=== PATIENT | male | born 1950 | race Caucasian/White ===

== ENCOUNTER 2018-12-17 23:32 | Inpatient (IN) | payer MEDICARE ==
[~2018-12-17 23:32] MED LIST: ISOVUE-370 76%-LOCM 1 ML ONE
[2018-12-17 23:48] LABS: #Basophils 0.1 thou/uL (0.0-0.2); #Eosinphils 0.3 thou/uL (0.0-0.7); #Lymphocytes 1.6 thou/uL (1.20-3.40); #Monocytes 0.5 thou/uL (0.11-0.59); #Neutrophils 3.1 thou/uL (1.40-6.50); %Basophils 1.3 % (0.0-1.0); %Eosinophils 5.9 % (0.0-10.0); %Lymphocytes 28.7 % (21.0-51.0); %Monocytes 9.4 % (0.0-10.0); %Neutrophils 54.8 % (42.0-75.0); Hemoglobin 15.1 g/dL (14.0-18.0); Mean Corpuscular HGB CONC 32.9 g/dL (32.0-36.0); Mean Corpuscular Volume 91.3 fL (78.0-98.0); Mean Platelet Volume 7.3 fL (7.4-10.4); Platelet Count 196 thou/uL (130-400); RBC Distribution Width 11.5 % (11.5-14.5); Red Blood Cell (RBC) Count 5.04 mill/uL (4.70-6.10); White Blood Cell (WBC) Count 5.6 thou/uL (4.8-10.8)
--- NOTE | 2018-12-17 23:51 | CT ---
CT BRAIN WITHOUT CONTRAST: HISTORY: Stroke alert. Slurred speech. Right arm weakness. COMPARISON: 07/06/2017 FINDINGS: Changes of chronic small vessel ischemic disease are again seen. The ventricular size is stable, and the basilar cisterns are patent. No evidence of acute infarct, hemorrhage, midline shift, or abnorm al extraaxial fluid collections is seen. The bony calvarium is intact. The visualized paranasal sin uses are well aerated. IMPRESSION: No CT evidence of acute intracranial process. Discussed over the telephone with Dr. Wiley at 11:45 p.m. HUMA SIERRA POS: [facility]
[2018-12-17 23:54] LABS: INR-International Normal Ratio 0.9; PTT 29.6 SEC (22.9-36.1); Prothrombin Time 12.4 SEC (12.0-14.7)
[2018-12-18 00:03] LABS: ALT (SGPT) 18 U/L (8-55); AST (SGOT) 19 U/L (5-34); Albumin 4.2 g/dL (3.4-4.8); Alkaline Phosphatase 94 U/L (40-150); Anion Gap 8 mmol/L (10-20); BUN (Urea Nitrogen) 12 mg/dL (8.4-25.7); Bilirubin, Total 0.7 mg/dL (0.2-1.2); CK (CPK) 120 U/L (30-200); Calc. Creatinine Clearance 0 mL/min (70-130); Calcium 9.7 mg/dL (7.8-10.44); Carbon Dioxide 29 mmol/L (23-31); Chloride 104 mmol/L (98-107); Estimated GFR-MDRD 80; Globulin 2.9 g/dL (2.4-3.5); Glucose 105 mg/dL (80-115); Potassium 4.2 mmol/L (3.5-5.1); Protein, Total 7.1 g/dL (5.8-8.1); Sodium 137 mmol/L (136-145)
[2018-12-18 00:23] LABS: Acetaminophen Less than 6.0 mcg/mL (10.0-30.0); Alcohol Less than 10 mg/dL (Less than 10); Salicylate Less than 8.0 mg/dL (15.0-30.0)
[2018-12-18] MEDS ORDERED: Aspirin 300 MG Suppository ONE (00:36)
[2018-12-18] MEDS ORDERED: Nitroglycerin 2% Ointment 1 INCH/1 GM Packet ONE (00:53)
[2018-12-18] MEDS ORDERED: hydrALAZINE 20 MG/ML VIAL SLOW IVP PRN (07:46)
--- NOTE | 2018-12-18 07:49 | CT ---
CTA HEAD WITH IV CONTRAST AND 3D POSTPROCESSING CTA NECK WITH IV CONTRAST AND 3D POSTPROCESSING. FINDINGS: Atherosclerotic vascular calcifications are seen most prominent in the carotid bulbs on either side. There is good flow in the vertebrobasilar and the carotid artery systems bilaterally. N significant stenosis, major branch occlusion, or aneurysmal formation is identified. The visualized paranasal sinuses are well aerated. The alae is patent. Parotid and submandibular gl ands are unremarkable. No cervical lymphadenopathy is seen. There are degenerative changes in the s pine. Discussed over the telephone with ER physician, Dr. Wiley at 12:00 a.m. CODE CR POS: [facility]
[2018-12-18] MEDS: Sodium Chloride 0.9% 1,000 ML IV SCH ×2 (08:30→20:46)
--- NOTE | 2018-12-18 09:35 | HP ---
CHIEF COMPLAINT: Right-sided weakness. HISTORY OF PRESENT ILLNESS: This patient has some encephalopathy, is unable to give a significant amount of history. The patient apparently presented to the emergency department per their records for stroke-like symptoms. Additional history that was obtained by EMS and eventually some family input that indicates the patient was experiencing right-sided weakness and slurred speech. His last known normal had been at 9 o'clock in the morning and he was outside the window for aggressive intervention. The patient was in fact noted to have right-sided weakness and slurred speech consistent with the CVA. Currently, the patient indicates by shaking his head that he does not need anything and that he does have some slight discomfort in his right upper extremity. Per the patient's records, he has a history of hypertension, hyperlipidemia, and a history of bradycardia requiring a pacemaker. PAST SURGICAL HISTORY: Only notable for the pacemaker in 2011. FAMILY HISTORY: His mother had coronary disease and as a result of that. SOCIAL HISTORY: The patient apparently drinks beer. Prior records in 2014 indicated that he drinks 4 to 6 on the weekends, but not during the week. His ER records indicate that he drinks daily. He has a history of smoking, but quit a number of years ago. REVIEW OF SYSTEMS: Not significantly obtainable. The patient only can answer some questions by nodding. Does indicate some discomfort on the right side. ALLERGIES: NONE. CURRENT MEDICATIONS: Not known. Again past records going back to 2014 indicate the patient was on a statin, aspirin, carvedilol, and hydrochlorothiazide, but again these are not known at this time. PHYSICAL EXAMINATION: VITAL SIGNS: Maximum blood pressure in the ER was 230/95. Most recent set of vitals 182/84, pulse 62, respirations 21, and O2 saturation 99% on room air. GENERAL APPEARANCE: The patient appears age appropriate. He is a bit encephalopathic. He does wake up and interact, but is groggy and tends to fall back asleep fairly quickly. HEENT: His pupils are reactive. He has no OP lesions. HEART: Regular without murmurs, gallops, or rubs. LUNGS: Clear to auscultation bilaterally with no wheezes or rales. ABDOMEN: Soft, nondistended. Positive bowel sounds. No evidence of tenderness. No organomegaly. EXTREMITIES: Have no cyanosis, clubbing, or edema. He has good peripheral pulses. SKIN: Slightly clammy on the right hand. Otherwise, warm and dry. NEUROLOGIC: Again, the patient appears to be somewhat encephalopathic. He does follow some commands appropriately others, he attempts, but does not get quite right. He has no movement in his right upper extremity. He does have some movements with what appears to be about a 3/5 strength in the right lower extremity. He appears to have some right facial droop. LABORATORY DATA: White count 5.6, hemoglobin 15.1, platelets 196. PT is 12.4, INR is 0.9. Sodium 137, potassium 4.2, chloride 104, CO2 is 29, BUN 12, creatinine 0.94, glucose 105. AST is 19, ALT 18. CK 120, troponin less than 0.01 with subsequent of less than 0.01 and third is 0.02, albumin 4.2, TSH 1.24. Tox screen negative for salicylates, acetaminophen, or alcohol. CT of the brain shows no evidence of acute intracranial process. CT angio shows atherosclerotic vascular calcifications seen most prominently in the carotid bulbs on either side. Good flow of the vertebrobasilar arteries and carotid systems bilaterally with no significant stenosis, major branch occlusion or aneurysmal formations identified. IMPRESSION AND PLAN: 1. Apparent acute cerebrovascular accident with right facial droop, right upper extremity paralysis, and right leg weakness as well as some metabolic encephalopathy and some expressive aphasia. The patient will be admitted to the stroke floor. We will consult the Stroke team and Neurology. The patient has received 300 mg of aspirin rectally. We will continue that daily. We will also order a statin; however, the patient is not cleared for p.o. at this point. I have discussed the situation with the patient's listed next of kin in the medical record system, which is Haseeb Hyatt at [phone]. He indicates that he is technically not a blood relative; however, the patient has been living with him and he has been caring for him for the last 13 years. The patient apparently does have a brother in [place] and Mr. Hyatt is going to reach out to him. They indicate the patient has not discussed any end of life issues with them, but the family will get back with us once they have had an opportunity to discuss the situation. 2. Hypertension. The patient appears to have some reactive hypertension secondary to the acute cerebrovascular accident. He did receive nitroglycerin paste in the emergency department. His blood pressure currently is high, but acceptable. I have given orders for permissive hypertension p.r.n. medications. 3. History of hyperlipidemia. The patient has history of being on a statin. It is unclear if he is still on that now. I will order some for him, but he is not cleared for p.o. as of yet. 4. History of bradycardia with pacemaker placement, currently appears to have stable heart rate. Job ID: [id number]
[2018-12-18 15:30] VITALS: BMI 26.2
[2018-12-18] MEDS: Aspirin 300 MG Suppository PR SCH (15:43)
[2018-12-18] MEDS: Atorvastatin Calcium 40 MG TAB PO SCH (21:00)
[2018-12-19 05:21] LABS: Cardiac Risk 4.5 (Less than 4.5)
[2018-12-19] MEDS ORDERED: Prevnar 13-Val Conj/PF 0.5 ML SYRINGE IM ONE (09:00)
[2018-12-19] MEDS ORDERED: Pantoprazole 40 MG VIAL IVP SCH (10:00)
[2018-12-19] MEDS: Aspirin 300 MG Suppository PR SCH (10:24)
--- NOTE | 2018-12-19 11:31 | RAD ---
CHEST 1 VIEW: HISTORY: Clots and emesis. COMPARISON: Radiograph of chest 2015. FINDINGS: Heart size is enlarged. Mild pulmonary venous congestion. Small effusions. Dual-lead pacer is gloria lar. No acute osseous abnormality. IMPRESSION: 1. Cardiomegaly and mild pulmonary venous congestion. 2. Left old acromioclavicular injury. POS: [facility]
[2018-12-19] MEDS: Sodium Chloride 0.9% 1,000 ML IV SCH (12:53)
--- NOTE | 2018-12-19 13:40 | CT ---
NONCONTRAST CT HEAD: Date: 12-19-18 History: Follow up stroke. Comparison: 12-17-18 FINDINGS: There is now a low density area seen in the medial aspect of the left temporal lobe compatible with a cute to subacute infarction. There has also been interval development of a low density area within th e left thalamus compatible with acute to subacute lacunar infarction. There is diminished attenuation again present in the periventricular white matter which is nonspecifi c but likely reflective of moderate chronic small vessel ischemic changes. There is mild cerebral volume loss. Ventricular system is normal in size, shape, and position for the degree of sulcal atrophy. There has been no other interval change from the prior exam. IMPRESSION: 1. Acute to subacute infarction in the medial aspect left temporal lobe. 2. Acute to subacute lacunar infarction left thalamus. 3. Chronic small vessel ischemic changes and cerebral volume loss. POS: [facility]
--- NOTE | 2018-12-19 16:59 | RAD ---
TWO VIEWS RIGHT KNEE: 12/19/18 HISTORY: Knee joint effusion. COMPARISON: 02/27/11. FINDINGS: There is tricompartment osteophytosis. There is narrowing of the medial joint compartment. This may b e slightly progressed from the prior exam. No fracture or dislocation is seen on the provided images. There is a small joint effusion of the suprapatellar location. Calcification also overlies the supra patellar joint which was not present on the prior exam. There is subcutaneous soft tissue swelling an terior to the knee. IMPRESSION: 1. Osteoarthritis mildly progressed from prior study in 2010. 2. Small joint effusion suprapatellar location with calcification seen overlying the superior as pect of the joint space of uncertain etiology. 3. Mild subcutaneous soft tissue swelling. 4. Osteopenia. POS: [facility]
--- NOTE | 2018-12-19 17:16 | PRG ---
DATE OF SERVICE: 12/19/2018 SUBJECTIVE The patient is still encephalopathic today, not able to converse much. He is not following commands consistently either. He does try to speak some. OBJECTIVE: VITAL SIGNS: T-max 101.2 this morning, latest 99.8, pulse 83, respirations 22, O2 saturation 97% on room air, and blood pressure 155/67. GENERAL APPEARANCE: Age-appropriate male. He is encephalopathic, tends to be asleep most of the time. Will awaken, mumbles a bit in response to questions, but unintelligible and not significantly following commands at this point. HEART: Regular rate and rhythm without murmurs, gallops, or rubs. LUNGS: Clear to auscultation bilaterally with no wheezes or rales. ABDOMEN: Soft, nontender, and nondistended. Positive bowel sounds. No masses. No organomegaly. EXTREMITIES: No edema. He has an effusion on the right knee, which does not appear to be substantially inflamed. NEUROLOGICAL: Again, the patient is encephalopathic. He is dysarthric, appears to have both some receptive and expressive aphasia. He has apparently pretty dense hemiplegia on the right today. He is not moving his left side much, but he is not understanding the need to do so when verbally asked to do so. LABORATORY DATA: Cholesterol 187, LDL 129, HDL 42. Chest x-ray was negative. There has been some cardiomegaly with mild pulmonary venous congestion. Repeat CT scan of the brain reveals acute to subacute infarction in the medial aspect of the left temporal lobe and acute to subacute lacunar infarct of the left thalamus, chronic small-vessel ischemic change and cerebral volume loss. IMPRESSION AND PLAN: 1. Acute cerebrovascular accident with resultant right hemiplegia, expressive and receptive aphasia, and encephalopathy. The patient is on rectal aspirin. He has statin ordered. It does not look like he is really capable of taking much in the way of p.o. at the moment. He remains n.p.o. and remains on a hydration as a result. Post stroke, the patient appears to be generally stable and his blood pressure is and starting to settle down. 2. Hypertension. The patient had some hypertension response to acute cerebrovascular accident, allowed some hypertension, he is improving. 3. History of hyperlipidemia. He is on statin. 4. History of bradycardia with pacemaker placement. 5. An additional assessment, which is fever. Etiology is unclear. The patient's chest x-ray did not demonstrate evidence of pneumonia or aspiration. He has blood cultures drawn. He also has a urinalysis ordered, but he has had some incontinence, so ultimately need to cath him for that. DISPOSITION: The patient is currently unable to adequately eat or hydrate himself. We will continue with IV fluids and monitoring to see if he will have some recovery in appreciate palliative care working toward establishing surrogate decision maker for the patient at this point. note indicates the patient has three living sisters, who are going to get together and discuss the surrogacy. He has a friend here locally, who has been helpful as well. Job ID: [id number] MTDD
[2018-12-19 18:22] LABS: Bilirubin Negative (Negative); Blood, Urine Moderate (Negative); Clarity CLEAR (Clear); Glucose, Urine (Dipstick) Negative (Negative); Leukocyte Negative (Negative); Nitrite Negative (Negative); Protein, Urine (Dipstick) Trace mg/dL (Neg-Trace); Specific Gravity, Urine 1.016 (1.002-1.036)
[2018-12-19 18:26] LABS: Bacteria/HPF None Seen HPF (None Seen); Hyaline Casts/LPF 0-3 HYALINE CAST LPF (0-3 Hyaline); Pathc Cast-AUWi Flag 0.14 (0-2.49); WBC/HPF 0-3 HPF (0-3)
[2018-12-19 18:30] LABS: Renal Epithelial None Seen HPF (0-3); Transitional Epithelial NONE SEEN HPF (0-3)
[2018-12-19] MEDS: Atorvastatin Calcium 40 MG TAB PO SCH (22:20)
--- NOTE | 2018-12-19 23:22 | CON ---
DATE OF CONSULTATION: 12/19/2018 CONSULTING PHYSICIAN: Hospitalist Service. IMPRESSION: 1. Left temporal and thalamic infarcts secondary to probably primary thrombotic event. 2. History of hypertension. 3. Pacemaker implantation. PLAN: 1. Review echocardiogram. 2. Aspirin 81 mg per day. 3. Statin therapy. HISTORY OF PRESENT ILLNESS: Mr. Munoz is a 68-year-old gentleman who developed left-sided weakness and slurred speech. He came into the emergency room for evaluation. His initial CT scan of the brain did not show any evidence of a bleed. Followup CT of the brain showed evidence of an acute left temporal and basal ganglia infarct. He had some old right subcortical ischemic changes as well. The CTA did not reveal any extracranial stenosis. His cholesterol ratio was 4.5. He does not smoke. He has not had any stroke symptoms recently. PAST MEDICAL HISTORY: Hypertension. ALLERGIES: NONE. SOCIAL HISTORY: Previous tobacco use. Daily alcohol use. FAMILY HISTORY: Noncontributory. MEDICATIONS: Medication list was reviewed. REVIEW OF SYSTEMS: 10-system review of systems is otherwise unremarkable. PHYSICAL EXAMINATION: VITAL SIGNS: Stable. He is afebrile. HEENT: Pupils are equal. Conjunctivae clear. Oropharynx clear. NECK: Supple. No lymphadenopathy. EXTREMITIES: No cyanosis or edema. NEUROLOGIC: He was awake and cooperative. He had a head deviation to the left. His speech was dysarthric. Cranial nerve exam showed flattening of the right nasolabial fold, could not elicit any spontaneous movement in the right arm or the legs. Sensation was subjectively decreased on the right side to light touch. Plantar response was upgoing on the right and downgoing on the left. Gait is not testable. No abnormal movements are seen. LABORATORY DATA: EKG shows a paced rhythm. SUMMARY: A 68-year-old gentleman with a moderate size stroke involving the left temporal and basal ganglia region resulting in some significant neurologic deficits. Start preventative treatment and plan on rehab transfer after his swallow function is determined. Job ID: [id number]
[2018-12-20] MEDS: Sodium Chloride 0.9% 1,000 ML IV SCH ×2 (02:29→17:37)
[2018-12-20] MEDS: Aspirin 300 MG Suppository PR SCH (09:25)
[2018-12-20] MEDS: Pantoprazole 40 MG VIAL IVP SCH (09:28)
[2018-12-20 11:00] LABS: #Eosinphils 0.2 thou/uL (0.0-0.7); #Lymphocytes 0.5 thou/uL (1.20-3.40); #Monocytes 0.6 thou/uL (0.11-0.59); %Basophils 0.3 % (0.0-1.0); %Eosinophils 3.1 % (0.0-10.0); %Lymphocytes 6.2 % (21.0-51.0); %Monocytes 7.6 % (0.0-10.0); %Neutrophils 82.7 % (42.0-75.0); Hemoglobin 14.4 g/dL (14.0-18.0); Mean Corpuscular HGB CONC 32.5 g/dL (32.0-36.0); Mean Corpuscular Hemoglobin 29.8 pg (27.0-31.0); Mean Corpuscular Volume 91.8 fL (78.0-98.0); Mean Platelet Volume 7.4 fL (7.4-10.4); Platelet Count 155 thou/uL (130-400); RBC Distribution Width 11.5 % (11.5-14.5); Red Blood Cell (RBC) Count 4.82 mill/uL (4.70-6.10); White Blood Cell (WBC) Count 7.2 thou/uL (4.8-10.8)
[2018-12-20 11:23] LABS: ALT (SGPT) 10 U/L (8-55); AST (SGOT) 16 U/L (5-34); Albumin 3.5 g/dL (3.4-4.8); Alkaline Phosphatase 86 U/L (40-150); Anion Gap 13 mmol/L (10-20); BUN (Urea Nitrogen) 11 mg/dL (8.4-25.7); Bilirubin, Total 1.1 mg/dL (0.2-1.2); Calc. Creatinine Clearance 87 mL/min (70-130); Carbon Dioxide 26 mmol/L (23-31); Chloride 100 mmol/L (98-107); Estimated GFR-MDRD 84; Globulin 2.8 g/dL (2.4-3.5); Glucose 86 mg/dL (80-115); Potassium 3.8 mmol/L (3.5-5.1); Protein, Total 6.3 g/dL (5.8-8.1); Sodium 135 mmol/L (136-145)
--- NOTE | 2018-12-20 13:24 | CT ---
HEAD CT WITHOUT CONTRAST: Date: 12/20/18 COMPARISON: 12/19/18. HISTORY: Neurostatus changes. TECHNIQUE: Axial CT imaging at 5 mm intervals from vertex through skull base without contrast. FINDINGS: The imaged paranasal sinuses/mastoid air cells are well aerated. There is no displaced calvarial frac ture. There is multifocal periventricular deep and subcortical white matter hypodensity, evidence of small vessel disease. There is loss of saxena-white differentiation with associated cytotoxic edema within the ENGINEERING GEOLOGIST territory on the left, including the left thalamus and left occipital lobe, consistent with an acute/subacute l eft-sided ENGINEERING GEOLOGIST infarction. There is no associated hemorrhage. No significant midline shift or mass eff ect. When compared to the prior head CT performed 12/19/18, the degree of cytotoxic edema within the occipital lobe on the left has significant worsened and the cytotoxic edema within the left thalamus has increased. IMPRESSION: Acute/subacute left ENGINEERING GEOLOGIST infarction with worsening cytotoxic edema. No associated hemorrhage. POS: [facility]
--- NOTE | 2018-12-20 16:31 | PDOC.PN ---
- Subjective Encounter Start Date: 12/20/18 Encounter Start Time: 10:20 More encephalopathic today. Not attempting to talk much. Was up in chair with PT, but still not responding well. - Objective Resuscitation Status - Order Detail: 12/18/18 07:50 Resuscitation Status Routine Resuscitation Status: FULL: Full Resuscitation Vital Signs & Weight: Vital Signs (12 hours) Temp Pulse Pulse Resp BP BP BP 12/20/18 15:54 101.9 F H 80 20 168/74 H 12/20/18 12:08 137/63 12/20/18 12:00 99.6 F 60 16 164/74 H 12/20/18 10:22 76 137/63 12/20/18 08:25 150/68 H 12/20/18 07:46 98.6 F 60 17 150/68 H Pulse Ox 12/20/18 15:54 97 12/20/18 12:08 12/20/18 12:00 96 12/20/18 10:22 12/20/18 08:25 96 12/20/18 07:46 96 Weight Weight 172 lb 11.2 oz I&O: 12/19/18 12/20/18 12/21/18 06:59 06:59 06:59 Intake Total 1320 Balance 1320 Result Diagrams: 12/20/18 10:40 12/20/18 10:40 Phys Exam - Physical Examination Constitutional: NAD Respiratory: no wheezing, no rales, no rhonchi, clear to auscultation bilateral Cardiovascular: RRR, no significant murmur, no rub Gastrointestinal: soft, non-tender, no distention, positive bowel sounds Musculoskeletal: no edema Right hemiplegia, right facial droop. Will squeeze with left hand upon command. Not responding otherwise. Dx/Plan (1) CVA (cerebral vascular accident) Code(s): I63.9 - CEREBRAL INFARCTION, UNSPECIFIED Status: Acute (2) Right hemiplegia Code(s): G81.91 - HEMIPLEGIA, UNSPECIFIED AFFECTING RIGHT DOMINANT SIDE Status : Acute (3) Metabolic encephalopathy Code(s): G93.41 - METABOLIC ENCEPHALOPATHY Status: Acute (4) Fever Code(s): R50.9 - FEVER, UNSPECIFIED Status: Acute (5) Dysphagia Code(s): R13.10 - DYSPHAGIA, UNSPECIFIED Status: Acute (6) Aphasia Code(s): R47.01 - APHASIA Status: Acute - Plan * Worsening neuro status. Increased encephalopathy. * CT shows progression of the infarct (as expected). * Does not look like he will be having significant improvement. * Will very like need PEG if he does not improve by tomorrow. Still NPO. * Will need to discuss with surrogates. * Fever may be central. No other evidence of infection. No leukocytosis. * CXR, UA and blood cultures all negative. Repeat BCx. Rectal tylenol. * Continue therapy.
[2018-12-20] MEDS: Acetaminophen 325 MG Suppository PR PRN (17:37)
[2018-12-20] MEDS: Atorvastatin Calcium 40 MG TAB PO SCH (22:24)
[2018-12-21] MEDS: Sodium Chloride 0.9% 1,000 ML IV SCH ×2 (04:30→16:56)
--- NOTE | 2018-12-21 08:41 | ULT ---
ULTRASOUND WITH DOPPLER DUPLEX VENOUS LOWER EXTREMITY BILATERAL: CPT: 42403 ICD-10-PCS: B54D INDICATION: Fever, pain. TECHNIQUE: Color flow Doppler, spectral waveform analysis of pulsed Doppler, and saxena-scale imaging with kenneth mike and augmentation, were used to evaluate the bilateral common femoral, femoral, popliteal, counselor marriage and family ior tibial, and superficial femoral, veins; and the proximal portions of the profunda femoral and gre ater saphenous, veins. FINDINGS: There is appropriate compressibility and flow within the imaged deep vein system of each visualized l ower extremity. IMPRESSION: No deep venous thrombosis of the visualized bilateral lower extremities. POS: [facility]
[2018-12-21 09:48] LABS: #Eosinphils 0.1 thou/uL (0.0-0.7); #Lymphocytes 0.4 thou/uL (1.20-3.40); #Monocytes 0.6 thou/uL (0.11-0.59); #Neutrophils 3.2 thou/uL (1.40-6.50); %Basophils 0.7 % (0.0-1.0); %Eosinophils 2.9 % (0.0-10.0); %Lymphocytes 9.3 % (21.0-51.0); %Monocytes 13.7 % (0.0-10.0); %Neutrophils 73.4 % (42.0-75.0); Hemoglobin 13.9 g/dL (14.0-18.0); Mean Corpuscular HGB CONC 33.6 g/dL (32.0-36.0); Mean Corpuscular Volume 89.2 fL (78.0-98.0); Mean Platelet Volume 6.9 fL (7.4-10.4); Platelet Count 152 thou/uL (130-400); RBC Distribution Width 11.2 % (11.5-14.5); Red Blood Cell (RBC) Count 4.64 mill/uL (4.70-6.10); White Blood Cell (WBC) Count 4.4 thou/uL (4.8-10.8)
[2018-12-21] MEDS: Pantoprazole 40 MG VIAL IVP SCH (10:52)
[2018-12-21] MEDS: Aspirin 300 MG Suppository PR SCH (10:52)
[2018-12-21] MEDS: Enoxaparin Sodium 40 MG/0.4 ML SYRINGE SC SCH (10:55)
[2018-12-21] MEDS ORDERED: hydrALAZINE 20 MG/ML VIAL SLOW IVP PRN (11:41)
--- NOTE | 2018-12-21 14:00 | CT ---
CT ARTERIOGRAM CHEST WITH IV CONTRAST AND 3D MIP IMAGING: HISTORY: Chest pain. Fever. FINDINGS: There is good contrast opacification of the pulmonary arteries. Bovine origin of the great vessels a t the aortic arch. Nonenlarged, nonspecific lymph nodes throughout the mediastinum. Small hiatal he rnia. Small amount of right pleural fluid. Minimal fluid on the left. Mild associated bibasilar at electasis. No lobar consolidation. A 0.5 cm subpleural nodule is present within the lateral segment right middle lobe. IMPRESSION: 1. No CT evidence of pulmonary embolus. 2. Very small bilateral pleural effusions. 3. Small right middle lobe nodule. Please consider followup CT chest with iv contrast in 6 to 12 mo nths to evaluate for stability. POS: [facility]
--- NOTE | 2018-12-21 14:27 | PDOC.PN ---
- Subjective Encounter Start Date: 12/21/18 Encounter Start Time: 10:05 More awake and alert. Speaking, but still garbled. - Objective Resuscitation Status - Order Detail: 12/18/18 07:50 Resuscitation Status Routine Resuscitation Status: FULL: Full Resuscitation Vital Signs & Weight: Vital Signs (12 hours) Temp Pulse Resp BP BP Pulse Ox 12/21/18 12:15 142/67 H 12/21/18 12:00 142/67 H 12/21/18 11:36 63 187/84 H 12/21/18 11:30 98.4 F 70 20 187/84 H 96 12/21/18 08:30 166/72 H 96 12/21/18 08:00 99.7 F H 61 20 166/72 H 94 L 12/21/18 04:06 165/78 H 12/21/18 04:00 99.7 F H 71 16 165/78 H 93 L Weight Weight 172 lb 11.2 oz I&O: 12/20/18 12/21/18 12/22/18 06:59 06:59 06:59 Intake Total 1320 2597 Balance 1320 2597 Result Diagrams: 12/21/18 09:43 12/20/18 10:40 Phys Exam - Physical Examination Constitutional: NAD Respiratory: no wheezing, no rales, no rhonchi, clear to auscultation bilateral Cardiovascular: RRR, no significant murmur Gastrointestinal: soft, non-tender, no distention, positive bowel sounds Musculoskeletal: no edema Some movement of RUE. RLE still paralyzed. Movement on left. More alert. Appears to comprehend fairly well and respond with nods. Dx/Plan (1) CVA (cerebral vascular accident) Code(s): I63.9 - CEREBRAL INFARCTION, UNSPECIFIED Status: Acute (2) Right hemiplegia Code(s): G81.91 - HEMIPLEGIA, UNSPECIFIED AFFECTING RIGHT DOMINANT SIDE Status : Acute (3) Metabolic encephalopathy Code(s): G93.41 - METABOLIC ENCEPHALOPATHY Status: Acute (4) Fever Code(s): R50.9 - FEVER, UNSPECIFIED Status: Acute (5) Dysphagia Code(s): R13.10 - DYSPHAGIA, UNSPECIFIED Status: Acute (6) Aphasia Code(s): R47.01 - APHASIA Status: Acute (7) Lung nodule seen on imaging study Code(s): R91.1 - SOLITARY PULMONARY NODULE Status: Acute - Plan * Patient appears to have expressive aphasia, but only modest receptive aphasia. He appears to comprehend speech fairly well. * He can answer questions by shaking or nodding his head. * He is ok with PEG. * He says is not close with his sisters and is OK with his local friends being surrogate decision makers for him. * I believe he is competent to make decisions regarding the PEG. I think he understands the situation adequately. * Needs PEG placed and then will need rehab or placement. * Suspect the fevers are central fevers. No evidence of infection or DVT/PE. * Very small lung nodule that will need follow scanning in the future.
[2018-12-21] MEDS ORDERED: Iopamidol 370 76% 100 ML VIAL ONE (16:23)
[2018-12-21] MEDS: Atorvastatin Calcium 40 MG TAB PO SCH (20:45)
[2018-12-21] MEDS: Acetaminophen 325 MG Suppository PR PRN (21:01)
[2018-12-22] MEDS: Sodium Chloride 0.9% 1,000 ML IV SCH ×2 (02:56→19:36)
--- NOTE | 2018-12-22 03:23 | CON ---
DATE OF CONSULTATION: 12/21/2018 REASON FOR CONSULTATION: Oropharyngeal dysphagia, status post CVA. CONSULTING PHYSICIAN: Dr. Sean Romero. HISTORY OF PRESENT ILLNESS: The patient is a 68-year-old male with past medical history of hypertension; hyperlipidemia; and bradycardia, status post pacemaker placement, initially presenting with increased slurred speech and right-sided weakness concerning for cerebrovascular accident. The patient's speech is fairly unintelligible at the current point in time with all information obtained via chart review. Per chart review, the patient was initially admitted to the hospital with complaints of right-sided weakness and slurred speech that was confirmed via family with collaboration. Imaging of head subsequently showed a stroke within the left temporal and basal ganglia region. This had now resulted in significant neurologic defects including an expressive aphasia as well as right-sided weakness. As part of the workup for his stroke, Speech Pathology Service was consulted with a bedside swallow study showing that the patient is unsafe for oral intake of either solid or liquid food and with recommendations to proceed with alternative forms of nutrition intake. At the time of this interview, the patient was able to understand very simple questions, but was unreliable in terms of his ability to understand yes or no and shaking his head to an affirmative or to the negative. Currently, he denies any nausea, vomiting, fevers, chills, or abdominal pain. REVIEW OF SYSTEMS: Reliable review of systems could not be obtained due to the patient's inability to answer questions effectively by nodding. PAST MEDICAL HISTORY: As per HPI. PAST SURGICAL HISTORY: Pacemaker placement in 2011. FAMILY HISTORY: There is no mention of GI malignancies per chart review. SOCIAL HISTORY: Per chart review, the patient was drinking approximately 4 to 6 beers on the weekend, but per more recent review, may have been drinking six pack per day. He does have history of smoking but quit a number of years ago. OUTPATIENT MEDICATIONS: Reviewed. ALLERGIES: NO KNOWN DRUG ALLERGIES. PHYSICAL EXAMINATION: VITAL SIGNS: Temperature 102.3, pulse 81, blood pressure 164/75, respiratory rate 16, saturating 94% on room air. GENERAL: The patient was lying in bed, in no acute distress. Alert and oriented x1, only being able to nod affirmatively to the patient's name. CARDIOVASCULAR: Regular rate and rhythm with no discernible murmurs, gallops, or rubs. RESPIRATORY: Mild end-expiratory wheezes were heard in the bilateral lower lung bases, but otherwise clear to auscultation bilaterally. ABDOMEN: Normoactive bowel sounds. Soft, nontender, and nondistended. EXTREMITIES: Mild contracture of the right upper extremity. No cyanosis, clubbing, or edema. LABORATORY DATA: CBC with a white blood cell count of 4.4, hemoglobin 13.9, hematocrit 41.4, platelets 152. INR 0.9. Chemistry with a sodium of 135, potassium 3.8, chloride 100, CO2 of 26, BUN 11, creatinine 0.9, glucose 86, AST 16, ALT 10, alkaline phosphatase 86, total bilirubin 1.1. IMAGING DATA: CT of the head obtained on 12/18/2018 showed an acute/subacute infarct of the left temporal lobe along with lacunar infarcts and small vessel changes in the cerebrovascular volume or cerebral volume loss. Speech pathology evaluation with bedside swallow study was performed on 12/21/2018 with increased choking and coughing with food intake and the determination that the patient is unsafe for oral intake of any food consistency. ASSESSMENT AND PLAN: The patient is a 68-year-old male with past medical history of hypertension; hyperlipidemia; and bradycardia, status post pacemaker, now presenting with right-sided neurological deficits consistent with left temporal lobe and basal ganglia cerebrovascular accident, also resulting in oropharyngeal dysphasia. Oropharyngeal dysphagia. The patient is presenting with increased right-sided weakness and slurring of speech with CT findings consistent with left temporal lobe and basal ganglia infarct. It has resulted in significant neurological deficits including oropharyngeal dysphagia as determined by the speech pathology service earlier today via bedside swallow study. At this time, the patient is not safe for oral intake of any food of any consistency per their review consistent with severe oropharyngeal dysphagia. At this time, the patient needs to seek alternative modalities and poor nutrition given the significant risk for aspiration. RECOMMENDATIONS: 1. Would continue the patient n.p.o. status given his severe oropharyngeal dysphagia. 2. Please hold any anticoagulation tonight in anticipation of an EGD with PEG tube placement tomorrow. 3. Further recommendations to follow endoscopic placement of gastrostomy tube tomorrow. We will continue to follow. Please call with any questions. Job ID: [id number]
[2018-12-22] MEDS: Acetaminophen 325 MG Suppository PR PRN ×2 (08:12→15:26)
[2018-12-22] MEDS ORDERED: Promethazine HCl 25 MG/ML VIAL IM PRN (09:58)
[2018-12-22] MEDS ORDERED: Ondansetron HCl/PF 4 MG/2 ML Vial IVP PRN (09:58)
[2018-12-22] MEDS ORDERED: Morphine Sulfate 2 MG/ML SYRINGE SLOW IVP PRN (09:58)
[2018-12-22] MEDS ORDERED: Promethazine HCl 25 MG/ML VIAL SLOW IVP PRN (09:58)
[2018-12-22] MEDS: Aspirin 300 MG Suppository PR SCH (10:30)
--- NOTE | 2018-12-22 10:37 | OP ---
DATE OF PROCEDURE: 12/22/2018 PROCEDURE PERFORMED: Esophagogastroduodenoscopy with percutaneous gastrostomy tube placement. INDICATION FOR PROCEDURE: Oropharyngeal dysphagia status post CVA. DESCRIPTION OF PROCEDURE: After the risks and benefits of the procedure were explained to the patient including risks of bleeding, infection, perforation, reactions to anesthesia, aspiration, and/or pain, informed consent was obtained. The patient was then taken to the endoscopy suite, where deep sedation was administered via propofol and anesthesia support. Once adequate sedation was achieved, the standard gastroscope was introduced into the mouth with intubation of the esophagus, stomach, and the proximal small intestine with the findings listed below. Upon completion of the visual examination using one-to-one compression and transillumination, a suitable site for percutaneous gastrostomy tube placement was found. The site was then marked and one pen approximately 5 mL of 1% Xylocaine was instilled in a wheal formation and then directed perpendicular to the skin and advanced into the stomach using back pressure. Upon the needle entering into the stomach, it was withdrawn with installation of the remaining Xylocaine to provide local anesthesia. Once the area was properly anesthetized, a small 1 cm vertical incision was made in the skin in preparation for the gastrostomy tube. Using an aspiration needle, the needle was then advanced into the stomach without difficulty, where a guidewire was fed through the catheter and retrieved with a snare via the endoscope. The snare was then withdrawn through the mouth and affixed to a [employer] 20-Mauritanian percutaneous gastrostomy tube. Using a push technique, the guidewire was then withdrawn through the anterior abdominal wall, pulling the gastrostomy tube in place. The gastrostomy tube was then cut to length and affixed with the adapter. Repeat upper endoscopy confirmed placement of the gastrostomy tube in the gastric body/antral junction with approximately 4 cm showing at the skin. Upon completion of this portion of the procedure, all equipment was removed from the patient, and he was transferred to PACU in satisfactory condition. FINDINGS: Esophagus: Normal-appearing mucosa was seen in the proximal esophagus; however, multiple linear ulcerations were seen extending up from the GE junction proximally from the GE junction around 10 cm consistent with severe reflux mediated erosive esophagitis (LA grade D erosive esophagitis). There was no associated mass or lesions, although some of the mucosa in the distal esophagus appeared to be sloughing off and did exhibit some mild friability and bleeding during the procedure. A small hiatal hernia was also seen in the distal esophagus measuring approximately 2 to 3 cm in size. Otherwise, there were no mass or lesions seen in the esophagus contributing to the above findings. Stomach: Normal-appearing mucosa was seen in the gastric cardia, fundus, body, antrum, greater curvature, and incisura. There was no evidence of erosions, ulcerations, mass, lesions, or active/recent bleeding. A small hiatal hernia was seen on gastric retroflexion. Duodenum: Normal-appearing mucosa was seen in both the duodenal bulb and second portion of the duodenum. There was no evidence of erosions, ulcerations, mass, lesions, or active/recent bleeding. IMPRESSION: 1. LA grade D erosive esophagitis, most likely reflux mediated. 2. Successful placement of a 20-Mauritanian [employer] percutaneous gastrostomy tube. RECOMMENDATIONS: 1. Would place the patient on PPI twice daily for the next 8 to 12 weeks for treatment of the severe reflux esophagitis. 2. Would consult dietitian/Nutrition Services for tube feed recommendations. 3. Standard protocol per PEG tube care. 4. The gastrostomy tube can be used within 6 hours after placement if no evidence of complication. We will continue to follow. Please call with any questions. Job ID: [id number]
[2018-12-22] MEDS: Pantoprazole 40 MG VIAL IVP SCH (11:17)
[2018-12-22] MEDS ORDERED: Lidocaine 1% PF 5 ML VIAL ONE (16:11)
[2018-12-22] MEDS ORDERED: PROPOFOL 200 MG/20 ML VIAL ONE (16:11)
[2018-12-22] MEDS ORDERED: Prevnar 13-Val Conj/PF 0.5 ML SYRINGE IM ONE (20:15)
[2018-12-22] MEDS: Atorvastatin Calcium 40 MG TAB PO SCH (20:51)
[2018-12-22] MEDS: Pantoprazole 40 MG GRANULES PACKET PER TUBE SCH (20:51)
--- NOTE | 2018-12-22 21:05 | PDOC.PN ---
- Subjective Encounter Start Date: 12/22/18 Encounter Start Time: 13:00 About the same. Still difficult to understand his speech. - Objective Resuscitation Status - Order Detail: 12/18/18 07:50 Resuscitation Status Routine Resuscitation Status: FULL: Full Resuscitation Vital Signs & Weight: Vital Signs (12 hours) Temp Pulse Pulse Pulse Resp BP BP 12/22/18 20:00 99.9 F H 74 19 12/22/18 16:00 168/80 H 12/22/18 15:37 100.7 F H 80 17 12/22/18 15:05 77 80 173/79 H 12/22/18 13:50 196/86 H 12/22/18 12:00 165/82 H 12/22/18 10:54 99 F 70 22 H BP BP Pulse Ox 12/22/18 20:00 156/70 H 92 L 12/22/18 16:00 12/22/18 15:37 168/80 H 93 L 12/22/18 15:05 178/77 H 12/22/18 13:50 12/22/18 12:00 12/22/18 10:54 165/82 H 95 Weight Weight 172 lb 11.2 oz I&O: 12/21/18 12/22/18 12/23/18 06:59 06:59 06:59 Intake Total 2597 Output Total 3 Balance 2597 -3 Result Diagrams: 12/21/18 09:43 12/20/18 10:40 Phys Exam - Physical Examination Constitutional: NAD Neck: no nodes Respiratory: no wheezing, no rales, no rhonchi Cardiovascular: RRR, no significant murmur Gastrointestinal: soft, non-tender, no distention, positive bowel sounds PEG in place. Musculoskeletal: no edema Alertness continues to improve. Follows commands. Some movement of RUE. No RLE movement. Expressive aphasia. Dx/Plan (1) CVA (cerebral vascular accident) Code(s): I63.9 - CEREBRAL INFARCTION, UNSPECIFIED Status: Acute (2) Right hemiplegia Code(s): G81.91 - HEMIPLEGIA, UNSPECIFIED AFFECTING RIGHT DOMINANT SIDE Status : Acute (3) Metabolic encephalopathy Code(s): G93.41 - METABOLIC ENCEPHALOPATHY Status: Acute (4) Fever Code(s): R50.9 - FEVER, UNSPECIFIED Status: Acute (5) Dysphagia Code(s): R13.10 - DYSPHAGIA, UNSPECIFIED Status: Acute (6) Aphasia Code(s): R47.01 - APHASIA Status: Acute (7) Lung nodule seen on imaging study Code(s): R91.1 - SOLITARY PULMONARY NODULE Status: Acute (8) Esophagitis Code(s): K20.9 - ESOPHAGITIS, UNSPECIFIED Status: Acute - Plan * CVA with right hemiplegia and expressive aphasia and dysphagia. * Had PEG placed today. Will start using it today. * Had severe esophagitis found on scope with PEG placement today. * PPI BID. * Could be contributing to the low grade fevers. * No evidence of infection. * Could be having some central fever. * Continue therapy. * Will need placement/rehab. * Local friend (Jeromy) established as surrogate decision maker. * Will need follow up imaging of the lung nodule in the future.
[2018-12-23] MEDS: Sodium Chloride 0.9% 1,000 ML IV SCH (09:26)
[2018-12-23] MEDS: Pantoprazole 40 MG GRANULES PACKET PER TUBE SCH ×2 (09:26→20:49)
[2018-12-23] MEDS: Enoxaparin Sodium 40 MG/0.4 ML SYRINGE SC SCH (09:26)
[2018-12-23] MEDS: Aspirin 300 MG Suppository PR SCH (09:26)
[2018-12-23] MEDS ORDERED: Pancrelipase DR 12000 1 CAP FS PRN (16:06)
[2018-12-23] MEDS ORDERED: Sodium Bicarbonate Tab 325 MG TAB PER TUBE PRN (16:06)
--- NOTE | 2018-12-23 17:16 | EKG ---
Test Reason : Blood Pressure : / mmHG Vent. Rate : 070 BPM Atrial Rate : 070 BPM P-R Int : 000 ms QRS Dur : 184 ms QT Int : 486 ms P-R-T Axes : 000 -61 105 degrees QTc Int : 524 ms AV sequential or dual chamber electronic pacemaker Confirmed by HERBERT MOODY MD ([id number]), newspaper photo editor WANG HOBSON ([id number]) on 12/23/2018 5:16:32 PM Referred By: Confirmed By:HERBERT MOODY MD
[2018-12-23] MEDS: Atorvastatin Calcium 40 MG TAB PO SCH (20:48)
--- NOTE | 2018-12-23 22:07 | PRG ---
DATE OF SERVICE: 12/23/2018 SUBJECTIVE: No overnight issues per RN. The patient is tolerating PEG tube feeding. Mentation remains the same. OBJECTIVE: VITAL SIGNS: Temperature 99.1, pulse 64, respirations 20, blood pressure 145/65, and O2 saturation 97% on room air. Telemetry monitoring by my review showed paced rhythm. GENERAL: A 68-year-old male, in no apparent distress. LUNGS: Showed diminished air entry at bases. HEART: S1 and S2 present. Regular. ABDOMEN: Soft. PEG tube present. EXTREMITIES: No calf tenderness. NEUROLOGICAL: No new focal findings. LAB FINDINGS: WBC 4.4 with hemoglobin 13.9 on the 21 of December. BUN was 11, creatinine 0.9. LDL was 129, cholesterol 187. Troponin was negative. IMPRESSION: 1. Encephalopathy due to acute left [employer] distribution cerebrovascular accident. 2. Hypertension. 3. Aphasia secondary to #1. 4. Hyperlipidemia. 5. History of bradycardia, status post pacemaker placement. 6. Chronic kidney disease, stage 2. 7. Swallow dysfunction, status post PEG tube placement. 8. Grade D erosive esophagitis, on Protonix b.i.d. PLAN: We will continue aspirin per Neurology recommendation. We will discontinue IV fluids since the patient is tolerating PEG tube feeding. Continue PPIs b.i.d. Continue therapy. Continue Lovenox for deep venous thrombosis prophylaxis. MRI of the brain could not be done due to pacemaker. Continue Stroke Team followup. The patient will need placement. Job ID: [id number]
--- NOTE | 2018-12-23 23:27 | PRG ---
DATE OF SERVICE: 12/23/2018 REASON FOR CONSULTATION: Oropharyngeal dysphagia, now status post PEG tube placement. SUBJECTIVE: No acute events or problems overnight. The patient was started on tube feeds and was at approximately 60 mL/h at the time of this evaluation. Currently, denies any nausea, vomiting, fevers, chills, or abdominal pain. OBJECTIVE: VITAL SIGNS: Temperature 99.9, pulse 67, blood pressure 118/56, respiratory rate 18, saturating 97% on room air. GENERAL: The patient is lying in bed, in no acute distress. Speech was difficult to understand. CARDIOVASCULAR: Regular rate and rhythm. RESPIRATORY: Clear to auscultation bilaterally. ABDOMEN: Normoactive bowel sounds. Soft, nontender, and nondistended. PEG tube was noted in the left upper quadrant with some dried blood around the stoma site, but no evidence of active bleeding. There was also no evidence of stomal breakdown or purulence. EXTREMITIES: Mild contracture of the right upper extremity. Otherwise, no cyanosis, clubbing, or edema. LABORATORY DATA: No current studies are available for review. IMAGING DATA: The patient underwent EGD with percutaneous gastrostomy tube placement on December 22, 2018, that was uncomplicated. ASSESSMENT AND PLAN: The patient is a 68-year-old male with past medical history of hypertension, hyperlipidemia, bradycardia, status post pacemaker, now presenting with right-sided neurological deficits secondary to a left temporal lobe and basal ganglia cerebrovascular accident resulting in oropharyngeal dysphagia. Oropharyngeal dysphagia. The patient initially presented with increased right-sided weakness and slurring of speech with CT findings consistent with a left temporal lobe and basal ganglia infarct. He was evaluated by Speech Pathology as part of stroke protocol and determined to have significant oropharyngeal dysphagia secondary to the stroke. He underwent EGD with percutaneous gastrostomy tube placement on December 22, 2018, with no perioperative complications and is now currently tolerating tube feeds at 60 mL/h without any adverse affects. RECOMMENDATIONS: 1. Would continue to feeds with goal per dietary recommendations. 2. Continue with standard PEG tube care precautions. We will sign off at this time. Please call with any questions. Job ID: [id number]
[2018-12-24 05:03] LABS: #Eosinphils 0.2 thou/uL (0.0-0.7); #Monocytes 0.5 thou/uL (0.11-0.59); #Neutrophils 2.6 thou/uL (1.40-6.50); %Basophils 0.7 % (0.0-1.0); %Eosinophils 3.9 % (0.0-10.0); %Neutrophils 61.5 % (42.0-75.0); Mean Corpuscular HGB CONC 33.9 g/dL (32.0-36.0); Mean Corpuscular Hemoglobin 30.5 pg (27.0-31.0); Mean Platelet Volume 6.8 fL (7.4-10.4); Platelet Count 169 thou/uL (130-400); RBC Distribution Width 11.2 % (11.5-14.5); Red Blood Cell (RBC) Count 4.58 mill/uL (4.70-6.10); White Blood Cell (WBC) Count 4.3 thou/uL (4.8-10.8)
[2018-12-24 05:24] LABS: Anion Gap 11 mmol/L (10-20); BUN (Urea Nitrogen) 12 mg/dL (8.4-25.7); Calc. Creatinine Clearance 109 mL/min (70-130); Calcium 9.2 mg/dL (7.8-10.44); Carbon Dioxide 28 mmol/L (23-31); Chloride 98 mmol/L (98-107); Estimated GFR-MDRD Greater than 90; Glucose 123 mg/dL (80-115); Magnesium 1.8 mg/dL (1.6-2.6); Phosphorus 2.8 mg/dL (2.3-4.7); Potassium 3.6 mmol/L (3.5-5.1); Sodium 133 mmol/L (136-145)
[2018-12-24] MEDS: Pantoprazole 40 MG GRANULES PACKET PER TUBE SCH (08:37)
[2018-12-24] MEDS: Enoxaparin Sodium 40 MG/0.4 ML SYRINGE SC SCH (08:37)
[2018-12-24] MEDS ORDERED: Aspirin Chewable 81 MG TAB PER TUBE SCH (09:00)
--- NOTE | 2018-12-24 09:43 | PDOC.PN ---
- Subjective Encounter Start Date: 12/24/18 Encounter Start Time: 09:31 -: non-verbal Patient seen and examined for Acute CVA. No acute issues. Tolerated PEG tube feeds. No overnight events - Objective Resuscitation Status - Order Detail: 12/18/18 07:50 Resuscitation Status Routine Resuscitation Status: FULL: Full Resuscitation MAR Reviewed: Yes Vital Signs & Weight: Vital Signs (12 hours) Temp Pulse Resp BP BP Pulse Ox 12/24/18 08:10 138/66 12/24/18 07:47 98.5 F 60 22 H 138/66 94 L 12/24/18 04:02 155/72 H 12/24/18 04:00 99.3 F 61 18 155/72 H 95 12/24/18 00:05 140/73 12/24/18 00:00 99.1 F 70 18 140/73 94 L Weight Weight 172 lb 11.2 oz I&O: 12/23/18 12/24/18 12/25/18 06:59 06:59 06:59 Intake Total 1135 3080 Balance 1135 3080 Result Diagrams: 12/24/18 04:45 12/24/18 04:45 EKG Reviewed by me: Yes (Tele paced) Phys Exam - Physical Examination Constitutional: NAD Respiratory: no wheezing, no rhonchi Cardiovascular: RRR, no rub Gastrointestinal: soft, non-tender, positive bowel sounds Musculoskeletal: no edema Neuro - no new focal findings Dx/Plan - Plan DVT proph w/lovenox, DVT proph w/SCDs IMPRESSION: 1. Encephalopathy due to acute left [employer] distribution cerebrovascular accident. 2. Hypertension. 3. Aphasia secondary to #1. 4. Hyperlipidemia. 5. History of bradycardia, status post pacemaker placement. 6. Chronic kidney disease, stage 2. 7. Swallow dysfunction, status post PEG tube placement. 8. Grade D erosive esophagitis - Protonix b.i.d. PLAN: Cont ASA/Statins Cont PEG tube feeding Cont PPI Await placement Cont other meds as below Review of Systems - Review of Systems Other: Cannot obtain due to current mentation - Medications/Allergies Allergies/Adverse Reactions: Allergies Allergy/AdvReac Type Severity Reaction Status Date / Time No Known Allergies Allergy Verified 01/27/15 01:40 Medications: Current Medications Acetaminophen (Tylenol) 325 mg AK Q4H PRN PRN Reason: Headache/Fever or Pain Last Admin: 12/22/18 15:26 Dose: 325 mg Lipase/Protease/Amylase ([place] [id number]) 1 cap FS .PER PROTOCOL PRN PRN Reason: TUBE OCCLUSION PROTOCOL Aspirin (Aspirin Chewable) 81 mg PER TUBE DAILY [facility] Last Admin: 12/24/18 08:37 Dose: 81 mg Atorvastatin Calcium (Lipitor) 40 mg PO HS [facility] Last Admin: 12/23/18 20:48 Dose: 40 mg Ciprofloxacin (Ciprofloxacin Hcl) 1 drop EA EYE Q4IV-GS [facility] Last Admin: 12/24/18 08:36 Dose: 1 drop Enoxaparin Sodium (Lovenox) 40 mg SC 0900 [facility] Last Admin: 12/24/18 08:37 Dose: 40 mg Hydralazine HCl (Apresoline) 10 mg SLOW IVP Q4H PRN PRN Reason: BP > 180/110 Last Admin: 12/22/18 13:50 Dose: 10 mg Pantoprazole Sodium (Protonix) 40 mg PER TUBE BID [facility] Last Admin: 12/24/18 08:37 Dose: 40 mg Sodium Bicarbonate (Bicarbonate, Sodium) 650 mg PER TUBE .PER PROTOCOL PRN PRN Reason: ENTERAL TUBE OCCLUSION Sodium Chloride (Flush - Normal Saline) 10 ml IVF PRN PRN PRN Reason: Saline Flush Last Admin: 12/19/18 10:28 Dose: 10 ml
[2018-12-24 11:50] VITALS: BP 127/60; TEMP 97.9
--- NOTE | 2018-12-24 16:08 | DIS ---
DATE OF ADMISSION: 12/18/2018 DATE OF DISCHARGE: 12/24/2018 DISCHARGE DISPOSITION: To [facility]. ALLERGIES: NO KNOWN DRUG ALLERGIES. DISCHARGE MEDICATIONS: 1. Tylenol as needed. 2. Aspirin 325 mg daily. 3. Lipitor 40 mg daily. 4. Protonix 40 mg b.i.d. Please note that home medications are still unclear. The patient was seen and examined on the day of discharge. Please refer to my progress notes for detail. BRIEF HOSPITAL COURSE: The patient is a 68-year-old male who presented to the hospital with altered mentation with stroke-like symptoms. His workup was consistent with acute left posterior cerebral artery distribution CVA. He has been started on aspirin per Neurology recommendation. Echocardiogram showed ejection fraction of 45% to 50% with moderately dilated left atrium and mild tricuspid regurgitation. Due to swallowing difficulty, he had a PEG tube placed on December by Dr. Avilez. His EGD also showed grade D erosive esophagitis. He will continue PPI twice daily for next 8 to 12 weeks for treatment of severe reflux esophagitis. He is tolerating PEG tube feeding. Again, his home medications are unclear. FINAL DIAGNOSES: 1. Encephalopathy due to left posterior cerebral artery distribution cerebrovascular accident. 2. Hypertension. 3. Aphasia secondary to encephalopathy. 4. Hyperlipidemia. 5. History of bradycardia, status post pacemaker placement. 6. Chronic kidney disease, stage 2. 7. Swallow dysfunction, status post PEG tube placement. 8. Grade D erosive esophagitis, on Protonix b.i.d. 9. Mild hyponatremia. 10. History of alcohol abuse. 11. Former smoker. Total time coordinating the discharge of this patient was 33 minutes. Job ID: [id number]
[2018-12-25] MEDS ORDERED: Aspirin 325 MG TAB PER TUBE SCH (09:00)
== END 2018-12-24 15:08 | DRG 65 ==
LOC: ERS 23:32 → ERHOLD 12-18 00:45 → 2SE 12-18 13:52
PROVIDERS: ADMIT Hospitalist; ATTEND Hospitalist
PROC: 0DH63UZ Insertion of Feeding Device into Stomach, Percutaneous Approach (ICD-10-PCS; principal; 2018-12-22)
DX: I63.9 Cerebral infarction, unspecified (principal); G93.49 Other encephalopathy; E87.1 Hypo-osmolality and hyponatremia; G81.91 Hemiplegia, unspecified affecting right dominant side; R47.01 Aphasia; R29.810 Facial weakness; E78.5 Hyperlipidemia, unspecified; R13.12 Dysphagia, oropharyngeal phase; K44.9 Diaphragmatic hernia without obstruction or gangrene; K21.0 Gastro-esophageal reflux disease with esophagitis; I12.9 Hypertensive chronic kidney disease with stage 1 through stage 4 chronic kidney disease, or unspecified chronic kidney disease; R40.2132 Coma scale, eyes open, to sound, at arrival to emergency department; R40.2242 Coma scale, best verbal response, confused conversation, at arrival to emergency department; R40.2362 Coma scale, best motor response, obeys commands, at arrival to emergency department; N18.2 Chronic kidney disease, stage 2 (mild); I07.1 Rheumatic tricuspid insufficiency; R50.9 Fever, unspecified; R32 Unspecified urinary incontinence; R91.1 Solitary pulmonary nodule; F10.10 Alcohol abuse, uncomplicated; Z95.0 Presence of cardiac pacemaker; Z87.891 Personal history of nicotine dependence
CPT/HCPCS: 36415; 36416; 70450; 70496; 70498; 71045; 71275; 80048; 80053; 80061; 80307; 81003; 81015; 82550; 83735; 84100; 84443; 84484; 85025; 85610; 85730; 87040; 90471; 90662; 90670; 93005; 93306; 93970; 94760; 96360; 96361; C9113; G0008; G0009; J0360; J1650; J2001; J2704; Q9966; Q9967

== ENCOUNTER 2019-03-16 04:59 | Emergency (ER) | payer MEDICARE ==
[2019-03-16] MEDS ORDERED: Ondansetron PF 4 MG/2 ML Vial ONE (05:36)
[2019-03-16] MEDS ORDERED: Morphine 4 MG/ML VIAL ONE (05:36)
[2019-03-16 05:37] LABS: #Basophils 0.1 thou/uL (0.0-0.2); #Eosinphils 0.3 thou/uL (0.0-0.7); #Lymphocytes 1.7 thou/uL (1.20-3.40); #Monocytes 0.6 thou/uL (0.11-0.59); #Neutrophils 4.2 thou/uL (1.40-6.50); %Basophils 1.1 % (0.0-1.0); %Lymphocytes 24.7 % (21.0-51.0); %Monocytes 8.2 % (0.0-10.0); %Neutrophils 61.1 % (42.0-75.0); Hemoglobin 13.6 g/dL (14.0-18.0); Mean Corpuscular HGB CONC 34.3 g/dL (32.0-36.0); Mean Corpuscular Hemoglobin 30.2 pg (27.0-31.0); Mean Corpuscular Volume 88.1 fL (78.0-98.0); Mean Platelet Volume 7.2 fL (7.4-10.4); Platelet Count 242 thou/uL (130-400); RBC Distribution Width 11.9 % (11.5-14.5); White Blood Cell (WBC) Count 6.8 thou/uL (4.8-10.8)
[2019-03-16 05:50] LABS: ALT (SGPT) 17 U/L (8-55); AST (SGOT) 13 U/L (5-34); Albumin 3.9 g/dL (3.4-4.8); Alkaline Phosphatase 107 U/L (40-150); Anion Gap 11 mmol/L (10-20); BUN (Urea Nitrogen) 15 mg/dL (8.4-25.7); Bilirubin, Total 0.8 mg/dL (0.2-1.2); CRP (Inflammatory) Less than 0.50 mg/dL (= or < 0.5); Calc. Creatinine Clearance 0 mL/min (70-130); Calcium 10.3 mg/dL (7.8-10.44); Carbon Dioxide 29 mmol/L (23-31); Chloride 102 mmol/L (98-107); Estimated GFR-MDRD Greater than 90; Globulin 2.3 g/dL (2.4-3.5); Glucose 90 mg/dL (80-115); Potassium 3.9 mmol/L (3.5-5.1); Protein, Total 6.2 g/dL (5.8-8.1); Sodium 138 mmol/L (136-145)
--- NOTE | 2019-03-16 07:32 | RAD ---
CHEST 1 VIEW: INDICATION: Epigastric abdominal pain. COMPARISON: Prior exam dated 12/19/2018. FINDINGS: There is cardiomegaly which is stable. Pulmonary vasculature is within normal limits. There is a st able dual-lead pacemaker. No pleural effusion or pneumothorax evident. No acute osseous abnormality is evident. IMPRESSION: No acute abnormality. Stable cardiomegaly. POS: BH
--- NOTE | 2019-03-16 08:33 | CT ---
CT ABDOMEN AND PELVIS WITH IV CONTRAST: Date: 03/16/19 INDICATION: Epigastric abdominal pain that began abruptly at 12:00 PM. Pain is localized to a PEG insertion in th e left upper quadrant of the abdomen. The PEG catheter was recently removed. FINDINGS: There is a 5 mm pulmonary nodule in the right middle lobe that is stable to comparison CT examination dated 12/21/18. There is stable calcified granuloma within the right lower lobe. There is bibasilar atelectasis. There is a PEG tube tract site extending from the anterior aspect of the gastric body. No focal fluid collection is seen along this region. Liver, spleen, pancreas, and adrenal glands are normal appearing. Kidneys are normal appearing. No fr ee fluid or enlarged lymph nodes are evident. There is a moderate amount of retained stool within the colon. There is bladder wall thickening with bladder diverticula suspicious for changes of chronic bladder o utlet obstruction. The prostate is enlarged, measuring approximately 3.0 cm. There is a 2.8 and a 2.6 mm stone within the posterior aspect of the bladder, which may reflect bladder calculi. No enlarged lymph nodes or free fluid evident. There is diffuse osteopenia. There is scattered degenerative and osteoarthritic change. IMPRESSION: 1. PEG tube tract within the left upper quadrant of the abdomen without gross evidence of a focal fl uid collection. There is no evidence of extravasation grossly from the PEG tract. 2. Moderate amount of retained stool within the colon. 3. Findings of chronic bladder outlet obstruction with wall thickening and numerous bladder divertic brandt. There are small suspected stones seen along the posterior aspect of the bladder. There is no keerthi dence of hydronephrosis to suggest a recently passed ureteral stone. 4. Prostate enlargement. 5. Right middle lobe pulmonary nodule. POS: BH
[2019-03-16 08:34] LABS: Bilirubin Negative (Negative); Blood, Urine Negative (Negative); Clarity CLEAR (Clear); Glucose, Urine (Dipstick) Negative (Negative); Leukocyte Negative (Negative); Nitrite Negative (Negative); Protein, Urine (Dipstick) Negative (Neg-Trace); Specific Gravity, Urine 1.022 (1.002-1.036)
[2019-03-16] MEDS ORDERED: ISOVUE-370 76%-LOCM 1 ML ONE (10:57)
== END 2019-03-16 10:01 ==
LOC: ERS 04:59
DX: R10.84 Generalized abdominal pain (principal); I10 Essential (primary) hypertension; Z86.73 Personal history of transient ischemic attack (TIA), and cerebral infarction without residual deficits; Z87.891 Personal history of nicotine dependence; Z79.899 Other long term (current) drug therapy; Z79.82 Long term (current) use of aspirin
CPT/HCPCS: 36415; 51701; 71045; 74177; 80053; 81003; 83605; 83690; 84484; 85025; 86140; 87086; 93005; 96361; 96374; 96375; J2270; J2405; Q9966

== ENCOUNTER 2019-08-10 19:37 | Inpatient (IN) | payer MEDICARE, MEDICAID ==
--- NOTE | 2019-08-10 20:52 | RAD ---
EXAM: Chest one view: HISTORY: Back pain COMPARISON: 03/16/2019 FINDINGS: Left ICD. Heart size: Borderline enlarged. Lungs: Increased markings bilaterally possibly mild vascular congestion with little change from prior study. No evidence for pneumonia, pleural effusion, acute edema, or pneumothorax, or other significant acute process. IMPRESSION: No significant acute intrathoracic disease.
[2019-08-10 20:56] LABS: #Basophils 0.1 thou/uL (0.0-0.2); #Eosinphils 0.5 thou/uL (0.0-0.7); #Lymphocytes 2.4 thou/uL (1.20-3.40); #Monocytes 0.8 thou/uL (0.11-0.59); #Neutrophils 4.9 thou/uL (1.40-6.50); %Basophils 0.8 % (0.0-1.0); %Eosinophils 5.3 % (0.0-10.0); %Lymphocytes 27.9 % (21.0-51.0); %Monocytes 8.8 % (0.0-10.0); %Neutrophils 57.2 % (42.0-75.0); Hemoglobin 13.6 g/dL (14.0-18.0); Mean Corpuscular HGB CONC 33.8 g/dL (32.0-36.0); Mean Corpuscular Hemoglobin 29.8 pg (27.0-31.0); Mean Corpuscular Volume 88.1 fL (78.0-98.0); Mean Platelet Volume 7.1 fL (7.4-10.4); Platelet Count 234 thou/uL (130-400); RBC Distribution Width 11.9 % (11.5-14.5); Red Blood Cell (RBC) Count 4.56 mill/uL (4.70-6.10); White Blood Cell (WBC) Count 8.6 thou/uL (4.8-10.8)
[2019-08-10] MEDS ORDERED: Morphine 4 MG/ML VIAL ONE (21:07)
[2019-08-10] MEDS ORDERED: Ondansetron PF 4 MG/2 ML Vial ONE (21:07)
[2019-08-10 21:17] LABS: ALT (SGPT) 19 U/L (8-55); AST (SGOT) 14 U/L (5-34); Albumin 3.9 g/dL (3.4-4.8); Alkaline Phosphatase 130 U/L (40-110); Anion Gap 10 mmol/L (10-20); BUN (Urea Nitrogen) 15 mg/dL (8.4-25.7); Bilirubin, Total 0.4 mg/dL (0.2-1.2); CK (CPK) 55 U/L (30-200); Calc. Creatinine Clearance 0 mL/min (70-130); Calcium 9.5 mg/dL (7.8-10.44); Carbon Dioxide 30 mmol/L (23-31); Chloride 100 mmol/L (98-107); Estimated GFR-MDRD Greater than 90; Globulin 2.6 g/dL (2.4-3.5); Glucose 123 mg/dL (80-115); Lipase 17 U/L (8-78); Potassium 3.9 mmol/L (3.5-5.1); Protein, Total 6.5 g/dL (5.8-8.1); Sodium 136 mmol/L (136-145)
[2019-08-10 21:38] LABS: CKMB 1.9 ng/mL (0-6.6)
--- NOTE | 2019-08-10 22:01 | CT ---
Exam: Chest CTA with 3-D rendering: HISTORY: Chest pain, concern for dissection No significant acute pulmonary parenchymal process. No evidence for aortic aneurysm or dissection. 3 vessel coronary artery calcific disease. No mediastinal mass or adenopathy. No pleural effusion or pericardial effusion. Abdomen CTA with 3-D rendering: No evidence for abdominal aortic aneurysm or dissection. Several small vascular calcified plaques. Vi sualized abdominal viscera is unremarkable. Small hiatal hernia. No renal calculus or acute obstruction. IMPRESSION: No evidence for aortic dissection are other acute process.
[2019-08-10 23:46] LABS: Troponin I Less than 0.010 ng/mL (< 0.028)
[2019-08-11] MEDS ORDERED: Aspirin Chewable 81 MG TAB ONE (00:24)
[2019-08-11 01:14] VITALS: BMI 20.4
--- NOTE | 2019-08-11 02:27 | PDOC.EVN ---
Event Note - Event Note Event Note: [id number] HP
[2019-08-11 03:27] LABS: Troponin I Less than 0.010 ng/mL (< 0.028)
[2019-08-11] MEDS ORDERED: Aspirin 325 MG TAB PO SCH (08:00)
[2019-08-11] MEDS ORDERED: FLU VACC TS2019-20(65YR UP)/PF 180 MCG/0.5 ML SYRINGE IM ONE (09:00)
[2019-08-11] MEDS ORDERED: Prevnar 13-Val Conj/PF 0.5 ML SYRINGE IM ONE (09:00)
[2019-08-11] MEDS ORDERED: Polyethylene Glycol 3350 17 GM Packet PO SCH (12:15)
[2019-08-11] MEDS ORDERED: Bisacodyl 5 MG TAB PO SCH (12:15)
[2019-08-11 13:19] LABS: Bacteria/HPF 4+ HPF (None Seen); Bilirubin Negative (Negative); Blood, Urine Negative (Negative); Clarity Turbid (Clear); Glucose, Urine (Dipstick) Normal (Negative); Leukocyte 500 Leu/uL (Negative); Nitrite Negative (Negative); Protein, Urine (Dipstick) Negative (Neg-Trace); RBC/HPF 0-3 HPF (0-3); Squamous Epithelial None Seen HPF (0-3); Urobilinogen Normal mg/dL (Less than 2); WBC/HPF Greater than 50 HPF (0-3)
[2019-08-11 13:21] LABS: Urine Culture Reflex Yes Yes
[2019-08-11] MEDS: cefTRIAXone\\ROCEPHIN 1 GM in Sodium Chloride 0.9% 100 ML IVPB SCH (18:18)
[2019-08-11] MEDS: Baclofen 10 MG TAB PO PRN (18:19)
--- NOTE | 2019-08-11 20:36 | PDOC.HOSPP ---
- Subjective Encounter Date: 08/11/19 Encounter Time: 10:30 Subjective: pt up in bed has dementia. - Objective Vital Signs & Weight: Vital Signs (12 hours) Temp Pulse Resp BP Pulse Ox 08/11/19 20:00 99.4 F 78 20 109/65 96 08/11/19 16:30 96 08/11/19 15:48 98.4 F 70 15 108/64 96 08/11/19 12:42 95 08/11/19 11:54 98.3 F 72 18 106/65 95 Weight Weight 150 lb 6.4 oz I&O: 08/10/19 08/11/19 08/12/19 06:59 06:59 06:59 Intake Total 100 500 Output Total 150 400 Balance -50 100 Result Diagrams: 08/10/19 20:46 08/10/19 20:46 Hospitalist ROS - Review of Systems Other: unable to obtain - Medication Medications: Active Medications Generic Name Dose Route Start Last Admin Trade Name Freq PRN Reason Stop Dose Admin Baclofen 10 mg 08/11/19 17:17 08/11/19 18:19 Lioresal PO 10 mg BIDPRN PRN Administration Pain Ceftriaxone Sodium 1 gm/ 100 mls @ 200 mls/hr 08/11/19 18:00 08/11/19 18:18 Sodium Chloride IVPB 100 mls Q24HR JAYRO Administration - Exam Neck: negative: supple, symmetric, no JVD, no thyromegaly, no lymphadenopathy, no carotid bruit, JVD Heart: negative: RRR, no murmur, no gallops, no rubs, normal peripheral pulses, irregular, diminshed peripheral pulses, murmur present, II/IV, III/IV Respiratory: negative: CTAB, no wheezes, no rales, no ronchi, normal chest expansion, no tachypnea, normal percussion, rales, rhonchi, tachypneic, wheezes Hosp A/P (1) Generalized pain Code(s): R52 - PAIN, UNSPECIFIED Status: Acute (2) Atrial flutter Code(s): I48.92 - UNSPECIFIED ATRIAL FLUTTER Status: Acute (3) HLD (hyperlipidemia) Code(s): E78.5 - HYPERLIPIDEMIA, UNSPECIFIED Status: Acute (4) HTN (hypertension) Code(s): I10 - ESSENTIAL (PRIMARY) HYPERTENSION Status: Acute (5) UTI (urinary tract infection) Status: Acute - Plan pacemaker indicated aflutter, will get echo to see if his ef has worsen. will give him one dose of AC. will start pt on ceftriaxone.
[2019-08-11] MEDS: Atorvastatin Calcium 40 MG TAB PO SCH (21:25)
[2019-08-11] MEDS: Enoxaparin Sodium 80 MG/0.8 ML SYRINGE SC SCH (21:25)
[2019-08-12] MEDS ORDERED: Aspirin 81 mg Enteric Coated Tablet PO SCH (09:00)
[2019-08-12] MEDS: Aspirin 81 mg Enteric Coated Tablet PO SCH (09:59)
[2019-08-12] MEDS: Enoxaparin Sodium 80 MG/0.8 ML SYRINGE SC SCH (10:03)
--- NOTE | 2019-08-12 14:47 | PDOC.HOSPP ---
- Subjective Encounter Date: 08/12/19 Encounter Time: 14:45 Subjective: f/u for A-flutter with V-pacing and UTI with Strep spp on Rocephin currently. - Objective Vital Signs & Weight: Vital Signs (12 hours) Temp Pulse Resp BP BP BP Pulse Ox 08/12/19 11:30 97.9 F 80 18 116/72 96 08/12/19 08:10 97.9 F 74 18 122/73 97 08/12/19 04:00 98.9 F 80 18 140/74 97 Weight Weight 150 lb 6.4 oz I&O: 08/11/19 08/12/19 08/13/19 06:59 06:59 06:59 Intake Total 100 650 Output Total 150 400 Balance -50 250 Result Diagrams: 08/10/19 20:46 08/10/19 20:46 Additional Labs: Microbiology 08/12/19 03:50 Stool C. difficile GDH Antigen & Toxins - Final 08/11/19 13:21 Urine Straight Catheter Urine Culture - Preliminary Streptococcus agalactiae Gp. B EKG Reviewed by me: Yes (Tele - V-pacing) Hospitalist ROS - Medication Medications: Active Medications Generic Name Dose Route Start Last Admin Trade Name Freq PRN Reason Stop Dose Admin Aspirin 81 mg 08/12/19 09:00 08/12/19 09:59 Ecotrin PO 81 mg DAILY JAYRO Administration Atorvastatin Calcium 40 mg 08/11/19 21:00 08/11/19 21:25 Lipitor PO 40 mg HS JAYRO Administration Baclofen 10 mg 08/11/19 17:17 08/11/19 18:19 Lioresal PO 10 mg BIDPRN PRN Administration Pain Enoxaparin Sodium 70 mg 08/11/19 21:00 08/12/19 10:03 Lovenox SC Not Given 0900,2100 JAYRO Ceftriaxone Sodium 1 gm/ 100 mls @ 200 mls/hr 08/11/19 18:00 08/11/19 18:18 Sodium Chloride IVPB 100 mls Q24HR JAYRO Administration Sertraline HCl 50 mg 08/12/19 09:00 08/12/19 10:03 Zoloft PO Not Given DAILY JAYRO - Exam General Appearance: NAD, awake alert Eye: PERRL, anicteric sclera ENT: normocephalic atraumatic, no oropharyngeal lesions Neck: supple, symmetric, no JVD, no thyromegaly, no lymphadenopathy Heart: RRR, no gallops, no rubs, normal peripheral pulses Respiratory: CTAB, no wheezes, no rales, no ronchi Gastrointestinal: soft, non-tender, non-distended, normal bowel sounds, no palpable masses Extremities: no cyanosis, no clubbing, no edema Skin: normal turgor, no lesions Neurological: cranial nerve grossly intact, no new deficit Musculoskeletal: normal tone, generalized weakness Psychiatric: oriented to person, flat affect Hosp A/P (1) UTI (urinary tract infection) Status: Acute Plan: Group B Strep spp, continue Rocephin another 24h then convert to po option (2) Generalized pain Code(s): R52 - PAIN, UNSPECIFIED Status: Acute Plan: Continue Sertraline, Toradol PRN (3) Atrial flutter Code(s): I48.92 - UNSPECIFIED ATRIAL FLUTTER Status: Acute Qualifiers: Atrial flutter type: atypical Qualified Code(s): I48.4 - Atypical atrial flutter Plan: Non-sustained with spontaneous return to SR, continue Amlodipine, 2D echo pending (4) HTN (hypertension) Code(s): I10 - ESSENTIAL (PRIMARY) HYPERTENSION Status: Chronic Qualifiers: Hypertension type: essential hypertension Qualified Code(s): I10 - Essential (primary) hypertension Plan: Stable currently, resume home BP regimen - Plan continue antibiotics, PT/OT, social media editor, out of bed/ambulate, DVT proph w/ SCDs Stable currently Continue Rocephin another 24h then convert to po option Continue ASA/Lipitor D/C Lovenox CM for coordination of return to [facility]
[2019-08-12] MEDS ORDERED: Simethicone Chewable 80 MG TAB PO PRN (14:57)
[2019-08-12] MEDS: Baclofen 10 MG TAB PO PRN (16:54)
[2019-08-12] MEDS: cefTRIAXone\\ROCEPHIN 1 GM in Sodium Chloride 0.9% 100 ML IVPB SCH (18:49)
[2019-08-12] MEDS: Atorvastatin Calcium 40 MG TAB PO SCH (22:29)
--- NOTE | 2019-08-13 07:55 | HP ---
CHIEF COMPLAINT: Chest pain. HISTORY OF PRESENT ILLNESS: Mr. Munoz is a 68-year-old male with past medical history of CVA, hypertension, pacemaker, among others, presents to the emergency room with chest pain. The patient also reported getting back pains often. Denies shortness of breath, nausea, or vomiting. Denies sweating. The patient has a pacemaker. Workup in the emergency room including troponin was borderline. The patient is being admitted to the hospital for further management. PAST MEDICAL HISTORY: 1. Hypertension. 2. CVA followed by aphasia. PAST SURGICAL HISTORY: 1. Pacemaker. 2. PEG tube, which was removed. SOCIAL HISTORY: The patient is a former smoker, 1.5 packs a day for 15 years. No drug use history. Also, it was reported the patient drinks alcohol daily. ALLERGIES: NO KNOWN ALLERGIES. FAMILY HISTORY: Reviewed and noncontributory. HOME MEDICATIONS: Please see home medication reconciliation form for updated medications. REVIEW OF SYSTEMS: Review of 14 systems negative except what is mentioned in the history of present illness. PHYSICAL EXAMINATION: GENERAL: The patient is awake, alert, does not appear to be in acute distress. VITAL SIGNS: Blood pressure is 122/70, pulse is 80, respiratory rate is 18, temperature is 97.8. HEAD AND NECK: Normocephalic, atraumatic. Neck is supple. No JVD. CHEST: Fair bilateral air entry. HEART: Distant heart sounds. ABDOMEN: Soft, nontender. Bowel sounds present. NEUROLOGIC: Awake and alert. PSYCHIATRIC: Unable to assess. EXTREMITIES: No clubbing, no cyanosis. LABORATORY DATA: WBC is 8.6, hemoglobin 13.6, platelets 234. Sodium 136, potassium 3.9, BUN 15, creatinine 0.8, glucose 123. Troponin 0.032. ASSESSMENT: 1. Acute chest pain. 2. Indeterminate troponin. 3. History of cerebrovascular accident. 4. Hypertension. PLAN: 1. Admit. 2. Telemetry monitoring. 3. Aspirin. 4. Serial cardiac enzymes. 5. Reconcile home medications. 6. DVT prophylaxis, SCDs. 7. Expected length of stay at least 1 midnight if the patient is stable and further workup negative. Job ID: [id number]
[2019-08-13] MEDS ORDERED: Amlodipine 5 MG TAB PO SCH (09:00)
[2019-08-13] MEDS ORDERED: Pantoprazole 40 MG GRANULES PACKET PO SCH (09:00)
[2019-08-13] MEDS ORDERED: Polyethylene Glycol 3350 17 GM Packet PO SCH (09:00)
[2019-08-13] MEDS: Aspirin 81 mg Enteric Coated Tablet PO SCH (09:35)
[2019-08-13] MEDS: Baclofen 10 MG TAB PO PRN (10:00)
[2019-08-13 16:09] VITALS: BP 111/57; TEMP 99.2
--- NOTE | 2019-08-14 08:00 | DIS ---
DATE OF ADMISSION: 08/12/2019 DATE OF DISCHARGE: 08/13/2019 DISCHARGE DIAGNOSES: 1. Urinary tract infection with group B Streptococcus species. 2. Generalized pain, multifactorial. 3. Atrial flutter, nonsustained with spontaneous return to sinus mechanism. 4. Hypertension, stable. 5. Status post cerebrovascular accident with residual aphasia. 6. Deconditioning. CONSULTATIONS: None. PERTINENT LABORATORY AND X-RAY FINDINGS: Basic metabolic profile within normal limits. AST 14, ALT 19, alkaline phosphatase 130. Troponin I ranged between 0.010 to 0.032. CBC showed a white blood cell count 8.6, hemoglobin 14, hematocrit 40, platelet count 234 with normal differential. Urine culture dated 08/11/2019, showed greater than 100,000 colonies of group B Streptococcus agalactiae . C difficile antigen and toxin dated 08/12/2019, negative. CT of the chest with dissection protocol showed no evidence of aortic dissection or acute process. Portable chest x-ray dated 08/10/2019, showed no acute cardiopulmonary process. 2D transthoracic echocardiogram dated 08/12/2019, showed ejection fraction of 40% to 45%. Moderate to severe left atrial enlargement. HOSPITAL COURSE: The patient was initially admitted after presenting with chest and generalized pain. The patient underwent extensive evaluation including metabolic screening and radiographic evaluation. Metabolic screening was essentially unremarkable and the patient received aspirin and resumption of his home medications. The patient's urinalysis was suspicious for infectious process with urine culture confirming greater than 100,000 colonies of Streptococcus species. The patient was treated with IV Rocephin, transitioning to Omnicef with recommendations to complete an outpatient antibiotic course. The patient also underwent interrogation of his pacemaker device showing evidence of intermittent atrial tachycardia, converting to sinus mechanism. No specific changes were performed on the device and overall, the device was deemed functioning appropriately. Overall, the patient did remain clinically stable during the hospital course, tolerating regular oral intake with stable vital signs. I have examined the patient at the time of discharge and discussed followup instructions. The patient clinically stable and ready for discharge on 08/13/2019. DISCHARGE MEDICATIONS: 1. Amlodipine 5 mg p.o. daily. 2. Enteric-coated aspirin 81 mg p.o. daily. 3. Clonidine 0.1 mg p.o. q.6 hours p.r.n. systolic blood pressure greater than or equal to 170. 4. Protonix 40 mg p.o. daily. 5. MiraLAX 17 g p.o. daily. 6. Zoloft 50 mg p.o. daily. 7. Simethicone 80 mg p.o. q.8 hours p.r.n. 8. Lipitor 40 mg p.o. at bedtime. 9. Omnicef 300 mg p.o. b.i.d. x5 days. FOLLOWUP: The patient may follow up with his primary care provider, Dr. Olsen after discharge. CONDITION ON DISCHARGE: Fair. ACTIVITY: Ad-fermin. DIET: Heart healthy. CODE STATUS: Full. DISPOSITION: Discharge to [facility], where the patient is a current resident on 08/13/2019. TIME SPENT: Total time preparing and coordinating discharge is 33 minutes. Job ID: [id number]
== END 2019-08-13 16:51 | DRG 690 ==
LOC: ERS 19:37 → 2SE 22:50 → OBSVTOIN 08-12 14:55
PROVIDERS: ADMIT Internal Medicine; ATTEND Internal Medicine
DX: N39.0 Urinary tract infection, site not specified (principal); I48.92 Unspecified atrial flutter; B95.1 Streptococcus, group B, as the cause of diseases classified elsewhere; I10 Essential (primary) hypertension; R53.81 Other malaise; I69.320 Aphasia following cerebral infarction; Z79.01 Long term (current) use of anticoagulants; Z95.0 Presence of cardiac pacemaker; Z87.891 Personal history of nicotine dependence
CPT/HCPCS: 36415; 71045; 71275; 72191; 74175; 80053; 81001; 82550; 82553; 83690; 84484; 85025; 87077; 87086; 87324; 87449; 90471; 90662; 90670; 93005; 93306; 96374; 96375; G0008; G0009; J0696; J1650; J2270; J2405; J3490

== ENCOUNTER 2019-09-30 16:15 | Inpatient (IN) | payer MEDICARE, MEDICAID ==
[~2019-09-30 16:15] MED LIST changes: +EPINEPHrine 1 MG/10 ML Abboject SYRINGE ONE; -ISOVUE-370 76%-LOCM 1 ML ONE; +Iopamidol-370 76% 500 ML 1 ML ONE; +Magnesium 5 GM/10 ML Abboject SYRINGE ONE; +Rocuronium Bromide 10 MG/ML (10ML VIAL) ONE
--- NOTE | 2019-09-30 16:40 | CT ---
CT BRAIN NONCONTRAST: DATE: 09/30/2019 HISTORY: 69-year-old male with "stroke": Aphasia and left eye deviation COMPARISON: 12/20/2018 FINDINGS: Previously acute or subacute moderately large left TAPER AND FLOATER territory infarction has evolved into encephal omalacia-gliosis from medial left temporal lobe through the left occipital pole. Likewise, patchy 2 cm acute or subacute left thalamic infarction has contracted into a small region o f encephalomalacia and gliosis. Again noted is the small old infarction involving right caudate nucleus and adjacent right bartholomew rad iata-periventricular white matter. At least moderate chronic ischemic white matter changes bilaterally in the cerebrum. No hydrocephalus, mass effect, midline shift, acute intracranial hemorrhage, extra-axial fluid collec tion, or acute calvarial fracture. IMPRESSION: 1) no acute intracranial findings. 2) evolution of the moderately large left posterior cerebral artery territory infarction, now old. 3) Evolution of the left thalamic infarction, now old. 4) small old infarction in right corpus striatum. 5) chronic ischemic white matter changes.
[2019-09-30 16:52] LABS: #Basophils 0.1 thou/uL (0.0-0.2); #Eosinphils 0.3 thou/uL (0.0-0.7); #Lymphocytes 1.4 thou/uL (1.20-3.40); #Monocytes 0.6 thou/uL (0.11-0.59); #Neutrophils 5.5 thou/uL (1.40-6.50); %Basophils 0.6 % (0.0-1.0); %Eosinophils 4.1 % (0.0-10.0); %Lymphocytes 18.1 % (21.0-51.0); %Monocytes 7.8 % (0.0-10.0); %Neutrophils 69.4 % (42.0-75.0); Hemoglobin 13.4 g/dL (14.0-18.0); Mean Corpuscular HGB CONC 33.5 g/dL (32.0-36.0); Mean Corpuscular Hemoglobin 29.6 pg (27.0-31.0); Mean Corpuscular Volume 88.3 fL (78.0-98.0); Mean Platelet Volume 6.8 fL (7.4-10.4); Platelet Count 223 thou/uL (130-400); RBC Distribution Width 11.7 % (11.5-14.5); Red Blood Cell (RBC) Count 4.53 mill/uL (4.70-6.10); White Blood Cell (WBC) Count 7.9 thou/uL (4.8-10.8)
--- NOTE | 2019-09-30 16:57 | CT ---
CT ANGIOGRAM NECK WITH CONTRAST CT ANGIOGRAM BRAIN WITH CONTRAST: DATE: 09/30/2019 HISTORY: 69-year-old male with acute stroke symptoms: Aphasia and left eye deviation TECHNIQUE: After IV contrast injection, arterial bolus chasing technique scan performed from subcarinal mediasti num to vertex of head. Coronal and sagittal 3-D MIP reconstructions. FINDINGS: Brachiocephalic: No high-grade stenosis. Right subclavian: No high-grade stenosis. Right common carotid:. No high-grade stenosis. Cervical right internal carotid: Scattered mild focal calcified plaque at origin. No high-grade steno sis. Right carotid siphon: No high-grade stenosis. Right cervical vertebral: No high-grade stenosis. Left common carotid: Bovine origin from brachiocephalic. No high-grade stenosis. Cervical left internal carotid: Mild to moderate calcified plaque proximally, especially at origin. N o high-grade stenosis. Left carotid siphon: No high-grade stenosis. Left cervical vertebral: No high-grade stenosis. Right intracranial vertebral: Focal moderate stenosis near junction with basilar. Left intracranial vertebral: Occluded beginning at C1 level. Basilar: No high-grade stenosis. Bilateral certified rehabilitation counselor: P1 and P2 segments patent. Bilateral superior cerebellar arteries: Proximal portions patent. Bilateral MCAs: No thrombosis or occlusion of M1 segments. Proximal portion of the left M1 segment is moderate to severely stenotic. IMPRESSION: 1) high-grade stenosis at origin of M1 segment of left middle cerebral artery. 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 Uncertain whether chronic or a cute, but chronic is favored. 3) no high-grade stenosis of carotid arteries. 4) no acute thrombosis or occlusion of M1 segments of middle cerebral arteries.
[2019-09-30 16:59] LABS: INR-International Normal Ratio 1.1; PTT 31.9 SEC (22.9-36.1); Prothrombin Time 14.1 SEC (12.0-14.7)
[2019-09-30 17:06] LABS: ALT (SGPT) 21 U/L (8-55); AST (SGOT) 15 U/L (5-34); Albumin 3.9 g/dL (3.4-4.8); Alkaline Phosphatase 135 U/L (40-110); Anion Gap 9 mmol/L (10-20); BUN (Urea Nitrogen) 18 mg/dL (8.4-25.7); Bilirubin, Total 0.3 mg/dL (0.2-1.2); Calc. Creatinine Clearance 0 mL/min (70-130); Calcium 9.8 mg/dL (7.8-10.44); Carbon Dioxide 33 mmol/L (23-31); Chloride 101 mmol/L (98-107); Estimated GFR-MDRD Greater than 90; Glucose 105 mg/dL (80-115); Potassium 4.1 mmol/L (3.5-5.1); Protein, Total 6.9 g/dL (5.8-8.1); Sodium 139 mmol/L (136-145)
--- NOTE | 2019-09-30 17:49 | RAD ---
PORTABLE CHEST: History: Stroke symptoms. Comparison: 08-10-19 FINDINGS/IMPRESSION: Cardiomegaly. Mild vascular congestion. Dual-lead pacemaker device. No focal infiltrate and no signif icant effusion. POS: AGW
[2019-09-30] MEDS ORDERED: Calcium Carbonate 500 MG ChewTAB PO PRN (19:37)
[2019-09-30] MEDS ORDERED: Bisacodyl 10 MG SUPP PR PRN (19:37)
[2019-09-30] MEDS ORDERED: Ondansetron PF 4 MG/2 ML Vial IVP PRN (19:37)
[2019-09-30] MEDS ORDERED: Ondansetron ODT 4 MG TAB PO PRN (19:37)
[2019-09-30] MEDS ORDERED: hydrALAZINE 20 MG/ML VIAL SLOW IVP PRN (19:40)
--- NOTE | 2019-09-30 20:10 | HP ---
PRIMARY DIGITAL MEDIA DESIGNER: Dr. Gonzalez at [facility]. CHIEF COMPLAINT: Stroke-like symptoms. HISTORY OF PRESENT ILLNESS: The patient is a 69-year-old male with CVA with residual aphasia, physical deconditioning, hypertension, and atrial flutter in the past, presented to the emergency room via EMS with above symptoms. His last hospitalization at this facility was approximately 2 months ago. His workup was consistent with UTI. He also developed atrial flutter, which is spontaneously converted to sinus rhythm. The patient was sent to the emergency room from [facility] with altered mentation along with fixed left-sided gaze per ER report. At this time, the patient is confused and not much information is available from the patient. He has chronic right-sided weakness. He was last seen, baseline around 3:45 pm. He normally is able to communicate; however, earlier today, he would not talk and his mentation was altered. In the emergency room, initial vital signs showed temperature 97.7, respirations of 16, pulse of 80, blood pressure of 149/72, with O2 saturation 97% on room air. His CT scan of the brain was negative for acute findings. CTA of the head and neck showed high-grade stenosis of the left MCA with occlusion of the intracranial portion of the left vertebral artery. He is on aspirin at [facility]. PAST MEDICAL HISTORY: 1. History of CVA with residual right-sided weakness. 2. Hypertension. 3. History of bradycardia, status post pacemaker placement. 4. Chronic kidney disease, stage 2. 5. Speech difficulty. 6. Swallow dysfunction, status post PEG tube in the past. He is currently on mechanical soft diet. 7. GERD. 8. Former smoker. 9. History of alcohol abuse. 10. Vascular dementia. PAST SURGICAL HISTORY: 1. PEG tube placement with subsequent removal. 2. Pacemaker placement. ALLERGIES: NO KNOWN DRUG ALLERGIES. CURRENT HOME MEDICATIONS: Per records from [facility]: 1. Zoloft 50 mg daily. 2. MiraLAX daily. 3. Tylenol as needed. 4. Clonidine as needed. 5. Protonix 40 mg daily. 6. Lipitor 40 mg daily. 7. Aspirin 81 mg daily. 8. Amlodipine 5 mg daily. 9. Simethicone as needed. 10. Milk of magnesia as needed. SOCIAL HISTORY: As discussed above. The patient is full code per review of nursing record. His primary contact is friend, Haseeb Pinzon, cell #[phone]. DPOA to be verified. The patient is usually alert, awake, oriented x2. He is able to recognize family or people. He also gets around with the help of a wheelchair. He sometimes able to feed himself. FAMILY HISTORY: Cannot be obtained from the patient due to current mentation. REVIEW OF SYSTEMS: Cannot be obtained from the patient due to current mentation. PHYSICAL EXAMINATION: VITAL SIGNS: In the emergency room showed temperature 97.7, respirations of 16, pulse of 80, blood pressure of 149/72, and O2 saturation 97% on room air. GENERAL: A 69-year-old male, in no apparent distress. Left-sided gaze preference. HEENT: Head, atraumatic and normocephalic. Sclerae anicteric. Pupils 5 mm bilaterally with sluggish response to light. NECK: Supple. No JVD. No carotid bruit. LUNGS: Showed diminished air entry at bilateral bases. Lungs were symmetrical. No wheezing or rales. HEART: S1 and S2 present. Regular rate and rhythm. No rubs or gallops. ABDOMEN: Soft. Bowel sounds present. No rebound or guarding. EXTREMITIES: No edema or calf tenderness. NEUROLOGICAL: Examination is limited due to current mentation. The patient follows commands to some extent. His NIH is 12. He was able to heel emery buffer with the left hand on verbal commands. His speech is garbled. PSYCHIATRY: As discussed above. LYMPH NODES: No palpable lymph nodes in the neck. PERIPHERAL VASCULAR: Radial pulses palpable bilaterally. MUSCULOSKELETAL: No joint swelling tenderness. SKIN: Warm and dry. LABORATORY FINDINGS: CBC showed WBC 7.9 with hemoglobin 13.4, hematocrit 40, platelet 223. PT, INR, PTT normal range. Chemistry showed sodium 139, potassium 4.1, chloride 101, bicarb 33, BUN 18, creatinine 0.8. LFTs in normal range except for alkaline phosphatase 135. Troponin was negative. CT scan of the brain by my review was negative for acute CVA. It showed moderate large left TECHNOLOGY SALES CONSULTANT territory infarction, which is old. Chest x-ray by my review was negative for infiltrate. CT angiogram of the head and neck as discussed above. EKG by my review showed paced rhythm. IMPRESSION: 1. Encephalopathy, suspected to be secondary to acute cerebrovascular accident. 2. History of cerebrovascular accident with residual left-sided weakness and speech difficulty. 3. Physical deconditioning. 4. Sick sinus syndrome, status post pacemaker. 5. Hypertension. 6. Gastroesophageal reflux disease with history of grade D erosive esophagitis. 7. Swallow dysfunction with PEG tube placement with subsequent removal. 8. Vascular dementia. 9. Former smoker. 10. History of alcohol abuse. 11. Hyperlipidemia. 12. Chronic anemia. 13. Dehydration. PLAN: The patient will be monitored in the stroke unit. Neurology will be consulted. We will continue aspirin. We will try to obtain MRI if the patient allows. We will get fasting lipid profile in a.m. Continue statins along with amlodipine and aspirin. Resume Zoloft. Add p.r.n. medications. Stroke team consultation. Gentle IV hydration. Plan of care was discussed with the patient in detail. We will discuss the plan with the family when they arrive. Job ID: [id number]
[2019-10-01] MEDS: Atorvastatin Calcium 40 MG TAB PO SCH ×2 (00:17→21:54)
[2019-10-01] MEDS: Dextrose 5 %-0.45 % NaCl 1,000 ML IV SCH ×3 (00:17→20:01)
[2019-10-01 04:49] LABS: #Eosinphils 0.1 thou/uL (0.0-0.7); #Lymphocytes 0.8 thou/uL (1.20-3.40); #Monocytes 0.6 thou/uL (0.11-0.59); #Neutrophils 8.4 thou/uL (1.40-6.50); %Basophils 0.1 % (0.0-1.0); %Eosinophils 0.8 % (0.0-10.0); %Monocytes 5.8 % (0.0-10.0); %Neutrophils 85.3 % (42.0-75.0); Hemoglobin 13.2 g/dL (14.0-18.0); Mean Corpuscular HGB CONC 33.4 g/dL (32.0-36.0); Mean Corpuscular Hemoglobin 29.3 pg (27.0-31.0); Mean Corpuscular Volume 87.7 fL (78.0-98.0); Mean Platelet Volume 6.8 fL (7.4-10.4); Platelet Count 209 thou/uL (130-400); RBC Distribution Width 11.7 % (11.5-14.5); White Blood Cell (WBC) Count 9.9 thou/uL (4.8-10.8)
[2019-10-01 05:17] LABS: ALT (SGPT) 19 U/L (8-55); AST (SGOT) 13 U/L (5-34); Albumin 3.8 g/dL (3.4-4.8); Alkaline Phosphatase 130 U/L (40-110); Anion Gap 8 mmol/L (10-20); BUN (Urea Nitrogen) 17 mg/dL (8.4-25.7); Bilirubin, Total 0.5 mg/dL (0.2-1.2); Calc. Creatinine Clearance 92 mL/min (70-130); Carbon Dioxide 32 mmol/L (23-31); Cardiac Risk 3.6 (Less than 4.5); Chloride 102 mmol/L (98-107); Cholesterol 127 mg/dl (< 200 Desired); Estimated GFR-MDRD Greater than 90; Globulin 2.8 g/dL (2.4-3.5); Glucose 186 mg/dL (80-115); HDL Cholesterol 35 mg/dL (>60 Neg Risk); LDL Cholesterol, Calculated 81 mg/dL; Magnesium 1.8 mg/dL (1.6-2.6); Potassium 3.8 mmol/L (3.5-5.1); Protein, Total 6.6 g/dL (5.8-8.1); Sodium 138 mmol/L (136-145); Triglycerides 55 mg/dL (Less than 150)
[2019-10-01 07:27] LABS: Actual Bicarbonate (HCO3a) 28.7 mEq/L (22-28); Base Excess (BEa) 2.7 mEq/L (-2.0 to +3.0); CO2 Tension 49.9 mmHg (35.0-45.0); Calcium, Ionized 1.27 mmol/L (1.12-1.30); Carboxyhemoglobin (COHb) 0.9 gm% (0.0-3.0); Potassium - ABG Lab 3.49 mmol/L (3.70-5.30); pH, Arterial 7.38 (7.35-7.45)
[2019-10-01 07:33] LABS: O2 Tension (PaO2) 52.6 mmHg (> 80.0)
[2019-10-01 07:34] LABS: Puncture Site RBRACH
--- NOTE | 2019-10-01 07:42 | RAD ---
Chest one view HISTORY: Pneumonia. Aspiration. COMPARISON: 09/30/2019. FINDINGS: Cardiac silhouette is magnified and slightly enlarged. Patient is slightly rotated leftward . Dual lead left subclavian cardiac electronic device remains in place. Lungs remain hyperinflated. Subtle increase in parenchymal opacity projecting over the right lower lo be without lobar consolidation. No evidence of pneumothorax. monitoring specialist leads overlie the chest. IMPRESSION: Developing infiltrate right lower lobe. Please consider continued radiographic follow-up. Cardiomegaly.
[2019-10-01] MEDS ORDERED: Enoxaparin Sodium 40 MG/0.4 ML SYRINGE SC SCH (09:00)
[2019-10-01] MEDS: methylPREDNISolone Sod Succ 40 MG VIAL IVP SCH ×2 (09:38→20:02)
[2019-10-01] MEDS: Piperacillin/Tazobactam 3.375 GM in Sodium Chloride 0.9% 100 ML IVPB SCH ×3 (09:39→21:55)
[2019-10-01] MEDS ORDERED: Pantoprazole 40 MG VIAL IVP SCH (10:00)
[2019-10-01] MEDS: Aspirin 81 mg Enteric Coated Tablet PO SCH (14:20)
[2019-10-01] MEDS ORDERED: Iopamidol-370 76% 500 ML 1 ML ONE (15:17)
--- NOTE | 2019-10-01 16:07 | CON ---
DATE OF CONSULTATION: 10/01/2019 SERVICE: Pulmonary Medicine. REASON FOR CONSULTATION: ICU patient. HISTORY OF PRESENT ILLNESS: The patient is a 69-year-old white male with past medical history significant for stroke. He is in a permanently debilitated state. At one point, he had a PEG tube, but it was subsequently removed. He is able to tolerate p.o. for a period of time. Ultimately, he was brought to the emergency department because of increasing mentation issues. Overnight, he had an aspiration related event. He was subsequently brought to the ICU because of increasing oxygen requirements. He was put on a Ventimask and subsequent nonrebreather. Ultimately, he required BiPAP. At this point, he is breathing nice and slow, his respirations appear to be unlabored. He is not able to provide any additional elements of the history presently. PAST MEDICAL HISTORY: 1. History of CVA with right-sided deficit. 2. Debility, severe. 3. Hypertension. 4. Dyslipidemia. 5. Bradycardia, status post pacemaker placement. 6. CKD, 2. 7. Oropharyngeal dysphagia with history of PEG tube, status post removal. 8. Gastroesophageal reflux disease. 9. History of alcohol abuse. 10. Dementia, vascular. 11. History of tobacco abuse. PAST SURGICAL HISTORY: 1. PEG tube placement with subsequent removal. 2. Pacemaker placement. ALLERGIES: NO KNOWN DRUG ALLERGIES. MEDICATIONS: List of his inpatient medications was reviewed. No specific updates were made at this time. SOCIAL HISTORY: Negative for alcohol, tobacco, or illicit drug use currently. He resides in a nursing facility and is essentially bedbound. At baseline, he is only oriented x2, but typically is awake. He occasionally can feed himself, but typically requires assistance with most activities. FAMILY HISTORY: Noncontributory. REVIEW OF SYSTEMS: This cannot be obtained as the patient is currently encephalopathic. PHYSICAL EXAMINATION: VITAL SIGNS: Afebrile, pulse 87, blood pressure 126/77, respirations 18, and saturation 96%, currently on a Ventimask with 35% FiO2. GENERAL: The patient is awake and comfortable appearing. There is a slightly prolonged expiratory phase. Minimal wheezing is present. Extensive rhonchi are noted. No dependent crackles are appreciated. HEART: Normal rate, regular. ABDOMEN: Soft. Tender to palpation throughout with decreased bowel sounds. MUSCULOSKELETAL: No cyanosis or clubbing. There is no pitting in the bilateral lower extremities. If anything, he has some skin tenting. NEUROLOGIC: He does not have any noxious stimuli in the right upper extremity. The right upper extremity is contracted and turned inward. He does withdraw from noxious stimuli in the bilateral lower extremities and right upper extremity with localization there. He is not following any commands. LABORATORY DATA: WBC 9.9, hemoglobin 13.2, and platelets 209,000. INR 1.1. A pH 7.38, pCO2 of 50, and pO2 of 52. Basic metabolic profile and liver function studies are all unremarkable. Troponin is negative. Folate and B12 fall within the normal limits. IMAGING STUDIES: 1. Chest x-ray demonstrates no obvious evidence of acute pulmonary disease. I do not see any pleural effusions or overt consolidating lesions. Interstitial fullness is prominent, particularly on the right compared to the left. No significant cephalization is noted. 2. CT of the [place] demonstrates no acute void abnormalities. 3. CT of the brain demonstrates no acute intracranial abnormalities. Encephalomalacia from prior stroke is evident. ASSESSMENT: 1. Acute hypoxic respiratory failure secondary to aspiration event. 2. Aspiration pneumonitis versus healthcare-associated pneumonia. 3. Metabolic encephalopathy. DISCUSSION AND PLAN: We will wean oxygen down as tolerated. Empiric antibiotics directed an aspiration-related organisms have been initiated. At this point, the patient has no requirements for advanced airway. We will give him BiPAP breaks 3 times daily and increase as tolerated. He appears to be slightly dehydrated. I agree with gentle hydration. The only thing I can seem to find on him is a very tender abdomen. Because of the aspiration event and abnormal physical exam findings, CT of the abdomen and pelvis will be pursued. Pulmonary/Critical Care will follow along. 70 minutes have been devoted to this patient in various activities. I personally reviewed all imaging studies and laboratory data noted within this document. For fifty percent of this time, I was interacting with the patient at the bedside or coordinating care with the care team. For the remainder of the time I was immediately available to the patient in the hospital unit. Job ID: [id number] MTDD
--- NOTE | 2019-10-01 19:51 | CT ---
EXAM: ABDOMEN AND PELVIC CT WITH CONTRAST: History: Abdominal pain, unresponsive patient. Evaluate for possible obstruction. Patient is aspirati ng fecal material. Comparison: 03-16-19 FINDINGS: ABDOMEN CT: There are interstitial and alveolar opacities involving the middle lobe as well as both lower lobes. There is a 5.4 mm solid nodule in the middle lobe. No significant pleural fluid. Heart is enlarged. No significant pericardial fluid. Note is made of a nasogastric tube, terminating in the stomach. Small hiatal hernia is identified. Portal veins are patent. Hyperdense material in the lumen of the gallbladder may represent vicarious excretion of contrast. No evidence of cholecystitis. Liver, spleen, pancreas, and adrenal glands have appropriate attenuation and enhancement. Symmetric enhancement of the kidneys. Bilaterally no obstructive uropathy. No gastrohepatic, retrocrural or periportal lymphadenopathy. No mesenteric mass, lymphadenopathy, free air or free fluid. Limited evaluation of the alimentary canal due to lack of oral contrast. Unremarkable small bowel. No evidence of a small bowel obstruction. Ileocecal junction is unremarkable. No significant fecalizati on of small bowel loops. Normal caliber appendix. There is fecal material in a nondistended, nondilat ed colon. There is a mild amount of fecal material in the sigmoid colon and rectum. There are nonspecific mildly enlarged left periaortic lymph nodes, unchanged from the earlier examina tion. CT PELVIS: Markedly distended urinary. Cadet catheterization is recommended. Mildly enlarged prostate gland. Adv ancement is recommended. Markedly distended urinary bladder is identified. No pelvic mass, lymphadenopathy, free air or free fluid. No lytic or blastic lesions in the osseous structures. IMPRESSION: 1. Opacities involving the lung bases suggesting aspiration or pneumonia. 2. Markedly distended urinary bladder. Cadet catheterization is recommended. 3. Results of study discussed with patient's nurse, Raul, 10-01-19 at 7:29 p.m. Code CR POS: IRENA
[2019-10-01] MEDS ORDERED: Dextrose 5% in Water 1,000 ML IV PRN (19:58)
[2019-10-01] MEDS ORDERED: Dextrose 50% Abboject 50 ML SYRINGE IVP PRN (19:58)
[2019-10-01 20:26] LABS: Bacteria/HPF None Seen HPF (None Seen); Bilirubin Negative (Negative); Blood, Urine 2+ (Negative); Clarity Clear (Clear); Glucose, Urine (Dipstick) Normal (Negative); Leukocyte 500 Leu/uL (Negative); Nitrite Negative (Negative); Protein, Urine (Dipstick) 30 mg/dL (Neg-Trace); RBC/HPF Greater than 50 HPF (0-3); Squamous Epithelial None Seen HPF (0-3); Urobilinogen Normal mg/dL (Less than 2); WBC/HPF Greater than 50 HPF (0-3)
[2019-10-01] MEDS: Pantoprazole 40 MG VIAL IVP SCH (21:55)
--- NOTE | 2019-10-01 22:36 | PDOC.HOSPP ---
- Subjective Encounter Date: 10/01/19 Encounter Time: 10:00 Subjective: Patient seen and examined for Acute CVA. Large bilious emesis this AM. Remains confused. - Objective Vital Signs & Weight: Vital Signs (12 hours) Temp Pulse Resp Pulse Ox 10/01/19 20:00 98.1 F 10/01/19 19:02 100 10/01/19 19:00 76 20 100 10/01/19 11:23 85 10/01/19 11:00 99.6 F 99 Weight Admit Weight 145 lb 12.8 oz Weight 145 lb 12.8 oz Most Recent Monitor Data Heart Rate from ECG 86 NIBP 125/69 NIBP BP-Mean 87 Respiration from ECG 16 SpO2 100 I&O: 09/30/19 10/01/19 10/02/19 06:59 06:59 06:59 Intake Total 950 304 Output Total 1360 Balance 950 -1056 Result Diagrams: 10/02/19 04:12 10/02/19 04:12 EKG Reviewed by me: Yes (Tele paced) Hospitalist ROS - Review of Systems ROS unobtainable: due to mental status - Medication Medications: Active Medications Generic Name Dose Route Start Last Admin Trade Name Freq PRN Reason Stop Dose Admin Albuterol/Ipratropium 3 ml 10/01/19 19:00 10/01/19 19:00 Duoneb NEB 3 ml [id number] JAYRO Administration Aspirin 81 mg 10/01/19 09:00 10/01/19 14:20 Ecotrin PO Not Given DAILY JAYRO Atorvastatin Calcium 40 mg 09/30/19 21:00 10/01/19 21:54 Lipitor PO Not Given HS JAYRO Dextrose/Sodium Chloride 1,000 mls @ 120 mls/hr 09/30/19 19:45 10/01/19 20:01 D5 1/2 Ns IV Not Given .[id number] JAYRO Piperacillin Sod/Tazobactam 100 mls @ 200 mls/hr 10/01/19 09:00 10/01/19 21: 55 Sod 3.375 gm/ Sodium Chloride IVPB 100 mls Q6H JAYRO Administration Methylprednisolone Sodium Succinate 20 mg 10/01/19 09:00 10/01/19 20:02 Solu-Medrol IVP Not Given Q8H JAYRO Ondansetron HCl 4 mg 09/30/19 19:37 10/01/19 06:50 Zofran IVP 4 mg Q6H PRN Administration Nausea/Vomiting Pantoprazole Sodium 40 mg 10/01/19 09:00 10/01/19 10:52 Protonix PO Not Given DAILY JAYRO Pantoprazole Sodium 40 mg 10/01/19 21:00 10/01/19 21:55 Protonix IVP 40 mg Q12HR JAYRO Administration Sertraline HCl 50 mg 10/01/19 09:00 10/01/19 14:21 Zoloft PO Not Given DAILY JAYRO - Exam General Appearance: NAD (confused) Neck: no JVD Heart: RRR, no gallops, no rubs, normal peripheral pulses Respiratory: normal chest expansion, rales, rhonchi, wheezes Extremities: no cyanosis, no clubbing Neurological - other findings: Neuro/Psych exam limited due to AMS Psychiatric: not oriented Hosp A/P - Plan Acute hypoxic resp failure due to Aspiration Pneumonia Encephalopathy, suspected to be secondary to acute cerebrovascular accident. History of cerebrovascular accident with residual left-sided weakness and speech difficulty. Physical deconditioning. Sick sinus syndrome, status post pacemaker. Hypertension. Gastroesophageal reflux disease with history of grade D erosive esophagitis. Swallow dysfunction with PEG tube placement with subsequent removal. Vascular dementia. Former smoker. History of alcohol abuse. Hyperlipidemia. Chronic anemia. Dehydration. PLAN: Transfer to IMCU for NIPPV Empiric Atbx for Aspiration Add low dose Steroids Cont ASA/Statins No MRI due to pacemaker Await Echo Await Neuro input Cont other meds Attempted to call family - left message for
[2019-10-02] MEDS: methylPREDNISolone Sod Succ 40 MG VIAL IVP SCH ×2 (01:45→08:46)
[2019-10-02] MEDS: Piperacillin/Tazobactam 3.375 GM in Sodium Chloride 0.9% 100 ML IVPB SCH ×4 (03:00→21:02)
[2019-10-02] MEDS: Dextrose 5 %-0.45 % NaCl 1,000 ML IV SCH ×3 (03:56→15:50)
[2019-10-02 05:03] LABS: #Lymphocytes 0.6 thou/uL (1.20-3.40); #Monocytes 0.4 thou/uL (0.11-0.59); #Neutrophils 11.8 thou/uL (1.40-6.50); %Basophils 0.1 % (0.0-1.0); %Eosinophils 0.1 % (0.0-10.0); %Monocytes 3.4 % (0.0-10.0); %Neutrophils 91.4 % (42.0-75.0); Hemoglobin 12.9 g/dL (14.0-18.0); Mean Corpuscular HGB CONC 34.1 g/dL (32.0-36.0); Mean Corpuscular Volume 88.2 fL (78.0-98.0); Mean Platelet Volume 7.6 fL (7.4-10.4); Platelet Count 194 thou/uL (130-400); RBC Distribution Width 11.7 % (11.5-14.5); Red Blood Cell (RBC) Count 4.31 mill/uL (4.70-6.10); White Blood Cell (WBC) Count 12.9 thou/uL (4.8-10.8)
[2019-10-02 05:22] LABS: ALT (SGPT) 16 U/L (8-55); AST (SGOT) 14 U/L (5-34); Albumin 3.5 g/dL (3.4-4.8); Alkaline Phosphatase 96 U/L (40-110); Anion Gap 10 mmol/L (10-20); BUN (Urea Nitrogen) 18 mg/dL (8.4-25.7); Bilirubin, Total 0.8 mg/dL (0.2-1.2); Calc. Creatinine Clearance 85 mL/min (70-130); Calcium 10.1 mg/dL (7.8-10.44); Carbon Dioxide 29 mmol/L (23-31); Chloride 102 mmol/L (98-107); Estimated GFR-MDRD Greater than 90; Globulin 2.9 g/dL (2.4-3.5); Glucose 169 mg/dL (80-115); Magnesium 1.6 mg/dL (1.6-2.6); Potassium 3.3 mmol/L (3.5-5.1); Protein, Total 6.4 g/dL (5.8-8.1); Sodium 138 mmol/L (136-145)
[2019-10-02 05:29] LABS: Phosphorus 1.9 mg/dL (2.3-4.7)
[2019-10-02] MEDS ORDERED: Potassium Phosphate 9 MMOL in Sodium Chloride 0.9% 100 ML IVPB PRN (05:40)
[2019-10-02] MEDS ORDERED: Potassium Chloride 40 MEQ in Premix Bag 1 BAG IVPB PRN (05:40)
[2019-10-02] MEDS ORDERED: CCU ELECTROLYTE REPLACEMENT PROTOCOL FS PRN (05:40)
[2019-10-02] MEDS ORDERED: Potassium Chloride 40 MEQ in Sodium Chloride 0.9% 250 ML 250 ML IVPB PRN (05:40)
[2019-10-02] MEDS ORDERED: Magnesium Oxide 400 MG TAB PO PRN ×2 (05:40)
[2019-10-02] MEDS ORDERED: PHOS-NAK 1 PKT PACK PO PRN ×2 (05:40)
[2019-10-02] MEDS ORDERED: Magnesium 2 GM/50 ML 2 GM in Premix Bag 1 BAG IVPB PRN (05:40)
[2019-10-02] MEDS ORDERED: Potassium Phosphate 12 MMOL in Sodium Chloride 0.9% 250 ML 250 ML IV PRN (05:40)
[2019-10-02] MEDS ORDERED: Potassium Chloride 20 MEQ TAB PO PRN (05:40)
[2019-10-02] MEDS ORDERED: Potassium Phosphate 15 MMOL in Sodium Chloride 0.9% 250 ML 250 ML IV PRN (05:40)
--- NOTE | 2019-10-02 07:52 | CON ---
DATE OF CONSULTATION: 10/01/2019 HISTORY OF PRESENT ILLNESS: Mr. Munoz was admitted due to concerns of a new stroke. He was unable to speak. Since admission he has been found to have evidence of pneumonia. His workup in the emergency room showed high-grade stenosis in the left M1 segment along with 100% stenosis of the left vertebral artery. He has an old stroke in the left [employer]LY[employer] distribution and a left thalamic stroke based on CT. His echocardiogram showed ejection fraction of 40% to 45%. EKG is a normal sinus rhythm. On exam at this time, I could get him to awaken with some stimulation. He attempted to speak, but his speech was quite garbled. His face is grossly symmetric. He had good resistance and triceps in the right arm, but did not have to use the right hand. He initially seemed to have a left gaze preference, but upon more stimulation his eyes became midline. No abnormal movements were seen. It is possible he has had a new ischemic event in the left MCA territory. I am awaiting a repeat CT scan of the brain. He is currently on aspirin and a statin. We would consider adding Plavix. Job ID: [id number]
--- NOTE | 2019-10-02 08:33 | CT ---
EXAM: CT brain without contrast HISTORY: CVA COMPARISON: 09/30/2019 TECHNIQUE: Multiple contiguous axial images were obtained and a CT of the brain without contrast. FINDINGS: There are scattered hypodensities in the subcortical and periventricular white matter consi stent with small vessel ischemic disease. Encephalomalacia seen in the left [employer] distribution. There is evolving loss of saxena-white matter differentiation in the right cerebellar hemisphere consistent w ith an evolving acute infarction. There is no evidence of hydrocephalus, intracranial hemorrhage, or extra-axial fluid collection. The calvarium and overlying soft tissues are unremarkable. The visualized paranasal sinuses and masto id air cells are well aerated. IMPRESSION: Evolving right cerebellar infarction.
[2019-10-02] MEDS: Pantoprazole 40 MG VIAL IVP SCH ×2 (08:48→21:02)
[2019-10-02] MEDS: Aspirin 81 mg Enteric Coated Tablet PO SCH (09:43)
[2019-10-02] MEDS ORDERED: Clopidogrel Bisulfate 75 MG TAB PER TUBE SCH (10:15)
[2019-10-02] MEDS: HumaLOG 300 UNITS/3 ML VIAL SC PRN (12:15)
--- NOTE | 2019-10-02 15:05 | PDOC.HOSPP ---
- Subjective Encounter Date: 10/02/19 Encounter Time: 13:30 non-verbal Subjective: Patient seen and examined for Acute CVA. Remains confused. No overnight events - Objective Vital Signs & Weight: Vital Signs (12 hours) Temp Pulse Resp Pulse Ox 10/02/19 13:01 68 14 100 10/02/19 08:00 98.5 F 100 10/02/19 07:15 83 15 100 Weight Admit Weight 145 lb 12.8 oz Weight 145 lb 12.8 oz Most Recent Monitor Data Heart Rate from ECG 74 NIBP 117/56 NIBP BP-Mean 76 Respiration from ECG 22 SpO2 99 I&O: 10/01/19 10/02/19 10/03/19 06:59 06:59 06:59 Intake Total 950 1341 Output Total 1620 270 Balance 950 -687 -270 Result Diagrams: 10/02/19 04:12 10/02/19 04:12 Additional Labs: Accuchecks 10/02/19 10/02/19 12:15 00:33 POC Glucose 171 H 147 H Radiology Reviewed by me: Yes (CT brain - Rt cerebellar CVA) EKG Reviewed by me: Yes (Tele paced) Hospitalist ROS - Review of Systems ROS unobtainable: due to mental status - Medication Medications: Active Medications Generic Name Dose Route Start Last Admin Trade Name Freq PRN Reason Stop Dose Admin Albuterol/Ipratropium 3 ml 10/01/19 19:00 10/02/19 13:01 Duoneb NEB 3 ml [id number] JAYRO Administration Aspirin 81 mg 10/01/19 09:00 10/02/19 09:43 Ecotrin PO 81 mg DAILY JAYRO Administration Atorvastatin Calcium 40 mg 09/30/19 21:00 10/01/19 21:54 Lipitor PO Not Given HS JAYRO Dextrose/Sodium Chloride 1,000 mls @ 120 mls/hr 09/30/19 19:45 10/02/19 08:58 D5 1/2 Ns IV Not Given .[id number] JAYRO Piperacillin Sod/Tazobactam 100 mls @ 200 mls/hr 10/01/19 09:00 10/02/19 08: 50 Sod 3.375 gm/ Sodium Chloride IVPB 100 mls Q6H JAYRO Administration Potassium Chloride 40 meq/ 270 mls @ 135 mls/hr 10/02/19 05:40 10/02/19 07:22 Sodium Chloride IVPB 270 mls ASDIR PRN Administration FOR SERUM K+ 2.5 - 3.5 Potassium Chloride 40 meq/ 100 mls @ 50 mls/hr 10/02/19 05:40 10/02/19 06:00 Device IVPB 100 mls ASDIR PRN Administration FOR SERUM K+ 2.5 - 3.5 Insulin Human Lispro 0 units 10/01/19 19:43 10/02/19 12:15 Humalog SC 2 unit .MILD SLIDING SCALE PRN Administration MILD SLIDING SCALE Protocol Ondansetron HCl 4 mg 09/30/19 19:37 10/01/19 06:50 Zofran IVP 4 mg Q6H PRN Administration Nausea/Vomiting Pantoprazole Sodium 40 mg 10/01/19 21:00 10/02/19 08:48 Protonix IVP 40 mg Q12HR JAYRO Administration Sertraline HCl 50 mg 10/01/19 09:00 10/02/19 09:43 Zoloft PO 50 mg DAILY JAYRO Administration - Exam General Appearance: NAD Heart: RRR, no gallops, no rubs, normal peripheral pulses Respiratory: no wheezes, normal chest expansion, rales, rhonchi Gastrointestinal: soft, normal bowel sounds, no guarding, no rigidity Extremities: no cyanosis, no clubbing Neurological - other findings: Neuro/Psych - cannot assess due to current mentation Hosp A/P - Plan Acute hypoxic resp failure due to Aspiration Pneumonia 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 History of cerebrovascular accident with residual left-sided weakness. Hypokalemia/Hypophosphatemia Physical deconditioning. Sick sinus syndrome, status post pacemaker. Hypertension. Gastroesophageal reflux disease with history of grade D erosive esophagitis. Swallow dysfunction with PEG tube placement with subsequent removal. Chronic systolic HF - EF 35-40% - not on ACEI/ARB/Aldactone or BB due to BP on lower side. Vascular dementia. Former smoker. History of alcohol abuse. Hyperlipidemia. Chronic anemia. Dehydration. Mod MR PLAN: NG tube feeding Replace electrolytes Cont Atbx Reduce Steroids dose Cont ASA/Statins - Plavix added by Neuro Cont PPI Echo reviewed Cont other meds
--- NOTE | 2019-10-02 15:26 | PRG ---
DATE OF SERVICE: 10/02/2019 SERVICE: Pulmonary Medicine. INTERVAL HISTORY: The patient had a CT of the belly yesterday. On this, there was a massively distended bladder. Cadet catheter was placed and over 1100 mL of urine was created. Almost immediately after decompression of the bladder, he had a massive bowel movement. Since then, he has not had any significant residual gastric contents. He cannot provide any additional elements of the history. PHYSICAL EXAMINATION: VITAL SIGNS: Afebrile, pulse 74, blood pressure 117/56, respirations 22, saturation 99% on 1 L nasal cannula currently. GENERAL: The patient is encephalopathic. HEENT: Normocephalic and atraumatic. Sclerae white. Conjunctivae pink. Oral mucosa is moist without lesions. LUNGS: Rhonchi are present, but there is no prolonged expiratory phase or wheezing appreciated. HEART: Normal rate, regular. ABDOMEN: Soft today. Bowel sounds are hypoactive. MUSCULOSKELETAL: No cyanosis or clubbing. There is no pitting throughout. NEUROLOGIC: Grossly nonfocal. LABORATORY DATA: WBC 12.9, hemoglobin 12.9, and platelets 194,000. INR 1.1. Basic metabolic profile is completely unremarkable. Phosphorus 1.9, magnesium 1.6. Liver function studies are unremarkable. Urinalysis is negative. E coli is growing in the urine. IMAGING STUDIES: Echocardiogram demonstrates 35% to 40% ejection fraction. Moderate mitral regurgitation is noted. CT of the brain demonstrates evolving right cerebellar infarction. CT of the abdomen and pelvis demonstrates significantly dilated bladder. Opacities in the bibasilar regions are present. ASSESSMENT: 1. Acute hypoxic respiratory failure secondary to aspiration. 2. Aspiration pneumonitis versus healthcare-associated pneumonia. 3. Cerebrovascular accident of the cerebellum on top of history of multiple cerebrovascular accidents. 4. Urinary tract infection secondary to Escherichia coli. 5. Metabolic encephalopathy. DISCUSSION AND PLAN: Magnesium, phosphorus, and potassium will all be replaced today. The patient is stable and can be transitioned out of the ICU to the Stroke Unit. We can initiate some tube feeds, but long-term feeding strategies are going to be challenging. It appears as though this patient is not going to be able to protect his airway or take p.o. nutrition without more advanced interventions. We will talk to the family about whether or not we need to pursuing these through time. Antibiotics can be interrupted after total duration of 5 days. Cadet catheter has been placed, which has helped with his GI motility. Job ID: [id number]
[2019-10-02] MEDS ORDERED: Magnesium 2 GM/50 ML 2 GM in Premix Bag 1 BAG IVPB SCH (15:30)
[2019-10-02] MEDS: K-Phos Neutral 250 MG TAB PER TUBE SCH (17:12)
[2019-10-02] MEDS ORDERED: methylPREDNISolone Sod Succ 40 MG VIAL IVP SCH (21:00)
[2019-10-02] MEDS: Atorvastatin Calcium 40 MG TAB PO SCH (21:02)
[2019-10-03] MEDS: K-Phos Neutral 250 MG TAB PER TUBE SCH ×2 (12:52→18:12)
[2019-10-03] MEDS: Clopidogrel Bisulfate 75 MG TAB PO SCH (12:52)
[2019-10-03] MEDS: Aspirin 81 mg Enteric Coated Tablet PO SCH (12:52)
[2019-10-03] MEDS: Piperacillin/Tazobactam 3.375 GM in Sodium Chloride 0.9% 100 ML IVPB SCH ×5 (12:56→22:38)
[2019-10-03] MEDS: Pantoprazole 40 MG VIAL IVP SCH ×2 (15:05→22:39)
[2019-10-03] MEDS: Acetaminophen 650 MG Suppository PR PRN (15:06)
[2019-10-03] MEDS: Dextrose 5 %-0.45 % NaCl 1,000 ML IV SCH ×2 (16:29→19:30)
[2019-10-03 17:24] LABS: Anion Gap 8 mmol/L (10-20); BUN (Urea Nitrogen) 13 mg/dL (8.4-25.7); Calc. Creatinine Clearance 89 mL/min (70-130); Carbon Dioxide 29 mmol/L (23-31); Chloride 104 mmol/L (98-107); Estimated GFR-MDRD Greater than 90; Potassium 3.8 mmol/L (3.5-5.1); Sodium 137 mmol/L (136-145)
[2019-10-03 17:25] LABS: ALT (SGPT) 15 U/L (8-55); AST (SGOT) 17 U/L (5-34); Albumin 3.3 g/dL (3.4-4.8); Alkaline Phosphatase 85 U/L (40-110); Bilirubin, Total 0.7 mg/dL (0.2-1.2); Calcium 9.3 mg/dL (7.8-10.44); Globulin 2.8 g/dL (2.4-3.5); Glucose 110 mg/dL (80-115); Protein, Total 6.1 g/dL (5.8-8.1)
[2019-10-03 17:57] LABS: Phosphorus 1.5 mg/dL (2.3-4.7)
[2019-10-03 19:25] LABS: %Eosinophils 0.1 % (0.0-10.0); %Lymphocytes 9.6 % (21.0-51.0); %Monocytes 6.5 % (0.0-10.0); %Neutrophils 83.6 % (42.0-75.0); Hemoglobin 11.9 g/dL (14.0-18.0); Mean Corpuscular HGB CONC 34.7 g/dL (32.0-36.0); Mean Corpuscular Hemoglobin 30.3 pg (27.0-31.0); Mean Corpuscular Volume 87.3 fL (78.0-98.0); Mean Platelet Volume 7.1 fL (7.4-10.4); Platelet Count 198 thou/uL (130-400); RBC Distribution Width 11.5 % (11.5-14.5); Red Blood Cell (RBC) Count 3.92 mill/uL (4.70-6.10); White Blood Cell (WBC) Count 11.3 thou/uL (4.8-10.8)
[2019-10-03 19:26] LABS: #Lymphocytes 1.1 thou/uL (1.20-3.40); #Monocytes 0.7 thou/uL (0.11-0.59); #Neutrophils 9.4 thou/uL (1.40-6.50); %Basophils 0.2 % (0.0-1.0)
[2019-10-03] MEDS: Atorvastatin Calcium 40 MG TAB PO SCH (22:26)
[2019-10-03] MEDS ORDERED: DC Electrolyte Protocol FS ONE (22:38)
--- NOTE | 2019-10-03 22:39 | PDOC.HOSPP ---
- Subjective Encounter Date: 10/03/19 Encounter Time: 09:30 Subjective: Patient seen and examined for Acute CVA. Remains confused. No new complaints. No overnight events - Objective Vital Signs & Weight: Vital Signs (12 hours) Temp Pulse Pulse Resp BP BP Pulse Ox 10/03/19 20:00 99.3 F 78 16 110/76 96 10/03/19 18:45 90 16 92 L 10/03/19 16:42 99.7 F H 81 16 107/63 90 L 10/03/19 14:31 86 112/61 10/03/19 14:02 86 20 92 L 10/03/19 11:33 101.1 F H 80 12 136/85 94 L Weight Admit Weight 145 lb 12.8 oz Weight 145 lb 12.8 oz Most Recent Monitor Data Heart Rate from ECG 95 NIBP 125/58 NIBP BP-Mean 80 Respiration from ECG 19 SpO2 97 I&O: 10/02/19 10/03/19 10/04/19 06:59 06:59 06:59 Intake Total 1341 1422 Output Total 1620 550 720 Balance -279 872 -720 Result Diagrams: 10/04/19 04:50 10/04/19 04:50 Additional Labs: Accuchecks 10/03/19 10/03/19 10/03/19 18:25 12:27 06:13 POC Glucose 114 H 110 105 10/03/19 00:53 POC Glucose 102 EKG Reviewed by me: Yes (Tele paced) Hospitalist ROS - Review of Systems Respiratory: denies: cough, dry, shortness of breath, hemoptysis, SOB with excertion, pleuritic pain, sputum, wheezing, other Cardiovascular: denies: chest pain, palpitations, orthopnea, paroxysmal noc. dyspnea, edema, light headedness, other - Medication Medications: Active Medications Generic Name Dose Route Start Last Admin Trade Name Freq PRN Reason Stop Dose Admin Acetaminophen 650 mg 09/30/19 19:37 10/03/19 15:06 Tylenol [place] 650 mg Q4H PRN Administration Headache/Fever/Mild Pain (1-3) Albuterol/Ipratropium 3 ml 10/01/19 19:00 10/03/19 18:45 Duoneb NEB 3 ml [id number] JAYRO Administration Aspirin 81 mg 10/01/19 09:00 10/03/19 12:52 Ecotrin PO Not Given DAILY JAYRO Atorvastatin Calcium 40 mg 09/30/19 21:00 10/02/19 21:02 Lipitor PO 40 mg HS JAYRO Administration Clopidogrel Bisulfate 75 mg 10/03/19 09:00 10/03/19 12:52 Plavix PO Not Given DAILY JAYRO Potassium Chloride 40 meq/ 270 mls @ 135 mls/hr 10/02/19 05:40 10/02/19 07:22 Sodium Chloride IVPB 270 mls ASDIR PRN Administration FOR SERUM K+ 2.5 - 3.5 Potassium Chloride 40 meq/ 100 mls @ 50 mls/hr 10/02/19 05:40 10/02/19 06:00 Device IVPB 100 mls ASDIR PRN Administration FOR SERUM K+ 2.5 - 3.5 Potassium Phosphate 9 mmol/ 103 mls @ 25.75 mls/hr 10/02/19 05:40 10/03/19 19 :09 Sodium Chloride IVPB 103 mls ASDIR PRN Administration Phosphate 1.0-1.8 Dextrose/Sodium Chloride 1,000 mls @ 75 mls/hr 10/02/19 15:14 10/03/19 16:29 D5 1/2 Ns IV 1,000 mls .[id number] JAYRO Administration Piperacillin Sod/Tazobactam 100 mls @ 200 mls/hr 10/03/19 15:00 10/03/19 15: 06 Sod 3.375 gm/ Sodium Chloride IVPB 100 mls 0300,0900,1500,2100 JAYRO Administration Insulin Human Lispro 0 units 10/01/19 19:43 10/02/19 12:15 Humalog SC 2 unit .MILD SLIDING SCALE PRN Administration MILD SLIDING SCALE Protocol Ondansetron HCl 4 mg 09/30/19 19:37 10/01/19 06:50 Zofran IVP 4 mg Q6H PRN Administration Nausea/Vomiting Pantoprazole Sodium 40 mg 10/01/19 21:00 10/03/19 15:05 Protonix IVP 40 mg Q12HR JAYRO Administration Phosphorus 250 mg 10/02/19 17:00 10/03/19 18:12 Kphos Neutral PER TUBE Not Given BID-WM JAYRO Sertraline HCl 50 mg 10/01/19 09:00 10/03/19 12:53 Zoloft PO Not Given DAILY JAYRO - Exam General Appearance: NAD Heart: RRR, no gallops Respiratory: rales, rhonchi Gastrointestinal: soft, normal bowel sounds Extremities: no edema Hosp A/P - Plan DVT proph w/SCDs Acute hypoxic resp failure due to Aspiration Pneumonia 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 History of cerebrovascular accident with residual left-sided weakness. Hypokalemia/Hypophosphatemia Physical deconditioning. Sick sinus syndrome, status post pacemaker. Hypertension. Gastroesophageal reflux disease with history of grade D erosive esophagitis. Swallow dysfunction with PEG tube placement with subsequent removal. Chronic systolic HF - EF 35-40% - not on ACEI/ARB/Aldactone or BB due to BP on lower side. Vascular dementia. Former smoker. History of alcohol abuse. Hyperlipidemia. Chronic anemia. Dehydration. Mod MR PLAN: Replace Phosphorus Consult GI for PEG placement Cont Zosyn/Steroids Cont ASA/Plavix Reduce Steroids dose Cont PPI Cont other meds
[2019-10-04] MEDS: Piperacillin/Tazobactam 3.375 GM in Sodium Chloride 0.9% 100 ML IVPB SCH ×4 (03:59→22:29)
[2019-10-04] MEDS: Acetaminophen 650 MG Suppository PR PRN (04:00)
[2019-10-04 05:18] LABS: Mean Corpuscular Hemoglobin 30.1 pg (27.0-31.0); Mean Corpuscular Volume 88.5 fL (78.0-98.0); Mean Platelet Volume 7.2 fL (7.4-10.4); Platelet Count 181 thou/uL (130-400); RBC Distribution Width 11.6 % (11.5-14.5); Red Blood Cell (RBC) Count 3.99 mill/uL (4.70-6.10); White Blood Cell (WBC) Count 11.8 thou/uL (4.8-10.8)
[2019-10-04 05:27] LABS: Albumin 3.2 g/dL (3.4-4.8); Anion Gap 11 mmol/L (10-20); BUN (Urea Nitrogen) 9 mg/dL (8.4-25.7); BUN/Creatinine Ratio 12.86; Calc. Creatinine Clearance 93 mL/min (70-130); Carbon Dioxide 26 mmol/L (23-31); Chloride 101 mmol/L (98-107); Estimated GFR-MDRD Greater than 90; Glucose 101 mg/dL (80-115); Phosphorus 2.2 mg/dL (2.3-4.7); Potassium 3.6 mmol/L (3.5-5.1); Sodium 134 mmol/L (136-145)
[2019-10-04 05:28] LABS: Phosphorus 2.4 mg/dL (2.3-4.7)
[2019-10-04 05:37] LABS: Band 10 % (5-11); Lymphocytes 8 % (21-51); MDiff Complete? YES; Monocytes 6 % (0-10); Neutrophil 76 % (42-75); RBC Morphology Normal
[2019-10-04] MEDS: K-Phos Neutral 250 MG TAB PER TUBE SCH ×2 (08:06→15:22)
[2019-10-04] MEDS: Aspirin 81 mg Enteric Coated Tablet PO SCH (08:06)
[2019-10-04] MEDS: Clopidogrel Bisulfate 75 MG TAB PO SCH (08:06)
[2019-10-04] MEDS: Atorvastatin Calcium 40 MG TAB PO SCH (08:07)
[2019-10-04] MEDS ORDERED: Potassium Phosphate 15 MMOL in Sodium Chloride 0.9% 250 ML 250 ML IVPB SCH (08:30)
[2019-10-04] MEDS: Pantoprazole 40 MG VIAL IVP SCH ×2 (09:52→22:24)
[2019-10-04] MEDS: Dextrose 5 %-0.45 % NaCl 1,000 ML IV SCH ×2 (10:00→20:01)
[2019-10-04] MEDS ORDERED: Ketamine 50 MG/ML (10ML VIAL) ONE (13:45)
[2019-10-04] MEDS ORDERED: Aspirin 300 MG Suppository PR SCH (14:45)
[2019-10-04] MEDS ORDERED: Furosemide 20 MG/2 ML VIAL SLOW IVP SCH (14:45)
--- NOTE | 2019-10-04 14:53 | RAD ---
PORTABLE CHEST ONE VIEW: 10/04/2019 2:11 p.m. HISTORY: Shortness of breath. COMPARISON: 10/01/2019 FINDINGS: There are patchy infiltrates in the right mid and lower lung zones. No pneumothoraces or large effusi ons are seen. Left sided pacing device remains in place. Heart size is normal. IMPRESSION: Findings suspicious for pneumonia. POS: IRENA
--- NOTE | 2019-10-04 17:52 | PRG ---
DATE OF SERVICE: 10/04/2019 SERVICE: Pulmonary Medicine. INTERVAL HISTORY: The patient is doing fine from respiratory standpoint. He has been weaned down to room air. It is very clear that he is not doing a good job protecting his airway. He has significant rhonchi. He has required NT suctioning on multiple occasions. He is in-line for PEG tube at some point in the next 24 to 48 hours. PHYSICAL EXAMINATION: VITAL SIGNS: Afebrile, pulse 71, blood pressure 129/68, respirations 20, saturation 96%, currently on 3 L nasal cannula. GENERAL: The patient is awake and alert, in no apparent distress. LUNGS: Decent air entry. Extensive rhonchi are present. No prolonged expiratory phase is noted. I do not appreciate any wheezing or crackles. HEART: Normal rate, regular. ABDOMEN: Soft, nontender, and nondistended. Bowel sounds are positive. MUSCULOSKELETAL: No cyanosis or clubbing. No pitting in the bilateral lower extremities. LABORATORY DATA: WBC 11.8, hemoglobin 12.0, platelets 181,000. Basic metabolic profile is unremarkable. Phosphorus 2.2, albumin 3.2. Potassium 3.6. Urinalysis is consistent with urinary tract infection. E. coli is growing, which is a pansensitive organism. IMAGING STUDIES: Chest x-ray demonstrates right upper lobe pneumonia. The patient is rotated right anterior oblique. No obvious effusion or massive consolidated lesions are present. There is no cephalization or pulmonary vascular congestion present. ASSESSMENT: 1. Acute hypoxic respiratory failure secondary to aspiration. 2. Aspiration pneumonitis versus healthcare-associated pneumonia. 3. Cerebrovascular accident in the cerebellum on top of the history of multiple cerebrovascular accidents. 4. Urinary tract infection secondary to Escherichia coli. 5. Metabolic encephalopathy, resolved. DISCUSSION AND PLAN: We will continue making efforts at replacing electrolytes. At this point, the patient has no further requirements for inpatient Pulmonary/Critical Care opinion. Antibiotics directed at lung pathology can be limited to a 5-day course. The likelihood of a meaningful neurological recovery is bleak. If this patient develops increasing respiratory failure and requires mechanical ventilation, if we do not pursue comfort measures only, a tracheostomy should be strongly considered. Please call with additional questions or concerns through time. Job ID: [id number]
[2019-10-04] MEDS ORDERED: Dextrose 50 % In Water 50 ML SYRINGE ONE (18:43)
--- NOTE | 2019-10-04 19:13 | CON ---
DATE OF CONSULTATION: 10/04/2019 CHIEF COMPLAINT: "Can't swallow." HISTORY OF PRESENT ILLNESS: Mr. Munoz is a 69-year-old man, who was admitted on 09/30/2019 with recurrent stroke. He had a prior stroke back in December and had a PEG tube placed then. He was noted to have severe grade D erosive esophagitis at that time. He was treated with proton pump inhibitors and ultimately, his PEG tube was removed as he did not need it any more after improved neurologically. Now, he is back in with recurrent stroke and has been unable to swallow and is requiring need for enteral nutrition. He did have an aspiration event early in the hospital stay and was transferred to the ICU. Since then, he has been out of the ICU and breathing okay and has been receiving antibiotics. He was evaluated by Neurology, is being treated with aspirin and clopidogrel. He will wake up and respond. He denies any abdominal pain or nausea at this time. He is not verbal. PAST MEDICAL HISTORY: Stroke, hypertension, chronic kidney disease, bradycardia status post pacemaker placement, prior dysphagia and erosive esophagitis requiring PEG tube placement and subsequent removal, history of alcohol abuse, and vascular dementia. PAST SURGICAL HISTORY: Pacemaker placement and PEG tube placement. FAMILY HISTORY: Negative for GI malignancies. SOCIAL HISTORY: No recent alcohol, tobacco, or drugs. ALLERGIES: NO KNOWN DRUG ALLERGIES. MEDICATIONS: Currently in the hospital include: 1. Aspirin 81 mg daily. 2. Clopidogrel 75 mg daily. 3. Zosyn. 4. Atorvastatin. 5. Pantoprazole. 6. Sertraline. REVIEW OF SYSTEMS: Unable to be obtained as he is not verbal. PHYSICAL EXAMINATION: VITAL SIGNS: Temperature is 97.9, pulse 68, blood pressure 132/65, and oxygen saturations 93% on 2 L nasal cannula. GENERAL: He is in no acute distress. He opens his eyes and tries to lift his head when I am talking to him. He is able to shake his head in response to questions. HEENT: His oropharynx is clear without lesions. He appears somewhat contracted with the right side of his body. LUNGS: Clear to auscultation bilaterally. HEART: Regular rate and rhythm without murmur. ABDOMEN: Soft, nontender, and nondistended. Bowel sounds are present. EXTREMITIES: No lower extremity edema. LABORATORY DATA: White blood cell count 11.8, hemoglobin 12.0, platelets 181. INR 1.1. Bilirubin 0.5, AST 13, ALT 19, alkaline phosphatase 130, and albumin 3.8. IMPRESSION: 1. Stroke with resulting dysphagia, weakness, and dysarthria. 2. History of hypertension, dementia, and alcohol abuse. 3. History of severe erosive esophagitis. RECOMMENDATIONS: 1. Proton pump inhibitor. 2. EGD with percutaneous endoscopic gastrostomy tube placement. Job ID: [id number]
[2019-10-04] MEDS ORDERED: methylPREDNISolone Sod Succ 40 MG VIAL IVP SCH (22:00)
--- NOTE | 2019-10-04 23:13 | PDOC.HOSPP ---
- Subjective Encounter Date: 10/04/19 Encounter Time: 10:30 non-verbal Subjective: Patient seen and examined for resp failure. Remains confused. Poor appetite. No new complaints. No overnight events - Objective Vital Signs & Weight: Vital Signs (12 hours) Temp Pulse Resp BP Pulse Ox 10/04/19 22:11 89 16 92 L 10/04/19 20:00 101.8 F H 88 20 103/72 93 L 10/04/19 18:32 91 12 93 L 10/04/19 15:30 99.1 F 71 20 129/68 96 10/04/19 12:00 97.9 F 68 20 132/65 93 L Weight Admit Weight 145 lb 12.8 oz Weight 145 lb 12.8 oz Most Recent Monitor Data Heart Rate from ECG 95 NIBP 125/58 NIBP BP-Mean 80 Respiration from ECG 19 SpO2 97 I&O: 10/03/19 10/04/19 10/05/19 06:59 06:59 06:59 Intake Total 1422 569 Output Total 630 744 7291 Balance 214 -989 -3979 Result Diagrams: 10/05/19 04:58 10/05/19 04:58 Additional Labs: Accuchecks 10/04/19 10/04/19 10/04/19 20:16 18:23 12:05 POC Glucose 145 H 60 L 88 10/04/19 10/04/19 05:53 01:47 POC Glucose 102 111 H Laboratory Tests 10/02/19 10/04/19 04:12 04:50 Sodium 134 L Phosphorus 1.9 L 2.2 L EKG Reviewed by me: Yes (Tele paced) Hospitalist ROS - Review of Systems ROS unobtainable: due to mental status - Medication Medications: Active Medications Generic Name Dose Route Start Last Admin Trade Name Freq PRN Reason Stop Dose Admin Acetaminophen 650 mg 09/30/19 19:37 10/04/19 04:00 Tylenol [place] 650 mg Q4H PRN Administration Headache/Fever/Mild Pain (1-3) Albuterol/Ipratropium 3 ml 10/04/19 18:30 10/04/19 22:11 Duoneb NEB 3 ml [id number] JAYRO Administration Atorvastatin Calcium 40 mg 09/30/19 21:00 10/04/19 08:07 Lipitor PO Not Given HS JAYRO Clopidogrel Bisulfate 75 mg 10/03/19 09:00 10/04/19 08:06 Plavix PO Not Given DAILY [facility] Piperacillin Sod/Tazobactam 100 mls @ 200 mls/hr 10/03/19 15:00 10/04/19 22: 29 Sod 3.375 gm/ Sodium Chloride IVPB 100 mls 0300,0900,1500,2100 JAYRO Administration Dextrose/Sodium Chloride 1,000 mls @ 40 mls/hr 10/04/19 19:00 10/04/19 20:01 D5 1/2 Ns IV 1,000 mls .Q24H JAYRO Administration Insulin Human Lispro 0 units 10/01/19 19:43 10/02/19 12:15 Humalog SC 2 unit .MILD SLIDING SCALE PRN Administration MILD SLIDING SCALE Protocol Ondansetron HCl 4 mg 09/30/19 19:37 10/01/19 06:50 Zofran IVP 4 mg Q6H PRN Administration Nausea/Vomiting Pantoprazole Sodium 40 mg 10/01/19 21:00 10/04/19 22:24 Protonix IVP 40 mg Q12HR JAYRO Administration Phosphorus 250 mg 10/02/19 17:00 10/04/19 15:22 Kphos Neutral PER TUBE Not Given BID-WM JAYRO Sertraline HCl 50 mg 10/01/19 09:00 10/04/19 08:07 Zoloft PO Not Given DAILY [facility] Sodium Chloride 10 ml 09/30/19 19:40 10/04/19 22:30 Flush - Normal Saline IVF 10 ml PRN PRN Administration Saline Flush - Exam General Appearance: ill appearing Heart: no gallops, no rubs Respiratory: rales, rhonchi Gastrointestinal: soft, normal bowel sounds Extremities: no edema Hosp A/P - Plan DVT proph w/SCDs Acute hypoxic resp failure due to Aspiration Pneumonia 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 Ecoli UTI (POA) History of cerebrovascular accident with residual left-sided weakness. Hypokalemia/Hypophosphatemia/Hyponatremia Physical deconditioning. Sick sinus syndrome, status post pacemaker. Hypertension. Gastroesophageal reflux disease with history of grade D erosive esophagitis. Swallow dysfunction with PEG tube placement with subsequent removal. Chronic systolic HF - EF 35-40% - not on ACEI/ARB/Aldactone or BB due to BP on lower side. Vascular dementia. Former smoker. History of alcohol abuse. Hyperlipidemia. Chronic anemia. Dehydration. Mod MR PLAN: Replace Phosphorus GI input appreciated PEG tube when stable Cont Atbx - Zosyn Cont Steroids Cont ASA/Plavix Cont other meds
[2019-10-05] MEDS: Acetaminophen 650 MG Suppository PR PRN ×2 (00:48→11:53)
[2019-10-05] MEDS: Piperacillin/Tazobactam 3.375 GM in Sodium Chloride 0.9% 100 ML IVPB SCH ×4 (04:25→22:56)
[2019-10-05 05:49] LABS: #Eosinphils 0.1 thou/uL (0.0-0.7); #Lymphocytes 1.3 thou/uL (1.20-3.40); #Monocytes 0.6 thou/uL (0.11-0.59); #Neutrophils 10.3 thou/uL (1.40-6.50); %Eosinophils 0.9 % (0.0-10.0); %Lymphocytes 10.2 % (21.0-51.0); %Monocytes 5.2 % (0.0-10.0); %Neutrophils 83.6 % (42.0-75.0); Hemoglobin 12.2 g/dL (14.0-18.0); Mean Corpuscular HGB CONC 33.3 g/dL (32.0-36.0); Mean Corpuscular Hemoglobin 29.2 pg (27.0-31.0); Mean Corpuscular Volume 87.9 fL (78.0-98.0); Platelet Count 200 thou/uL (130-400); RBC Distribution Width 11.6 % (11.5-14.5); Red Blood Cell (RBC) Count 4.18 mill/uL (4.70-6.10); White Blood Cell (WBC) Count 12.3 thou/uL (4.8-10.8)
[2019-10-05 06:14] LABS: Albumin 3.1 g/dL (3.4-4.8); Anion Gap 11 mmol/L (10-20); BUN (Urea Nitrogen) 11 mg/dL (8.4-25.7); BUN/Creatinine Ratio 14.47; Calc. Creatinine Clearance 86 mL/min (70-130); Calcium 9.2 mg/dL (7.8-10.44); Carbon Dioxide 27 mmol/L (23-31); Chloride 101 mmol/L (98-107); Estimated GFR-MDRD Greater than 90; Glucose 95 mg/dL (80-115); Magnesium 1.9 mg/dL (1.6-2.6); Phosphorus 3.5 mg/dL (2.3-4.7); Potassium 3.1 mmol/L (3.5-5.1); Sodium 136 mmol/L (136-145)
--- NOTE | 2019-10-05 07:52 | RAD ---
Chest AP view INDICATION: Shortness of breath COMPARISON: October 04, 2019 FINDINGS: Lungs:There is improvement in the right upper lobe airspace opacity. Patchy areas of peripheral opaci ty remain within the right upper lobe and infrahilar regions. Cardiac silhouette:Cardiomegaly is stable Pulmonary vasculature:Normal Pleural spaces:No pleural effusion or pneumothorax is demonstrated. Upper abdomen:No abnormality seen. Osseous structures: No acute osseous abnormality. Additional findings:Stable pacemaker IMPRESSION: Some improvement in the right upper lobe airspace opacity but persistent opacities remain within the right upper lobe and both infrahilar regions. Continued follow-up is recommended.
[2019-10-05] MEDS ORDERED: Ondansetron HCl/PF 4 MG/2 ML Vial IVP PRN (08:33)
[2019-10-05] MEDS ORDERED: Furosemide 20 MG/2 ML VIAL SLOW IVP SCH (09:00)
[2019-10-05] MEDS ORDERED: Aspirin 300 MG Suppository PR SCH (09:00)
[2019-10-05] MEDS ORDERED: Sodium Chloride 0.9% 100 ML ONE (09:37)
[2019-10-05] MEDS ORDERED: Piperacillin/Tazobactam 3.375 GM VIAL ONE (09:37)
[2019-10-05] MEDS ORDERED: Midazolam HCl 2 mg/2 ml Vial ONE (09:56)
[2019-10-05] MEDS ORDERED: Ketamine 50 MG/ML (10ML VIAL) ONE (09:56)
[2019-10-05] MEDS: K-Phos Neutral 250 MG TAB PER TUBE SCH ×2 (11:06→16:50)
[2019-10-05] MEDS: Clopidogrel Bisulfate 75 MG TAB PO SCH (11:06)
[2019-10-05] MEDS: Saccharomyces boulardii 250 MG CAP PO SCH (11:07)
--- NOTE | 2019-10-05 11:29 | CON ---
DATE OF CONSULTATION: HISTORY OF PRESENT ILLNESS: The patient is a 69-year-old male, who resides at a assisted facility. The patient was noted to have an increasing confusion, difficulty swallowing, and irregular heart rate. EMS was called and he was transported to [facility]. The patient was seen in the emergency room with increase in confusion and unable to give a review of systems at this time. The patient has no family and his medical power of hardening machine operator is a [place] by the name of Haseeb. It is reported the patient was at his primary baseline earlier in the day prior to presentation and he is normally able to communicate verbally, however, at this time as previously stated, he was aphasic and confused. The patient was admitted for medical management related to encephalopathy, history of CVA, continued physical deconditioning, potential PEG tube placement secondary to dysphagia. As previously stated, unable to perform review of systems. PAST MEDICAL HISTORY: Includes CVA, hypertension, bradycardia, post pacemaker placement, kidney disease, dysphagia, swallow dysfunction, and GERD. The patient has a known history of alcohol abuse. SOCIAL HISTORY: As previously stated, the patient has no family at this time other than long-term friend, Haseeb, who is medical power of hardening machine operator. It is known that the patient is a former smoker, but does not currently smoke. . Job ID: [id number] [facility]
--- NOTE | 2019-10-05 11:41 | OP ---
DATE OF PROCEDURE: 10/05/2019 PROCEDURE PERFORMED: Esophagogastroduodenoscopy with percutaneous endoscopic gastrostomy tube placement. PREOPERATIVE DIAGNOSIS: Oropharyngeal dysphagia secondary to stroke. DESCRIPTION OF PROCEDURE: Informed consent was obtained. The patient was sedated with total intravenous anesthesia. The bite block was placed and the endoscope was advanced easily to the second portion of the duodenum and retroflexion was performed in the stomach. The esophagus was normal. There was a small hiatal hernia present. The stomach was normal including retroflex views otherwise. The pylorus and first and second portions of the duodenum were normal. The stomach was fully insufflated, and the appropriate site was transilluminated and palpated in the left upper to mid upper abdomen. Skin was sterilized with chlorhexidine. The skin was anesthetized with 5 mL of 1% lidocaine. A small skin incision was performed with a scalpel. This was performed at the site of the previous PEG tube placement from 12/2018. The catheter was then placed through the abdominal wall into the stomach easily in one attempt. The wire was placed through the catheter and grasped with a snare and pulled out through the patient's mouth. The 20-Malian gastrostomy tube was then placed by the pull-through technique. There is a rubber internal bumper. The external bumper was placed at 2 cm. Triple antibiotic ointment was applied and dressings were applied. IMPRESSION: 1. Small hiatal hernia. 2. Otherwise normal esophagogastroduodenoscopy. 3. Successful placement of 20-Malian percutaneous endoscopic gastrostomy tube. RECOMMENDATIONS: Start feeds in 8 hours per dietitian recommendations. Job ID: [id number]
[2019-10-05] MEDS: Dextrose 5 %-0.45 % NaCl 1,000 ML IV SCH (11:52)
[2019-10-05] MEDS: Pantoprazole 40 MG VIAL IVP SCH (11:53)
--- NOTE | 2019-10-05 17:42 | PDOC.HOSPP ---
- Subjective Encounter Date: 10/05/19 Encounter Time: 11:00 non-verbal Subjective: Patient seen and examined for Acute CVA. s/p PEG tube placement. No overnight events - Objective Vital Signs & Weight: Vital Signs (12 hours) Temp Pulse Resp BP Pulse Ox 10/05/19 15:53 98.7 F 82 12 107/64 94 L 10/05/19 14:29 85 18 10/05/19 11:50 99.3 F 10/05/19 11:19 100.2 F H 74 16 108/61 96 10/05/19 07:45 98.7 F 85 20 140/68 94 L 10/05/19 06:13 94 L 10/05/19 06:12 84 20 Weight Admit Weight 145 lb 12.8 oz Weight 145 lb 12.8 oz Most Recent Monitor Data Heart Rate from ECG 95 NIBP 125/58 NIBP BP-Mean 80 Respiration from ECG 19 SpO2 97 I&O: 10/04/19 10/05/19 10/06/19 06:59 06:59 06:59 Intake Total 569 680 Output Total 072 3410 Balance -735 -1390 680 Result Diagrams: 10/05/19 04:58 10/05/19 04:58 Additional Labs: Accuchecks 10/05/19 10/05/19 10/04/19 12:40 06:12 20:16 POC Glucose 99 87 145 H 10/04/19 18:23 POC Glucose 60 L EKG Reviewed by me: Yes (Tele paced) Hospitalist ROS - Review of Systems ROS unobtainable: due to mental status - Medication Medications: Active Medications Generic Name Dose Route Start Last Admin Trade Name Freq PRN Reason Stop Dose Admin Acetaminophen 650 mg 09/30/19 19:37 10/05/19 11:53 Tylenol TN 650 mg Q4H PRN Administration Headache/Fever/Mild Pain (1-3) Albuterol/Ipratropium 3 ml 10/04/19 18:30 10/05/19 14:29 Duoneb NEB 3 ml [id number] JAYRO Administration Atorvastatin Calcium 40 mg 09/30/19 21:00 10/04/19 08:07 Lipitor PO Not Given HS JAYRO Clopidogrel Bisulfate 75 mg 10/03/19 09:00 10/05/19 11:06 Plavix PO Not Given DAILY JAYRO Furosemide 20 mg 10/05/19 09:00 10/05/19 11:53 Lasix SLOW IVP 20 mg DAILY JAYRO Administration Piperacillin Sod/Tazobactam 100 mls @ 200 mls/hr 10/03/19 15:00 10/05/19 16: 46 Sod 3.375 gm/ Sodium Chloride IVPB 100 mls 0300,0900,1500,2100 JAYRO Administration Dextrose/Sodium Chloride 1,000 mls @ 40 mls/hr 10/04/19 19:00 10/05/19 11:52 D5 1/2 Ns IV 1,000 mls .Q24H JAYRO Administration Insulin Human Lispro 0 units 10/01/19 19:43 10/02/19 12:15 Humalog SC 2 unit .MILD SLIDING SCALE PRN Administration MILD SLIDING SCALE Protocol Ondansetron HCl 4 mg 09/30/19 19:37 10/01/19 06:50 Zofran IVP 4 mg Q6H PRN Administration Nausea/Vomiting Pantoprazole Sodium 40 mg 10/01/19 21:00 10/05/19 11:53 Protonix IVP 40 mg Q12HR JAYRO Administration Phosphorus 250 mg 10/02/19 17:00 10/05/19 16:50 Kphos Neutral PER TUBE Not Given BID-WM JAYRO Saccharomyces Boulardii 250 mg 10/05/19 09:00 10/05/19 11:07 Florastor PO Not Given DAILY [facility] Sertraline HCl 50 mg 10/01/19 09:00 10/05/19 11:07 Zoloft PO Not Given DAILY [facility] Sodium Chloride 10 ml 09/30/19 19:40 10/04/19 22:30 Flush - Normal Saline IVF 10 ml PRN PRN Administration Saline Flush - Exam General Appearance: NAD Neck: supple, no JVD Heart: RRR, no gallops Respiratory: no wheezes, rales, rhonchi Gastrointestinal: soft, non-tender, normal bowel sounds Extremities: no edema Psychiatric: not oriented Hosp A/P - Plan DVT proph w/lovenox, DVT proph w/SCDs Acute hypoxic resp failure due to Aspiration Pneumonia 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 Ecoli UTI (POA) History of cerebrovascular accident with residual left-sided weakness. Hypokalemia/Hypophosphatemia/Hyponatremia Physical deconditioning. Sick sinus syndrome, status post pacemaker. Hypertension. Gastroesophageal reflux disease with history of grade D erosive esophagitis. Swallow dysfunction s/p PEG tube placement 10/05 Chronic systolic HF - EF 35-40% - not on ACEI/ARB/Aldactone or BB due to BP on lower side. Vascular dementia. Former smoker. History of alcohol abuse. Hyperlipidemia. Chronic anemia. Dehydration. Mod MR PLAN: Replace Potassium Start PEG tube feedings later today Cont Zosyn Cont ASA/Plavix Change PPI to PO DC IVF when tolerating PEG feed Cont other meds
[2019-10-05] MEDS: Heparin 5,000 UNITS/ML VIAL SC SCH (22:56)
[2019-10-05] MEDS: Acetaminophen 325 MG TAB PO PRN (22:56)
[2019-10-05] MEDS: Atorvastatin Calcium 40 MG TAB PO SCH (22:56)
[2019-10-06] MEDS: Piperacillin/Tazobactam 3.375 GM in Sodium Chloride 0.9% 100 ML IVPB SCH ×2 (04:09→09:08)
[2019-10-06 05:28] LABS: #Eosinphils 0.5 thou/uL (0.0-0.7); #Lymphocytes 1.3 thou/uL (1.20-3.40); #Monocytes 0.6 thou/uL (0.11-0.59); #Neutrophils 7.5 thou/uL (1.40-6.50); %Basophils 0.1 % (0.0-1.0); %Eosinophils 5.5 % (0.0-10.0); %Lymphocytes 13.5 % (21.0-51.0); %Monocytes 5.7 % (0.0-10.0); %Neutrophils 75.3 % (42.0-75.0); Hemoglobin 12.2 g/dL (14.0-18.0); Mean Corpuscular HGB CONC 33.7 g/dL (32.0-36.0); Mean Corpuscular Hemoglobin 29.7 pg (27.0-31.0); Mean Corpuscular Volume 88.2 fL (78.0-98.0); Platelet Count 197 thou/uL (130-400); RBC Distribution Width 11.6 % (11.5-14.5); Red Blood Cell (RBC) Count 4.09 mill/uL (4.70-6.10); White Blood Cell (WBC) Count 9.9 thou/uL (4.8-10.8)
[2019-10-06 05:49] LABS: Albumin 3.1 g/dL (3.4-4.8); Anion Gap 10 mmol/L (10-20); BUN (Urea Nitrogen) 17 mg/dL (8.4-25.7); BUN/Creatinine Ratio 22.67; Calc. Creatinine Clearance 87 mL/min (70-130); Calcium 9.3 mg/dL (7.8-10.44); Carbon Dioxide 30 mmol/L (23-31); Chloride 102 mmol/L (98-107); Estimated GFR-MDRD Greater than 90; Glucose 129 mg/dL (80-115); Magnesium 2.1 mg/dL (1.6-2.6); Phosphorus 2.6 mg/dL (2.3-4.7); Potassium 3.3 mmol/L (3.5-5.1); Sodium 139 mmol/L (136-145)
[2019-10-06] MEDS: K-Phos Neutral 250 MG TAB PER TUBE SCH ×2 (09:20→18:33)
[2019-10-06] MEDS: Aspirin 81 mg Enteric Coated Tablet PER TUBE SCH (09:20)
[2019-10-06] MEDS: Saccharomyces boulardii 250 MG CAP PO SCH (09:21)
[2019-10-06] MEDS: Clopidogrel Bisulfate 75 MG TAB PO SCH (09:21)
[2019-10-06] MEDS: Pantoprazole 40 MG GRANULES PACKET PO SCH (09:21)
[2019-10-06] MEDS: Heparin 5,000 UNITS/ML VIAL SC SCH ×2 (09:34→22:36)
[2019-10-06] MEDS: Acetaminophen 325 MG TAB PO PRN ×3 (10:00→22:37)
--- NOTE | 2019-10-06 11:38 | PDOC.HOSPP ---
- Subjective Encounter Date: 10/06/19 Encounter Time: 09:00 Subjective: Patient seen and examined for Acute CVA. Tolerating PEG tube feeds. Mentation improving. No new complaints. No overnight events - Objective Vital Signs & Weight: Vital Signs (12 hours) Temp Pulse Resp BP Pulse Ox 10/06/19 10:29 72 16 10/06/19 07:28 99.7 F H 72 20 130/62 97 10/06/19 06:17 92 L 10/06/19 06:16 80 16 10/06/19 04:16 99.8 F H 78 20 124/74 100 10/06/19 01:35 87 16 92 L 10/06/19 00:21 94 L 10/06/19 00:10 99.8 F H 94 20 121/67 94 L Weight Admit Weight 145 lb 12.8 oz Weight 145 lb 12.8 oz Most Recent Monitor Data Heart Rate from ECG 95 NIBP 125/58 NIBP BP-Mean 80 Respiration from ECG 19 SpO2 97 I&O: 10/05/19 10/06/19 10/07/19 06:59 06:59 06:59 Intake Total 569 1525 Output Total 3410 300 Balance -2841 1225 Result Diagrams: 10/06/19 05:12 10/06/19 05:12 Additional Labs: Accuchecks 10/06/19 10/06/19 10/05/19 06:14 00:13 16:48 POC Glucose 132 H 114 H 106 10/05/19 12:40 POC Glucose 99 EKG Reviewed by me: Yes (Tele Paced) Hospitalist ROS - Review of Systems ROS unobtainable: due to mental status - Medication Medications: Active Medications Generic Name Dose Route Start Last Admin Trade Name Freq PRN Reason Stop Dose Admin Acetaminophen 650 mg 09/30/19 19:37 10/06/19 10:00 Tylenol PO 650 mg Q4H PRN Administration Headache/Fever/Mild Pain (1-3) Acetaminophen 650 mg 09/30/19 19:37 10/05/19 11:53 Tylenol HI 650 mg Q4H PRN Administration Headache/Fever/Mild Pain (1-3) Albuterol/Ipratropium 3 ml 10/04/19 18:30 10/06/19 10:29 Duoneb NEB 3 ml [id number] JAYRO Administration Aspirin 81 mg 10/06/19 09:00 10/06/19 09:20 Ecotrin PER TUBE 81 mg DAILY JAYRO Administration Atorvastatin Calcium 40 mg 09/30/19 21:00 10/05/19 22:56 Lipitor PO 40 mg HS JAYRO Administration Clopidogrel Bisulfate 75 mg 10/03/19 09:00 10/06/19 09:21 Plavix PO 75 mg DAILY JAYRO Administration Heparin Sodium (Porcine) 5,000 units 10/05/19 21:00 10/06/19 09:34 Heparin SC 5,000 units BID JAYRO Administration Insulin Human Lispro 0 units 10/01/19 19:43 10/02/19 12:15 Humalog SC 2 unit .MILD SLIDING SCALE PRN Administration MILD SLIDING SCALE Protocol Ondansetron HCl 4 mg 09/30/19 19:37 10/01/19 06:50 Zofran IVP 4 mg Q6H PRN Administration Nausea/Vomiting Pantoprazole Sodium 40 mg 10/06/19 09:00 10/06/19 09:21 Protonix PO 40 mg DAILY JAYRO Administration Phosphorus 250 mg 10/02/19 17:00 10/06/19 09:20 Kphos Neutral PER TUBE 250 mg BID-WM JAYRO Administration Potassium Chloride 20 meq 10/06/19 08:00 10/06/19 09:20 Klor-Con PER TUBE 10/06/19 17:01 20 meq BID-WM JAYRO Administration Saccharomyces Boulardii 250 mg 10/05/19 09:00 10/06/19 09:21 Florastor PO 250 mg DAILY JAYRO Administration Sertraline HCl 50 mg 10/01/19 09:00 10/06/19 09:21 Zoloft PO 50 mg DAILY JAYRO Administration Sodium Chloride 10 ml 09/30/19 19:40 10/04/19 22:30 Flush - Normal Saline IVF 10 ml PRN PRN Administration Saline Flush - Exam General Appearance: NAD Heart: RRR, no gallops Respiratory: no wheezes, rhonchi Gastrointestinal: soft, non-tender, normal bowel sounds Extremities: no edema Hosp A/P - Plan DVT proph w/SCDs Acute hypoxic resp failure due to Aspiration Pneumonia 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 Ecoli UTI (POA) History of cerebrovascular accident with residual left-sided weakness. Hypokalemia/Hypophosphatemia/Hyponatremia Physical deconditioning. Sick sinus syndrome, status post pacemaker. Hypertension. Gastroesophageal reflux disease with history of grade D erosive esophagitis. Swallow dysfunction s/p PEG tube placement 10/05 Chronic systolic HF - EF 35-40% - not on ACEI/ARB/Aldactone or BB due to relative hypotension Vascular dementia. Former smoker. History of alcohol abuse. Hyperlipidemia. Chronic anemia. Dehydration. Mod MR PLAN: Cont PEG tube feeds Replace Potassium DC IV Zosyn Start Augmentin Cont ASA/Plavix Cont other meds Stroke team DC planning
--- NOTE | 2019-10-06 13:58 | PRG ---
DATE OF SERVICE: 10/06/2019 SUBJECTIVE: Mr. Munoz is tolerating his tube feeds well. No abdominal pain. OBJECTIVE: VITAL SIGNS: Temperature is 100.0, pulse 81, blood pressure 115/61. GENERAL: He is in no acute distress. He does wake up to stimulation. LUNGS: Clear to auscultation anteriorly. HEART: Regular rate and rhythm. ABDOMEN: Soft, nontender, nondistended. Gastrostomy site looks healthy. I loosened the external bumper to 3 cm. IMPRESSION: 1. Oropharyngeal dysphagia, status post percutaneous endoscopic gastrostomy tube placement. 2. Continue tube feeds as he is tolerating these well. These can be transitioned to bolus feeds as needed. 3. I will sign off. Please call if GI can be of assistance. Job ID: [id number]
[2019-10-06] MEDS: Acetaminophen 650 MG Suppository PR PRN (14:03)
[2019-10-06] MEDS: Amoxicillin/Potassium Clav 400 mg/5 ml Oral Suspension PER TUBE SCH ×2 (14:54→22:36)
[2019-10-06] MEDS: Atorvastatin Calcium 40 MG TAB PO SCH (22:36)
--- NOTE | 2019-10-06 23:40 | RAD ---
Chest one view HISTORY: Dyspnea. Aspiration. COMPARISON: 10/05/2019. FINDINGS: Cardiac silhouette is magnified by projection. Pulmonary vasculature are unremarkable. Medi astinum is midline with dual lead left subclavian cardiac electronic device. Patchy areas of ill-defined parenchymal opacity throughout each lung have improved significantly sinc e the prior study. No evidence of pneumothorax. IMPRESSION: Improved aeration of the lungs. Decrease in density of bilateral patchy infiltrates.
[2019-10-07 09:21] LABS: #Eosinphils 0.5 thou/uL (0.0-0.7); #Lymphocytes 1.1 thou/uL (1.20-3.40); #Monocytes 0.6 thou/uL (0.11-0.59); #Neutrophils 6.1 thou/uL (1.40-6.50); %Basophils 0.2 % (0.0-1.0); %Eosinophils 6.2 % (0.0-10.0); %Lymphocytes 13.5 % (21.0-51.0); %Monocytes 6.9 % (0.0-10.0); %Neutrophils 73.2 % (42.0-75.0); Hemoglobin 11.9 g/dL (14.0-18.0); Mean Corpuscular HGB CONC 33.5 g/dL (32.0-36.0); Mean Corpuscular Hemoglobin 29.8 pg (27.0-31.0); Mean Corpuscular Volume 88.9 fL (78.0-98.0); Mean Platelet Volume 6.7 fL (7.4-10.4); Platelet Count 240 thou/uL (130-400); RBC Distribution Width 11.8 % (11.5-14.5); Red Blood Cell (RBC) Count 3.99 mill/uL (4.70-6.10); White Blood Cell (WBC) Count 8.3 thou/uL (4.8-10.8)
[2019-10-07] MEDS: Dextrose 5 % And 0.9 % NaCl 1,000 ML IV SCH ×2 (09:28→23:36)
[2019-10-07 09:33] LABS: Anion Gap 11 mmol/L (10-20); BUN (Urea Nitrogen) 18 mg/dL (8.4-25.7); Calc. Creatinine Clearance 92 mL/min (70-130); Calcium 9.3 mg/dL (7.8-10.44); Carbon Dioxide 31 mmol/L (23-31); Chloride 103 mmol/L (98-107); Estimated GFR-MDRD Greater than 90; Glucose 142 mg/dL (80-115); Sodium 141 mmol/L (136-145)
[2019-10-07] MEDS: Scopolamine 1.5 mg/72 hour Patch TD SCH (09:34)
[2019-10-07] MEDS: Metoclopramide HCl 10 MG/2 ML VIAL IVP SCH ×3 (09:36→21:56)
[2019-10-07] MEDS: Amoxicillin/Potassium Clav 400 mg/5 ml Oral Suspension PER TUBE SCH ×3 (09:39→21:57)
[2019-10-07] MEDS: K-Phos Neutral 250 MG TAB PER TUBE SCH ×2 (09:39→17:05)
[2019-10-07] MEDS: Aspirin 81 mg Enteric Coated Tablet PER TUBE SCH (09:39)
[2019-10-07] MEDS: Pantoprazole 40 MG GRANULES PACKET PO SCH (09:40)
[2019-10-07] MEDS: Acetaminophen 325 MG TAB PO PRN (09:40)
[2019-10-07] MEDS: Clopidogrel Bisulfate 75 MG TAB PO SCH (09:40)
[2019-10-07] MEDS: Saccharomyces boulardii 250 MG CAP PO SCH (09:40)
[2019-10-07] MEDS: Heparin 5,000 UNITS/ML VIAL SC SCH ×2 (09:42→21:56)
--- NOTE | 2019-10-07 18:41 | PDOC.HOSPP ---
- Subjective Encounter Date: 10/07/19 Encounter Time: 09:20 Subjective: Patient seen and examined for CVA/Resp failure. Febrile last night. Had some issues with PEG feed last night. No other overnight events - Objective Vital Signs & Weight: Vital Signs (12 hours) Temp Pulse Pulse Resp BP BP Pulse Ox 10/07/19 16:07 69 20 99 10/07/19 15:48 98.3 F 69 16 136/77 96 10/07/19 12:00 98.1 F 73 16 118/69 95 10/07/19 11:44 73 18 99 10/07/19 10:51 74 123/69 10/07/19 07:43 101.4 F H 79 16 133/79 95 Weight Admit Weight 145 lb 12.8 oz Weight 145 lb 12.8 oz Most Recent Monitor Data Heart Rate from ECG 95 NIBP 125/58 NIBP BP-Mean 80 Respiration from ECG 19 SpO2 97 I&O: 10/06/19 10/07/19 10/08/19 06:59 06:59 06:59 Intake Total 2521 841 7957 Output Total 300 250 650 Balance 1225 -100 1022 Result Diagrams: 10/07/19 09:13 10/07/19 09:13 Additional Labs: Accuchecks 10/07/19 10/07/19 10/07/19 17:24 11:34 05:31 POC Glucose 129 H 143 H 128 H 10/07/19 03:28 POC Glucose 137 H Radiology Reviewed by me: Yes (CXR - improving) EKG Reviewed by me: Yes (Tele paced) Hospitalist ROS - Review of Systems ROS unobtainable: due to mental status - Medication Medications: Active Medications Generic Name Dose Route Start Last Admin Trade Name Freq PRN Reason Stop Dose Admin Acetaminophen 650 mg 09/30/19 19:37 10/07/19 09:40 Tylenol PO 650 mg Q4H PRN Administration Headache/Fever/Mild Pain (1-3) Acetaminophen 650 mg 09/30/19 19:37 10/06/19 14:03 Tylenol RI 650 mg Q4H PRN Administration Headache/Fever/Mild Pain (1-3) Albuterol/Ipratropium 3 ml 10/07/19 10:30 10/07/19 16:07 Duoneb NEB 3 ml [id number] JAYRO Administration Amoxicillin/Clavulanate Potassium 400 mg 10/06/19 15:00 10/07/19 17:05 Augmentin 400mg/5ml Oral Susp PER TUBE 400 mg TID JAYRO Administration Aspirin 81 mg 10/06/19 09:00 10/07/19 09:39 Ecotrin PER TUBE 81 mg DAILY JAYRO Administration Atorvastatin Calcium 40 mg 09/30/19 21:00 10/06/19 22:36 Lipitor PO 40 mg HS JAYRO Administration Clopidogrel Bisulfate 75 mg 10/03/19 09:00 10/07/19 09:40 Plavix PO 75 mg DAILY JAYRO Administration Heparin Sodium (Porcine) 5,000 units 10/05/19 21:00 10/07/19 09:42 Heparin SC 5,000 units BID JAYRO Administration Dextrose/Sodium Chloride 1,000 mls @ 75 mls/hr 10/07/19 09:15 10/07/19 09:28 D5 0.9% Ns IV 10/08/19 11:54 1,000 mls .[id number] JAYRO Administration Insulin Human Lispro 0 units 10/01/19 19:43 10/02/19 12:15 Humalog SC 2 unit .MILD SLIDING SCALE PRN Administration MILD SLIDING SCALE Protocol Metoclopramide HCl 5 mg 10/07/19 09:00 10/07/19 16:15 Reglan IVP 5 mg Q6H JAYRO Administration Ondansetron HCl 4 mg 09/30/19 19:37 10/01/19 06:50 Zofran IVP 4 mg Q6H PRN Administration Nausea/Vomiting Pantoprazole Sodium 40 mg 10/06/19 09:00 10/07/19 09:40 Protonix PO 40 mg DAILY JAYRO Administration Phosphorus 250 mg 10/02/19 17:00 10/07/19 17:05 Kphos Neutral PER TUBE 250 mg BID-WM JAYRO Administration Saccharomyces Boulardii 250 mg 10/05/19 09:00 10/07/19 09:40 Florastor PO 250 mg DAILY JAYRO Administration Scopolamine 1.5 mg 10/07/19 10:00 10/07/19 09:34 Transderm Scop TD 1.5 mg Q3D JAYRO Administration Sertraline HCl 50 mg 10/01/19 09:00 10/07/19 09:40 Zoloft PO 50 mg DAILY JAYRO Administration Sodium Chloride 10 ml 09/30/19 19:40 10/06/19 22:38 Flush - Normal Saline IVF 10 ml PRN PRN Administration Saline Flush - Exam General Appearance: NAD Heart: RRR, no gallops Respiratory: no wheezes, rales, rhonchi Gastrointestinal: soft, non-tender, non-distended, normal bowel sounds Extremities: no edema Neurological: no new deficit Hosp A/P - Plan PT/OT, DVT proph w/heparin Acute hypoxic resp failure due to Aspiration Pneumonia 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 Ecoli UTI (POA) History of cerebrovascular accident with residual left-sided weakness. Hypokalemia/Hypophosphatemia/Hyponatremia Physical deconditioning. Sick sinus syndrome, status post pacemaker. Hypertension. Gastroesophageal reflux disease with history of grade D erosive esophagitis. Swallow dysfunction s/p PEG tube placement 10/05 Chronic systolic HF - EF 35-40% - not on ACEI/ARB/Aldactone or BB due to relative hypotension Vascular dementia. Former smoker. History of alcohol abuse. Hyperlipidemia. Chronic anemia. Dehydration. Mod MR PLAN: Gentle IV hydration Cont Augmentin Consult ID due to persistent fever Cont PEG tube feeds Cont ASA/Plavix Cont other meds DC to SNF once cleared by Dr Reynolds Deep suctioning by RT Add schedule Nebs
[2019-10-07] MEDS: Atorvastatin Calcium 40 MG TAB PO SCH (21:57)
[2019-10-08] MEDS: Metoclopramide HCl 10 MG/2 ML VIAL IVP SCH ×4 (02:25→22:27)
[2019-10-08] MEDS: Pantoprazole 40 MG GRANULES PACKET PO SCH (09:28)
[2019-10-08] MEDS: K-Phos Neutral 250 MG TAB PER TUBE SCH ×2 (09:28→16:28)
[2019-10-08] MEDS: Saccharomyces boulardii 250 MG CAP PO SCH (09:28)
[2019-10-08] MEDS: Clopidogrel Bisulfate 75 MG TAB PO SCH (09:28)
[2019-10-08] MEDS: Amoxicillin/Potassium Clav 400 mg/5 ml Oral Suspension PER TUBE SCH ×3 (09:28→22:27)
[2019-10-08] MEDS: Aspirin 81 mg Enteric Coated Tablet PER TUBE SCH (09:28)
[2019-10-08] MEDS: Heparin 5,000 UNITS/ML VIAL SC SCH ×2 (09:29→22:27)
--- NOTE | 2019-10-08 11:18 | RAD ---
Chest AP view INDICATION: Shortness of breath COMPARISON: October 06, 2019 FINDINGS: Lungs:There are worsening perihilar airspace opacities, right greater than left Cardiac silhouette:There is persistent prominent cardiomegaly Pulmonary vasculature:There is worsening pulmonary vascular congestion Pleural spaces:No pleural effusion or pneumothorax is demonstrated. Upper abdomen:No abnormality seen. Osseous structures: No acute osseous abnormality. Additional findings:None. IMPRESSION: Worsening pulmonary vascular congestion and perihilar airspace opacities suspicious for w orsening volume overload or CHF. There is persistent cardiomegaly.
[2019-10-08] MEDS ORDERED: Furosemide 40 MG/4 ML VIAL SLOW IVP SCH (12:00)
--- NOTE | 2019-10-08 13:27 | ULT ---
US Venous Doppler Bilat History: Tachypnea and cough Comparison: None. Findings: Real-time grayscale, color, and spectral analysis of the bilateral lower extremity venous s ystem was performed. The left mid and distal femoral vein as well as the right common femoral, femoral, proximal portions greater saphenous and deep femoral veins as well as the popliteal and posterior tibial veins were patent with normal flow, augmentation, and compression. The left common femoral vein, deep femoral ve in, popliteal and posterior tibial veins were not able to be evaluated due to contraction. Impression: Limited left lower extremity venous system due to patient's contraction. Right lower extr emity and the proximal left lower extremity venous system is patent.
--- NOTE | 2019-10-08 13:57 | CON ---
DATE OF CONSULTATION: 10/08/2019 REASON FOR CONSULTATION: Possible pneumonia, recent CVA. HISTORY OF PRESENT ILLNESS: A 69-year-old gentleman who has a history of prior CVAs in the posterior cerebral artery distribution, one hemorrhagic, which has left him with significant functional impairment and for a moment he required gastrostomy tube feedings. His swallowing improved and then now has deteriorated again. He was admitted a few days ago to [facility], and initial BP 140/70, pulse 80, respirations 16, temperature 97.7, O2 saturation 99. On the initial exam with left gaze deviation or preference. The lungs and heart exam were described as normal. Abdomen was described as nontender as well. He did have some hypertonicity and hyperreflexia in lower extremities. The initial results also included a white cell count of 7.9, hemoglobin 13.4, platelets 223 with 69% neutrophils, 18% lymphocytes. Initial chemistry demonstrated sodium 139, creatinine 0.8, and alkaline phosphatase 135 with normal transaminases and albumin. Initial and only urinalysis with greater than 50 wbc's. The patient persisted with confusion with large emesis on the 1st day of admission. He was transferred to [facility] for noninvasive positive-pressure ventilation. He could not have an MRI because of pacemaker and he was given an empiric antimicrobial therapy with Zosyn for possible aspiration and low-dose corticosteroids. Decision was made to have a gastrostomy replaced, so a Gastroenterology was consulted and Dr. Sterling reinserted his previously inserted G-tube, which had been removed because of transient improvement of his swallowing function. Because of persistence of intermittent temperature elevation, we are asked to evaluate the patient. He had up to 101.4 yesterday. Today, the temperature curve has improved. The patient is not able to interact with examiner due to his cognitive impairment. He is lying on his right lateral decubitus. Has not had diarrhea. He had some little bit of bleeding around the exit site of the gastrostomy tube, still with a lot of abnormal lung sounds, and having difficulty in clearing his secretions. No seizure activity reported. PAST MEDICAL HISTORY: Includes; 1. GERD. 2. Erosive esophagitis. 3. Hypertension. 4. CVA x2, mostly in the posterior cerebral artery distribution. 5. Atrial fibrillation. 6. Dementia, probably vascular dementia. 7. Swallowing dysfunction. 8. G-tube placement, removal, and now replacement. SOCIAL HISTORY: History of alcohol abuse. Former smoker. Lives in a prison in the area. ALLERGY HISTORY: Negative. CURRENT MEDICATIONS: Include; 1. Tylenol. 2. DuoNeb. 3. Augmentin. 4. Ecotrin. 5. Lipitor. 6. Dulcolax. 7. Tums. 8. Plavix. 9. Lasix. 10. Glucagon. 11. Apresoline. 12. Reglan. 13. Zofran. 14. Protonix. 15. K-Phos. 16. Florastor. 17. Transderm scopolamine. 18. Zoloft. PHYSICAL EXAMINATION: VITAL SIGNS: Temperature currently 98.1, blood pressure 130/60, pulse 69, respirations 20, and O2 saturation 98. SKIN: With a little area of ulceration in the right 1st MTP skin site, measuring about 1 cm. No other significant findings in the skin exam except for a gastrostomy tube and he is voiding with an indwelling catheter as well. There is no lymphadenopathy. HEENT: Ocular movements have a right side gaze preference at this moment. No nystagmus. Pupils are equal and reactive. Nasal passages are patent. Oral cavity was difficult to examine because of inability to open his mouth. LUNGS: With coarse large airway sounds, indicative of secretions. No wheezing. HEART: S1 and S2. Irregular rate. No S3 or S4. ABDOMEN: Not distended. There is a little bit of blood at the exit site of the gastrostomy tube. No evidence of bladder distention. EXTREMITIES: The patient has weakness in all 4 extremities. He does have hyperreflexia in the lower extremities with upgoing toes on the left side. Pulses are 1+ in dorsalis pedis. NEUROLOGIC: Does not establish eye contact with the examiner. Does not answer questions or follow commands. LABORATORY DATA: Latest labs: White cell count is down to 8.3, hemoglobin 11, platelets 240, 73% neutrophils. Creatinine 0.71. Liver profile with alkaline phosphatase 130. Other elements are normal. Cultures, we have E coli from urine culture from 10/01, which had a very broad susceptibility profile. Two sets of blood culture, no growth. The patient had a chest x-ray done today, which showed worsening pulmonary vascular congestion, perihilar airspace opacities, some volume overload. ASSESSMENT: 1. Cerebrovascular accident x2 with severe functional impairment. 2. Swallowing dysfunction, requiring gastrostomy tube placement and replacement. 3. Evidence of aspiration. 4. Transient fever. 5. Recently completed course of Zosyn for a possible and likely aspiration pneumonia. 6. Abnormal urinalysis with Escherichia coli. DISCUSSION: Differential diagnosis includes invasive UTI versus aspiration pneumonia versus thromboembolism. The urinary bladder was markedly distended on admission, so he may have been transiently bacteremic from there, which may have contributed to his symptomatology. We can either switch him back to Zosyn at this point or just watch it and see if he improves in terms of his the temperature curve or continues to stabilize in the lower range. His white cell count is decreasing, which would auger a positive trend in the future temperature measurements. In the other hand, if he were to have recurrence of fever in the next 24 hours, then I would definitely restart Zosyn. We will go ahead and check his duplex ultrasound of the lower extremities to rule out deep vein thrombosis since thromboembolism is always a concern with this type of patient. His urinary function will have to be reassessed and see if the patient will pass a voiding trial down the road since there is a retention of an indwelling Cadet catheter, will represent another risk factor. Job ID: [id number]
[2019-10-08] MEDS: Atorvastatin Calcium 40 MG TAB PO SCH (22:27)
--- NOTE | 2019-10-08 22:37 | PDOC.HOSPP ---
- Subjective Encounter Date: 10/08/19 Encounter Time: 09:00 Subjective: Patient seen and examined for Resp failure. SOB. Mentation improving. Intermittent fever per RN. No new complaints. No overnight events - Objective Vital Signs & Weight: Vital Signs (12 hours) Temp Pulse Pulse Resp BP BP Pulse Ox 10/08/19 22:13 81 16 94 L 10/08/19 17:58 77 16 97 10/08/19 15:40 99.5 F 76 14 105/73 99 10/08/19 15:32 69 18 100 10/08/19 15:03 74 151/76 H 10/08/19 11:51 98.2 F 69 9 L 137/65 98 10/08/19 11:04 60 20 100 Weight Admit Weight 145 lb 12.8 oz Weight 145 lb 12.8 oz Most Recent Monitor Data Heart Rate from ECG 95 NIBP 125/58 NIBP BP-Mean 80 Respiration from ECG 19 SpO2 97 I&O: 10/07/19 10/08/19 10/09/19 06:59 06:59 06:59 Intake Total 150 3257 3598 Output Total 250 1850 2850 Balance -100 1407 748 Result Diagrams: 10/07/19 09:13 10/07/19 09:13 Additional Labs: Accuchecks 10/08/19 10/08/19 10/08/19 18:13 12:24 06:00 POC Glucose 114 H 137 H 143 H 10/07/19 23:32 POC Glucose 123 H Radiology Reviewed by me: Yes (CXR - Pulm vas congestion) EKG Reviewed by me: Yes (Tele paced) Hospitalist ROS - Review of Systems Respiratory: denies: cough, dry, shortness of breath, hemoptysis, SOB with excertion, pleuritic pain, sputum, wheezing, other Cardiovascular: denies: chest pain, palpitations, orthopnea, paroxysmal noc. dyspnea, edema, light headedness, other - Medication Medications: Active Medications Generic Name Dose Route Start Last Admin Trade Name Freq PRN Reason Stop Dose Admin Acetaminophen 650 mg 09/30/19 19:37 10/07/19 09:40 Tylenol PO 650 mg Q4H PRN Administration Headache/Fever/Mild Pain (1-3) Acetaminophen 650 mg 09/30/19 19:37 10/06/19 14:03 Tylenol MT 650 mg Q4H PRN Administration Headache/Fever/Mild Pain (1-3) Albuterol/Ipratropium 3 ml 10/07/19 10:30 10/08/19 22:13 Duoneb NEB 3 ml [id number] JAYRO Administration Amoxicillin/Clavulanate Potassium 400 mg 10/06/19 15:00 10/08/19 16:28 Augmentin 400mg/5ml Oral Susp PER TUBE 400 mg TID JAYRO Administration Aspirin 81 mg 10/06/19 09:00 10/08/19 09:28 Ecotrin PER TUBE 81 mg DAILY JAYRO Administration Atorvastatin Calcium 40 mg 09/30/19 21:00 10/07/19 21:57 Lipitor PO 40 mg HS JAYRO Administration Clopidogrel Bisulfate 75 mg 10/03/19 09:00 10/08/19 09:28 Plavix PO 75 mg DAILY JAYRO Administration Heparin Sodium (Porcine) 5,000 units 10/05/19 21:00 10/08/19 09:29 Heparin SC 5,000 units BID JAYRO Administration Insulin Human Lispro 0 units 10/01/19 19:43 10/02/19 12:15 Humalog SC 2 unit .MILD SLIDING SCALE PRN Administration MILD SLIDING SCALE Protocol Metoclopramide HCl 5 mg 10/07/19 09:00 10/08/19 16:40 Reglan IVP 5 mg Q6H JAYRO Administration Ondansetron HCl 4 mg 09/30/19 19:37 10/01/19 06:50 Zofran IVP 4 mg Q6H PRN Administration Nausea/Vomiting Pantoprazole Sodium 40 mg 10/06/19 09:00 10/08/19 09:28 Protonix PO 40 mg DAILY JAYRO Administration Phosphorus 250 mg 10/02/19 17:00 10/08/19 16:28 Kphos Neutral PER TUBE 250 mg BID-WM JAYRO Administration Potassium Chloride 20 meq 10/08/19 17:00 10/08/19 16:28 Klor-Con PO 10/09/19 08:01 20 meq BID-WM JAYRO Administration Saccharomyces Boulardii 250 mg 10/05/19 09:00 10/08/19 09:28 Florastor PO 250 mg DAILY JAYRO Administration Scopolamine 1.5 mg 10/07/19 10:00 10/07/19 09:34 Transderm Scop TD 1.5 mg Q3D JAYRO Administration Sertraline HCl 50 mg 10/01/19 09:00 10/08/19 09:28 Zoloft PO 50 mg DAILY JAYRO Administration Sodium Chloride 10 ml 09/30/19 19:40 10/06/19 22:38 Flush - Normal Saline IVF 10 ml PRN PRN Administration Saline Flush - Exam General Appearance: NAD Neck: supple, no JVD Heart: RRR, no gallops Respiratory: rales, rhonchi, wheezes Gastrointestinal: soft, normal bowel sounds Extremities: no edema Hosp A/P - Plan DVT proph w/lovenox, DVT proph w/SCDs Acute hypoxic resp failure due to Aspiration Pneumonia 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 Ecoli UTI (POA) History of cerebrovascular accident with residual left-sided weakness. Hypokalemia/Hypophosphatemia/Hyponatremia Physical deconditioning. Sick sinus syndrome, status post pacemaker. Hypertension. Gastroesophageal reflux disease with history of grade D erosive esophagitis. Swallow dysfunction s/p PEG tube placement 10/05 Chronic systolic HF - EF 35-40% - not on ACEI/ARB/Aldactone or BB due to relative hypotension Vascular dementia. Former smoker. History of alcohol abuse. Hyperlipidemia. Chronic anemia. Dehydration. Mod MR PLAN: DC IVF 1 dose of IV Lasix Await ID input Cont Augmentin Cont PEG tube feeds Cont ASA/Plavix Cont other meds DC to SNF in 24-48 hr if stable
[2019-10-09] MEDS: Metoclopramide HCl 10 MG/2 ML VIAL IVP SCH ×4 (04:20→21:11)
[2019-10-09 05:20] LABS: #Eosinphils 0.5 thou/uL (0.0-0.7); #Lymphocytes 1.5 thou/uL (1.20-3.40); #Monocytes 0.5 thou/uL (0.11-0.59); #Neutrophils 5.9 thou/uL (1.40-6.50); %Basophils 0.3 % (0.0-1.0); %Eosinophils 5.4 % (0.0-10.0); %Neutrophils 70.3 % (42.0-75.0); Hemoglobin 12.1 g/dL (14.0-18.0); Mean Corpuscular HGB CONC 32.1 g/dL (32.0-36.0); Mean Corpuscular Hemoglobin 28.7 pg (27.0-31.0); Mean Corpuscular Volume 89.3 fL (78.0-98.0); Mean Platelet Volume 6.9 fL (7.4-10.4); Platelet Count 327 thou/uL (130-400); RBC Distribution Width 11.7 % (11.5-14.5); Red Blood Cell (RBC) Count 4.23 mill/uL (4.70-6.10); White Blood Cell (WBC) Count 8.3 thou/uL (4.8-10.8)
[2019-10-09 06:02] LABS: ALT (SGPT) 46 U/L (8-55); AST (SGOT) 61 U/L (5-34); Albumin 3.1 g/dL (3.4-4.8); Alkaline Phosphatase 175 U/L (40-110); Anion Gap 8 mmol/L (10-20); BUN (Urea Nitrogen) 13 mg/dL (8.4-25.7); Bilirubin, Total 0.6 mg/dL (0.2-1.2); Calc. Creatinine Clearance 100 mL/min (70-130); Calcium 9.7 mg/dL (7.8-10.44); Carbon Dioxide 37 mmol/L (23-31); Chloride 93 mmol/L (98-107); Estimated GFR-MDRD Greater than 90; Globulin 3.5 g/dL (2.4-3.5); Glucose 104 mg/dL (80-115); Potassium 4.2 mmol/L (3.5-5.1); Protein, Total 6.6 g/dL (5.8-8.1); Sodium 134 mmol/L (136-145)
[2019-10-09] MEDS: Heparin 5,000 UNITS/ML VIAL SC SCH ×2 (10:31→21:13)
[2019-10-09] MEDS: Amoxicillin/Potassium Clav 400 mg/5 ml Oral Suspension PER TUBE SCH (10:34)
[2019-10-09] MEDS: Clopidogrel Bisulfate 75 MG TAB PO SCH (10:35)
[2019-10-09] MEDS: Saccharomyces boulardii 250 MG CAP PO SCH (10:35)
[2019-10-09] MEDS: K-Phos Neutral 250 MG TAB PER TUBE SCH ×2 (10:35→18:25)
[2019-10-09] MEDS: Pantoprazole 40 MG GRANULES PACKET PO SCH (10:35)
[2019-10-09] MEDS: Aspirin 81 mg Enteric Coated Tablet PER TUBE SCH (10:36)
[2019-10-09] MEDS: Piperacillin/Tazobactam 3.375 GM in Sodium Chloride 0.9% 100 ML IVPB SCH ×2 (12:39→18:51)
[2019-10-09] MEDS: Acetaminophen 325 MG TAB PO PRN (14:05)
--- NOTE | 2019-10-09 18:01 | PDOC.HOSPP ---
- Subjective Encounter Date: 10/09/19 Encounter Time: 13:00 non-verbal Subjective: Patient seen and examined for Encephalopathy/CVA. Tolerating PEG feeds. Intermittent fever per RN. No other complaints. No overnight events - Objective Vital Signs & Weight: Vital Signs (12 hours) Temp Pulse Pulse Pulse Resp BP BP 10/09/19 15:20 97.9 F 72 86 72 12 137/84 148/89 H 10/09/19 11:15 98.1 F 68 12 10/09/19 10:51 85 16 10/09/19 08:14 98.0 F 70 10 L 10/09/19 06:24 78 16 BP Pulse Ox 10/09/19 15:20 148/89 H 98 10/09/19 11:15 142/81 H 98 10/09/19 10:51 96 10/09/19 08:14 111/60 99 10/09/19 06:24 100 Weight Admit Weight 145 lb 12.8 oz Weight 145 lb 12.8 oz Most Recent Monitor Data Heart Rate from ECG 95 NIBP 125/58 NIBP BP-Mean 80 Respiration from ECG 19 SpO2 97 I&O: 10/08/19 10/09/19 10/10/19 06:59 06:59 06:59 Intake Total 3257 4388 75 Output Total 1850 3600 Balance 1407 788 75 Result Diagrams: 10/09/19 04:52 10/09/19 04:52 Additional Labs: Accuchecks 10/09/19 10/09/19 10/09/19 11:57 06:08 00:29 POC Glucose 132 H 117 H 131 H 10/08/19 18:13 POC Glucose 114 H EKG Reviewed by me: Yes (Tele paced) Hospitalist ROS - Review of Systems ROS unobtainable: due to mental status - Medication Medications: Active Medications Generic Name Dose Route Start Last Admin Trade Name Freq PRN Reason Stop Dose Admin Acetaminophen 650 mg 09/30/19 19:37 10/09/19 14:05 Tylenol PO 650 mg Q4H PRN Administration Headache/Fever/Mild Pain (1-3) Acetaminophen 650 mg 09/30/19 19:37 10/06/19 14:03 Tylenol [place] 650 mg Q4H PRN Administration Headache/Fever/Mild Pain (1-3) Albuterol/Ipratropium 3 ml 10/07/19 10:30 10/09/19 14:21 Duoneb NEB 3 ml [id number] JAYRO Administration Aspirin 81 mg 10/06/19 09:00 10/09/19 10:36 Ecotrin PER TUBE 81 mg DAILY JAYRO Administration Atorvastatin Calcium 40 mg 09/30/19 21:00 10/08/19 22:27 Lipitor PO 40 mg HS JAYRO Administration Clopidogrel Bisulfate 75 mg 10/03/19 09:00 10/09/19 10:35 Plavix PO 75 mg DAILY JAYRO Administration Heparin Sodium (Porcine) 5,000 units 10/05/19 21:00 10/09/19 10:31 Heparin SC 5,000 units BID JAYRO Administration Piperacillin Sod/Tazobactam 100 mls @ 200 mls/hr 10/09/19 11:30 10/09/19 12: 39 Sod 3.375 gm/ Sodium Chloride IVPB 100 mls Q6H JAYRO Administration Insulin Human Lispro 0 units 10/01/19 19:43 10/02/19 12:15 Humalog SC 2 unit .MILD SLIDING SCALE PRN Administration MILD SLIDING SCALE Protocol Metoclopramide HCl 5 mg 10/07/19 09:00 10/09/19 16:26 Reglan IVP 5 mg Q6H JAYRO Administration Ondansetron HCl 4 mg 09/30/19 19:37 10/01/19 06:50 Zofran IVP 4 mg Q6H PRN Administration Nausea/Vomiting Pantoprazole Sodium 40 mg 10/06/19 09:00 10/09/19 10:35 Protonix PO 40 mg DAILY JAYRO Administration Phosphorus 250 mg 10/02/19 17:00 10/09/19 10:35 Kphos Neutral PER TUBE 250 mg BID-WM JAYRO Administration Saccharomyces Boulardii 250 mg 10/05/19 09:00 10/09/19 10:35 Florastor PO 250 mg DAILY JAYRO Administration Scopolamine 1.5 mg 10/07/19 10:00 10/07/19 09:34 Transderm Scop TD 1.5 mg Q3D JAYRO Administration Sertraline HCl 50 mg 10/01/19 09:00 10/09/19 10:36 Zoloft PO 50 mg DAILY JAYRO Administration Sodium Chloride 10 ml 09/30/19 19:40 10/09/19 10:35 Flush - Normal Saline IVF 10 ml PRN PRN Administration Saline Flush - Exam General Appearance: NAD Neck: supple, no JVD Heart: RRR, no gallops Respiratory: rales, rhonchi, wheezes Gastrointestinal: soft, normal bowel sounds Extremities: no edema Hosp A/P - Plan DVT proph w/lovenox, DVT proph w/SCDs Acute hypoxic resp failure due to Aspiration Pneumonia 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 Ecoli UTI (POA) History of cerebrovascular accident with residual left-sided weakness. Hypokalemia/Hypophosphatemia/Hyponatremia Physical deconditioning. Sick sinus syndrome, status post pacemaker. Hypertension. Gastroesophageal reflux disease with history of grade D erosive esophagitis. Swallow dysfunction s/p PEG tube placement 10/05 Chronic systolic HF - EF 35-40% - not on ACEI/ARB/Aldactone or BB due to relative hypotension Vascular dementia. Former smoker. History of alcohol abuse. Hyperlipidemia. Chronic anemia. Dehydration. Mod MR PLAN: I d/w Dr Reynolds - Will restart IV Zosyn and monitor Cont Nebs Add Pulmicort Cont Scopolamine patch Cont PEG tube feeds Cont ASA/Plavix Cont other meds DC Cadet in AM DC to SNF in 24-48 hr if stable
[2019-10-09] MEDS: Budesonide 0.5 MG/2 ML NEB INH SCH (18:15)
[2019-10-09] MEDS: Atorvastatin Calcium 40 MG TAB PO SCH (21:25)
[2019-10-10] MEDS: Piperacillin/Tazobactam 3.375 GM in Sodium Chloride 0.9% 100 ML IVPB SCH ×4 (00:19→17:58)
[2019-10-10] MEDS: Metoclopramide HCl 10 MG/2 ML VIAL IVP SCH ×4 (05:02→22:53)
[2019-10-10] MEDS: Budesonide 0.5 MG/2 ML NEB INH SCH ×2 (06:26→19:10)
[2019-10-10] MEDS: Heparin 5,000 UNITS/ML VIAL SC SCH ×2 (10:30→22:53)
[2019-10-10] MEDS: Scopolamine 1.5 mg/72 hour Patch TD SCH (10:31)
[2019-10-10] MEDS: Clopidogrel Bisulfate 75 MG TAB PO SCH (10:35)
[2019-10-10] MEDS: Pantoprazole 40 MG GRANULES PACKET PO SCH (10:35)
[2019-10-10] MEDS: Saccharomyces boulardii 250 MG CAP PO SCH (10:35)
[2019-10-10] MEDS: Aspirin 81 mg Enteric Coated Tablet PER TUBE SCH (10:35)
--- NOTE | 2019-10-10 19:20 | PDOC.HOSPP ---
- Subjective Encounter Date: 10/10/19 Encounter Time: 11:00 Subjective: Patient seen and examined for acute CVA. Remains confused. Cadet dced. Tolerating PEG tube feeds. No new complaints. No overnight events - Objective Vital Signs & Weight: Vital Signs (12 hours) Temp Pulse Pulse Pulse Resp BP BP 10/10/19 19:08 77 16 10/10/19 15:50 85 69 156/74 H 142/92 H 10/10/19 15:24 98.7 F 66 12 10/10/19 11:31 98.6 F 76 12 10/10/19 10:29 75 18 10/10/19 07:32 99.4 F 66 12 BP Pulse Ox 10/10/19 19:08 95 10/10/19 15:50 10/10/19 15:24 152/88 H 98 10/10/19 11:31 141/83 H 97 10/10/19 10:29 93 L 10/10/19 07:32 141/70 H 95 Weight Admit Weight 145 lb 12.8 oz Weight 145 lb 12.8 oz Most Recent Monitor Data Heart Rate from ECG 95 NIBP 125/58 NIBP BP-Mean 80 Respiration from ECG 19 SpO2 97 I&O: 10/09/19 10/10/19 10/11/19 06:59 06:59 06:59 Intake Total 4388 1385 75 Output Total 3600 1240 Balance 788 145 75 Result Diagrams: 10/09/19 04:52 10/09/19 04:52 Additional Labs: Accuchecks 10/10/19 10/10/19 10/10/19 18:38 12:23 06:03 POC Glucose 122 H 133 H 128 H 10/10/19 01:20 POC Glucose 123 H EKG Reviewed by me: Yes (Tele paced) Hospitalist ROS - Review of Systems ROS unobtainable: due to mental status - Medication Medications: Active Medications Generic Name Dose Route Start Last Admin Trade Name Freq PRN Reason Stop Dose Admin Acetaminophen 650 mg 09/30/19 19:37 10/09/19 14:05 Tylenol PO 650 mg Q4H PRN Administration Headache/Fever/Mild Pain (1-3) Acetaminophen 650 mg 09/30/19 19:37 10/06/19 14:03 Tylenol SC 650 mg Q4H PRN Administration Headache/Fever/Mild Pain (1-3) Albuterol/Ipratropium 3 ml 10/07/19 10:30 10/10/19 19:08 Duoneb NEB 3 ml [id number] JAYRO Administration Aspirin 81 mg 10/06/19 09:00 10/10/19 10:35 Ecotrin PER TUBE 81 mg DAILY JAYRO Administration Atorvastatin Calcium 40 mg 09/30/19 21:00 10/09/19 21:25 Lipitor PO 40 mg HS JAYRO Administration Budesonide 0.5 mg 10/09/19 18:30 10/10/19 19:10 Pulmicort Neb Solution INH 0.5 mg BID-RT JAYRO Administration Clopidogrel Bisulfate 75 mg 10/03/19 09:00 10/10/19 10:35 Plavix PO 75 mg DAILY AJYRO Administration Heparin Sodium (Porcine) 5,000 units 10/05/19 21:00 10/10/19 10:30 Heparin SC 5,000 units BID JAYRO Administration Piperacillin Sod/Tazobactam 100 mls @ 200 mls/hr 10/09/19 11:30 10/10/19 17: 58 Sod 3.375 gm/ Sodium Chloride IVPB 100 mls Q6H JAYRO Administration Insulin Human Lispro 0 units 10/01/19 19:43 10/02/19 12:15 Humalog SC 2 unit .MILD SLIDING SCALE PRN Administration MILD SLIDING SCALE Protocol Metoclopramide HCl 5 mg 10/07/19 09:00 10/10/19 16:21 Reglan IVP 5 mg Q6H JAYRO Administration Ondansetron HCl 4 mg 09/30/19 19:37 10/01/19 06:50 Zofran IVP 4 mg Q6H PRN Administration Nausea/Vomiting Pantoprazole Sodium 40 mg 10/06/19 09:00 10/10/19 10:35 Protonix PO 40 mg DAILY JAYRO Administration Saccharomyces Boulardii 250 mg 10/05/19 09:00 10/10/19 10:35 Florastor PO 250 mg DAILY JAYRO Administration Scopolamine 1.5 mg 10/07/19 10:00 10/10/19 10:31 Transderm Scop TD 1.5 mg Q3D JAYRO Administration Sertraline HCl 50 mg 10/01/19 09:00 10/10/19 10:35 Zoloft PO 50 mg DAILY JAYRO Administration Sodium Chloride 10 ml 09/30/19 19:40 10/10/19 10:27 Flush - Normal Saline IVF 10 ml PRN PRN Administration Saline Flush - Exam General Appearance: NAD Neck: supple, no JVD Heart: RRR, no gallops Respiratory: CTAB, no rales Gastrointestinal: soft, non-tender, normal bowel sounds Extremities: no edema Hosp A/P - Plan Acute hypoxic resp failure due to Aspiration Pneumonia 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 Ecoli UTI (POA) History of cerebrovascular accident with residual left-sided weakness. Hypokalemia/Hypophosphatemia/Hyponatremia Physical deconditioning. Sick sinus syndrome, status post pacemaker. Hypertension. Gastroesophageal reflux disease with history of grade D erosive esophagitis. Swallow dysfunction s/p PEG tube placement 10/05 Chronic systolic HF - EF 35-40% - not on ACEI/ARB/Aldactone or BB due to relative hypotension Vascular dementia. Former smoker. History of alcohol abuse. Hyperlipidemia. Chronic anemia. Dehydration. Mod MR PLAN: 10/10 Cont IV Zosyn Monitor Post void DC to SNF if afebrile for 48hr Add Flomax Cont other meds AM labs 10/09 I d/w Dr Reynolds - Will restart IV Zosyn and monitor Cont Nebs Add Pulmicort Cont Scopolamine patch Cont PEG tube feeds Cont ASA/Plavix Cont other meds DC Cadet in AM DC to SNF in 24-48 hr if stable
[2019-10-10] MEDS: Tamsulosin HCl 0.4 MG CAP PO SCH (22:54)
[2019-10-10] MEDS: Atorvastatin Calcium 40 MG TAB PO SCH (22:54)
[2019-10-11] MEDS: Piperacillin/Tazobactam 3.375 GM in Sodium Chloride 0.9% 100 ML IVPB SCH ×5 (00:09→23:32)
[2019-10-11] MEDS: Metoclopramide HCl 10 MG/2 ML VIAL IVP SCH ×4 (02:58→21:47)
[2019-10-11] MEDS: Budesonide 0.5 MG/2 ML NEB INH SCH ×2 (08:04→19:26)
[2019-10-11] MEDS: Saccharomyces boulardii 250 MG CAP PO SCH (09:09)
[2019-10-11] MEDS: Aspirin 81 mg Enteric Coated Tablet PER TUBE SCH (09:09)
[2019-10-11] MEDS: Pantoprazole 40 MG GRANULES PACKET PO SCH (09:09)
[2019-10-11] MEDS: Clopidogrel Bisulfate 75 MG TAB PO SCH (09:09)
[2019-10-11] MEDS: Heparin 5,000 UNITS/ML VIAL SC SCH ×2 (09:10→21:48)
[2019-10-11 09:44] LABS: Anion Gap 8 mmol/L (10-20); BUN (Urea Nitrogen) 12 mg/dL (8.4-25.7); Calc. Creatinine Clearance 99 mL/min (70-130); Calcium 9.7 mg/dL (7.8-10.44); Carbon Dioxide 32 mmol/L (23-31); Chloride 93 mmol/L (98-107); Estimated GFR-MDRD Greater than 90; Glucose 114 mg/dL (80-115); Potassium 4.2 mmol/L (3.5-5.1); Sodium 129 mmol/L (136-145)
--- NOTE | 2019-10-11 16:51 | PDOC.HOSPP ---
- Subjective Encounter Date: 10/11/19 Encounter Time: 15:00 Subjective: Patient seen and examined for Encephalopathy/CVA. Had some issues with PEG feeds last night. Cadet inserted due to postvoid > 800 ml. - Objective Vital Signs & Weight: Vital Signs (12 hours) Temp Pulse Resp BP Pulse Ox 10/11/19 15:44 98.3 F 77 14 129/68 97 10/11/19 15:28 80 18 10/11/19 11:37 97.6 F 73 14 133/75 97 10/11/19 10:34 90 18 10/11/19 08:04 80 16 10/11/19 07:44 98.1 F 75 15 128/78 94 L Weight Admit Weight 145 lb 12.8 oz Weight 145 lb 12.8 oz Most Recent Monitor Data Heart Rate from ECG 95 NIBP 125/58 NIBP BP-Mean 80 Respiration from ECG 19 SpO2 97 I&O: 10/10/19 10/11/19 10/12/19 06:59 06:59 06:59 Intake Total 1385 1590 700 Output Total 3626 751 8784 Balance 145 690 -400 Result Diagrams: 10/09/19 04:52 10/11/19 08:38 Additional Labs: Accuchecks 10/11/19 10/10/19 10/10/19 05:59 23:18 18:38 POC Glucose 123 H 131 H 122 H EKG Reviewed by me: Yes (Tele SR) Hospitalist ROS - Review of Systems Respiratory: denies: cough, dry, shortness of breath, hemoptysis, SOB with excertion, pleuritic pain, sputum, wheezing, other Cardiovascular: denies: chest pain, palpitations, orthopnea, paroxysmal noc. dyspnea, edema, light headedness, other - Medication Medications: Active Medications Generic Name Dose Route Start Last Admin Trade Name Freq PRN Reason Stop Dose Admin Acetaminophen 650 mg 09/30/19 19:37 10/09/19 14:05 Tylenol PO 650 mg Q4H PRN Administration Headache/Fever/Mild Pain (1-3) Acetaminophen 650 mg 09/30/19 19:37 10/06/19 14:[address] 650 mg Q4H PRN Administration Headache/Fever/Mild Pain (1-3) Albuterol/Ipratropium 3 ml 10/07/19 10:30 10/11/19 15:28 Duoneb NEB 3 ml [id number] JAYRO Administration Aspirin 81 mg 10/06/19 09:00 10/11/19 09:09 Ecotrin PER TUBE 81 mg DAILY JAYRO Administration Atorvastatin Calcium 40 mg 09/30/19 21:00 10/10/19 22:54 Lipitor PO 40 mg HS JAYRO Administration Budesonide 0.5 mg 10/09/19 18:30 10/11/19 08:04 Pulmicort Neb Solution INH 0.5 mg BID-RT JAYRO Administration Clopidogrel Bisulfate 75 mg 10/03/19 09:00 10/11/19 09:09 Plavix PO 75 mg DAILY JAYRO Administration Heparin Sodium (Porcine) 5,000 units 10/05/19 21:00 10/11/19 09:10 Heparin SC 5,000 units BID JAYRO Administration Piperacillin Sod/Tazobactam 100 mls @ 200 mls/hr 10/09/19 11:30 10/11/19 11: 32 Sod 3.375 gm/ Sodium Chloride IVPB 100 mls Q6H JAYRO Administration Insulin Human Lispro 0 units 10/01/19 19:43 10/02/19 12:15 Humalog SC 2 unit .MILD SLIDING SCALE PRN Administration MILD SLIDING SCALE Protocol Metoclopramide HCl 5 mg 10/07/19 09:00 10/11/19 15:12 Reglan IVP 5 mg Q6H JAYRO Administration Ondansetron HCl 4 mg 09/30/19 19:37 10/01/19 06:50 Zofran IVP 4 mg Q6H PRN Administration Nausea/Vomiting Pantoprazole Sodium 40 mg 10/06/19 09:00 10/11/19 09:09 Protonix PO 40 mg DAILY JAYRO Administration Saccharomyces Boulardii 250 mg 10/05/19 09:00 10/11/19 09:09 Florastor PO 250 mg DAILY JAYRO Administration Scopolamine 1.5 mg 10/07/19 10:00 10/10/19 10:31 Transderm Scop TD 1.5 mg Q3D JAYRO Administration Sertraline HCl 50 mg 10/01/19 09:00 10/11/19 09:09 Zoloft PO 50 mg DAILY JAYRO Administration Sodium Chloride 10 ml 09/30/19 19:40 10/10/19 10:27 Flush - Normal Saline IVF 10 ml PRN PRN Administration Saline Flush Tamsulosin HCl 0.4 mg 10/10/19 21:00 10/10/19 22:54 Flomax PO 0.4 mg HS JAYRO Administration - Exam General Appearance: NAD Heart: RRR, no gallops Respiratory: CTAB, no rales Gastrointestinal: soft, non-tender, normal bowel sounds Extremities: no edema Hosp A/P - Plan DVT proph w/SCDs Acute hypoxic resp failure due to Aspiration Pneumonia 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 E coli UTI (POA) History of cerebrovascular accident with residual left-sided weakness. Hypokalemia/Hypophosphatemia/Hyponatremia Physical deconditioning. Sick sinus syndrome, status post pacemaker. Hypertension. Gastroesophageal reflux disease with history of grade D erosive esophagitis. Swallow dysfunction s/p PEG tube placement 10/05 Chronic systolic HF - EF 35-40% - not on ACEI/ARB/Aldactone or BB due to relative hypotension Vascular dementia. Former smoker. History of alcohol abuse. Hyperlipidemia. Chronic anemia. Dehydration. Mod MR Urinary retention PLAN: 10/11 Cont IV Zosyn Cont Cadet/Flomax Resume PEG tube feeds Water flushes adjusted due to hyponatremia BMP in AM 10/10 Cont IV Zosyn Monitor Post void DC to SNF if afebrile for 48hr Add Flomax Cont other meds AM labs 10/09 I d/w Dr Reynolds - Will restart IV Zosyn and monitor Cont Nebs Add Pulmicort Cont Scopolamine patch Cont PEG tube feeds Cont ASA/Plavix Cont other meds DC Cadet in AM DC to SNF in 24-48 hr if stable
[2019-10-11] MEDS: Famotidine 20 MG TAB PO SCH (21:46)
[2019-10-11] MEDS: Atorvastatin Calcium 40 MG TAB PO SCH (21:46)
[2019-10-11] MEDS: Tamsulosin HCl 0.4 MG CAP PO SCH (21:46)
[2019-10-11] MEDS: Acetaminophen 325 MG TAB PO PRN (21:58)
[2019-10-12] MEDS: Metoclopramide HCl 10 MG/2 ML VIAL IVP SCH ×4 (03:36→21:21)
[2019-10-12 05:21] LABS: Anion Gap 8 mmol/L (10-20); BUN (Urea Nitrogen) 11 mg/dL (8.4-25.7); Calc. Creatinine Clearance 96 mL/min (70-130); Calcium 9.5 mg/dL (7.8-10.44); Carbon Dioxide 33 mmol/L (23-31); Chloride 91 mmol/L (98-107); Estimated GFR-MDRD Greater than 90; Glucose 148 mg/dL (80-115); Potassium 3.9 mmol/L (3.5-5.1); Sodium 128 mmol/L (136-145)
[2019-10-12] MEDS: Piperacillin/Tazobactam 3.375 GM in Sodium Chloride 0.9% 100 ML IVPB SCH ×3 (05:59→17:15)
[2019-10-12] MEDS: HumaLOG 300 UNITS/3 ML VIAL SC PRN (06:12)
[2019-10-12] MEDS: Budesonide 0.5 MG/2 ML NEB INH SCH ×2 (07:15→18:51)
[2019-10-12] MEDS: Aspirin 81 mg Enteric Coated Tablet PER TUBE SCH (09:39)
[2019-10-12] MEDS: Saccharomyces boulardii 250 MG CAP PO SCH (09:39)
[2019-10-12] MEDS: Clopidogrel Bisulfate 75 MG TAB PO SCH (09:39)
[2019-10-12] MEDS: Famotidine 20 MG TAB PO SCH ×2 (09:40→21:22)
[2019-10-12] MEDS: Heparin 5,000 UNITS/ML VIAL SC SCH ×2 (09:40→21:22)
[2019-10-12] MEDS ORDERED: Tolvaptan 15 MG TAB PO SCH (16:00)
--- NOTE | 2019-10-12 17:50 | PDOC.HOSPP ---
- Subjective Encounter Date: 10/12/19 Encounter Time: 13:30 non-verbal Subjective: Patient seen and examined for CVA/Resp failure. Tolerating PEG feeds. No overnight events - Objective Vital Signs & Weight: Vital Signs (12 hours) Temp Pulse Pulse Pulse Resp BP BP 10/12/19 15:56 98.1 F 68 16 10/12/19 14:46 68 80 116/61 137/71 10/12/19 14:03 90 16 10/12/19 11:51 98.1 F 65 16 10/12/19 10:38 60 18 10/12/19 07:55 98.0 F 74 16 10/12/19 07:30 10/12/19 07:15 60 18 BP Pulse Ox 10/12/19 15:56 121/61 97 10/12/19 14:46 10/12/19 14:03 10/12/19 11:51 127/73 93 L 10/12/19 10:38 10/12/19 07:55 119/63 98 10/12/19 07:30 98 10/12/19 07:15 Weight Admit Weight 145 lb 12.8 oz Weight 145 lb 12.8 oz Most Recent Monitor Data Heart Rate from ECG 95 NIBP 125/58 NIBP BP-Mean 80 Respiration from ECG 19 SpO2 97 I&O: 10/11/19 10/12/19 10/13/19 06:59 06:59 06:59 Intake Total 1590 1980 75 Output Total 900 2500 Balance 690 -520 75 Result Diagrams: 10/09/19 04:52 10/12/19 04:31 Additional Labs: Accuchecks 10/12/19 10/12/19 10/11/19 12:50 06:09 18:16 POC Glucose 112 H 164 H 109 Laboratory Tests 10/12/19 10/12/19 10/12/19 10:48 10:48 12:20 Serum Osmolality 274 L Cortisol 10.30 Urine Osmolality 525 Urine Sodium 10/12/19 12:20 Serum Osmolality Cortisol Urine Osmolality Urine Sodium 118 EKG Reviewed by me: Yes (Tele Paced) Hospitalist ROS - Review of Systems ROS unobtainable: due to mental status - Medication Medications: Active Medications Generic Name Dose Route Start Last Admin Trade Name Freq PRN Reason Stop Dose Admin Acetaminophen 650 mg 09/30/19 19:37 10/11/19 21:58 Tylenol PO 650 mg Q4H PRN Administration Headache/Fever/Mild Pain (1-3) Acetaminophen 650 mg 09/30/19 19:37 10/06/19 14:03 Tylenol NC 650 mg Q4H PRN Administration Headache/Fever/Mild Pain (1-3) Albuterol/Ipratropium 3 ml 10/07/19 10:30 10/12/19 14:03 Duoneb NEB 3 ml [id number] JAYRO Administration Aspirin 81 mg 10/06/19 09:00 10/12/19 09:39 Ecotrin PER TUBE 81 mg DAILY JAYRO Administration Atorvastatin Calcium 40 mg 09/30/19 21:00 10/11/19 21:46 Lipitor PO 40 mg HS JAYRO Administration Budesonide 0.5 mg 10/09/19 18:30 10/12/19 07:15 Pulmicort Neb Solution INH 0.5 mg BID-RT JAYRO Administration Clopidogrel Bisulfate 75 mg 10/03/19 09:00 10/12/19 09:39 Plavix PO 75 mg DAILY JAYRO Administration Famotidine 20 mg 10/11/19 21:00 10/12/19 09:40 Pepcid PO 20 mg BID JAYRO Administration Heparin Sodium (Porcine) 5,000 units 10/05/19 21:00 10/12/19 09:40 Heparin SC 5,000 units BID JAYRO Administration Piperacillin Sod/Tazobactam 100 mls @ 200 mls/hr 10/09/19 11:30 10/12/19 17: 15 Sod 3.375 gm/ Sodium Chloride IVPB 100 mls Q6H JAYRO Administration Insulin Human Lispro 0 units 10/01/19 19:43 10/12/19 06:12 Humalog SC 2 unit .MILD SLIDING SCALE PRN Administration MILD SLIDING SCALE Protocol Metoclopramide HCl 5 mg 10/07/19 09:00 10/12/19 17:15 Reglan IVP 5 mg Q6H JAYRO Administration Ondansetron HCl 4 mg 09/30/19 19:37 10/01/19 06:50 Zofran IVP 4 mg Q6H PRN Administration Nausea/Vomiting Saccharomyces Boulardii 250 mg 10/05/19 09:00 10/12/19 09:39 Florastor PO 250 mg DAILY JAYRO Administration Scopolamine 1.5 mg 10/07/19 10:00 10/10/19 10:31 Transderm Scop TD 1.5 mg Q3D JAYRO Administration Sertraline HCl 50 mg 10/01/19 09:00 10/12/19 09:39 Zoloft PO 50 mg DAILY JAYRO Administration Sodium Chloride 10 ml 09/30/19 19:40 10/10/19 10:27 Flush - Normal Saline IVF 10 ml PRN PRN Administration Saline Flush Tamsulosin HCl 0.4 mg 10/10/19 21:00 10/11/19 21:46 Flomax PO 0.4 mg HS JAYRO Administration Tolvaptan 15 mg 10/12/19 16:00 10/12/19 17:15 Samsca PO 10/12/19 18:00 15 mg NOW JAYRO Administration - Exam General Appearance: NAD Respiratory: no wheezes, rales, rhonchi Gastrointestinal: soft, non-distended, no guarding, no rigidity Neurological: no new deficit Hosp A/P - Plan Acute hypoxic resp failure due to Aspiration Pneumonia 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 SIADH E coli UTI (POA) History of cerebrovascular accident with residual left-sided weakness. Hypokalemia/Hypophosphatemia/Hyponatremia Physical deconditioning. Sick sinus syndrome, status post pacemaker. Hypertension. Gastroesophageal reflux disease with history of grade D erosive esophagitis. Swallow dysfunction s/p PEG tube placement 10/05 Chronic systolic HF - EF 35-40% - not on ACEI/ARB/Aldactone or BB due to relative hypotension Vascular dementia. Former smoker. History of alcohol abuse. Hyperlipidemia. Chronic anemia. Dehydration. Mod MR Urinary retention PLAN: 10/12 Consult Nephrology due to worsening hyponatremia/SIADH Cont current PEG feed/water flushes BMP in AM Cont IV Zosyn Cont other meds 10/11 Cont IV Zosyn Cont Cadet/Flomax Resume PEG tube feeds Water flushes adjusted due to hyponatremia BMP in AM 10/10 Cont IV Zosyn Monitor Post void DC to SNF if afebrile for 48hr Add Flomax Cont other meds AM labs 10/09 I d/w Dr Reynolds - Will restart IV Zosyn and monitor Cont Nebs Add Pulmicort Cont Scopolamine patch Cont PEG tube feeds Cont ASA/Plavix Cont other meds DC Cadet in AM DC to SNF in 24-48 hr if stable
--- NOTE | 2019-10-12 19:01 | CON ---
DATE OF CONSULTATION: CONSULTING PHYSICIAN: Hal Briseno MD REQUESTING PHYSICIAN: Ryne Story MD. REASON FOR CONSULTATION: Worsening hyponatremia. IMPRESSION: 1. Worsening hyponatremia. Given the urinary chemistry, this is likely syndrome of inappropriate antidiuretic hormone secretion in the context of pulmonary pathology. 2. Pneumonitis, likely in the context of aspiration pneumonitis, status post PEG tube placement. PLAN: 1. Given the urinary chemistry that is very suggestive of SIADH, we will start this patient on anti-ADH medication tolvaptan and monitor the sodium level accordingly. 2. Excessive free water intake will not be of any benefit to this patient. 3. Further management to be dependent on the clinical course. HISTORY OF PRESENT ILLNESS: A 69-year-old gentleman who presented here with stroke-like symptoms noted with physical deconditioning, who has a history of hypertension, atrial flutter, presented here with a normal sodium of 141, however over the course of hospitalization, sodium has drifted down to about 127-128, felt the need for renal consultation. The patient also noted to have some features highly suggestive of aspiration pneumonitis. PAST MEDICAL HISTORY: Significant for CVA with residual right-sided hemiparesis, hypertension, history of bradycardia, chronic kidney disease stage 2, dysphagia status post PEG tube placement, reflux, remote tobacco use. FAMILY HISTORY: Not significantly related to present illness. ALLERGIES: NO KNOWN DRUG ALLERGIES. SOCIAL HISTORY: No alcohol. No tobacco. No illicit drug use. REVIEW OF SYSTEMS: As documented in the body of the history. All other systems were reviewed and found not to be significantly related to presenting illness. PHYSICAL EXAMINATION: GENERAL: The patient was noted with the following vital signs. Afebrile, temperature 98.1, pulse 68, respiratory rate of 16, O2 saturation 97%, blood pressure 116/61. HEENT: Unremarkable. CARDIOVASCULAR: First and second heart sounds were heard. RESPIRATORY: Clear to auscultation. DIGESTIVE SYSTEM: Revealed a benign abdomen with positive bowel sounds. EXTREMITIES: No peripheral edema. SKIN: No new gross rash. LYMPHATICS: No peripheral lymphadenopathy. SUMMARY: A 69-year-old gentleman who presented here with stroke-like symptoms, possibly having some aspiration pneumonitis, now experiencing worsening hyponatremia. Thank you for this consultation. We will follow with you. Job ID: [id number]
[2019-10-12] MEDS: Acetaminophen 325 MG TAB PO PRN (21:21)
[2019-10-12] MEDS: Tamsulosin HCl 0.4 MG CAP PO SCH (21:22)
[2019-10-12] MEDS: Atorvastatin Calcium 40 MG TAB PO SCH (21:22)
[2019-10-13] MEDS: Piperacillin/Tazobactam 3.375 GM in Sodium Chloride 0.9% 100 ML IVPB SCH ×5 (00:46→23:31)
[2019-10-13] MEDS: Metoclopramide HCl 10 MG/2 ML VIAL IVP SCH ×2 (04:59→10:37)
[2019-10-13 06:18] LABS: Anion Gap 15 mmol/L (10-20); BUN (Urea Nitrogen) 9 mg/dL (8.4-25.7); Calc. Creatinine Clearance 92 mL/min (70-130); Carbon Dioxide 27 mmol/L (23-31); Chloride 100 mmol/L (98-107); Estimated GFR-MDRD Greater than 90; Glucose 156 mg/dL (80-115); Potassium 4.1 mmol/L (3.5-5.1)
[2019-10-13 06:25] LABS: Sodium 138 mmol/L (136-145)
[2019-10-13] MEDS: Budesonide 0.5 MG/2 ML NEB INH SCH ×2 (07:52→18:57)
[2019-10-13] MEDS ORDERED: Tolvaptan 15 MG TAB PO SCH (09:00)
[2019-10-13] MEDS: Scopolamine 1.5 mg/72 hour Patch TD SCH (10:34)
[2019-10-13] MEDS: Nystatin 500,000 UNITS/5 ML UDCUP SSW SCH ×4 (10:35→20:31)
[2019-10-13] MEDS: Saccharomyces boulardii 250 MG CAP PO SCH (10:36)
[2019-10-13] MEDS: Aspirin 81 mg Enteric Coated Tablet PER TUBE SCH (10:37)
[2019-10-13] MEDS: Clopidogrel Bisulfate 75 MG TAB PO SCH (10:37)
[2019-10-13] MEDS: Heparin 5,000 UNITS/ML VIAL SC SCH ×2 (10:37→20:31)
[2019-10-13] MEDS: Famotidine 20 MG TAB PO SCH ×2 (10:38→20:31)
--- NOTE | 2019-10-13 11:44 | PRG ---
DATE OF SERVICE: 10/13/2019 SUBJECTIVE: The patient is seen and examined at the bedside. The current situation was discussed with the nurse, who is present in the room during my visit. Apparently, he has residuals on and off up to 100 mL on his tube feeding. His mental condition and ability to communicate fluctuate on daily basis. Today, his response is less than what he was yesterday. OBJECTIVE: VITAL SIGNS: Blood pressure is 104/64, pulse is 86, temperature is 98.7, respiratory rate is 18, and O2 saturation is 95% on 2 L by nasal cannula. HEENT: His pupils are responding to light properly. Sclerae are nonicteric. Oral mucosa is slightly dry with some whitish specks on his tongue suggestive of some fungal infection. LUNGS: Breath sounds diminished at both bases with few rales at the right bases. HEART: S1 and S2 normal. No S3. No S4. ABDOMEN: Soft. A nondistended PEG tube is in place. EXTREMITIES: Slightly contracted lower extremities. NEUROLOGICAL: There is no any good communication with this patient. He is not verbal today. He does not follow my commands. He is able to move his four extremities, but with some limitation of the lower extremities and mild weakness in the right upper extremity. LABORATORY DATA: Showed normal electrolytes, normal kidney function. Glycemia is ranging from 104 to 144. Microbiology, no new findings. IMPRESSION: 1. Acute hypoxic respiratory failure due to aspiration pneumonia. 2. Encephalopathy due to right cerebrovascular accident. 3. Syndrome of inappropriate antidiuretic hormone secretion. 4. Escherichia coli urinary tract infection. 5. Dyselectrolytemia. 6. Sick sinus syndrome, status post pacemaker. 7. Hypertension. 8. Swallow dysfunction, status post PEG tube placement on October 05, tolerating feeding quite well with some residuals up to 100 mL. 9. Chronic systolic heart failure with LVEF estimated at 35% to 40%, not on MARYJANE or ARB/Aldactone or beta niyah secondary to relative hypotension. 10. Vascular dementia. PLAN: Continue his current rate on his tube feeding. We will change his Reglan through the tube 10 mg every 6 hours. Also, we will start him on Mycostatin to swish around his oral mucosa. Continue his Zosyn for now and continue probiotics. [facility] soon as he is approved. Job ID: [id number]
[2019-10-13] MEDS ORDERED: Metoclopramide 10 MG/10 ML UDCUP PER TUBE SCH (13:30)
[2019-10-13] MEDS: HumaLOG 300 UNITS/3 ML VIAL SC PRN (14:15)
[2019-10-13] MEDS: Metoclopramide 10 MG/10 ML UDCUP PO SCH ×3 (14:16→23:31)
--- NOTE | 2019-10-13 18:39 | PRG ---
DATE OF SERVICE: 10/13/2019 OBJECTIVE: VITAL SIGNS: The patient noted with the following vital signs. Afebrile, temperature 97.6, pulse 79, respiratory rate of 16, O2 saturation of 100%, blood pressure of 141/83. HEENT: Unremarkable. CARDIOVASCULAR SYSTEM: First and second heart sounds were heard. RESPIRATORY SYSTEM: Clear to auscultation. DIGESTIVE SYSTEM: Revealed a benign abdomen. EXTREMITIES: No peripheral edema. SKIN: No new gross rash. LYMPHATICS: No peripheral lymphadenopathy. LABORATORY INVESTIGATIONS: Significant for sodium of 138. IMPRESSION: Hyponatremia in the context of syndrome of inappropriate antidiuretic hormone secretion, seems to have responded well to anti-ADH medication. PLAN: 1. Discontinue tolvaptan. 2. Continue to pay close attention to this patient's sodium level. 3. Further management to be dependent on the clinical course. Job ID: [id number]
[2019-10-13] MEDS: Atorvastatin Calcium 40 MG TAB PO SCH (20:31)
[2019-10-13] MEDS: Senokot S 8.6-50 MG TAB PO PRN (20:31)
[2019-10-13] MEDS: Acetaminophen 325 MG TAB PO PRN (20:31)
[2019-10-13] MEDS: Tamsulosin HCl 0.4 MG CAP PO SCH (20:31)
[2019-10-14] MEDS: Piperacillin/Tazobactam 3.375 GM in Sodium Chloride 0.9% 100 ML IVPB SCH ×4 (05:02→23:31)
[2019-10-14] MEDS: Metoclopramide 10 MG/10 ML UDCUP PO SCH ×4 (05:02→23:31)
[2019-10-14 05:33] LABS: Anion Gap 10 mmol/L (10-20); BUN (Urea Nitrogen) 13 mg/dL (8.4-25.7); Calc. Creatinine Clearance 95 mL/min (70-130); Calcium 9.6 mg/dL (7.8-10.44); Carbon Dioxide 32 mmol/L (23-31); Chloride 98 mmol/L (98-107); Estimated GFR-MDRD Greater than 90; Glucose 126 mg/dL (80-115); Sodium 136 mmol/L (136-145)
[2019-10-14] MEDS: HumaLOG 300 UNITS/3 ML VIAL SC PRN ×2 (06:20→12:26)
[2019-10-14] MEDS: Budesonide 0.5 MG/2 ML NEB INH SCH ×2 (07:56→19:12)
[2019-10-14 08:36] LABS: #Basophils 0.1 thou/uL (0.0-0.2); #Eosinphils 0.4 thou/uL (0.0-0.7); #Lymphocytes 1.8 thou/uL (1.20-3.40); #Monocytes 0.8 thou/uL (0.11-0.59); #Neutrophils 4.5 thou/uL (1.40-6.50); %Basophils 0.7 % (0.0-1.0); %Eosinophils 5.5 % (0.0-10.0); %Lymphocytes 24.3 % (21.0-51.0); %Monocytes 10.5 % (0.0-10.0); Hemoglobin 12.2 g/dL (14.0-18.0); Mean Corpuscular HGB CONC 33.4 g/dL (32.0-36.0); Mean Corpuscular Hemoglobin 29.9 pg (27.0-31.0); Mean Corpuscular Volume 89.5 fL (78.0-98.0); Mean Platelet Volume 6.3 fL (7.4-10.4); Platelet Count 542 thou/uL (130-400); RBC Distribution Width 11.9 % (11.5-14.5); Red Blood Cell (RBC) Count 4.08 mill/uL (4.70-6.10); White Blood Cell (WBC) Count 7.6 thou/uL (4.8-10.8)
[2019-10-14] MEDS: Saccharomyces boulardii 250 MG CAP PO SCH (09:03)
[2019-10-14] MEDS: Aspirin 81 mg Enteric Coated Tablet PER TUBE SCH (09:03)
[2019-10-14] MEDS: Nystatin 500,000 UNITS/5 ML UDCUP SSW SCH ×4 (09:04→21:45)
[2019-10-14] MEDS: Famotidine 20 MG TAB PO SCH ×2 (09:04→21:45)
[2019-10-14] MEDS: Heparin 5,000 UNITS/ML VIAL SC SCH ×2 (09:04→21:45)
[2019-10-14] MEDS: Clopidogrel Bisulfate 75 MG TAB PO SCH (09:04)
--- NOTE | 2019-10-14 14:00 | PRG ---
DATE OF SERVICE: 10/14/2019 SUBJECTIVE: The patient is seen and examined at the bedside. There is not any communication with this patient. He keeps his eyes open and looks at me, but he does not respond. He does not follow my commands. There were no any unexpected events overnight. OBJECTIVE: VITAL SIGNS: Blood pressure is 144/60, pulse is 68, temperature is 98.6, respiratory rate is 17, O2 saturation is 94% on 3 L by nasal cannula. HEENT: His pupils are responding to light slowly. Conjunctivae are pinkish. Sclerae are nonicteric. LUNGS: Diminished at both bases. HEART: S1 and S2 normal. No S3. No S4. ABDOMEN: Soft. PEG tube is in place. EXTREMITIES: There is mild weakness of the right upper extremity. He is able to move his all 4 extremities, but he does not follow my commands. LABORATORY DATA: Labs showed white count of 7.6, hemoglobin of 12.2, hematocrit 36.5, platelet count is 542,000. Sodium of 136, potassium 4.0, chloride 98, CO2 of 32, BUN 13, creatinine 0.69. Glycemia is ranging from 151 to 181. IMPRESSION: 1. Acute hypoxic respiratory failure due to aspiration pneumonia. 2. Encephalopathy due to right cerebrovascular accident. 3. Syndrome of inappropriate antidiuretic hormone secretion. 4. Escherichia coli urinary tract infection. 5. Dyselectrolytemia. 6. Sick sinus syndrome, status post pacemaker. 7. Hypertension. 8. Swallow dysfunction, status post PEG tube placement, tolerating feeding at 60 mL/hour and switched to Reglan through the tube every 6. 9. Chronic systolic heart failure with LVEF estimated at 35% to 40%, not on MARYJANE or ARB/Aldactone or beta niyah secondary to relative hypotension. 10. Vascular dementia. PLAN: Plan is to obtain chest x-ray since he has quite a bit of secretions. He will continue on his antibiotic, which is Zosyn. We will continue PT, and he will be transferred to [facility] for PT as soon as this is arranged. Job ID: [id number]
--- NOTE | 2019-10-14 16:05 | RAD ---
Exam: Chest one view: HISTORY: Chest congestion COMPARISON: 10/08/2019 FINDINGS: There is some persistent but overall improving patchy alveolar parenchymal changes in the right midlu ng zone from prior study. Severe rotation to the right. The left chest appears clear. Heart size is within normal limits. IMPRESSION: Persistent alveolar parenchymal changes right midlung zone showing improvement from prior study. Impr ovement in appearance of the left base. Continued short-term follow-up for clearing.
--- NOTE | 2019-10-14 18:43 | PRG ---
DATE OF SERVICE: 10/14/2019 SUBJECTIVE: Mr. Maximo Munoz noted with the following vital signs. OBJECTIVE: VITAL SIGNS: Afebrile. Temperature 97.9, pulse 76, respiratory rate of 15, O2 saturations of 98%, blood pressure of 122/66. HEENT: Unremarkable. CARDIOVASCULAR: First and second heart sounds were heard. RESPIRATORY SYSTEM: Clear to auscultation. DIGESTIVE SYSTEM: Revealed a benign abdomen. EXTREMITIES: No peripheral edema. SKIN: No new gross rash. LYMPHATICS: No peripheral lymphadenopathy. IMPRESSION: Hyponatremia in the context of SIADH, responded very well to anti-ADH medication. PLAN: Continue current supportive measures. We will increase protein intake. Job ID: [id number]
[2019-10-14] MEDS: Atorvastatin Calcium 40 MG TAB PO SCH (21:45)
[2019-10-14] MEDS: Tamsulosin HCl 0.4 MG CAP PO SCH (21:45)
[2019-10-14] MEDS: Acetaminophen 325 MG TAB PO PRN (21:45)
[2019-10-15 05:04] LABS: Hemoglobin 12.3 g/dL (14.0-18.0); Platelet Count 600 thou/uL (130-400)
[2019-10-15 05:26] LABS: Anion Gap 10 mmol/L (10-20); BUN (Urea Nitrogen) 14 mg/dL (8.4-25.7); Calc. Creatinine Clearance 91 mL/min (70-130); Calcium 9.7 mg/dL (7.8-10.44); Carbon Dioxide 32 mmol/L (23-31); Chloride 97 mmol/L (98-107); Estimated GFR-MDRD Greater than 90; Glucose 106 mg/dL (80-115); Potassium 3.9 mmol/L (3.5-5.1); Sodium 135 mmol/L (136-145)
[2019-10-15] MEDS: Metoclopramide 10 MG/10 ML UDCUP PO SCH ×3 (05:35→17:38)
[2019-10-15] MEDS: Piperacillin/Tazobactam 3.375 GM in Sodium Chloride 0.9% 100 ML IVPB SCH ×3 (05:35→17:37)
[2019-10-15] MEDS: Budesonide 0.5 MG/2 ML NEB INH SCH ×2 (06:48→18:35)
--- NOTE | 2019-10-15 07:56 | RAD ---
ABDOMEN 1 VIEW: Date: 10/15/19 HISTORY: Chest congestion. Tachypnea. Cough. Shortness of breath. Coffee-black residual. FINDINGS: There is scattered solid fecal material throughout the colon. Gastrostomy tube in place. There appear to be some parenchymal changes in the right lower lobe. No overt high grade obstruction. There is so me scattered gas in nondilated small bowel loops. IMPRESSION: Nonspecific abdomen. No overt high grade obstruction. Parenchymal changes in the right lower lobe of the lung. Continue short-term follow-up to include flat and upright exam might be of benefit. POS: [facility]
--- NOTE | 2019-10-15 08:34 | PDOC.HOSPP ---
- Subjective Encounter Date: 10/15/19 Encounter Time: 11:50 Subjective: Patient unchanged overnight. Still with slurred speech unable to understand much , does complain of generalized pain. Had a 200mL black residual from PEG last night. No residual this AM. Heparin being held. - Objective Vital Signs & Weight: Vital Signs (12 hours) Temp Pulse Resp BP Pulse Ox 10/15/19 07:34 97.5 F L 84 16 144/75 H 97 10/15/19 06:50 71 16 100 10/15/19 06:48 71 16 100 10/15/19 04:00 99.5 F 74 16 151/81 H 94 L 10/15/19 02:38 70 16 92 L 10/15/19 00:00 98.0 F 68 16 148/70 H 96 10/14/19 22:30 79 18 92 L Weight Admit Weight 145 lb 12.8 oz Weight 145 lb 12.8 oz Most Recent Monitor Data Heart Rate from ECG 95 NIBP 125/58 NIBP BP-Mean 80 Respiration from ECG 19 SpO2 97 I&O: 10/14/19 10/15/19 10/16/19 06:59 06:59 06:59 Intake Total 2289 90 Output Total 925 1400 Balance 1364 -1310 Result Diagrams: 10/15/19 04:45 10/15/19 04:45 Additional Labs: Accuchecks 10/14/19 10/14/19 18:25 12:15 POC Glucose 140 H 151 H Hospitalist ROS - Review of Systems ROS unobtainable: due to mental status - Medication Medications: Active Medications Generic Name Dose Route Start Last Admin Trade Name Homerq PRN Reason Stop Dose Admin Acetaminophen 650 mg 09/30/19 19:37 10/14/19 21:45 Tylenol PO 650 mg Q4H PRN Administration Headache/Fever/Mild Pain (1-3) Acetaminophen 650 mg 09/30/19 19:37 10/06/19 14:03 Tylenol [place] 650 mg Q4H PRN Administration Headache/Fever/Mild Pain (1-3) Albuterol/Ipratropium 3 ml 10/07/19 10:30 10/15/19 06:50 Duoneb NEB 3 ml [id number] JAYRO Administration Aspirin 81 mg 10/06/19 09:00 10/14/19 09:03 Ecotrin PER TUBE 81 mg DAILY JAYRO Administration Atorvastatin Calcium 40 mg 09/30/19 21:00 10/14/19 21:45 Lipitor PO 40 mg HS JAYRO Administration Budesonide 0.5 mg 10/09/19 18:30 10/15/19 06:48 Pulmicort Neb Solution INH 0.5 mg BID-RT JAYRO Administration Clopidogrel Bisulfate 75 mg 10/03/19 09:00 10/14/19 09:04 Plavix PO 75 mg DAILY JAYRO Administration Famotidine 20 mg 10/11/19 21:00 10/14/19 21:45 Pepcid PO 20 mg BID JAYRO Administration Heparin Sodium (Porcine) 5,000 units 10/05/19 21:00 10/14/19 21:45 Heparin SC 5,000 units BID JAYRO Administration Piperacillin Sod/Tazobactam 100 mls @ 200 mls/hr 10/09/19 11:30 10/15/19 05: 35 Sod 3.375 gm/ Sodium Chloride IVPB 100 mls Q6H JAYRO Administration Insulin Human Lispro 0 units 10/01/19 19:43 10/14/19 12:26 Humalog SC 2 unit .MILD SLIDING SCALE PRN Administration MILD SLIDING SCALE Protocol Metoclopramide HCl 10 mg 10/13/19 12:00 10/15/19 05:35 Reglan PO 10 mg Q6HR JAYRO Administration Nystatin 500,000 units 10/13/19 09:00 10/14/19 21:45 Mycostatin SSW 500,000 units QID JAYRO Administration Ondansetron HCl 4 mg 09/30/19 19:37 10/01/19 06:50 Zofran IVP 4 mg Q6H PRN Administration Nausea/Vomiting Saccharomyces Boulardii 250 mg 10/05/19 09:00 10/14/19 09:03 Florastor PO 250 mg DAILY JAYRO Administration Scopolamine 1.5 mg 10/07/19 10:00 10/13/19 10:34 Transderm Scop TD 1.5 mg Q3D JAYRO Administration Senna/Docusate Sodium 2 tab 09/30/19 19:37 10/13/19 20:31 Senokot S PO 2 tab BIDPRN PRN Administration Constipation Sertraline HCl 50 mg 10/01/19 09:00 10/14/19 09:03 Zoloft PO 50 mg DAILY JAYRO Administration Sodium Chloride 10 ml 09/30/19 19:40 10/14/19 21:45 Flush - Normal Saline IVF 10 ml PRN PRN Administration Saline Flush Tamsulosin HCl 0.4 mg 10/10/19 21:00 10/14/19 21:45 Flomax PO 0.4 mg HS JAYRO Administration - Exam General Appearance: NAD, awake alert ENT: moist mucosa Neck: no JVD Heart: RRR Respiratory: CTAB, no wheezes Gastrointestinal: soft, non-tender Gastrointestinal - other findings: PEG in place Extremities - other findings: retractions Skin: no rashes Neurological: speech deficit Neurological - other findings: poor movement/control of upper extremities, contractures to lower extremiti Psychiatric - other findings: unable to assess orientation due to slurred speech Hosp A/P (1) Aspiration pneumonia Code(s): J69.0 - PNEUMONITIS DUE TO INHALATION OF FOOD AND VOMIT Status: Acute Plan: PEG replaced, on Zosyn, Dr. Reynolds following, CXR shows some improvement, still with low grade fever spike to 100.8 yesterday (2) Acute respiratory failure with hypoxia Code(s): J96.01 - ACUTE RESPIRATORY FAILURE WITH HYPOXIA Status: Acute Plan: due to #1, improved (3) SIADH (syndrome of inappropriate ADH production) Status: Acute Plan: sodium normalized, Tolvaptan d/c'd, on free water restriction (4) UTI (urinary tract infection) Status: Resolved Qualifiers: Urinary tract infection type: acute cystitis Plan: E.coli, completed course of treatment (5) Urinary retention Code(s): R33.9 - RETENTION OF URINE, UNSPECIFIED Status: Acute Plan: Likely due to encephalopathy, stroke, infection. Cadet catheter in place. Can assess for removal as outpatient. - Plan continue antibiotics can go back to SNF when stable and off IV abx
[2019-10-15] MEDS: Clopidogrel Bisulfate 75 MG TAB PO SCH (11:14)
[2019-10-15] MEDS: Famotidine 20 MG TAB PO SCH ×2 (11:14→20:40)
[2019-10-15] MEDS: Aspirin 81 mg Enteric Coated Tablet PER TUBE SCH (11:14)
[2019-10-15] MEDS: Saccharomyces boulardii 250 MG CAP PO SCH (11:14)
[2019-10-15] MEDS: Nystatin 500,000 UNITS/5 ML UDCUP SSW SCH ×4 (11:15→20:40)
[2019-10-15] MEDS: Heparin 5,000 UNITS/ML VIAL SC SCH (12:36)
[2019-10-15] MEDS: Senokot S 8.6-50 MG TAB PO PRN (17:37)
[2019-10-15] MEDS: Atorvastatin Calcium 40 MG TAB PO SCH (20:40)
[2019-10-15] MEDS: Tamsulosin HCl 0.4 MG CAP PO SCH (20:40)
[2019-10-15] MEDS: Acetaminophen 325 MG TAB PO PRN (20:41)
--- NOTE | 2019-10-16 00:08 | PRG ---
DATE OF SERVICE: 10/15/2019 SUBJECTIVE: The patient is seen and examined, no new complaint, noted with the following vital signs. OBJECTIVE: VITAL SIGNS: Febrile, temperature maximum of 102.6, pulse 93, respiratory rate of 18, O2 saturations of 95%, and blood pressure 135/78. HEENT: Unremarkable. CARDIOVASCULAR: First and second heart sounds were heard. EXTREMITIES: There is no peripheral edema. SKIN: No new gross rash. LYMPHATICS: No peripheral lymphadenopathy. IMPRESSION: Hyponatremia in the context of syndrome of inappropriate antidiuretic hormone, much improved status post . PLAN: We will continue with current supportive measures. Job ID: [id number]
[2019-10-16] MEDS: Metoclopramide 10 MG/10 ML UDCUP PO SCH ×4 (00:17→18:12)
[2019-10-16] MEDS: Piperacillin/Tazobactam 3.375 GM in Sodium Chloride 0.9% 100 ML IVPB SCH ×4 (00:17→19:43)
[2019-10-16 04:46] LABS: #Basophils 0.1 thou/uL (0.0-0.2); #Eosinphils 0.1 thou/uL (0.0-0.7); #Lymphocytes 1.4 thou/uL (1.20-3.40); #Monocytes 0.9 thou/uL (0.11-0.59); #Neutrophils 13.5 thou/uL (1.40-6.50); %Basophils 0.4 % (0.0-1.0); %Eosinophils 0.8 % (0.0-10.0); %Lymphocytes 8.7 % (21.0-51.0); %Monocytes 5.9 % (0.0-10.0); %Neutrophils 84.2 % (42.0-75.0); Hemoglobin 13.2 g/dL (14.0-18.0); Mean Corpuscular Hemoglobin 29.4 pg (27.0-31.0); Mean Corpuscular Volume 92.2 fL (78.0-98.0); Mean Platelet Volume 6.6 fL (7.4-10.4); Platelet Count 560 thou/uL (130-400); RBC Distribution Width 12.3 % (11.5-14.5); Red Blood Cell (RBC) Count 4.47 mill/uL (4.70-6.10)
[2019-10-16 05:07] LABS: Anion Gap 16 mmol/L (10-20); BUN (Urea Nitrogen) 19 mg/dL (8.4-25.7); Calc. Creatinine Clearance 87 mL/min (70-130); Calcium 9.8 mg/dL (7.8-10.44); Carbon Dioxide 21 mmol/L (23-31); Chloride 99 mmol/L (98-107); Estimated GFR-MDRD Greater than 90; Glucose 95 mg/dL (80-115); Potassium 4.3 mmol/L (3.5-5.1); Sodium 132 mmol/L (136-145)
[2019-10-16] MEDS: Budesonide 0.5 MG/2 ML NEB INH SCH ×2 (06:54→18:51)
--- NOTE | 2019-10-16 08:05 | PDOC.HOSPP ---
- Subjective Encounter Date: 10/16/19 Encounter Time: 08:50 Subjective: Patient with high fever last night. Some cough. No SOB. No new complaints. - Objective Vital Signs & Weight: Vital Signs (12 hours) Temp Pulse Resp BP Pulse Ox 10/16/19 07:21 99.7 F H 79 17 122/46 L 92 L 10/16/19 06:54 80 22 H 96 10/16/19 06:52 80 22 H 96 10/16/19 04:00 97.6 F 80 18 120/63 93 L 10/16/19 02:05 84 18 94 L 10/15/19 22:58 99.2 F 71 18 114/64 92 L 10/15/19 22:13 80 18 94 L Weight Admit Weight 145 lb 12.8 oz Weight 145 lb 12.8 oz Most Recent Monitor Data Heart Rate from ECG 95 NIBP 125/58 NIBP BP-Mean 80 Respiration from ECG 19 SpO2 97 I&O: 10/15/19 10/16/19 10/17/19 06:59 06:59 06:59 Intake Total 90 529 Output Total 1400 1195 Balance -4440 -036 Result Diagrams: 10/16/19 04:33 10/16/19 04:33 Additional Labs: Accuchecks 10/15/19 10/15/19 10/15/19 23:04 18:17 11:23 POC Glucose 104 127 H 118 H 10/15/19 10/15/19 05:43 00:58 POC Glucose 108 132 H Hospitalist ROS - Review of Systems Respiratory: reports: cough. denies: shortness of breath Cardiovascular: denies: chest pain, palpitations, orthopnea Gastrointestinal: denies: nausea, vomiting, abdominal pain, diarrhea Genitourinary: denies: dysuria, hematuria - Medication Medications: Active Medications Generic Name Dose Route Start Last Admin Trade Name Freq PRN Reason Stop Dose Admin Acetaminophen 650 mg 09/30/19 19:37 10/15/19 20:41 Tylenol PO 650 mg Q4H PRN Administration Headache/Fever/Mild Pain (1-3) Acetaminophen 650 mg 09/30/19 19:37 10/06/19 14:03 Tylenol [place] 650 mg Q4H PRN Administration Headache/Fever/Mild Pain (1-3) Albuterol/Ipratropium 3 ml 10/07/19 10:30 12/17/19 06:52 Duoneb NEB 3 ml [id number] JAYRO Administration Aspirin 81 mg 10/06/19 09:00 10/15/19 11:14 Ecotrin PER TUBE 81 mg DAILY JAYRO Administration Atorvastatin Calcium 40 mg 09/30/19 21:00 10/15/19 20:40 Lipitor PO 40 mg HS JAYRO Administration Budesonide 0.5 mg 10/09/19 18:30 10/16/19 06:54 Pulmicort Neb Solution INH 0.5 mg BID-RT JAYRO Administration Clopidogrel Bisulfate 75 mg 10/03/19 09:00 10/15/19 11:14 Plavix PO 75 mg DAILY JAYRO Administration Famotidine 20 mg 10/11/19 21:00 10/15/19 20:40 Pepcid PO 20 mg BID JAYRO Administration Piperacillin Sod/Tazobactam 100 mls @ 200 mls/hr 10/09/19 11:30 10/16/19 06: 37 Sod 3.375 gm/ Sodium Chloride IVPB 100 mls Q6H JAYRO Administration Insulin Human Lispro 0 units 10/01/19 19:43 10/14/19 12:26 Humalog SC 2 unit .MILD SLIDING SCALE PRN Administration MILD SLIDING SCALE Protocol Metoclopramide HCl 10 mg 10/13/19 12:00 10/16/19 06:37 Reglan PO 10 mg Q6HR JAYRO Administration Nystatin 500,000 units 10/13/19 09:00 10/15/19 20:40 Mycostatin SSW 500,000 units QID JAYRO Administration Ondansetron HCl 4 mg 09/30/19 19:37 10/01/19 06:50 Zofran IVP 4 mg Q6H PRN Administration Nausea/Vomiting Saccharomyces Boulardii 250 mg 10/05/19 09:00 10/15/19 11:14 Florastor PO 250 mg DAILY JAYRO Administration Scopolamine 1.5 mg 10/07/19 10:00 10/13/19 10:34 Transderm Scop TD 1.5 mg Q3D JAYRO Administration Senna/Docusate Sodium 2 tab 09/30/19 19:37 10/15/19 17:37 Senokot S PO 2 tab BIDPRN PRN Administration Constipation Sertraline HCl 50 mg 10/01/19 09:00 10/15/19 11:15 Zoloft PO 50 mg DAILY JAYRO Administration Sodium Chloride 10 ml 09/30/19 19:40 10/14/19 21:45 Flush - Normal Saline IVF 10 ml PRN PRN Administration Saline Flush Tamsulosin HCl 0.4 mg 10/10/19 21:00 10/15/19 20:40 Flomax PO 0.4 mg HS JAYRO Administration - Exam General Appearance: NAD Eye: anicteric sclera Heart: RRR, no murmur, no gallops Respiratory: CTAB, no wheezes, no rales, no ronchi Gastrointestinal: soft, non-tender, non-distended, normal bowel sounds Extremities: no cyanosis, no clubbing, no edema Neurological: speech deficit Hosp A/P (1) Sepsis Code(s): A41.9 - SEPSIS, UNSPECIFIED ORGANISM Status: Acute Plan: Spiked fever to 102 last night, WBC increasing to 16, will recheck blood cultures, Dr. Reynolds notified (2) Aspiration pneumonia Code(s): J69.0 - PNEUMONITIS DUE TO INHALATION OF FOOD AND VOMIT Status: Acute (3) Acute respiratory failure with hypoxia Code(s): J96.01 - ACUTE RESPIRATORY FAILURE WITH HYPOXIA Status: Acute Plan: doing well on 2L NC O2 (4) SIADH (syndrome of inappropriate ADH production) Status: Acute (5) UTI (urinary tract infection) Status: Resolved Qualifiers: Urinary tract infection type: acute cystitis (6) Urinary retention Code(s): R33.9 - RETENTION OF URINE, UNSPECIFIED Status: Acute - Plan continue antibiotics, PT/OT can go back to SNF when stable and off IV abx
[2019-10-16] MEDS: Nystatin 500,000 UNITS/5 ML UDCUP SSW SCH ×5 (09:00→20:08)
[2019-10-16] MEDS: Famotidine 20 MG TAB PO SCH ×2 (10:23→20:08)
[2019-10-16] MEDS: Clopidogrel Bisulfate 75 MG TAB PO SCH (10:23)
[2019-10-16] MEDS: Saccharomyces boulardii 250 MG CAP PO SCH (10:23)
[2019-10-16] MEDS: Scopolamine 1.5 mg/72 hour Patch TD SCH (10:24)
[2019-10-16] MEDS: Aspirin 81 mg Enteric Coated Tablet PER TUBE SCH (10:26)
[2019-10-16] MEDS ORDERED: Aspirin Chewable 81 MG TAB ONE (10:29)
[2019-10-16] MEDS ORDERED: Iopamidol 370 76% 100 ML VIAL ONE (13:51)
[2019-10-16] MEDS: Senokot S 8.6-50 MG TAB PO PRN (15:05)
--- NOTE | 2019-10-16 17:51 | PRG ---
DATE OF SERVICE: 10/16/2019 SUBJECTIVE: The patient is awake, establishes eye contact, but is hard to communicate. He has obvious secretions in his large airways and inability to cough them up, although he does not appear in distress. He had some residual in the gastrostomy tube overnight about 200 mL. OBJECTIVE: VITAL SIGNS: T-max 102.6 yesterday at 7 p.m., BP 97/57, pulse 83, and O2 saturation 96%. GENERAL: He is awake, establishes eye contact, but communication is very difficult because of dysarthria. SKIN: No areas of skin breakdown. Gastrostomy tube exit site appears normal. HEENT: Ocular movements conjugate. NEUROLOGIC: Weakness in all 4 extremities with hyperreflexia in the left side. LUNGS: Coarse rhonchi and crackles, which appeared to be localized in the large airways and is obviously unable to have a very strong cough reflex. HEART: S1 and S2 with regular rate. ABDOMEN: Flat, soft, not distended. He has a Cadet catheter in place. LABORATORY DATA: White cell count is 16,000, hemoglobin 13, platelets 560, and 84% neutrophils. Creatinine 0.575. Last imaging study was an abdomen x-ray with nonspecific findings. There is a chest film with persistent and parenchymal changes, right mid lung. MEDICATIONS: He is currently on: 1. Lipitor. 2. Dulcolax. 3. Pulmicort. 4. Zofran. 5. Mycostatin. 6. Zosyn. 7. Transderm scopolamine. 8. Tamsulosin. ASSESSMENT AND DISCUSSION: 1. CVA x2. 2. Severe functional impairment. 3. Swallowing dysfunction, requiring gastrostomy. 4. Weak cough reflex. 5. Evidence of aspiration, which is continuing, associated with large gastric residuals. 6. Recurrence of fever. 7. Retention on Cadet catheter. 8. Immobility. 9. High risk for thromboembolism. We will check CT angio and urine and blood cultures. The differential diagnosis includes thromboembolism versus persistence of aspiration, worsening pneumonia, mucus plugging versus an invasive urinary tract infection, associated with retention of Cadet catheter. Job ID: [id number]
--- NOTE | 2019-10-16 17:55 | PRG ---
DATE OF SERVICE: 10/16/2019 SUBJECTIVE: The patient noted with the following vital signs. OBJECTIVE: VITAL SIGNS: Temperature 98.5, pulse 83, respiratory rate of 13, O2 saturation of 96%, and blood pressure 97/57. HEENT: Unremarkable. CARDIOVASCULAR: First and second heart sounds were heard. RESPIRATORY: Clear to auscultation. DIGESTIVE SYSTEM: Revealed a benign abdomen. EXTREMITIES: No peripheral edema. SKIN: No new gross rash. IMPRESSION: Hyponatremia in the context of syndrome of inappropriate antidiuretic hormone secretion, resolved. PLAN: Continue current management. Job ID: [id number]
[2019-10-16 18:13] LABS: Bilirubin Small (Negative); Blood, Urine Negative (Negative); Glucose, Urine (Dipstick) Negative (Negative); Leukocyte Negative (Negative); Nitrite Negative (Negative); Protein, Urine (Dipstick) 100 mg/dL (Neg-Trace)
[2019-10-16 18:16] LABS: Clarity Clear (Clear)
[2019-10-16 18:20] LABS: Other Microscopic Description Less than 2 mL rec'd
[2019-10-16 18:21] LABS: Calcium Oxalate Crystals 1+ HPF (None Seen); RBC/HPF None Seen HPF (0-3); Squamous Epithelial None Seen HPF (0-3); WBC/HPF None Seen HPF (0-3)
[2019-10-16 18:22] LABS: Bacteria/HPF None Seen HPF (None Seen); Urine Culture Reflex No No
--- NOTE | 2019-10-16 20:00 | CT ---
CTA CHEST WITH CONTRAST: 10/16/19 Axial tomograms obtained with multiplanar reconstruction and 3D postprocessing following pulmonary an maxwell protocol. INDICATIONS: Pneumonia. Fever. Low oxygen. FINDINGS: Pulmonary arteries are well opacified. No evidence of pulmonary embolus identified. There is patchy infiltrate in the peripheral right upper lobe, right middle lobe, and right lower lob e. Patchy infiltrate is also seen in the left lower lobe and in the lingula. Thoracic aorta is unremarkable. There is no evidence of dissection. There is a sliding diaphragmatic hernia. The lower esophagus shows mural thickening and dilatation an d should be evaluated with endoscopy. Mediastinum shows nonspecific mediastinal and hilar adenopathy. IMPRESSION: 1. No evidence of pulmonary embolus. 2. There is bilateral patchy infiltrate seen throughout all lobes of the lungs. There is vascula r congestion and possible superimposed interstitial edema. The areas of patchy infiltrate is suspicio us for infectious process superimposed on mild congestion. 3. Sliding diaphragmatic hernia. The thoracic esophagus is abnormal with dilatation and mural th ickening. Recommend GI consultation. POS: OFF
[2019-10-16] MEDS: Tamsulosin HCl 0.4 MG CAP PO SCH (20:08)
[2019-10-16] MEDS: Atorvastatin Calcium 40 MG TAB PO SCH (20:08)
[2019-10-17] MEDS: Metoclopramide 10 MG/10 ML UDCUP PO SCH ×5 (00:23→23:00)
[2019-10-17] MEDS: Piperacillin/Tazobactam 3.375 GM in Sodium Chloride 0.9% 100 ML IVPB SCH ×3 (00:23→11:22)
[2019-10-17] MEDS: Acetaminophen 325 MG TAB PO PRN ×3 (03:02→20:31)
[2019-10-17 05:25] LABS: #Eosinphils 0.1 thou/uL (0.0-0.7); #Lymphocytes 1.1 thou/uL (1.20-3.40); #Monocytes 0.6 thou/uL (0.11-0.59); #Neutrophils 8.9 thou/uL (1.40-6.50); %Basophils 0.2 % (0.0-1.0); %Eosinophils 1.4 % (0.0-10.0); %Monocytes 5.4 % (0.0-10.0); Hemoglobin 10.6 g/dL (14.0-18.0); Mean Corpuscular HGB CONC 33.3 g/dL (32.0-36.0); Mean Corpuscular Hemoglobin 29.4 pg (27.0-31.0); Mean Corpuscular Volume 88.3 fL (78.0-98.0); Mean Platelet Volume 6.6 fL (7.4-10.4); Platelet Count 478 thou/uL (130-400); RBC Distribution Width 12.1 % (11.5-14.5); Red Blood Cell (RBC) Count 3.62 mill/uL (4.70-6.10); White Blood Cell (WBC) Count 10.7 thou/uL (4.8-10.8)
[2019-10-17 05:31] LABS: Anion Gap 10 mmol/L (10-20); BUN (Urea Nitrogen) 16 mg/dL (8.4-25.7); Calc. Creatinine Clearance 88 mL/min (70-130); Carbon Dioxide 27 mmol/L (23-31); Chloride 101 mmol/L (98-107); Estimated GFR-MDRD Greater than 90; Glucose 143 mg/dL (80-115); Potassium 3.4 mmol/L (3.5-5.1); Sodium 135 mmol/L (136-145)
[2019-10-17] MEDS: Budesonide 0.5 MG/2 ML NEB INH SCH ×2 (07:17→19:06)
[2019-10-17] MEDS: Aspirin Chewable 81 MG TAB PER TUBE SCH (09:15)
[2019-10-17] MEDS: Famotidine 20 MG TAB PO SCH ×2 (09:15→20:32)
[2019-10-17] MEDS: Nystatin 500,000 UNITS/5 ML UDCUP SSW SCH ×4 (09:15→20:32)
[2019-10-17] MEDS: Saccharomyces boulardii 250 MG CAP PO SCH (09:15)
[2019-10-17] MEDS: Clopidogrel Bisulfate 75 MG TAB PO SCH (09:15)
--- NOTE | 2019-10-17 09:35 | PDOC.HOSPP ---
- Subjective Encounter Date: 10/17/19 Encounter Time: 10:40 Subjective: Patient with persistent fever yesterday. Lots of congestion and coughing this AM. Not talking much this AM and hard to understand. - Objective Vital Signs & Weight: Vital Signs (12 hours) Temp Pulse Resp BP Pulse Ox 10/17/19 07:30 98 10/17/19 07:28 99.5 F 67 16 121/54 L 98 10/17/19 07:17 92 L 10/17/19 07:14 69 20 92 L 10/17/19 04:00 100.9 F H 76 16 128/65 95 10/17/19 02:20 77 20 95 10/17/19 00:00 101.6 F H 95 16 108/57 L 93 L 10/16/19 22:21 78 20 94 L Weight Admit Weight 145 lb 12.8 oz Weight 145 lb 12.8 oz Most Recent Monitor Data Heart Rate from ECG 95 NIBP 125/58 NIBP BP-Mean 80 Respiration from ECG 19 SpO2 97 I&O: 10/16/19 10/17/19 10/18/19 06:59 06:59 06:59 Intake Total 529 1100 Output Total 1195 900 Balance -666 200 Result Diagrams: 10/17/19 04:16 10/17/19 04:16 Additional Labs: Accuchecks 10/17/19 10/17/19 10/16/19 06:18 00:30 18:17 POC Glucose 168 H 141 H 98 10/16/19 10/16/19 12:04 06:00 POC Glucose 137 H 103 Hospitalist ROS - Review of Systems ROS unobtainable: due to mental status - Medication Medications: Active Medications Generic Name Dose Route Start Last Admin Trade Name Freq PRN Reason Stop Dose Admin Acetaminophen 650 mg 09/30/19 19:37 10/17/19 09:15 Tylenol PO 650 mg Q4H PRN Administration Headache/Fever/Mild Pain (1-3) Acetaminophen 650 mg 09/30/19 19:37 10/06/19 14:03 Tylenol [place] 650 mg Q4H PRN Administration Headache/Fever/Mild Pain (1-3) Albuterol/Ipratropium 3 ml 10/07/19 10:30 10/17/19 07:14 Duoneb NEB 3 ml [id number] JAYRO Administration Aspirin 81 mg 10/17/19 09:00 10/17/19 09:15 Aspirin Chewable PER TUBE 81 mg DAILY JAYRO Administration Atorvastatin Calcium 40 mg 09/30/19 21:00 10/16/19 20:08 Lipitor PO 40 mg HS JAYRO Administration Budesonide 0.5 mg 10/09/19 18:30 10/17/19 07:17 Pulmicort Neb Solution INH 0.5 mg BID-RT JAYRO Administration Clopidogrel Bisulfate 75 mg 10/03/19 09:00 10/17/19 09:15 Plavix PO 75 mg DAILY JAYRO Administration Famotidine 20 mg 10/11/19 21:00 10/17/19 09:15 Pepcid PO 20 mg BID JAYRO Administration Piperacillin Sod/Tazobactam 100 mls @ 200 mls/hr 10/09/19 11:30 10/17/19 05: 49 Sod 3.375 gm/ Sodium Chloride IVPB 100 mls Q6H JAYRO Administration Insulin Human Lispro 0 units 10/01/19 19:43 10/14/19 12:26 Humalog SC 2 unit .MILD SLIDING SCALE PRN Administration MILD SLIDING SCALE Protocol Metoclopramide HCl 10 mg 10/13/19 12:00 10/17/19 05:49 Reglan PO 10 mg Q6HR JAYRO Administration Nystatin 500,000 units 10/13/19 09:00 10/17/19 09:15 Mycostatin SSW 500,000 units QID JAYRO Administration Ondansetron HCl 4 mg 09/30/19 19:37 10/01/19 06:50 Zofran IVP 4 mg Q6H PRN Administration Nausea/Vomiting Saccharomyces Boulardii 250 mg 10/05/19 09:00 10/17/19 09:15 Florastor PO 250 mg DAILY JAYRO Administration Scopolamine 1.5 mg 10/07/19 10:00 10/16/19 10:24 Transderm Scop TD 1.5 mg Q3D JAYRO Administration Senna/Docusate Sodium 2 tab 09/30/19 19:37 10/16/19 15:05 Senokot S PO 2 tab BIDPRN PRN Administration Constipation Sertraline HCl 50 mg 10/01/19 09:00 10/17/19 09:15 Zoloft PO 50 mg DAILY JAYRO Administration Sodium Chloride 10 ml 09/30/19 19:40 10/16/19 19:16 Flush - Normal Saline IVF 10 ml PRN PRN Administration Saline Flush Tamsulosin HCl 0.4 mg 10/10/19 21:00 10/16/19 20:08 Flomax PO 0.4 mg HS JAYRO Administration - Exam General Appearance: ill appearing Heart: RRR, no murmur, no gallops, no rubs Respiratory: no wheezes, no rales Respiratory - other findings: junky breath sounds bilaterally Gastrointestinal: soft, non-tender, non-distended Psychiatric: somnolent Hosp A/P (1) Sepsis Code(s): A41.9 - SEPSIS, UNSPECIFIED ORGANISM Status: Acute Plan: On Zosyn day #10 (2) Aspiration pneumonia Code(s): J69.0 - PNEUMONITIS DUE TO INHALATION OF FOOD AND VOMIT Status: Acute Plan: CT chest 10/16 without acute changes, just persistent infectious changes, no PE (3) Acute respiratory failure with hypoxia Code(s): J96.01 - ACUTE RESPIRATORY FAILURE WITH HYPOXIA Status: Acute Plan: improving (4) SIADH (syndrome of inappropriate ADH production) Status: Acute (5) UTI (urinary tract infection) Status: Resolved Qualifiers: Urinary tract infection type: acute cystitis (6) Urinary retention Code(s): R33.9 - RETENTION OF URINE, UNSPECIFIED Status: Acute Plan: haro in place - Plan Dr. Reynolds evaluating for source of persistent fever and leukocytosis
[2019-10-17] MEDS ORDERED: Vancomycin 1.5 GRAM/300 ML BAG 1.5 GM in Premix Bag 1 BAG IVPB SCH (12:15)
[2019-10-17] MEDS: MEROPENEM 1 GM/50 ML 1 GM in Premix Bag 1 BAG IVPB SCH ×2 (15:57→21:30)
--- NOTE | 2019-10-17 16:48 | PRG ---
DATE OF SERVICE: 10/17/2019 SUBJECTIVE: Mr. Munoz is still in same neurological status, unable to interact with the examiner. OBJECTIVE: VITAL SIGNS: He still had a temperature elevation up to 101.6 at midnight and a temperature now is 98.6, BP 137/69, pulse 80, and respirations 18. LUNGS: Still with coarse breath sounds bilaterally with rhonchi. Weak cough reflex. ABDOMEN: Soft. G-tube in place and indwelling Cadet catheter. NEUROLOGIC: Unchanged with hyperreflexia. LABORATORY DATA: White cell count 10.7, hemoglobin 10.6, and platelets 478. Creatinine 0.74. Repeat blood cultures thus far no growth. Chest CT angio with bilateral patchy infiltrates throughout all the lobes of the lungs, possible superimposed interstitial edema. ASSESSMENT AND DISCUSSION: Cerebrovascular accident x2, severe functional impairment, swallowing dysfunction with gastrostomy feedings, weak cough reflex with evidence of aspiration which is ongoing, associated with large gastric residuals with appearance of fever, probably due to the above with aspiration pneumonia, possible resistant pathogen. We will switch him to meropenem and vancomycin and monitor response. Job ID: [id number]
[2019-10-17] MEDS: Tamsulosin HCl 0.4 MG CAP PO SCH (20:32)
[2019-10-17] MEDS: Atorvastatin Calcium 40 MG TAB PO SCH (20:32)
--- NOTE | 2019-10-17 20:52 | PRG ---
DATE OF SERVICE: 10/17/2019 SUBJECTIVE: The patient noted with the following vital signs. OBJECTIVE: VITAL SIGNS: Afebrile, temperature 99.2, pulse 71, respiratory rate of 18, O2 saturations are 94%, and blood pressure 128/64. HEENT: Unremarkable. CARDIOVASCULAR SYSTEM: First and second heart sounds were heard. RESPIRATORY SYSTEM: Clear to auscultation. DIGESTIVE SYSTEM: Revealed a benign abdomen. Positive bowel sounds. EXTREMITIES: No peripheral edema. SKIN: No new gross rash. LYMPHATICS: No peripheral lymphadenopathy. IMPRESSION: Hyponatremia in the context of syndrome of inappropriate antidiuretic hormone secretion, resolved, status post tolvaptan. PLAN: Continue current management. Job ID: [id number]
[2019-10-18] MEDS: Vancomycin HCl 1 GM in Premix Bag 1 BAG IVPB SCH ×2 (00:19→12:31)
[2019-10-18] MEDS: MEROPENEM 1 GM/50 ML 1 GM in Premix Bag 1 BAG IVPB SCH ×3 (05:41→23:06)
[2019-10-18] MEDS: Metoclopramide 10 MG/10 ML UDCUP PO SCH ×3 (05:47→17:25)
[2019-10-18] MEDS: Budesonide 0.5 MG/2 ML NEB INH SCH ×2 (06:51→19:08)
--- NOTE | 2019-10-18 08:03 | PDOC.HOSPP ---
- Subjective Encounter Date: 10/18/19 Encounter Time: 11:10 non-verbal Subjective: No BM noted for 1 week, will need to add miralax, patient somnolent and not talking today - Objective Vital Signs & Weight: Vital Signs (12 hours) Temp Pulse Resp BP Pulse Ox 10/18/19 08:00 99.7 F H 73 16 124/60 96 10/18/19 06:51 80 16 10/18/19 04:00 98.6 F 80 16 121/64 97 10/17/19 23:57 98.9 F 74 16 148/72 H 95 10/17/19 21:42 72 18 97 Weight Admit Weight 145 lb 12.8 oz Weight 145 lb 12.8 oz Most Recent Monitor Data Heart Rate from ECG 95 NIBP 125/58 NIBP BP-Mean 80 Respiration from ECG 19 SpO2 97 I&O: 10/17/19 10/18/19 10/19/19 06:59 06:59 06:59 Intake Total 1100 1390 Output Total 900 1300 Balance 200 90 Result Diagrams: 10/17/19 04:16 10/17/19 04:16 Additional Labs: Accuchecks 10/18/19 10/18/19 10/17/19 05:57 00:04 18:04 POC Glucose 119 H 112 H 135 H 10/17/19 10/17/19 11:10 06:18 POC Glucose 152 H 168 H Hospitalist ROS - Review of Systems ROS unobtainable: due to mental status - Medication Medications: Active Medications Generic Name Dose Route Start Last Admin Trade Name Freq PRN Reason Stop Dose Admin Acetaminophen 650 mg 09/30/19 19:37 10/17/19 20:31 Tylenol PO 650 mg Q4H PRN Administration Headache/Fever/Mild Pain (1-3) Acetaminophen 650 mg 09/30/19 19:37 10/06/19 14:03 Tylenol [place] 650 mg Q4H PRN Administration Headache/Fever/Mild Pain (1-3) Albuterol/Ipratropium 3 ml 10/07/19 10:30 10/18/19 06:51 Duoneb NEB 3 ml [id number] JAYRO Administration Aspirin 81 mg 10/17/19 09:00 10/17/19 09:15 Aspirin Chewable PER TUBE 81 mg DAILY JAYRO Administration Atorvastatin Calcium 40 mg 09/30/19 21:00 10/17/19 20:32 Lipitor PO 40 mg HS JAYRO Administration Budesonide 0.5 mg 10/09/19 18:30 10/18/19 06:51 Pulmicort Neb Solution INH 0.5 mg BID-RT JAYRO Administration Clopidogrel Bisulfate 75 mg 10/03/19 09:00 10/17/19 09:15 Plavix PO 75 mg DAILY JAYRO Administration Famotidine 20 mg 10/11/19 21:00 10/17/19 20:32 Pepcid PO 20 mg BID JAYRO Administration Meropenem 1 gm/ Device 50 mls @ 100 mls/hr 10/17/19 14:00 10/18/19 05:41 IVPB 50 mls Q8HR JAYRO Administration Vancomycin HCl 1 gm/ Device 200 mls @ 200 mls/hr 10/18/19 01:00 10/18/19 00: 19 IVPB 200 mls 0100,1300 JAYRO Administration Insulin Human Lispro 0 units 10/01/19 19:43 10/14/19 12:26 Humalog SC 2 unit .MILD SLIDING SCALE PRN Administration MILD SLIDING SCALE Protocol Metoclopramide HCl 10 mg 10/13/19 12:00 10/18/19 05:47 Reglan PO 10 mg Q6HR JAYRO Administration Nystatin 500,000 units 10/13/19 09:00 10/17/19 20:32 Mycostatin SSW 500,000 units QID JAYRO Administration Ondansetron HCl 4 mg 09/30/19 19:37 10/01/19 06:50 Zofran IVP 4 mg Q6H PRN Administration Nausea/Vomiting Saccharomyces Boulardii 250 mg 10/05/19 09:00 10/17/19 09:15 Florastor PO 250 mg DAILY JAYRO Administration Scopolamine 1.5 mg 10/07/19 10:00 10/16/19 10:24 Transderm Scop TD 1.5 mg Q3D JAYRO Administration Senna/Docusate Sodium 2 tab 09/30/19 19:37 10/16/19 15:05 Senokot S PO 2 tab BIDPRN PRN Administration Constipation Sertraline HCl 50 mg 10/01/19 09:00 10/17/19 09:15 Zoloft PO 50 mg DAILY JAYRO Administration Sodium Chloride 10 ml 09/30/19 19:40 10/16/19 19:16 Flush - Normal Saline IVF 10 ml PRN PRN Administration Saline Flush Tamsulosin HCl 0.4 mg 10/10/19 21:00 10/17/19 20:32 Flomax PO 0.4 mg HS JAYRO Administration - Exam General Appearance: ill appearing Heart: RRR, no murmur, no gallops Respiratory: no tachypnea Respiratory - other findings: coarse breath sounds bilaterally, lots of upper airway secretion sounds Gastrointestinal: soft, non-tender, non-distended, normal bowel sounds Gastrointestinal - other findings: PEG tube in place with feeds going Psychiatric: somnolent Hosp A/P (1) Sepsis Code(s): A41.9 - SEPSIS, UNSPECIFIED ORGANISM Status: Acute Plan: No fever for 24 hours, WBC improved, Meropenem and Vanc started 10/17/2019 (2) Aspiration pneumonia Code(s): J69.0 - PNEUMONITIS DUE TO INHALATION OF FOOD AND VOMIT Status: Acute (3) Acute respiratory failure with hypoxia Code(s): J96.01 - ACUTE RESPIRATORY FAILURE WITH HYPOXIA Status: Acute (4) SIADH (syndrome of inappropriate ADH production) Status: Acute (5) UTI (urinary tract infection) Status: Resolved Qualifiers: Urinary tract infection type: acute cystitis (6) Urinary retention Code(s): R33.9 - RETENTION OF URINE, UNSPECIFIED Status: Acute - Plan continue antibiotics, PT/OT Dr. Reynolds evaluating for source of persistent fever and leukocytosis, no BM noted in nursing notes for 1 week, add miralax, Palliative care discussing lack of response with family and readdressing code status
[2019-10-18] MEDS: Nystatin 500,000 UNITS/5 ML UDCUP SSW SCH ×4 (10:06→22:44)
[2019-10-18] MEDS: Famotidine 20 MG TAB PO SCH ×2 (10:06→22:44)
[2019-10-18] MEDS: Aspirin Chewable 81 MG TAB PER TUBE SCH (10:06)
[2019-10-18] MEDS: Clopidogrel Bisulfate 75 MG TAB PO SCH (10:06)
[2019-10-18] MEDS: Saccharomyces boulardii 250 MG CAP PO SCH (10:06)
[2019-10-18] MEDS: Acetaminophen 325 MG TAB PO PRN (10:07)
--- NOTE | 2019-10-18 10:49 | PDOC.PALCO ---
Palliative Care Consult - Consult Details Requesting Physician: Dr Espinosa Reason for Consult: assistance with communication prognosis/disease Family Members Present: None, Called "Haseeb" via phone - Pertinent HPI Patient is a 69 year old male who is a resident at the [facility]. Patient experienced altered mental status and fixed gaze which onset just prior to transport to emergency room. Known right sided weakness from previous CVA, aphasic but prior to admission was verbal. Evaluation in the emergency room admitted patient secondary to encephalopathy due to CVA for evaluation. Patient has no family active in his care and decisions, a friend Haseeb Salinas is his MPOA. Patient has had continued complications during the course of his stay including respiratory infections and continued decline/physical deconditioning. Receives nutritional support via PEG. - Pertinent PMH CVA, HTN, Bradycardia/pacemaker, CKD, Dysphagia with PEG in the past, Vascular Dementia - Social History Smoking Status: Former smoker Smoking: quit greater than 1 year Alcohol Use: other (History of alcohol abuse) Drug Use History: none Living Situation: [facility] resident - Medications MAR Reviewed: Yes - Allergies Allergies/Adverse Reactions: Allergies Allergy/AdvReac Type Severity Reaction Status Date / Time No Known Allergies Allergy Verified 09/30/19 23:36 - Subjective Unintelligible speech, muscle wasting and inability to maintain erect body position without support, confused - ROS Non Response: due to mental status - Objective Vital Signs: Vital Signs - Most Recent Temp Pulse Resp BP Pulse Ox 99.7 F H 70 16 124/60 96 10/18/19 08:00 10/18/19 10:29 10/18/19 10:29 10/18/19 08:00 10/18/19 08:00 - Physical Exam Constitutional: encephalitic, ill appearing HEENT: moist MMs Deviation from normal: Adventicious bilaterally Cardiovascular: no significant murmur, diminished peripheral pulses Gastrointestinal: soft, positive bowel sounds, incontinent Deviation from normal: PEG Genitourinary: haro catheter Musculoskeletal: no edema, diffuse muscle atrophy Lymphatic: no nodes Skin: cap refill <2 seconds, fragile Deviation from normal: Encephalopathic - Problem List (1) Palliative care encounter Code(s): Z51.5 - ENCOUNTER FOR PALLIATIVE CARE Current Visit: Yes Status: Acute (2) Physical deconditioning Code(s): R53.81 - OTHER MALAISE Current Visit: Yes Status: Acute (3) Dysphagia Code(s): R13.10 - DYSPHAGIA, UNSPECIFIED Current Visit: No Status: Acute (4) Metabolic encephalopathy Code(s): G93.41 - METABOLIC ENCEPHALOPATHY Current Visit: No Status: Acute - Plan/Recommendations Plan: Patient has no family active in his care, estranged. Called and visited with TEJINDER Pinzon. He works two jobs and is unable to come for meeting at hospital until Monday 10/22. Discussed need to revisit resuscitation status, disease processes and trajectory, and goals of care. Discussed treatment verses symptom management. He is going to call back to identify a time to discuss further. *Attempt to set up meeting with JULIOA, will narrow time for 10/22 if patient is still at the hospital *Increase Scopolamine Patch to mitigate oral secretions *Added Biotene spray to improve integrity of oral mucous membranes [60] minutes spent on this encounter with >50% of the time in counseling and coordination of care. Thank you for this very appropriate consult.
[2019-10-18] MEDS: Scopolamine 1.5 mg/72 hour Patch TD SCH (11:49)
[2019-10-18] MEDS: Tamsulosin HCl 0.4 MG CAP PO SCH (22:44)
[2019-10-18] MEDS: Atorvastatin Calcium 40 MG TAB PO SCH (22:44)
[2019-10-18 23:51] LABS: Vancomycin, Trough 12.7 ug/mL
[2019-10-19] MEDS: Vancomycin HCl 1 GM in Premix Bag 1 BAG IVPB SCH (00:14)
[2019-10-19] MEDS: Metoclopramide 10 MG/10 ML UDCUP PO SCH ×4 (00:31→18:08)
[2019-10-19] MEDS: BIOTENE MOUTH SPRAY 44.3 ML MM SCH ×3 (00:31→22:10)
[2019-10-19] MEDS: Acetaminophen 650 MG Suppository PR PRN (00:47)
[2019-10-19 05:18] LABS: Anion Gap 10 mmol/L (10-20); BUN (Urea Nitrogen) 13 mg/dL (8.4-25.7); Calc. Creatinine Clearance 99 mL/min (70-130); Calcium 9.4 mg/dL (7.8-10.44); Carbon Dioxide 27 mmol/L (23-31); Chloride 99 mmol/L (98-107); Estimated GFR-MDRD Greater than 90; Glucose 107 mg/dL (80-115); Potassium 4.3 mmol/L (3.5-5.1); Sodium 132 mmol/L (136-145)
[2019-10-19 05:31] LABS: #Basophils 0.1 thou/uL (0.0-0.2); #Eosinphils 0.7 thou/uL (0.0-0.7); #Lymphocytes 1.8 thou/uL (1.20-3.40); #Monocytes 0.9 thou/uL (0.11-0.59); #Neutrophils 10.7 thou/uL (1.40-6.50); %Basophils 0.4 % (0.0-1.0); %Lymphocytes 12.5 % (21.0-51.0); %Monocytes 6.2 % (0.0-10.0); %Neutrophils 75.9 % (42.0-75.0); Hemoglobin 11.5 g/dL (14.0-18.0); Mean Corpuscular HGB CONC 32.7 g/dL (32.0-36.0); Mean Corpuscular Hemoglobin 28.9 pg (27.0-31.0); Mean Corpuscular Volume 88.3 fL (78.0-98.0); Mean Platelet Volume 6.7 fL (7.4-10.4); Platelet Count 581 thou/uL (130-400); Red Blood Cell (RBC) Count 3.99 mill/uL (4.70-6.10); White Blood Cell (WBC) Count 14.1 thou/uL (4.8-10.8)
[2019-10-19] MEDS ORDERED: Acetaminophen 1,000 MG in Premix Bag 1 BAG IVPB SCH (05:45)
[2019-10-19] MEDS: Budesonide 0.5 MG/2 ML NEB INH SCH ×2 (06:40→18:30)
[2019-10-19] MEDS: MEROPENEM 1 GM/50 ML 1 GM in Premix Bag 1 BAG IVPB SCH ×3 (06:46→22:09)
[2019-10-19] MEDS: Vancomycin HCl 1.25 GM in Sodium Chloride 0.9% 250 ML 250 ML IVPB SCH ×2 (10:16→23:10)
[2019-10-19] MEDS: Saccharomyces boulardii 250 MG CAP PO SCH (10:17)
[2019-10-19] MEDS: Clopidogrel Bisulfate 75 MG TAB PO SCH (10:17)
[2019-10-19] MEDS: Polyethylene Glycol 3350 17 GM Packet PER TUBE SCH (10:17)
[2019-10-19] MEDS: Nystatin 500,000 UNITS/5 ML UDCUP SSW SCH ×4 (10:17→22:10)
[2019-10-19] MEDS: Famotidine 20 MG TAB PO SCH ×2 (10:17→22:10)
[2019-10-19] MEDS: Aspirin Chewable 81 MG TAB PER TUBE SCH (10:17)
--- NOTE | 2019-10-19 11:10 | PDOC.HOSPP ---
- Subjective Encounter Date: 10/19/19 Encounter Time: 10:48 Subjective: 69 y/o male with CVA associated with residual R hemiparesis, aphasia and dysphagia s/p prior PEG which was later removed due to improvement of dysphagia , SSS/a flutter s/p pacemaker, Dementia amonsgst others admitted from [facility] due to AMS and left gaze concerning for acute CVA. Patient post admission developed respiratory distress due to aspiration requiring ICU admission and treatment with BIPAP with improvement. later had CT which showed evolving acute right cerebellar infaarction. S/p PEG tube placement and on tube feeding. Reportedly having large residuals hence tube feeding held since last night. Also noted to have coffee ground in the gastric content. - Objective Vital Signs & Weight: Vital Signs (12 hours) Temp Pulse Resp BP Pulse Ox 10/19/19 10:13 90 16 10/19/19 07:40 99.1 F 80 20 127/60 91 L 10/19/19 06:40 70 16 10/19/19 03:45 100.9 F H 76 14 142/70 H 95 10/18/19 23:40 101.1 F H 80 16 139/68 95 Weight Admit Weight 145 lb 12.8 oz Weight 145 lb 12.8 oz Most Recent Monitor Data Heart Rate from ECG 95 NIBP 125/58 NIBP BP-Mean 80 Respiration from ECG 19 SpO2 97 I&O: 10/18/19 10/19/19 10/20/19 06:59 06:59 06:59 Intake Total 1390 540 Output Total 1300 1100 Balance 90 -560 Result Diagrams: 10/19/19 04:46 10/19/19 04:46 Additional Labs: Accuchecks 10/19/19 10/18/19 10/18/19 06:10 23:54 18:23 POC Glucose 113 H 93 126 H 10/18/19 12:30 POC Glucose 128 H Hospitalist ROS - Medication Medications: Active Medications Generic Name Dose Route Start Last Admin Trade Name Freq PRN Reason Stop Dose Admin Acetaminophen 650 mg 09/30/19 19:37 10/18/19 10:07 Tylenol PO 650 mg Q4H PRN Administration Headache/Fever/Mild Pain (1-3) Acetaminophen 650 mg 09/30/19 19:37 10/19/19 00:47 Tylenol MD 650 mg Q4H PRN Administration Headache/Fever/Mild Pain (1-3) Albuterol/Ipratropium 3 ml 10/07/19 10:30 10/19/19 10:13 Duoneb NEB 3 ml [id number] JAYRO Administration Aspirin 81 mg 10/17/19 09:00 10/19/19 10:17 Aspirin Chewable PER TUBE 81 mg DAILY JAYRO Administration Atorvastatin Calcium 40 mg 09/30/19 21:00 10/18/19 22:44 Lipitor PO 40 mg HS JAYRO Administration Budesonide 0.5 mg 10/09/19 18:30 10/19/19 06:40 Pulmicort Neb Solution INH 0.5 mg BID-RT JAYRO Administration Clopidogrel Bisulfate 75 mg 10/03/19 09:00 10/19/19 10:17 Plavix PO 75 mg DAILY JAYRO Administration Famotidine 20 mg 10/11/19 21:00 10/19/19 10:17 Pepcid PO 20 mg BID JAYRO Administration Meropenem 1 gm/ Device 50 mls @ 100 mls/hr 10/17/19 14:00 10/19/19 06:46 IVPB 50 mls Q8HR JAYRO Administration Vancomycin HCl 1.25 gm/ Sodium 250 mls @ 166.667 mls/hr 10/19/19 10:00 10:16 Chloride IVPB 250 mls 1000,2200 JAYRO Administration Insulin Human Lispro 0 units 10/01/19 19:43 10/14/19 12:26 Humalog SC 2 unit .MILD SLIDING SCALE PRN Administration MILD SLIDING SCALE Protocol Metoclopramide HCl 10 mg 10/13/19 12:00 10/19/19 06:46 Reglan PO 10 mg Q6HR JAYRO Administration Miscellaneous Medication 0 ml 10/18/19 21:00 10/19/19 10:17 Biotene Moisturizing Mouth MM 1 spr BID JARYO Administration Nystatin 500,000 units 10/13/19 09:00 10/19/19 10:17 Mycostatin SSW 500,000 units QID JAYRO Administration Ondansetron HCl 4 mg 09/30/19 19:37 10/01/19 06:50 Zofran IVP 4 mg Q6H PRN Administration Nausea/Vomiting Polyethylene Glycol 17 gm 10/19/19 09:00 10/19/19 10:17 Miralax PER TUBE 17 gm DAILY JAYRO Administration Saccharomyces Boulardii 250 mg 10/05/19 09:00 10/19/19 10:17 Florastor PO 250 mg DAILY JAYRO Administration Scopolamine 3 mg 10/18/19 10:39 10/18/19 11:49 Transderm Scop TD 3 mg Q3D JAYRO Administration Senna/Docusate Sodium 2 tab 09/30/19 19:37 10/16/19 15:05 Senokot S PO 2 tab BIDPRN PRN Administration Constipation Sertraline HCl 50 mg 10/01/19 09:00 10/19/19 10:18 Zoloft PO 50 mg DAILY JAYRO Administration Sodium Chloride 10 ml 09/30/19 19:40 10/16/19 19:16 Flush - Normal Saline IVF 10 ml PRN PRN Administration Saline Flush Tamsulosin HCl 0.4 mg 10/10/19 21:00 10/18/19 22:44 Flomax PO 0.4 mg HS JAYRO Administration - Exam General Appearance: awake alert ENT: normocephalic atraumatic ENT - other findings: left lateral gaze preferance noted. Heart: no murmur Respiratory - other findings: fair air entry with transmitted sound. No rhonchi Gastrointestinal - other findings: PEG tube noted Extremities - other findings: mild left foot edema noted Neurological - other findings: Awake but non conversational. right hemiparesis noted Hosp A/P (1) Acute cerebrovascular accident (CVA) of cerebellum Code(s): I63.9 - CEREBRAL INFARCTION, UNSPECIFIED Status: Acute (2) Chronic systolic heart failure Code(s): I50.22 - CHRONIC SYSTOLIC (CONGESTIVE) HEART FAILURE Status: Acute (3) Cardiomyopathy Code(s): I42.9 - CARDIOMYOPATHY, UNSPECIFIED Status: Acute (4) Cerebral arteriosclerosis Code(s): I67.2 - CEREBRAL ATHEROSCLEROSIS Status: Acute (5) SSS (sick sinus syndrome) Code(s): I49.5 - SICK SINUS SYNDROME Status: Acute (6) Acute respiratory failure with hypoxia Code(s): J96.01 - ACUTE RESPIRATORY FAILURE WITH HYPOXIA Status: Acute (7) Aspiration pneumonia Code(s): J69.0 - PNEUMONITIS DUE TO INHALATION OF FOOD AND VOMIT Status: Acute (8) SIADH (syndrome of inappropriate ADH production) Status: Acute (9) Sepsis Code(s): A41.9 - SEPSIS, UNSPECIFIED ORGANISM Status: Acute (10) Urinary retention Code(s): R33.9 - RETENTION OF URINE, UNSPECIFIED Status: Acute (11) Aphasia Code(s): R47.01 - APHASIA Status: Acute (12) Atrial flutter Code(s): I48.92 - UNSPECIFIED ATRIAL FLUTTER Status: Acute Qualifiers: Atrial flutter type: atypical Qualified Code(s): I48.4 - Atypical atrial flutter (13) Dysphagia Code(s): R13.10 - DYSPHAGIA, UNSPECIFIED Status: Acute (14) Fever Code(s): R50.9 - FEVER, UNSPECIFIED Status: Acute (15) Metabolic encephalopathy Code(s): G93.41 - METABOLIC ENCEPHALOPATHY Status: Acute (16) Right hemiplegia Code(s): G81.91 - HEMIPLEGIA, UNSPECIFIED AFFECTING RIGHT DOMINANT SIDE Status : Acute (17) UTI (urinary tract infection) Status: Resolved Qualifiers: Urinary tract infection type: acute cystitis - Plan Restart tube feeding Start reglan to help with GI motility Start protonix. Monitor H/H. supportive care to continue. Continue antibiotics. ID following.
[2019-10-19] MEDS ORDERED: Pantoprazole 40 MG VIAL IVP SCH (12:15)
[2019-10-19] MEDS: Metoclopramide HCl 10 MG/2 ML VIAL IVP SCH ×2 (14:10→22:01)
[2019-10-19] MEDS: Tamsulosin HCl 0.4 MG CAP PO SCH (22:10)
[2019-10-19] MEDS: Atorvastatin Calcium 40 MG TAB PO SCH (22:10)
[2019-10-20] MEDS: MEROPENEM 1 GM/50 ML 1 GM in Premix Bag 1 BAG IVPB SCH ×3 (05:26→22:03)
[2019-10-20] MEDS: Metoclopramide HCl 10 MG/2 ML VIAL IVP SCH ×2 (05:32→14:34)
[2019-10-20] MEDS: Budesonide 0.5 MG/2 ML NEB INH SCH ×2 (06:46→19:28)
[2019-10-20] MEDS: Acetaminophen 325 MG TAB PO PRN (09:58)
[2019-10-20] MEDS: Famotidine 20 MG TAB PO SCH (09:58)
[2019-10-20] MEDS: Polyethylene Glycol 3350 17 GM Packet PER TUBE SCH (09:58)
[2019-10-20] MEDS: Aspirin Chewable 81 MG TAB PER TUBE SCH (09:58)
[2019-10-20] MEDS: Clopidogrel Bisulfate 75 MG TAB PO SCH (09:58)
[2019-10-20] MEDS: Nystatin 500,000 UNITS/5 ML UDCUP SSW SCH ×4 (09:58→21:54)
[2019-10-20] MEDS: Saccharomyces boulardii 250 MG CAP PO SCH (09:58)
[2019-10-20] MEDS: BIOTENE MOUTH SPRAY 44.3 ML MM SCH ×2 (09:59→21:55)
[2019-10-20] MEDS: Vancomycin HCl 1.25 GM in Sodium Chloride 0.9% 250 ML 250 ML IVPB SCH (10:00)
--- NOTE | 2019-10-20 15:28 | PDOC.HOSPP ---
- Subjective Encounter Date: 10/20/19 Encounter Time: 09:27 Subjective: 69 y/o male with CVA associated with residual R hemiparesis, aphasia and dysphagia s/p prior PEG which was later removed due to improvement of dysphagia , SSS/a flutter s/p pacemaker, Dementia amonsgst others admitted from [facility] due to AMS and left gaze concerning for acute CVA. Patient post admission developed respiratory distress due to aspiration requiring ICU admission and treatment with BIPAP with improvement. Later had CT which showed evolving acute right cerebellar infaarction. S/p PEG tube placement and on tube feeding. Tube feed residual are markedly improved with commencement of reglan. No new problem. - Objective Vital Signs & Weight: Vital Signs (12 hours) Temp Pulse Resp BP Pulse Ox 10/20/19 14:05 79 22 H 92 L 10/20/19 11:41 99.1 F 81 16 123/69 96 10/20/19 10:46 78 20 93 L 10/20/19 10:20 95 10/20/19 07:50 100.3 F H 80 16 145/70 H 95 10/20/19 06:46 77 24 H 94 L 10/20/19 06:43 77 24 H 94 L 10/20/19 04:00 99.9 F H 79 16 151/75 H 98 Weight Admit Weight 145 lb 12.8 oz Weight 145 lb 12.8 oz Most Recent Monitor Data Heart Rate from ECG 95 NIBP 125/58 NIBP BP-Mean 80 Respiration from ECG 19 SpO2 97 I&O: 10/19/19 10/20/19 10/21/19 06:59 06:59 06:59 Intake Total 540 120 Output Total 1100 625 Balance -560 -505 Result Diagrams: 10/21/19 04:56 10/21/19 04:56 Additional Labs: Accuchecks 10/20/19 10/20/19 10/20/19 12:14 06:03 01:08 POC Glucose 122 H 101 84 10/19/19 18:16 POC Glucose 97 Hospitalist ROS - Medication Medications: Active Medications Generic Name Dose Route Start Last Admin Trade Name Freq PRN Reason Stop Dose Admin Acetaminophen 650 mg 09/30/19 19:37 10/20/19 09:58 Tylenol PO 650 mg Q4H PRN Administration Headache/Fever/Mild Pain (1-3) Acetaminophen 650 mg 09/30/19 19:37 10/19/19 00:47 Tylenol IN 650 mg Q4H PRN Administration Headache/Fever/Mild Pain (1-3) Albuterol/Ipratropium 3 ml 10/07/19 10:30 10/20/19 14:05 Duoneb NEB 3 ml [id number] JAYRO Administration Aspirin 81 mg 10/17/19 09:00 10/20/19 09:58 Aspirin Chewable PER TUBE 81 mg DAILY JAYRO Administration Atorvastatin Calcium 40 mg 09/30/19 21:00 10/19/19 22:10 Lipitor PO 40 mg HS JAYRO Administration Budesonide 0.5 mg 10/09/19 18:30 10/20/19 06:46 Pulmicort Neb Solution INH 0.5 mg BID-RT JAYRO Administration Clopidogrel Bisulfate 75 mg 10/03/19 09:00 10/20/19 09:58 Plavix PO 75 mg DAILY JAYRO Administration Famotidine 20 mg 10/11/19 21:00 10/20/19 09:58 Pepcid PO 20 mg BID JAYRO Administration Meropenem 1 gm/ Device 50 mls @ 100 mls/hr 10/17/19 14:00 10/20/19 14:35 IVPB 50 mls Q8HR JAYRO Administration Vancomycin HCl 1.25 gm/ Sodium 250 mls @ 166.667 mls/hr 10/19/19 10:00 10:00 Chloride IVPB 250 mls 1000,2200 JAYRO Administration Insulin Human Lispro 0 units 10/01/19 19:43 10/14/19 12:26 Humalog SC 2 unit .MILD SLIDING SCALE PRN Administration MILD SLIDING SCALE Protocol Metoclopramide HCl 5 mg 10/19/19 14:00 10/20/19 14:34 Reglan IVP 5 mg Q8HR JAYRO Administration Miscellaneous Medication 0 ml 10/18/19 21:00 10/20/19 09:59 Biotene Moisturizing Mouth MM 1 spr BID JAYRO Administration Nystatin 500,000 units 10/13/19 09:00 10/20/19 14:34 Mycostatin SSW 500,000 units QID JAYRO Administration Ondansetron HCl 4 mg 09/30/19 19:37 10/01/19 06:50 Zofran IVP 4 mg Q6H PRN Administration Nausea/Vomiting Polyethylene Glycol 17 gm 10/19/19 09:00 10/20/19 09:58 Miralax PER TUBE 17 gm DAILY JAYRO Administration Saccharomyces Boulardii 250 mg 10/05/19 09:00 10/20/19 09:58 Florastor PO 250 mg DAILY JAYRO Administration Scopolamine 3 mg 10/18/19 10:39 10/18/19 11:49 Transderm Scop TD 3 mg Q3D JAYRO Administration Senna/Docusate Sodium 2 tab 09/30/19 19:37 10/16/19 15:05 Senokot S PO 2 tab BIDPRN PRN Administration Constipation Sertraline HCl 50 mg 10/01/19 09:00 10/20/19 09:58 Zoloft PO 50 mg DAILY JAYRO Administration Sodium Chloride 10 ml 09/30/19 19:40 10/16/19 19:16 Flush - Normal Saline IVF 10 ml PRN PRN Administration Saline Flush Tamsulosin HCl 0.4 mg 10/10/19 21:00 10/19/19 22:10 Flomax PO 0.4 mg HS JAYRO Administration - Exam General Appearance: awake alert ENT: normocephalic atraumatic Neck: no JVD Heart: RRR Respiratory - other findings: fair air entry with coarse transmitted sound. No distress Gastrointestinal: soft, non-distended, normal bowel sounds Gastrointestinal - other findings: PEG in situ Extremities - other findings: trace left foot edema Neurological: no new deficit Neurological - other findings: awake but non conversational. Attempting tyo verbalized. Hosp A/P (1) Acute cerebrovascular accident (CVA) of cerebellum Code(s): I63.9 - CEREBRAL INFARCTION, UNSPECIFIED Status: Acute (2) Chronic systolic heart failure Code(s): I50.22 - CHRONIC SYSTOLIC (CONGESTIVE) HEART FAILURE Status: Acute (3) Cardiomyopathy Code(s): I42.9 - CARDIOMYOPATHY, UNSPECIFIED Status: Acute (4) Cerebral arteriosclerosis Code(s): I67.2 - CEREBRAL ATHEROSCLEROSIS Status: Acute (5) SSS (sick sinus syndrome) Code(s): I49.5 - SICK SINUS SYNDROME Status: Acute (6) Acute respiratory failure with hypoxia Code(s): J96.01 - ACUTE RESPIRATORY FAILURE WITH HYPOXIA Status: Acute (7) Aspiration pneumonia Code(s): J69.0 - PNEUMONITIS DUE TO INHALATION OF FOOD AND VOMIT Status: Acute (8) SIADH (syndrome of inappropriate ADH production) Status: Acute (9) Sepsis Code(s): A41.9 - SEPSIS, UNSPECIFIED ORGANISM Status: Acute (10) Urinary retention Code(s): R33.9 - RETENTION OF URINE, UNSPECIFIED Status: Acute (11) Aphasia Code(s): R47.01 - APHASIA Status: Acute (12) Atrial flutter Code(s): I48.92 - UNSPECIFIED ATRIAL FLUTTER Status: Acute Qualifiers: Atrial flutter type: atypical Qualified Code(s): I48.4 - Atypical atrial flutter (13) Dysphagia Code(s): R13.10 - DYSPHAGIA, UNSPECIFIED Status: Acute (14) Fever Code(s): R50.9 - FEVER, UNSPECIFIED Status: Acute (15) Metabolic encephalopathy Code(s): G93.41 - METABOLIC ENCEPHALOPATHY Status: Acute (16) Right hemiplegia Code(s): G81.91 - HEMIPLEGIA, UNSPECIFIED AFFECTING RIGHT DOMINANT SIDE Status : Acute (17) UTI (urinary tract infection) Status: Resolved Qualifiers: Urinary tract infection type: acute cystitis - Plan Continue tube feeding, protonix and reglan. Monitor H/H. supportive care to continue. Continue antibiotics. ID following. Placement arrangement in progress. palliative care team consulted
[2019-10-20] MEDS ORDERED: Pantoprazole 40 MG GRANULES PACKET PER TUBE SCH (15:45)
[2019-10-20 21:16] LABS: Vancomycin, Trough 17.3 ug/mL
[2019-10-20] MEDS: Atorvastatin Calcium 40 MG TAB PO SCH (21:54)
[2019-10-20] MEDS: Tamsulosin HCl 0.4 MG CAP PO SCH (21:54)
[2019-10-21] MEDS: Metoclopramide HCl 10 MG/2 ML VIAL IVP SCH ×4 (00:16→21:20)
[2019-10-21] MEDS: Vancomycin HCl 1.25 GM in Sodium Chloride 0.9% 250 ML 250 ML IVPB SCH ×3 (00:25→22:13)
[2019-10-21] MEDS: Acetaminophen 325 MG TAB PO PRN ×2 (00:30→10:16)
[2019-10-21 05:13] LABS: Hemoglobin 11.4 g/dL (14.0-18.0); Mean Corpuscular HGB CONC 33.1 g/dL (32.0-36.0); Mean Corpuscular Hemoglobin 29.8 pg (27.0-31.0); Mean Corpuscular Volume 90.1 fL (78.0-98.0); Mean Platelet Volume 6.7 fL (7.4-10.4); Platelet Count 440 thou/uL (130-400); Red Blood Cell (RBC) Count 3.82 mill/uL (4.70-6.10); White Blood Cell (WBC) Count 7.9 thou/uL (4.8-10.8)
[2019-10-21 05:30] LABS: Albumin 2.9 g/dL (3.4-4.8); Anion Gap 11 mmol/L (10-20); BUN (Urea Nitrogen) 10 mg/dL (8.4-25.7); BUN/Creatinine Ratio 15.38; Calc. Creatinine Clearance 100 mL/min (70-130); Calcium 9.2 mg/dL (7.8-10.44); Carbon Dioxide 27 mmol/L (23-31); Chloride 100 mmol/L (98-107); Estimated GFR-MDRD Greater than 90; Glucose 133 mg/dL (80-115); Phosphorus 2.4 mg/dL (2.3-4.7); Sodium 134 mmol/L (136-145)
[2019-10-21] MEDS: MEROPENEM 1 GM/50 ML 1 GM in Premix Bag 1 BAG IVPB SCH ×3 (05:49→22:13)
[2019-10-21] MEDS: Budesonide 0.5 MG/2 ML NEB INH SCH ×2 (06:35→18:37)
[2019-10-21] MEDS: Nystatin 500,000 UNITS/5 ML UDCUP SSW SCH ×4 (10:14→21:19)
[2019-10-21] MEDS: Aspirin Chewable 81 MG TAB PER TUBE SCH (10:14)
[2019-10-21] MEDS: Clopidogrel Bisulfate 75 MG TAB PO SCH (10:14)
[2019-10-21] MEDS: BIOTENE MOUTH SPRAY 44.3 ML MM SCH ×2 (10:15→21:19)
[2019-10-21] MEDS: Pantoprazole 40 MG GRANULES PACKET PER TUBE SCH (10:15)
[2019-10-21] MEDS: Saccharomyces boulardii 250 MG CAP PO SCH (10:15)
[2019-10-21] MEDS: Polyethylene Glycol 3350 17 GM Packet PER TUBE SCH (10:15)
[2019-10-21] MEDS: Scopolamine 1.5 mg/72 hour Patch TD SCH (11:30)
--- NOTE | 2019-10-21 13:22 | PDOC.HOSPP ---
- Subjective Encounter Date: 10/21/19 Encounter Time: 10:21 Subjective: 69 y/o male with CVA associated with residual R hemiparesis, aphasia and dysphagia s/p prior PEG which was later removed due to improvement of dysphagia , SSS/a flutter s/p pacemaker, Dementia amonsgst others admitted from residential due to AMS and left gaze concerning for acute CVA. Patient post admission developed respiratory distress due to aspiration requiring ICU admission and treatment with BIPAP with improvement. Later had CT which showed evolving acute right cerebellar infaarction. S/p PEG tube placement and on tube feeding. Tolerating tube feed better now with reglan. No new problem. - Objective Vital Signs & Weight: Vital Signs (12 hours) Temp Pulse Resp BP Pulse Ox 10/21/19 11:57 98.2 F 74 12 125/71 96 10/21/19 10:29 90 18 10/21/19 07:42 98.9 F 73 12 127/64 94 L 10/21/19 07:40 94 L 10/21/19 06:35 70 18 10/21/19 04:00 99.7 F H 77 18 121/54 L 93 L 10/21/19 03:27 94 L Weight Admit Weight 145 lb 12.8 oz Weight 145 lb 12.8 oz Most Recent Monitor Data Heart Rate from ECG 95 NIBP 125/58 NIBP BP-Mean 80 Respiration from ECG 19 SpO2 97 I&O: 10/20/19 10/21/19 10/22/19 06:59 06:59 06:59 Intake Total 120 1070 60 Output Total 625 2360 Balance -505 -1290 60 Result Diagrams: 10/21/19 04:56 10/21/19 04:56 Additional Labs: Accuchecks 10/21/19 10/21/19 10/21/19 10:51 06:07 04:11 POC Glucose 111 H 125 H 131 H 10/20/19 18:09 POC Glucose 121 H Hospitalist ROS - Medication Medications: Active Medications Generic Name Dose Route Start Last Admin Trade Name Freq PRN Reason Stop Dose Admin Acetaminophen 650 mg 09/30/19 19:37 10/21/19 10:16 Tylenol PO 650 mg Q4H PRN Administration Headache/Fever/Mild Pain (1-3) Acetaminophen 650 mg 09/30/19 19:37 10/19/19 00:47 Tylenol MA 650 mg Q4H PRN Administration Headache/Fever/Mild Pain (1-3) Albuterol/Ipratropium 3 ml 10/07/19 10:30 10/21/19 10:29 Duoneb NEB 3 ml [id number] JAYRO Administration Aspirin 81 mg 10/17/19 09:00 10/21/19 10:14 Aspirin Chewable PER TUBE 81 mg DAILY JAYRO Administration Atorvastatin Calcium 40 mg 09/30/19 21:00 10/20/19 21:54 Lipitor PO 40 mg HS JAYRO Administration Budesonide 0.5 mg 10/09/19 18:30 10/21/19 06:35 Pulmicort Neb Solution INH 0.5 mg BID-RT JAYRO Administration Clopidogrel Bisulfate 75 mg 10/03/19 09:00 10/21/19 10:14 Plavix PO 75 mg DAILY JAYRO Administration Meropenem 1 gm/ Device 50 mls @ 100 mls/hr 10/17/19 14:00 10/21/19 13:03 IVPB 50 mls Q8HR JAYRO Administration Vancomycin HCl 1.25 gm/ Sodium 250 mls @ 166.667 mls/hr 10/19/19 10:00 10:27 Chloride IVPB 250 mls 1000,2200 JAYRO Administration Insulin Human Lispro 0 units 10/01/19 19:43 10/14/19 12:26 Humalog SC 2 unit .MILD SLIDING SCALE PRN Administration MILD SLIDING SCALE Protocol Metoclopramide HCl 5 mg 10/19/19 14:00 10/21/19 13:04 Reglan IVP 5 mg Q8HR JAYRO Administration Miscellaneous Medication 0 ml 10/18/19 21:00 10/21/19 10:15 Biotene Moisturizing Mouth MM 1 spr BID JAYRO Administration Nystatin 500,000 units 10/13/19 09:00 10/21/19 13:04 Mycostatin SSW 500,000 units QID JAYRO Administration Ondansetron HCl 4 mg 09/30/19 19:37 10/01/19 06:50 Zofran IVP 4 mg Q6H PRN Administration Nausea/Vomiting Pantoprazole Sodium 40 mg 10/21/19 09:00 10/21/19 10:15 Protonix PER TUBE 40 mg DAILY JAYRO Administration Polyethylene Glycol 17 gm 10/19/19 09:00 10/21/19 10:15 Miralax PER TUBE 17 gm DAILY JAYRO Administration Saccharomyces Boulardii 250 mg 10/05/19 09:00 10/21/19 10:15 Florastor PO 250 mg DAILY JAYRO Administration Scopolamine 3 mg 10/18/19 10:39 10/21/19 11:30 Transderm Scop TD 3 mg Q3D JAYRO Administration Senna/Docusate Sodium 2 tab 09/30/19 19:37 10/16/19 15:05 Senokot S PO 2 tab BIDPRN PRN Administration Constipation Sertraline HCl 50 mg 10/01/19 09:00 10/21/19 10:16 Zoloft PO 50 mg DAILY JAYRO Administration Sodium Chloride 10 ml 09/30/19 19:40 10/16/19 19:16 Flush - Normal Saline IVF 10 ml PRN PRN Administration Saline Flush Tamsulosin HCl 0.4 mg 10/10/19 21:00 10/20/19 21:54 Flomax PO 0.4 mg HS JAYRO Administration - Exam General Appearance: awake alert ENT: normocephalic atraumatic Respiratory - other findings: fair air entry with transmitted sounds Gastrointestinal: soft, non-distended, normal bowel sounds Gastrointestinal - other findings: PEG in place Extremities: no cyanosis Neurological: cranial nerve grossly intact, no new deficit Neurological - other findings: dysphasic. Hosp A/P (1) Acute cerebrovascular accident (CVA) of cerebellum Code(s): I63.9 - CEREBRAL INFARCTION, UNSPECIFIED Status: Acute (2) Chronic systolic heart failure Code(s): I50.22 - CHRONIC SYSTOLIC (CONGESTIVE) HEART FAILURE Status: Acute (3) Cardiomyopathy Code(s): I42.9 - CARDIOMYOPATHY, UNSPECIFIED Status: Acute (4) Cerebral arteriosclerosis Code(s): I67.2 - CEREBRAL ATHEROSCLEROSIS Status: Acute (5) SSS (sick sinus syndrome) Code(s): I49.5 - SICK SINUS SYNDROME Status: Acute (6) Acute respiratory failure with hypoxia Code(s): J96.01 - ACUTE RESPIRATORY FAILURE WITH HYPOXIA Status: Acute (7) Aspiration pneumonia Code(s): J69.0 - PNEUMONITIS DUE TO INHALATION OF FOOD AND VOMIT Status: Acute (8) SIADH (syndrome of inappropriate ADH production) Status: Acute (9) Sepsis Code(s): A41.9 - SEPSIS, UNSPECIFIED ORGANISM Status: Acute (10) Urinary retention Code(s): R33.9 - RETENTION OF URINE, UNSPECIFIED Status: Acute (11) Aphasia Code(s): R47.01 - APHASIA Status: Acute (12) Atrial flutter Code(s): I48.92 - UNSPECIFIED ATRIAL FLUTTER Status: Acute Qualifiers: Atrial flutter type: atypical Qualified Code(s): I48.4 - Atypical atrial flutter (13) Dysphagia Code(s): R13.10 - DYSPHAGIA, UNSPECIFIED Status: Acute (14) Fever Code(s): R50.9 - FEVER, UNSPECIFIED Status: Acute (15) Metabolic encephalopathy Code(s): G93.41 - METABOLIC ENCEPHALOPATHY Status: Acute (16) Right hemiplegia Code(s): G81.91 - HEMIPLEGIA, UNSPECIFIED AFFECTING RIGHT DOMINANT SIDE Status : Acute (17) UTI (urinary tract infection) Status: Resolved Qualifiers: Urinary tract infection type: acute cystitis - Plan Continue tube feeding, protonix and reglan. supportive care to continue. Continue antibiotics. ID following. For discharge once placement is concluded. palliative care helping. Hospice care contemplated
[2019-10-21] MEDS: Tamsulosin HCl 0.4 MG CAP PO SCH (21:19)
[2019-10-21] MEDS: Atorvastatin Calcium 40 MG TAB PO SCH (21:19)
[2019-10-22] MEDS: Acetaminophen 325 MG TAB PO PRN ×2 (00:31→09:19)
[2019-10-22] MEDS: Metoclopramide HCl 10 MG/2 ML VIAL IVP SCH ×3 (06:25→22:18)
[2019-10-22] MEDS: MEROPENEM 1 GM/50 ML 1 GM in Premix Bag 1 BAG IVPB SCH ×3 (06:26→22:19)
[2019-10-22] MEDS: Budesonide 0.5 MG/2 ML NEB INH SCH ×2 (08:14→19:29)
[2019-10-22 09:14] LABS: Vancomycin, Trough 16.5 ug/mL
[2019-10-22] MEDS: Polyethylene Glycol 3350 17 GM Packet PER TUBE SCH (09:14)
[2019-10-22] MEDS: BIOTENE MOUTH SPRAY 44.3 ML MM SCH ×2 (09:18→21:04)
[2019-10-22] MEDS: Pantoprazole 40 MG GRANULES PACKET PER TUBE SCH (09:19)
[2019-10-22] MEDS: Clopidogrel Bisulfate 75 MG TAB PO SCH (09:19)
[2019-10-22] MEDS: Nystatin 500,000 UNITS/5 ML UDCUP SSW SCH ×4 (09:19→21:04)
[2019-10-22] MEDS: Saccharomyces boulardii 250 MG CAP PO SCH (09:19)
[2019-10-22] MEDS: Aspirin Chewable 81 MG TAB PER TUBE SCH (09:19)
[2019-10-22] MEDS: Vancomycin HCl 1.25 GM in Sodium Chloride 0.9% 250 ML 250 ML IVPB SCH ×2 (09:36→22:19)
--- NOTE | 2019-10-22 09:56 | PDOC.HOSPP ---
- Subjective Encounter Date: 10/22/19 Encounter Time: 12:40 non-verbal Subjective: Patient without event overnight. Sleeping this AM and not verbal. - Objective Vital Signs & Weight: Vital Signs (12 hours) Temp Pulse Resp BP Pulse Ox 10/22/19 08:14 60 18 99 10/22/19 07:40 96 10/22/19 07:34 98.9 F 73 16 137/69 96 10/22/19 03:17 99.8 F H 80 20 120/57 L 95 10/22/19 02:38 75 16 95 10/22/19 00:37 100.5 F H 10/21/19 23:34 100.1 F H 80 20 141/61 H 94 L 10/21/19 22:23 70 14 98 Weight Admit Weight 145 lb 12.8 oz Weight 145 lb 12.8 oz Most Recent Monitor Data Heart Rate from ECG 95 NIBP 125/58 NIBP BP-Mean 80 Respiration from ECG 19 SpO2 97 I&O: 10/21/19 10/22/19 10/23/19 06:59 06:59 06:59 Intake Total 1070 240 Output Total 2360 1400 Balance -1290 -1160 Result Diagrams: 10/21/19 04:56 10/21/19 04:56 Additional Labs: Accuchecks 10/22/19 10/22/19 10/21/19 05:33 00:01 17:00 POC Glucose 117 H 109 128 H 10/21/19 10:51 POC Glucose 111 H Hospitalist ROS - Review of Systems ROS unobtainable: due to mental status - Medication Medications: Active Medications Generic Name Dose Route Start Last Admin Trade Name Freq PRN Reason Stop Dose Admin Acetaminophen 650 mg 09/30/19 19:37 10/22/19 09:19 Tylenol PO 650 mg Q4H PRN Administration Headache/Fever/Mild Pain (1-3) Acetaminophen 650 mg 09/30/19 19:37 10/19/19 00:47 Tylenol AR 650 mg Q4H PRN Administration Headache/Fever/Mild Pain (1-3) Albuterol/Ipratropium 3 ml 10/07/19 10:30 10/22/19 08:15 Duoneb NEB 3 ml [id number] JAYRO Administration Aspirin 81 mg 10/17/19 09:00 10/22/19 09:19 Aspirin Chewable PER TUBE 81 mg DAILY JAYRO Administration Atorvastatin Calcium 40 mg 09/30/19 21:00 10/21/19 21:19 Lipitor PO 40 mg HS JAYRO Administration Budesonide 0.5 mg 10/09/19 18:30 10/22/19 08:14 Pulmicort Neb Solution INH 0.5 mg BID-RT JAYRO Administration Clopidogrel Bisulfate 75 mg 10/03/19 09:00 10/22/19 09:19 Plavix PO 75 mg DAILY JAYRO Administration Meropenem 1 gm/ Device 50 mls @ 100 mls/hr 10/17/19 14:00 10/22/19 06:26 IVPB 50 mls Q8HR JAYRO Administration Vancomycin HCl 1.25 gm/ Sodium 250 mls @ 166.667 mls/hr 10/19/19 10:00 09:36 Chloride IVPB 250 mls 1000,2200 JAYRO Administration Insulin Human Lispro 0 units 10/01/19 19:43 10/14/19 12:26 Humalog SC 2 unit .MILD SLIDING SCALE PRN Administration MILD SLIDING SCALE Protocol Metoclopramide HCl 5 mg 10/19/19 14:00 10/22/19 06:25 Reglan IVP 5 mg Q8HR JAYRO Administration Miscellaneous Medication 0 ml 10/18/19 21:00 10/22/19 09:18 Biotene Moisturizing Mouth MM 1 spr BID JAYRO Administration Nystatin 500,000 units 10/13/19 09:00 10/22/19 09:19 Mycostatin SSW 500,000 units QID JAYRO Administration Ondansetron HCl 4 mg 09/30/19 19:37 10/01/19 06:50 Zofran IVP 4 mg Q6H PRN Administration Nausea/Vomiting Pantoprazole Sodium 40 mg 10/21/19 09:00 10/22/19 09:19 Protonix PER TUBE 40 mg DAILY [facility] Administration Polyethylene Glycol 17 gm 10/19/19 09:00 10/22/19 09:14 Miralax PER TUBE Not Given DAILY [facility] Saccharomyces Boulardii 250 mg 10/05/19 09:00 10/22/19 09:19 Florastor PO 250 mg DAILY JAYRO Administration Scopolamine 3 mg 10/18/19 10:39 10/21/19 11:30 Transderm Scop TD 3 mg Q3D JAYRO Administration Senna/Docusate Sodium 2 tab 09/30/19 19:37 10/16/19 15:05 Senokot S PO 2 tab BIDPRN PRN Administration Constipation Sertraline HCl 50 mg 10/01/19 09:00 10/22/19 09:19 Zoloft PO 50 mg DAILY JAYRO Administration Sodium Chloride 10 ml 09/30/19 19:40 10/16/19 19:16 Flush - Normal Saline IVF 10 ml PRN PRN Administration Saline Flush Tamsulosin HCl 0.4 mg 10/10/19 21:00 10/21/19 21:19 Flomax PO 0.4 mg HS JAYRO Administration - Exam General Appearance: NAD Heart: RRR, no murmur, no gallops, no rubs Respiratory: CTAB, no wheezes, no rales, no ronchi Gastrointestinal: soft, non-tender, non-distended, normal bowel sounds Gastrointestinal - other findings: PEG in place Psychiatric: somnolent Hosp A/P (1) Sepsis Code(s): A41.9 - SEPSIS, UNSPECIFIED ORGANISM Status: Acute (2) Aspiration pneumonia Code(s): J69.0 - PNEUMONITIS DUE TO INHALATION OF FOOD AND VOMIT Status: Acute (3) Acute respiratory failure with hypoxia Code(s): J96.01 - ACUTE RESPIRATORY FAILURE WITH HYPOXIA Status: Resolved (4) SIADH (syndrome of inappropriate ADH production) Status: Acute (5) UTI (urinary tract infection) Status: Resolved Qualifiers: Urinary tract infection type: acute cystitis (6) Urinary retention Code(s): R33.9 - RETENTION OF URINE, UNSPECIFIED Status: Resolved - Plan continue antibiotics, PT/OT, speech therapy Patient with persistent low grade fevers, leukocytosis resolved, off oxygen. Continue antibiotics. If continues to improve can likely go to SNF. If MPOA decides on comfort care can go back to the [facility].
[2019-10-22] MEDS: Atorvastatin Calcium 40 MG TAB PO SCH (21:04)
[2019-10-22] MEDS: Tamsulosin HCl 0.4 MG CAP PO SCH (21:04)
[2019-10-23] MEDS: Metoclopramide HCl 10 MG/2 ML VIAL IVP SCH ×3 (06:00→21:13)
[2019-10-23] MEDS: MEROPENEM 1 GM/50 ML 1 GM in Premix Bag 1 BAG IVPB SCH ×3 (06:00→22:08)
[2019-10-23] MEDS: Budesonide 0.5 MG/2 ML NEB INH SCH ×2 (07:55→18:41)
--- NOTE | 2019-10-23 09:24 | PDOC.HOSPP ---
- Subjective Encounter Date: 10/23/19 Encounter Time: 11:10 non-verbal Subjective: Patient lethargic, following some commands but not talking, much less secretions and breathing easier - Objective Vital Signs & Weight: Vital Signs (12 hours) Temp Pulse Resp BP Pulse Ox 10/23/19 07:55 69 18 95 10/23/19 07:45 98.9 F 78 20 109/66 93 L 10/23/19 04:08 98.3 F 74 13 104/60 94 L 10/23/19 02:31 81 16 95 10/23/19 00:07 98.3 F 83 16 113/60 95 10/22/19 22:48 83 12 93 L Weight Admit Weight 145 lb 12.8 oz Weight 145 lb 12.8 oz Most Recent Monitor Data Heart Rate from ECG 95 NIBP 125/58 NIBP BP-Mean 80 Respiration from ECG 19 SpO2 97 I&O: 10/22/19 10/23/19 10/24/19 06:59 06:59 06:59 Intake Total 240 1339 Output Total 1400 975 Balance -1160 364 Result Diagrams: 10/21/19 04:56 10/21/19 04:56 Additional Labs: Accuchecks 10/23/19 10/23/19 10/22/19 06:02 00:14 18:16 POC Glucose 107 152 H 155 H 10/22/19 12:41 POC Glucose 145 H Hospitalist ROS - Review of Systems ROS unobtainable: due to mental status - Medication Medications: Active Medications Generic Name Dose Route Start Last Admin Trade Name Freq PRN Reason Stop Dose Admin Acetaminophen 650 mg 09/30/19 19:37 10/22/19 09:19 Tylenol PO 650 mg Q4H PRN Administration Headache/Fever/Mild Pain (1-3) Acetaminophen 650 mg 09/30/19 19:37 10/19/19 00:47 Tylenol [place] 650 mg Q4H PRN Administration Headache/Fever/Mild Pain (1-3) Albuterol/Ipratropium 3 ml 10/07/19 10:30 10/23/19 08:13 Duoneb NEB 3 ml [id number] JAYRO Administration Aspirin 81 mg 10/17/19 09:00 10/22/19 09:19 Aspirin Chewable PER TUBE 81 mg DAILY JAYRO Administration Atorvastatin Calcium 40 mg 09/30/19 21:00 10/22/19 21:04 Lipitor PO 40 mg HS JAYRO Administration Budesonide 0.5 mg 10/09/19 18:30 10/23/19 07:55 Pulmicort Neb Solution INH 0.5 mg BID-RT JAYRO Administration Clopidogrel Bisulfate 75 mg 10/03/19 09:00 10/22/19 09:19 Plavix PO 75 mg DAILY JAYRO Administration Meropenem 1 gm/ Device 50 mls @ 100 mls/hr 10/17/19 14:00 10/23/19 06:00 IVPB 50 mls Q8HR JAYRO Administration Vancomycin HCl 1.25 gm/ Sodium 250 mls @ 166.667 mls/hr 10/19/19 10:00 22:19 Chloride IVPB 250 mls 1000,2200 JAYRO Administration Insulin Human Lispro 0 units 10/01/19 19:43 10/14/19 12:26 Humalog SC 2 unit .MILD SLIDING SCALE PRN Administration MILD SLIDING SCALE Protocol Metoclopramide HCl 5 mg 10/19/19 14:00 10/23/19 06:00 Reglan IVP 5 mg Q8HR JAYRO Administration Miscellaneous Medication 0 ml 10/18/19 21:00 10/22/19 21:04 Biotene Moisturizing Mouth MM 1 spr BID JAYRO Administration Nystatin 500,000 units 10/13/19 09:00 10/22/19 21:04 Mycostatin SSW 500,000 units QID JAYRO Administration Ondansetron HCl 4 mg 09/30/19 19:37 10/01/19 06:50 Zofran IVP 4 mg Q6H PRN Administration Nausea/Vomiting Pantoprazole Sodium 40 mg 10/21/19 09:00 10/22/19 09:19 Protonix PER TUBE 40 mg DAILY JAYRO Administration Polyethylene Glycol 17 gm 10/19/19 09:00 10/22/19 09:14 Miralax PER TUBE Not Given DAILY [facility] Saccharomyces Boulardii 250 mg 10/05/19 09:00 10/22/19 09:19 Florastor PO 250 mg DAILY JAYRO Administration Scopolamine 3 mg 10/18/19 10:39 10/21/19 11:30 Transderm Scop TD 3 mg Q3D JAYRO Administration Senna/Docusate Sodium 2 tab 09/30/19 19:37 10/16/19 15:05 Senokot S PO 2 tab BIDPRN PRN Administration Constipation Sertraline HCl 50 mg 10/01/19 09:00 10/22/19 09:19 Zoloft PO 50 mg DAILY JAYRO Administration Sodium Chloride 10 ml 09/30/19 19:40 10/16/19 19:16 Flush - Normal Saline IVF 10 ml PRN PRN Administration Saline Flush Tamsulosin HCl 0.4 mg 10/10/19 21:00 10/22/19 21:04 Flomax PO 0.4 mg HS JAYRO Administration - Exam General Appearance: NAD ENT: moist mucosa Heart: RRR, no murmur Respiratory: CTAB, no wheezes, no rales, no ronchi Respiratory - other findings: markedly decreased secretions and upper resp sounds Gastrointestinal: soft, non-tender, non-distended, normal bowel sounds Extremities: no cyanosis Skin: normal turgor Psychiatric: somnolent Hosp A/P (1) Sepsis Code(s): A41.9 - SEPSIS, UNSPECIFIED ORGANISM Status: Acute (2) Aspiration pneumonia Code(s): J69.0 - PNEUMONITIS DUE TO INHALATION OF FOOD AND VOMIT Status: Acute (3) Acute respiratory failure with hypoxia Code(s): J96.01 - ACUTE RESPIRATORY FAILURE WITH HYPOXIA Status: Resolved (4) SIADH (syndrome of inappropriate ADH production) Status: Acute (5) UTI (urinary tract infection) Status: Resolved Qualifiers: Urinary tract infection type: acute cystitis (6) Urinary retention Code(s): R33.9 - RETENTION OF URINE, UNSPECIFIED Status: Resolved - Plan continue antibiotics, PT/OT, speech therapy No fever since yesterday morning, leukocytosis resolved, off oxygen. Continue antibiotics. If continues to improve can likely go to SNF. If MPOA decides on comfort care can go back to the [place].
[2019-10-23] MEDS: BIOTENE MOUTH SPRAY 44.3 ML MM SCH ×2 (10:36→21:11)
[2019-10-23] MEDS: Saccharomyces boulardii 250 MG CAP PO SCH (10:38)
[2019-10-23] MEDS: Pantoprazole 40 MG GRANULES PACKET PER TUBE SCH (10:38)
[2019-10-23] MEDS: Clopidogrel Bisulfate 75 MG TAB PO SCH (10:38)
[2019-10-23] MEDS: Nystatin 500,000 UNITS/5 ML UDCUP SSW SCH ×4 (10:38→21:11)
[2019-10-23] MEDS: Aspirin Chewable 81 MG TAB PER TUBE SCH (10:39)
[2019-10-23] MEDS: Polyethylene Glycol 3350 17 GM Packet PER TUBE SCH (10:39)
[2019-10-23] MEDS: Vancomycin HCl 1.25 GM in Sodium Chloride 0.9% 250 ML 250 ML IVPB SCH ×2 (10:42→22:38)
[2019-10-23] MEDS: Atorvastatin Calcium 40 MG TAB PO SCH (21:11)
[2019-10-23] MEDS: Tamsulosin HCl 0.4 MG CAP PO SCH (21:11)
[2019-10-24] MEDS ORDERED: Propofol 1,000 MG/100 ML VIAL IV ONE ×2 (01:33→01:34)
[2019-10-24] MEDS: Propofol 1,000 MG/100 ML VIAL IV PRN ×2 (01:35→11:31)
--- NOTE | 2019-10-24 01:41 | PDOC.EVN ---
Event Note - Event Note Event Note: Enedelia Virk called on patient. I was first doctor in the room, followed closely by Dr. Romero, Dr. Robles, and Dr. Lyons. At the time of my arrival pt was noted to be in torsades. No meds had been given and chest compressions had been started. Continued chest compressions, called for magnesium. Shocked patient Continued to be in torsades Gave 1 of epi, Appeared in v-fib Shocked patient a second time Magnesium 5g given 1 of epi given, remained in v-fib Shocked patient for the third time 1 of epi given Intubation completed successfully by Dr. Lyons and Dr. Robles, see procedure note regarding this Pt had weak carotid pulse and organized rhythm Throughout the entire code compressions were continued, except while being shocked and for rhythm checks -Transfer to ICU -Full rainbow panel labs -CXR to confirm ET tube placement -Sedation protocol Addendum - Attending - Attending Attestation Date/Time: 10/24/19 0324 Attended to enedelia virk and CCU care with ET placement and Central Line placement. Critical Care time 1:15am to 3am.
--- NOTE | 2019-10-24 01:52 | PDOC.EVN ---
Event Note - Event Note Event Note: Notified by nursing that the patient had a very brief run of Torsades. He was asymptomatic, awake and a little agitated. Mag level was ordered, but patient subsequently had sustained Torsades. He lost pulse and code Blue was called. Please see the Code Blue notes. He ultimately did recover a pulse after being intubated. He is currently transferred to the ICU and has BP. I did call the patient's nephew, Mr. Pinzon. He would to keep the patient full-code. He will come to the hospital tomorrow after his family Marek and discuss further course of action. CMP, Mg, CBC, Trop ordered.
[2019-10-24 01:55] LABS: Hemoglobin 12.1 g/dL (14.0-18.0); Mean Corpuscular HGB CONC 33.2 g/dL (32.0-36.0); Mean Corpuscular Hemoglobin 29.8 pg (27.0-31.0); Mean Corpuscular Volume 89.7 fL (78.0-98.0); Mean Platelet Volume 6.8 fL (7.4-10.4); Platelet Count 548 thou/uL (130-400); RBC Distribution Width 12.2 % (11.5-14.5); Red Blood Cell (RBC) Count 4.06 mill/uL (4.70-6.10); White Blood Cell (WBC) Count 17.6 thou/uL (4.8-10.8)
[2019-10-24] MEDS: Sodium Chloride 0.9% 1,000 ML IV SCH ×2 (02:00→11:33)
[2019-10-24] MEDS ORDERED: Norepinephrine 8 MG/0.9% NS 250 ML ONE (02:03)
[2019-10-24] MEDS: Norepinephrine 8 MG/0.9% NS 250 ML IVPB SCH ×2 (02:05→23:19)
[2019-10-24 02:17] LABS: ALT (SGPT) 66 U/L (8-55); AST (SGOT) 70 U/L (5-34); Albumin 3.2 g/dL (3.4-4.8); Alkaline Phosphatase 111 U/L (40-110); Anion Gap 22 mmol/L (10-20); BUN (Urea Nitrogen) 15 mg/dL (8.4-25.7); Bilirubin, Total 0.7 mg/dL (0.2-1.2); Calc. Creatinine Clearance 84 mL/min (70-130); Carbon Dioxide 17 mmol/L (23-31); Chloride 102 mmol/L (98-107); Estimated GFR-MDRD Greater than 90; Glucose 121 mg/dL (80-115); Potassium 5.1 mmol/L (3.5-5.1); Protein, Total 6.2 g/dL (5.8-8.1); Sodium 136 mmol/L (136-145)
[2019-10-24 02:21] LABS: Band 13 % (5-11); Eosinophils 1 % (0-10); Lymphocytes 19 % (21-51); MDiff Complete? YES; Monocytes 3 % (0-10); Neutrophil 64 % (42-75); Platelet Morphology Comment Appears Increased
[2019-10-24 02:22] LABS: Troponin I Less than 0.010 ng/mL (< 0.028)
[2019-10-24 02:54] LABS: Actual Bicarbonate (HCO3a) 24.9 mEq/L (22-28); Base Excess (BEa) -1.7 mEq/L (-2.0 to +3.0); CO2 Tension 49.8 mmHg (35.0-45.0); Calcium, Ionized 1.31 mmol/L (1.12-1.30); Carboxyhemoglobin (COHb) 0.4 gm% (0.0-3.0); O2 Tension (PaO2) 141.9 mmHg (> 80.0); Potassium - ABG Lab 3.83 mmol/L (3.70-5.30); pH, Arterial 7.32 (7.35-7.45)
[2019-10-24 02:58] LABS: Puncture Site LRA
--- NOTE | 2019-10-24 03:11 | PDOC.EVN ---
Event Note - Event Note Event Note: INDICATION: Vascular Access PROCEDURE FIELD SERVICE CONSULTANT: Dr. Eloy Donaldson_ ATTENDING PHYSICIAN: Dr. Lyons (In Attendance) Ultrasound Used: Y CONSENT: Dr Romero spoke to nephew during code blue, who indicated that all was to be done to save his life. Patient was unable to give direct consent. PROCEDURE SUMMARY: A time out was performed. My hands were washed immediately prior to the procedure. I wore a surgical cap, mask with protective eyewear, sterile gown and sterile gloves throughout the procedure. The RIGHT inguinal region was prepped using chlorhexidine scrub and draped in sterile fashion using a full drape and sterile probe cover employed. The femoral pulse was identified via US. Anesthesia was achieved using propofol. Visualizing the femoral artery and vein, the introducer needle was inserted medial to the femoral artery, inferior to the inguinal crease and into the femoral vein. Venous blood was withdrawn. The syringe was removed and a guidewire was advanced into the introducer needle. A small incision was made at the skin surface with a scalpel and the introducer needle was exchanged for a dilator over the guidewire. After appropriate dilation was obtained, the dilator was exchanged over the wire for the central venous catheter. The wire was removed. All three ports were checked for venous return and flushed. The catheter was sutured in place. The patient tolerated the procedure without any hemodynamic compromise. At time of procedure completion, all ports aspirated and flushed properly. Estimated blood loss is < 10 ml.
--- NOTE | 2019-10-24 03:12 | PDOC.OP ---
Operative Note - Operative Note Operative Note: Central line placed - see Event Note for details.
--- NOTE | 2019-10-24 03:19 | PDOC.OP ---
Operative Note - Operative Note Operative Note: ET Tube Placement Called to patient's room for Code Blue with Dr. Romero and Dr. Ramirez present. CPR was being administered at the time of arrival with a need for a secure airway. RT was present and assisting. 3 attempts at intubation were made with a [place] Scope but vocal cords were unable to be visualized due to copious secretions. I attempted to visualize the vocal cords with a Mac Blade x1. An ET tube was place, however placement could not be confirmed with bilateral breath sounds, and as such the ET tube was removed. Dr. Lyons attempted to visualize the vocal cords with a Mac Blade x1. An ET tube was placed, and immediately confirmed via auscultation of bilateral breath sounds and visualization of color change on the CO2 detector. After, transport to the ICU, CXR was obtained, confirming proper placement of the ET tube.
[2019-10-24] MEDS ORDERED: Lorazepam 2 MG/ML VIAL SLOW IVP PRN (03:33)
[2019-10-24] MEDS ORDERED: fentaNYL Citrate/PF 2,000 MCG in Sodium Chloride 0.9% 60 ML IV SCH (03:33)
[2019-10-24] MEDS ORDERED: Propofol BOLUS 1,000 MG/100 ML VIAL IV PRN (03:33)
[2019-10-24] MEDS ORDERED: Fentanyl BOLUS 250 ML IVPB PRN (03:33)
[2019-10-24] MEDS ORDERED: Morphine 2 MG/ML SYRINGE SLOW IVP PRN (03:33)
[2019-10-24] MEDS ORDERED: DISCONTINUE PREVIOUS NARCOTIC PAIN MEDICATIONS AND BENZODIAZEPINES FS SCH (03:33)
[2019-10-24] MEDS ORDERED: Vecuronium 10 MG VIAL IVP SCH (05:30)
[2019-10-24] MEDS: MEROPENEM 1 GM/50 ML 1 GM in Premix Bag 1 BAG IVPB SCH (05:53)
[2019-10-24] MEDS: Metoclopramide HCl 10 MG/2 ML VIAL IVP SCH ×3 (05:53→20:59)
[2019-10-24] MEDS ORDERED: Rocuronium Bromide 50 MG/5 ML VIAL IVP SCH (06:00)
[2019-10-24] MEDS: Budesonide 0.5 MG/2 ML NEB INH SCH ×2 (07:51→18:55)
[2019-10-24] MEDS: Saccharomyces boulardii 250 MG CAP PO SCH (09:14)
[2019-10-24] MEDS: Clopidogrel Bisulfate 75 MG TAB PO SCH (09:14)
[2019-10-24] MEDS: BIOTENE MOUTH SPRAY 44.3 ML MM SCH ×2 (09:14→20:59)
[2019-10-24] MEDS: Aspirin Chewable 81 MG TAB PER TUBE SCH (09:15)
[2019-10-24] MEDS: Polyethylene Glycol 3350 17 GM Packet PER TUBE SCH (09:16)
[2019-10-24] MEDS: Pantoprazole 40 MG GRANULES PACKET PER TUBE SCH (09:16)
--- NOTE | 2019-10-24 10:08 | RAD ---
PORTABLE CHEST: Date: 10/24/19 HISTORY: Intubation. COMPARISON: 10/14/19 study. FINDINGS: Endotracheal tube has been placed, which is in satisfactory position. The tip of the NG tube is diffi cult to visualize, but appears to be within the distal esophagus. It would need to be advanced. Paren chymal lung changes show some infiltrative type lung changes with patchy bilateral upper and lower lo be infiltrates. IMPRESSION: 1. Patchy infiltrative lung changes. 2. Cardiomegaly with transvenous pacemaker. 3. Endotracheal tube in satisfactory position. The tip of the NG tube is difficult to visualized, bu t I believe is in the distal esophagus and should be advanced several inches. POS: OFF
[2019-10-24] MEDS: Scopolamine 1.5 mg/72 hour Patch TD SCH (10:12)
--- NOTE | 2019-10-24 11:18 | PRG ---
DATE OF SERVICE: 10/24/2019 SUBJECTIVE: This patient had been followed by Dr. Vela early in this hospitalization. It looks like he has been in the hospital since September 30 and never went home. Last night, he had a cardiac arrest from torsade. He was intubated and brought to the CCU, and placed on mechanical ventilation. He is 100% paced at this time. He is currently sedated and on mechanical ventilation. PHYSICAL EXAMINATION: VITAL SIGNS: Temperature 98.8, pulse 80, blood pressure 105/56. It is noted that he had a temperature as high as 104 earlier today. His intake since ICU admission has been 1809, output 645. GENERAL: He is lethargic. HEENT: Shows severe bitemporal wasting and dry oral mucous membranes. NECK: No adenopathy or JVD. LUNGS: Coarse breath sounds anteriorly bilaterally. CARDIAC: S1 and S2 paced. ABDOMEN: Soft, nontender, and nondistended. EXTREMITIES: No edema. LABORATORY DATA: White blood cell count 17.6, hematocrit 36.4, and platelet count 548. A pH 7.32, pCO2 of 49, PO2 of 141, SIMV rate 10, tidal volume 500, PEEP 5, pressure support 10, FiO2 100%. Sodium 136, potassium 5.1, chloride 102, CO2 of 17, BUN 15, creatinine 0.7, glucose 121. He has a left femoral central line that was placed last night by [facility]. So far, cultures show no growth to date. ASSESSMENT: 1. Acute respiratory failure, requiring mechanical ventilation. 2. Status post torsade with arrest. 3. Profound fever last night. Dr. Reynolds had been treating the patient with meropenem and vancomycin. The only thing that I have seen on cultures in the past is Escherichia coli from his urine at the time of his admission. PLAN: 1. He is not weanable at this time. His overall prognosis looks terrible because of severe disability at baseline. 2. Re-culture the patient. 3. I would probably switch his antibiotics and consider adding an antifungal given the duration he has been on antibiotic therapy. Job ID: [id number]
[2019-10-24] MEDS: Nystatin 500,000 UNITS/5 ML UDCUP SSW SCH ×4 (11:30→21:12)
[2019-10-24] MEDS: Micafungin 100 MG in Sodium Chloride 0.9% 100 ML IVPB SCH (11:31)
--- NOTE | 2019-10-24 13:10 | PDOC.HOSPP ---
- Subjective Encounter Date: 10/24/19 Encounter Time: 13:09 Subjective: cc: f/u for cardiac arrest in-hospital, septic shock, aspiration pneumonia, acute stroke subjective: patient is new to me. seen and personally examined at bedside. chart , labs, imaging results reviewed. intubated, sedated, on vasoactive agents. noted overnight patient went into cardiac arrest (torsades) and code blue called with CPR, defibrillation, epinephrine and ROSC. intubated, sedated, right groin TLC placed, and started on levophed drip currently 7mcg/min nurse notes no acute events and reports patient has been paced rhythm since that time - Objective Vital Signs & Weight: Vital Signs (12 hours) Temp Pulse Resp BP Pulse Ox 10/24/19 11:00 98.8 F 10/24/19 10:47 80 98/57 L 10/24/19 10:46 80 17 99 10/24/19 10:00 16 10/24/19 09:00 98.8 F 10/24/19 08:00 19 100 10/24/19 07:24 80 97/46 L 10/24/19 07:21 80 15 99 10/24/19 06:00 14 10/24/19 04:00 16 10/24/19 02:03 80 10/24/19 02:00 21 H 10/24/19 01:40 100 10/24/19 01:30 104.7 F H Weight Admit Weight 145 lb 12.8 oz Weight 151 lb 9.6 oz Most Recent Monitor Data Heart Rate from ECG 80 NIBP 110/62 NIBP BP-Mean 78 Respiration from ECG 15 SpO2 100 I&O: 10/23/19 10/24/19 10/25/19 06:59 06:59 06:59 Intake Total 1339 1809.1 90 Output Total 975 645 190 Balance 364 1164.1 -100 Result Diagrams: 10/24/19 01:37 10/24/19 01:37 Additional Labs: Accuchecks 10/24/19 10/24/19 10/23/19 12:53 00:35 18:24 POC Glucose 116 H 85 117 H Hospitalist ROS - Review of Systems Other: uanble to obtain as patient is intubated and sedated - Medication Medications: Active Medications Generic Name Dose Route Start Last Admin Trade Name Freq PRN Reason Stop Dose Admin Acetaminophen 650 mg 09/30/19 19:37 10/19/19 00:47 Tylenol [place] 650 mg Q4H PRN Administration Headache/Fever/Mild Pain (1-3) Albuterol/Ipratropium 3 ml 10/07/19 10:30 10/24/19 10:46 Duoneb NEB 3 ml [id number] JAYRO Administration Aspirin 81 mg 10/17/19 09:00 10/24/19 09:15 Aspirin Chewable PER TUBE 81 mg DAILY JAYRO Administration Atorvastatin Calcium 40 mg 09/30/19 21:00 10/23/19 21:11 Lipitor PO 40 mg HS JAYRO Administration Budesonide 0.5 mg 10/09/19 18:30 10/24/19 07:51 Pulmicort Neb Solution INH 0.5 mg BID-RT JAYRO Administration Clopidogrel Bisulfate 75 mg 10/03/19 09:00 10/24/19 09:14 Plavix PO 75 mg DAILY JAYRO Administration Sodium Chloride 1,000 mls @ 75 mls/hr 10/24/19 02:00 10/24/19 11:33 Normal Saline 0.9% IV 1,000 mls .[id number] JAYRO Administration Fentanyl Citrate 2,000 mcg/ 100 mls @ 0 mls/hr 10/24/19 03:33 10/24/19 04:46 Sodium Chloride IV 11/23/19 03:33 100 mls INF JAYRO Administration Protocol Per Protocol Norepinephrine Bitartrate 250 mls @ 0 mls/hr 10/24/19 03:34 10/24/19 02:05 Levophed IVPB 250 mls INF JAYRO Administration Protocol Titrate Micafungin Sodium 100 mg/ 100 mls @ 100 mls/hr 10/24/19 11:00 10/24/19 11:31 Sodium Chloride IVPB 100 mls 1100 JAYRO Administration Insulin Human Lispro 0 units 10/01/19 19:43 10/14/19 12:26 Humalog SC 2 unit .MILD SLIDING SCALE PRN Administration MILD SLIDING SCALE Protocol Metoclopramide HCl 5 mg 10/19/19 14:00 10/24/19 05:53 Reglan IVP Not Given Q8HR JAYRO Miscellaneous Medication 0 ml 10/18/19 21:00 10/24/19 09:14 Biotene Moisturizing Mouth MM 1 spr BID JAYRO Administration Nystatin 500,000 units 10/13/19 09:00 10/24/19 11:30 Mycostatin SSW 500,000 units QID JAYRO Administration Ondansetron HCl 4 mg 09/30/19 19:37 10/01/19 06:50 Zofran IVP 4 mg Q6H PRN Administration Nausea/Vomiting Pantoprazole Sodium 40 mg 10/21/19 09:00 10/24/19 09:16 Protonix PER TUBE 40 mg DAILY JAYRO Administration Polyethylene Glycol 17 gm 10/19/19 09:00 10/24/19 09:16 Miralax PER TUBE 17 gm DAILY JAYRO Administration Propofol 1,000 mg 10/24/19 03:33 10/24/19 11:31 Diprivan IV 11/23/19 03:33 1,000 mg INF PRN Administration TO ACHIEVE GOAL RASS Protocol Saccharomyces Boulardii 250 mg 10/05/19 09:00 10/24/19 09:14 Florastor PO 250 mg DAILY JAYRO Administration Scopolamine 3 mg 10/18/19 10:39 10/24/19 10:12 Transderm Scop TD 3 mg Q3D JAYRO Administration Senna/Docusate Sodium 2 tab 09/30/19 19:37 10/16/19 15:05 Senokot S PO 2 tab BIDPRN PRN Administration Constipation Sertraline HCl 50 mg 10/01/19 09:00 10/24/19 09:14 Zoloft PO 50 mg DAILY JAYRO Administration Sodium Chloride 10 ml 09/30/19 19:40 10/23/19 10:37 Flush - Normal Saline IVF 10 ml PRN PRN Administration Saline Flush Tamsulosin HCl 0.4 mg 10/10/19 21:00 10/23/19 21:11 Flomax PO 0.4 mg HS JAYRO Administration - Exam General Appearance: ill appearing General - other findings: elderly male intubated, sedated, on vasopressors Eye - other findings: NCAT, PERR, +ETT ENT - other findings: frontotemporal wasting Heart: RRR, no murmur Heart - other findings: left chest wall pacemaker pocket Respiratory: no wheezes, normal chest expansion, no tachypnea, rhonchi Gastrointestinal: soft, non-tender, non-distended, normal bowel sounds Extremities: no cyanosis, no edema Skin: no lesions Hosp A/P - Plan In-hospital cardiac arrest 10/24/19 with Torsades s/p ROSC. s/p IV magnesium administration. Unclear etiology. consult cardiology. interrogate PPM. 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 Septic shock likely due to recurrent aspiration pneumonia. currently on Levophed via right femoral TLC. ID following and managing antibiotics with cefepime, Zyvox, Merrem, Micafungin. noted concerns for recurrent aspiration and esophageal dilatation. Acute right cerebellar stroke. neuro following. continue secondary stroke prevention. UTI, treated History stroke History PPM DVT px check AM labs code status: full code. code status discussion noted earlier today Dispo: continue ICU monitoring poor prognosis
[2019-10-24] MEDS: Linezolid 600 MG in Premix Bag 1 BAG IVPB SCH (14:28)
--- NOTE | 2019-10-24 16:32 | PRG ---
DATE OF SERVICE: 10/24/2019 SUBJECTIVE: Mr. Munoz is transferred to the ICU. He had a cardiac arrest with torsade de pointes and he was intubated. He had a central line placed in the right groin region. OBJECTIVE: VITAL SIGNS: Now with T max 104.7 on the at 1:30 a.m., pulse 80, respirations 13, O2 sats 100 with FiO2 28, PEEP of 5. HEENT: Constrictive pupils. Orotracheal intubation, central line in right groin. LUNGS: Symmetric air entry. Lungs sounds are fairly clear. CARDIOVASCULAR: S1, S2 regular rate. ABDOMEN: Soft, not distended, tender. EXTREMITIES: Contracted extremities. LABORATORY DATA: White cell count is up to 17.6, hemoglobin 12, platelets 548, 30% bands. Sodium 136, creatinine 0.78, AST 70, ALT 66, alkaline phosphatase 111, albumin 3.2. Previous cultures we have negative blood cultures from the and the , one positive urine culture for an Escherichia coli. Last imaging includes a chest x-ray from the with patchy infiltrative lung changes, cardiomegaly, transvenous pacemaker, ET tube in satisfactory position. ASSESSMENT AND DISCUSSION: Cerebrovascular accident x2, severe functional impairment, swallowing dysfunction with gastrostomy feedings, weak cough reflex with evidence of recurrent aspiration associated with large gastric residuals and fever, possible resistant pathogen. MEDICATIONS: Had been on meropenem and vancomycin. Now has had torsade de Pointes cardiac arrest, has been intubated. It looks like the family still whoever is close to or has a power of slot service specialist still wants active interventions and is not amenable to palliative care. He is currently on cefepime and linezolid, micafungin. Again, the underlying problem here is the recurring aspirations. The last CT of chest was done on the and demonstrated bilateral patchy infiltrates throughout both all lobes of the lungs with vascular congestion and abnormal thoracic esophagus with dilatation and mural thickening. Job ID: [id number]
[2019-10-24] MEDS: Acetaminophen 650 MG/20.3 ML UDCUP PO PRN (19:29)
[2019-10-24] MEDS: Cefepime 1 GM in Sodium Chloride 0.9% 100 ML IVPB SCH (20:54)
[2019-10-24] MEDS: Tamsulosin HCl 0.4 MG CAP PO SCH (20:59)
[2019-10-24] MEDS: Atorvastatin Calcium 40 MG TAB PO SCH (20:59)
[2019-10-24] MEDS: Vancomycin HCl 1.25 GM in Sodium Chloride 0.9% 250 ML 250 ML IVPB SCH (21:41)
[2019-10-25] MEDS: Linezolid 600 MG in Premix Bag 1 BAG IVPB SCH ×3 (00:54→23:51)
[2019-10-25 03:52] LABS: #Eosinphils 0.4 thou/uL (0.0-0.7); #Lymphocytes 1.5 thou/uL (1.20-3.40); #Monocytes 0.6 thou/uL (0.11-0.59); %Basophils 0.4 % (0.0-1.0); %Eosinophils 4.2 % (0.0-10.0); %Lymphocytes 15.5 % (21.0-51.0); %Monocytes 6.1 % (0.0-10.0); %Neutrophils 73.9 % (42.0-75.0); Hemoglobin 10.2 g/dL (14.0-18.0); Mean Corpuscular HGB CONC 33.7 g/dL (32.0-36.0); Mean Corpuscular Hemoglobin 29.4 pg (27.0-31.0); Mean Corpuscular Volume 87.4 fL (78.0-98.0); Mean Platelet Volume 6.2 fL (7.4-10.4); Platelet Count 343 thou/uL (130-400); RBC Distribution Width 11.9 % (11.5-14.5); Red Blood Cell (RBC) Count 3.47 mill/uL (4.70-6.10); White Blood Cell (WBC) Count 9.4 thou/uL (4.8-10.8)
[2019-10-25 04:11] LABS: Anion Gap 10 mmol/L (10-20); BUN (Urea Nitrogen) 16 mg/dL (8.4-25.7); Calc. Creatinine Clearance 104 mL/min (70-130); Calcium 8.8 mg/dL (7.8-10.44); Carbon Dioxide 28 mmol/L (23-31); Chloride 101 mmol/L (98-107); Estimated GFR-MDRD Greater than 90; Glucose 129 mg/dL (80-115); Potassium 3.6 mmol/L (3.5-5.1); Sodium 135 mmol/L (136-145)
[2019-10-25] MEDS: Propofol 1,000 MG/100 ML VIAL IV PRN ×2 (06:07→23:51)
[2019-10-25] MEDS: Metoclopramide HCl 10 MG/2 ML VIAL IVP SCH ×3 (06:07→21:02)
[2019-10-25 07:19] LABS: Base Excess (BEa) 3.6 mEq/L (-2.0 to +3.0); CO2 Tension 36.1 mmHg (35.0-45.0); Calcium, Ionized 1.22 mmol/L (1.12-1.30); Carboxyhemoglobin (COHb) 1.5 gm% (0.0-3.0); Hemoglobin (Hb) 9.5 g/dL (14.0-18.0); O2 Tension (PaO2) 65.9 mmHg (> 80.0); Potassium - ABG Lab 3.57 mmol/L (3.70-5.30); pH, Arterial 7.49 (7.35-7.45)
[2019-10-25 07:26] LABS: ALV-art Gradient 159.915 (0-20); Puncture Site LRA
[2019-10-25] MEDS: Budesonide 0.5 MG/2 ML NEB INH SCH ×2 (07:41→18:50)
[2019-10-25] MEDS: Sodium Chloride 0.9% 1,000 ML IV SCH ×2 (07:43→21:07)
[2019-10-25] MEDS: Cefepime 1 GM in Sodium Chloride 0.9% 100 ML IVPB SCH ×2 (07:45→21:01)
[2019-10-25] MEDS: Nystatin 500,000 UNITS/5 ML UDCUP SSW SCH ×4 (07:48→21:01)
[2019-10-25] MEDS: Clopidogrel Bisulfate 75 MG TAB PO SCH (07:48)
[2019-10-25] MEDS: Aspirin Chewable 81 MG TAB PER TUBE SCH (07:48)
[2019-10-25] MEDS: Saccharomyces boulardii 250 MG CAP PO SCH (07:48)
[2019-10-25] MEDS: Pantoprazole 40 MG GRANULES PACKET PER TUBE SCH (07:49)
[2019-10-25] MEDS: BIOTENE MOUTH SPRAY 44.3 ML MM SCH ×2 (07:49→21:03)
--- NOTE | 2019-10-25 07:54 | CON ---
DATE OF CONSULTATION: TIME SPENT: Critical care time spent 30 minutes. HISTORY OF PRESENT ILLNESS: The patient is an unfortunate 69-year-old gentleman ,who has suffered a cardiac arrest. The patient has been debilitated. The patient has a history of a cerebrovascular accident. He has previously had a PEG tube placed. He was admitted to the hospital several weeks ago with another cerebrovascular accident. The patient yesterday was on the floor when he suddenly arrested. He was brought to the ICU. The patient is unable to give any type of coherent history. PAST MEDICAL HISTORY: CVA, dementia, hypertension, and dyslipidemia. PAST SURGICAL HISTORY: PEG placement and history of pacemaker placement. PHYSICAL EXAMINATION: GENERAL: This is an unresponsive gentleman, who is sedated with a blood pressure of 102/60 on Levophed. NECK: Full. LUNGS: Coarse breath sounds bilaterally. HEART: Regular rate and rhythm. Normal S1 and S2. ABDOMEN: PEG tube. EXTREMITIES: Contracted. LABORATORY RESULTS: Sodium 136, potassium 5.1, chloride 102, bicarbonate 17, BUN 15, creatinine 0.78, glucose 121. White blood cell count 17.6, hemoglobin 12.1, hematocrit 36.4, platelets 548. Telemetry monitoring revealed torsades de pointes. IMPRESSION: 1. Torsades de pointes. 2. Respiratory failure. 3. Cerebrovascular accident. 4. History of dementia. 5. Cardiomyopathy. 6. History of pacemaker placement. 7. Dementia. This unfortunate gentleman developed torsades. He was subsequently resuscitated. I expect this is most likely ischemia related. He is on appropriate medications with aspirin, Plavix, and Lipitor. If he develops recurrent torsades, we will continue to treat the patient with magnesium sulfate. I will follow this patient with you through his hospitalization. Job ID: [id number] [facility]
--- NOTE | 2019-10-25 08:53 | RAD ---
PORTABLE CHEST: INDICATION: Mechanical ventilation and CCU followup. COMPARISON: 10/24/2019. FINDINGS: ET tube and NG Tube remain in place. Pacemaker leads unchanged. The patient is rotated mildly distorting the chest. There is cardiomegaly with vascular congestion. Interstitial and hazy alveolar infiltrates in both mid and lower lungs again noted. Findings may re present edema or inflammatory process. No significant change from yesterday. POS: [facility]
[2019-10-25] MEDS: Polyethylene Glycol 3350 17 GM Packet PER TUBE SCH (09:40)
--- NOTE | 2019-10-25 12:10 | PDOC.HOSPP ---
- Subjective Encounter Date: 10/25/19 Encounter Time: 11:55 Subjective: cc: f/u for in-hospital cardiac arrest, VDRF, septic shock, acute stroke, recurrent aspiration subjective: patient seen this afternoon. intubated, minimally on sedation, weaned to 3mcg/min Levophed drip. no acute overnight events reported per RN and notes patient does not appear uncomfortable and intermittently moves. notes palliative care team is supposed to get in contact with medical decision maker today per [employer]. - Objective Vital Signs & Weight: Vital Signs (12 hours) Pulse Resp BP Pulse Ox 10/25/19 10:25 80 131/64 10/25/19 10:24 80 13 99 10/25/19 10:00 15 10/25/19 08:00 15 100 10/25/19 07:01 80 105/56 L 10/25/19 06:58 80 15 99 10/25/19 06:00 13 10/25/19 04:00 15 10/25/19 02:32 80 102/56 L 10/25/19 02:00 13 10/25/19 00:53 80 97/59 L Weight Admit Weight 145 lb 12.8 oz Weight 147 lb 14.883 oz Most Recent Monitor Data Heart Rate from ECG 80 NIBP 121/56 NIBP BP-Mean 77 Respiration from ECG 8 SpO2 100 I&O: 10/24/19 10/25/19 10/26/19 06:59 06:59 06:59 Intake Total 1809.1 3073.1 Output Total 645 1074 105 Balance 1164.1 1999.1 -105 Result Diagrams: 10/25/19 03:44 10/25/19 03:44 Additional Labs: Accuchecks 10/25/19 10/24/19 10/24/19 10:59 22:27 19:34 POC Glucose 93 101 101 10/24/19 12:53 POC Glucose 116 H Hospitalist ROS - Review of Systems Other: UNABLE TO OBTAIN as patient intubated, sedated and on ventilator - Medication Medications: Active Medications Generic Name Dose Route Start Last Admin Trade Name Freq PRN Reason Stop Dose Admin Acetaminophen 650 mg 09/30/19 19:37 10/19/19 00:47 Tylenol [place] 650 mg Q4H PRN Administration Headache/Fever/Mild Pain (1-3) Acetaminophen 650 mg 10/24/19 03:32 10/24/19 19:29 Tylenol Elixir PO 650 mg Q4H PRN Administration Headache/Fever/Mild Pain (1-3) Albuterol/Ipratropium 3 ml 10/07/19 10:30 10/25/19 10:24 Duoneb NEB 3 ml [id number] JAYRO Administration Aspirin 81 mg 10/17/19 09:00 10/25/19 07:48 Aspirin Chewable PER TUBE 81 mg DAILY JAYRO Administration Atorvastatin Calcium 40 mg 09/30/19 21:00 10/24/19 20:59 Lipitor PO 40 mg HS JAYRO Administration Budesonide 0.5 mg 10/09/19 18:30 10/25/19 07:41 Pulmicort Neb Solution INH 0.5 mg BID-RT JAYRO Administration Clopidogrel Bisulfate 75 mg 10/03/19 09:00 10/25/19 07:48 Plavix PO 75 mg DAILY JAYRO Administration Sodium Chloride 1,000 mls @ 75 mls/hr 10/24/19 02:00 10/25/19 07:43 Normal Saline 0.9% IV 1,000 mls .[id number] JAYRO Administration Fentanyl Citrate 2,000 mcg/ 100 mls @ 0 mls/hr 10/24/19 03:33 10/24/19 04:46 Sodium Chloride IV 11/23/19 03:33 100 mls INF JAYRO Administration Protocol Per Protocol Norepinephrine Bitartrate 250 mls @ 0 mls/hr 10/24/19 03:34 10/24/19 23:19 Levophed IVPB 250 mls INF JAYRO Administration Protocol Titrate Cefepime HCl 1 gm/ Sodium 100 mls @ 200 mls/hr 10/24/19 21:00 10/25/19 07:45 Chloride IVPB 100 mls Q12HR JAYRO Administration Linezolid 600 mg/ Device 300 mls @ 150 mls/hr 10/24/19 12:00 10/25/19 00:54 IVPB 300 mls 1200,2359 JAYRO Administration Micafungin Sodium 100 mg/ 100 mls @ 100 mls/hr 10/24/19 11:00 10/24/19 11:31 Sodium Chloride IVPB 100 mls 1100 JAYRO Administration Insulin Human Lispro 0 units 10/01/19 19:43 10/14/19 12:26 Humalog SC 2 unit .MILD SLIDING SCALE PRN Administration MILD SLIDING SCALE Protocol Metoclopramide HCl 5 mg 10/19/19 14:00 10/25/19 06:07 Reglan IVP 5 mg Q8HR JAYRO Administration Miscellaneous Medication 0 ml 10/18/19 21:00 10/25/19 07:49 Biotene Moisturizing Mouth MM 1 spr BID JAYRO Administration Nystatin 500,000 units 10/13/19 09:00 10/25/19 07:48 Mycostatin SSW 500,000 units QID JAYRO Administration Ondansetron HCl 4 mg 09/30/19 19:37 10/01/19 06:50 Zofran IVP 4 mg Q6H PRN Administration Nausea/Vomiting Pantoprazole Sodium 40 mg 10/21/19 09:00 10/25/19 07:49 Protonix PER TUBE 40 mg DAILY JAYRO Administration Polyethylene Glycol 17 gm 10/19/19 09:00 10/25/19 09:40 Miralax PER TUBE Not Given DAILY JAYRO Propofol 1,000 mg 10/24/19 03:33 10/25/19 06:07 Diprivan IV 11/23/19 03:33 1,000 mg INF PRN Administration TO ACHIEVE GOAL RASS Protocol Saccharomyces Boulardii 250 mg 10/05/19 09:00 10/25/19 07:48 Florastor PO 250 mg DAILY JAYRO Administration Scopolamine 3 mg 10/18/19 10:39 10/24/19 10:12 Transderm Scop TD 3 mg Q3D JAYRO Administration Senna/Docusate Sodium 2 tab 09/30/19 19:37 10/16/19 15:05 Senokot S PO 2 tab BIDPRN PRN Administration Constipation Sertraline HCl 50 mg 10/01/19 09:00 10/25/19 07:48 Zoloft PO 50 mg DAILY JAYRO Administration Sodium Chloride 10 ml 09/30/19 19:40 10/23/19 10:37 Flush - Normal Saline IVF 10 ml PRN PRN Administration Saline Flush Tamsulosin HCl 0.4 mg 10/10/19 21:00 10/24/19 20:59 Flomax PO 0.4 mg HS JAYRO Administration Hosp A/P - Plan - Exam General Appearance: ill appearing General - other findings: elderly male intubated, sedated, on vasopressors Eye - other findings: NCAT, PERR, +ETT ENT - other findings: frontotemporal wasting Heart: RRR, no murmur Heart - other findings: left chest wall pacemaker pocket Respiratory: no wheezes, normal chest expansion, no tachypnea, rhonchi Gastrointestinal: soft, non-tender, non-distended, normal bowel sounds Extremities: no cyanosis, no edema, right femoral TLC Skin: no lesions MICROBIOLOGY: Blood cultures 10/04, 10/16, 10/22, 10/24 NGTD urine cultures 10/01 E. Coli urine cultures 10/24 NGTD Hosp A/P - Plan In-hospital cardiac arrest 10/24/19 with Torsades s/p ROSC. s/p IV magnesium administration. Unclear etiology. cardiology following. currently paced rhythm. interrogate PPM if possible. Ventilator dependent respiratory failure following cardiac arrest. cytology technologist following to guide ventilator management. start nutrition if not weanable. Septic shock likely due to recurrent aspiration pneumonia. currently on Levophed via right femoral TLC. ID following and managing antibiotics with cefepime, Zyvox, Merrem, Micafungin. noted concerns for recurrent aspiration and esophageal dilatation. Acute right cerebellar stroke. neuro following. continue secondary stroke prevention. UTI, treated History stroke History PPM DVT px check AM labs code status: full code. code status discussion noted earlier today Dispo: continue ICU monitoring poor prognosis In-hospital cardiac arrest 10/24/19 with Torsades s/p ROSC. s/p IV magnesium administration. Unclear etiology. consult cardiology. interrogate PPM. 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 Septic shock likely due to recurrent aspiration pneumonia. currently on Levophed via right femoral TLC. ID following and managing antibiotics with cefepime, Zyvox, Micafungin. Merrem discontinued. Recent blood cultures and urine cultures NGTD. noted concerns for recurrent aspiration and esophageal dilatation. Acute right cerebellar stroke. neuro following. continue secondary stroke prevention. UTI, treated History stroke History PPM DVT px check AM labs code status: full code. palliative care to discuss goals of care and poor prognosis with surrogate decision maker per rn long term care. Dispo: continue ICU monitoring poor prognosis
[2019-10-25] MEDS: Micafungin 100 MG in Sodium Chloride 0.9% 100 ML IVPB SCH (12:18)
--- NOTE | 2019-10-25 18:27 | PRG ---
DATE OF SERVICE: 10/25/2019 SUBJECTIVE: Mr. Munoz's hemodynamics have been stable. OBJECTIVE: VITAL SIGNS: Blood pressure 132/70, heart rate is 80, respiratory rate is 10, and he is afebrile. LUNGS: Clear. HEART: Regular rhythm. S1 and S2 are normal. ABDOMEN: Soft and nonrigid without masses. EXTREMITIES: Without edema. NEUROLOGIC: Not assessable. IMAGING DATA: Chest radiograph suggestive of pulmonary edema. LABORATORY DATA: White count 9.4, hemoglobin 10.2, platelets 343. Sodium 135, potassium 3.6, chloride 101, bicarb 28, BUN 16, creatinine 0.65. The pH is 7.49, pCO2 is 36, and pO2 is 65. IMPRESSION AND PLAN: 1. Status post ventricular tachycardia arrest (torsades). 2. Respiratory failure. 3. Fever, being followed by Infectious Disease. 4. History of cerebrovascular accident. 5. Pulmonary edema on radiograph that I suppose could also be infectious secondary to swallowing dysfunction and aspiration. We will continue to follow. His prognosis is very poor. Job ID: [id number]
[2019-10-25] MEDS: Tamsulosin HCl 0.4 MG CAP PO SCH (21:02)
[2019-10-25] MEDS: Atorvastatin Calcium 40 MG TAB PO SCH (21:02)
[2019-10-26 04:12] LABS: #Eosinphils 0.4 thou/uL (0.0-0.7); #Lymphocytes 1.2 thou/uL (1.20-3.40); #Monocytes 0.4 thou/uL (0.11-0.59); #Neutrophils 8.1 thou/uL (1.40-6.50); %Basophils 0.1 % (0.0-1.0); %Eosinophils 3.6 % (0.0-10.0); %Lymphocytes 11.9 % (21.0-51.0); %Monocytes 4.4 % (0.0-10.0); Hemoglobin 9.4 g/dL (14.0-18.0); Mean Corpuscular HGB CONC 34.2 g/dL (32.0-36.0); Mean Corpuscular Hemoglobin 29.6 pg (27.0-31.0); Mean Corpuscular Volume 86.7 fL (78.0-98.0); Mean Platelet Volume 6.7 fL (7.4-10.4); Platelet Count 307 thou/uL (130-400); RBC Distribution Width 11.8 % (11.5-14.5); Red Blood Cell (RBC) Count 3.18 mill/uL (4.70-6.10); White Blood Cell (WBC) Count 10.1 thou/uL (4.8-10.8)
[2019-10-26 04:31] LABS: Anion Gap 11 mmol/L (10-20); BUN (Urea Nitrogen) 10 mg/dL (8.4-25.7); Calc. Creatinine Clearance 112 mL/min (70-130); Calcium 8.6 mg/dL (7.8-10.44); Carbon Dioxide 25 mmol/L (23-31); Chloride 101 mmol/L (98-107); Estimated GFR-MDRD Greater than 90; Glucose 108 mg/dL (80-115); Potassium 3.5 mmol/L (3.5-5.1); Sodium 133 mmol/L (136-145)
[2019-10-26] MEDS: Metoclopramide HCl 10 MG/2 ML VIAL IVP SCH ×3 (05:12→21:28)
[2019-10-26] MEDS: Budesonide 0.5 MG/2 ML NEB INH SCH ×2 (06:48→18:36)
[2019-10-26 07:05] LABS: Actual Bicarbonate (HCO3a) 26.6 mEq/L (22-28); Base Excess (BEa) 3.7 mEq/L (-2.0 to +3.0); CO2 Tension 33.6 mmHg (35.0-45.0); Calcium, Ionized 1.22 mmol/L (1.12-1.30); Carboxyhemoglobin (COHb) 0.9 gm% (0.0-3.0); Hemoglobin (Hb) 9.8 g/dL (14.0-18.0); O2 Tension (PaO2) 70.4 mmHg (> 80.0); Potassium - ABG Lab 3.38 mmol/L (3.70-5.30); pH, Arterial 7.52 (7.35-7.45)
[2019-10-26 07:06] LABS: Puncture Site LRA
[2019-10-26] MEDS: Cefepime 1 GM in Sodium Chloride 0.9% 100 ML IVPB SCH ×2 (07:47→20:27)
[2019-10-26] MEDS: Clopidogrel Bisulfate 75 MG TAB PO SCH (07:48)
[2019-10-26] MEDS: Aspirin Chewable 81 MG TAB PER TUBE SCH (07:48)
[2019-10-26] MEDS: Saccharomyces boulardii 250 MG CAP PO SCH (07:48)
[2019-10-26] MEDS: Pantoprazole 40 MG GRANULES PACKET PER TUBE SCH (07:48)
[2019-10-26] MEDS: Nystatin 500,000 UNITS/5 ML UDCUP SSW SCH ×4 (07:49→20:27)
[2019-10-26] MEDS: BIOTENE MOUTH SPRAY 44.3 ML MM SCH ×2 (07:49→20:30)
--- NOTE | 2019-10-26 09:14 | RAD ---
CHEST ONE VIEW: INDICATIONS: History of pneumonia. COMPARISON: Prior exam dated 10/25/2019. FINDINGS: There has been improvement in the bilateral perihilar air space opacities, which may reflect improvin g pneumonia or edema. Cardiomegaly is slightly less prominent. There is improvement in the pulmonary vascular congestion. No pleural effusion or pneumothorax is evident. The patient remains intubated wi th gastric catheter placement. Dual-lead pacemaker is unchanged. IMPRESSION: Improving pneumonia or edema. POS: [facility]
--- NOTE | 2019-10-26 09:50 | PRG ---
DATE OF SERVICE: 35 minutes of critical care time. SUBJECTIVE: The patient remains intubated on mechanical ventilation. Right now, he is on minimal ventilator settings, on CPAP 5, pressure support 5, FiO2 of 21%. Neurologically, he will open his eyes deep painful stimulation, he will withdraw to pain. He will not follow commands. I looked back to his chart and I cannot see that he has ever done much neurologically during the hospitalization. OBJECTIVE: VITAL SIGNS: Temperature is 100.0, pulse 80, blood pressure 110/60, O2 saturation 97%. HEENT: Gaze preference to the left. NECK: No adenopathy or JVD. LUNGS: Clear anteriorly. CARDIOVASCULAR: S1 and S2, regular. ABDOMEN: Soft. EXTREMITIES: Contracted. IMAGING STUDIES: His chest x-ray is clear. LABORATORY DATA: White blood cell count 10, hematocrit 27.6, and platelet count 307. PH of 7.52, pCO2 of 34, pO2 of 70 on SIMV rate 4, tidal volume 500, PEEP 5, pressure support 5, FiO2 of 21%. Sodium 133, potassium 3.5, chloride 101, CO2 of 25, BUN 10, creatinine 0.6, and glucose 108. ASSESSMENT: 1. Status post torsades with arrest. 2. Respiratory failure, requiring mechanical ventilation. 3. History of stroke with profound deficit. PLAN: The patient will be extubated and observed. I have reviewed the orders. For the time being, he will continue on antibiotics. His cultures have not grown anything new in the last 2 days. If things look clear today, we will begin scaling back the antibiotics tomorrow. This patient's prognosis is very poor and I would pursue a do not resuscitate status if at all possible. Job ID: [id number]
[2019-10-26] MEDS: Polyethylene Glycol 3350 17 GM Packet PER TUBE SCH (09:56)
[2019-10-26] MEDS: Sodium Chloride 0.9% 1,000 ML IV SCH ×2 (09:56→20:20)
[2019-10-26] MEDS: Micafungin 100 MG in Sodium Chloride 0.9% 100 ML IVPB SCH (11:28)
[2019-10-26] MEDS: Linezolid 600 MG in Premix Bag 1 BAG IVPB SCH ×2 (14:31→23:35)
--- NOTE | 2019-10-26 18:07 | PDOC.HOSPP ---
- Subjective Encounter Date: 10/26/19 Encounter Time: 18:06 Subjective: cc: f/u for in-hospital cardiac arrest, VDRF, septic shock, acute stroke, recurrent aspiration subjective: patient seen this afternoon. just extubated. nonverbal. nurse notes no acute overnight events and notes patient was weaned off Levophed drip yesterday. notes surrogate decision maker scheduled to meet with ICU doctor to dicuss goals of care. - Objective Vital Signs & Weight: Vital Signs (12 hours) Pulse Resp BP Pulse Ox 10/26/19 14:56 82 14 99 10/26/19 10:18 76 14 98 10/26/19 09:22 97 10/26/19 09:20 99 10/26/19 08:00 12 10/26/19 06:48 80 107/56 L 10/26/19 06:45 80 10 L 97 Weight Admit Weight 145 lb 12.8 oz Weight 151 lb 10.848 oz Most Recent Monitor Data Heart Rate from ECG 80 NIBP 123/57 NIBP BP-Mean 79 Respiration from ECG 12 SpO2 100 I&O: 10/25/19 10/26/19 10/27/19 06:59 06:59 06:59 Intake Total 3073.1 2567.9 1803.3 Output Total 1074 1117 840 Balance 1999.1 1450.9 963.3 Result Diagrams: 10/27/19 03:50 10/27/19 03:50 Additional Labs: Accuchecks 10/26/19 10/26/19 10/25/19 17:40 11:25 22:21 POC Glucose 146 H 124 H 94 10/25/19 18:16 POC Glucose 106 Hospitalist ROS - Review of Systems Other: UNABLE TO OBTAIN due to patient not interactive - Medication Medications: Active Medications Generic Name Dose Route Start Last Admin Trade Name Freq PRN Reason Stop Dose Admin Acetaminophen 650 mg 09/30/19 19:37 10/19/19 00:47 Tylenol [place] 650 mg Q4H PRN Administration Headache/Fever/Mild Pain (1-3) Acetaminophen 650 mg 10/24/19 03:32 10/24/19 19:29 Tylenol Elixir PO 650 mg Q4H PRN Administration Headache/Fever/Mild Pain (1-3) Albuterol/Ipratropium 3 ml 10/07/19 10:30 10/26/19 14:56 Duoneb NEB 3 ml [id number] JAYRO Administration Aspirin 81 mg 10/17/19 09:00 10/26/19 07:48 Aspirin Chewable PER TUBE 81 mg DAILY JAYRO Administration Atorvastatin Calcium 40 mg 09/30/19 21:00 10/25/19 21:02 Lipitor PO 40 mg HS JAYRO Administration Budesonide 0.5 mg 10/09/19 18:30 10/26/19 06:48 Pulmicort Neb Solution INH 0.5 mg BID-RT JAYRO Administration Clopidogrel Bisulfate 75 mg 10/03/19 09:00 10/26/19 07:48 Plavix PO 75 mg DAILY JAYRO Administration Sodium Chloride 1,000 mls @ 75 mls/hr 10/24/19 02:00 10/26/19 09:56 Normal Saline 0.9% IV Not Given .[id number] JAYRO Fentanyl Citrate 2,000 mcg/ 100 mls @ 0 mls/hr 10/24/19 03:33 10/24/19 04:46 Sodium Chloride IV 11/23/19 03:33 100 mls INF JAYRO Administration Protocol Per Protocol Norepinephrine Bitartrate 250 mls @ 0 mls/hr 10/24/19 03:34 10/24/19 23:19 Levophed IVPB 250 mls INF JAYRO Administration Protocol Titrate Cefepime HCl 1 gm/ Sodium 100 mls @ 200 mls/hr 10/24/19 21:00 10/26/19 07:47 Chloride IVPB 100 mls Q12HR JAYRO Administration Linezolid 600 mg/ Device 300 mls @ 150 mls/hr 10/24/19 12:00 10/26/19 14:31 IVPB 300 mls 1200,2359 JAYRO Administration Micafungin Sodium 100 mg/ 100 mls @ 100 mls/hr 10/24/19 11:00 10/26/19 11:28 Sodium Chloride IVPB 100 mls 1100 JAYRO Administration Insulin Human Lispro 0 units 10/01/19 19:43 10/14/19 12:26 Humalog SC 2 unit .MILD SLIDING SCALE PRN Administration MILD SLIDING SCALE Protocol Metoclopramide HCl 5 mg 10/19/19 14:00 10/26/19 14:05 Reglan IVP 5 mg Q8HR JAYRO Administration Miscellaneous Medication 0 ml 10/18/19 21:00 10/26/19 07:49 Biotene Moisturizing Mouth MM 1 spr BID JAYRO Administration Nystatin 500,000 units 10/13/19 09:00 10/26/19 17:34 Mycostatin SSW 500,000 units QID JAYRO Administration Ondansetron HCl 4 mg 09/30/19 19:37 10/01/19 06:50 Zofran IVP 4 mg Q6H PRN Administration Nausea/Vomiting Pantoprazole Sodium 40 mg 10/21/19 09:00 10/26/19 07:48 Protonix PER TUBE 40 mg DAILY JAYRO Administration Polyethylene Glycol 17 gm 10/19/19 09:00 10/26/19 09:56 Miralax PER TUBE Not Given DAILY JAYRO Propofol 1,000 mg 10/24/19 03:33 10/25/19 23:51 Diprivan IV 11/23/19 03:33 1,000 mg INF PRN Administration TO ACHIEVE GOAL RASS Protocol Saccharomyces Boulardii 250 mg 10/05/19 09:00 10/26/19 07:48 Florastor PO 250 mg DAILY JAYRO Administration Scopolamine 3 mg 10/18/19 10:39 10/24/19 10:12 Transderm Scop TD 3 mg Q3D JAYRO Administration Senna/Docusate Sodium 2 tab 09/30/19 19:37 10/16/19 15:05 Senokot S PO 2 tab BIDPRN PRN Administration Constipation Sertraline HCl 50 mg 10/01/19 09:00 10/26/19 07:48 Zoloft PO 50 mg DAILY JAYRO Administration Sodium Chloride 10 ml 09/30/19 19:40 10/23/19 10:37 Flush - Normal Saline IVF 10 ml PRN PRN Administration Saline Flush Tamsulosin HCl 0.4 mg 10/10/19 21:00 10/25/19 21:02 Flomax PO 0.4 mg HS JAYRO Administration Hosp A/P - Plan - Exam General Appearance: ill appearing General - other findings: elderly male with eyes closed and moves to noxious stimuli but otherwise nonverbal Eye - other findings: NCAT, eyes closed ENT - other findings: frontotemporal wasting Heart: RRR, no murmur Heart - other findings: left chest wall pacemaker pocket Respiratory: no wheezes, normal chest expansion, no tachypnea, rhonchi Gastrointestinal: soft, non-tender, non-distended, normal bowel sounds Extremities: no cyanosis, no edema, right femoral TLC Skin: no lesions MICROBIOLOGY: Blood cultures 10/04, 10/16, 10/22, 10/24 NGTD urine cultures 10/01 E. Coli urine cultures 10/24 NGTD Hosp A/P - ASSESSMENT AND PLAN: In-hospital cardiac arrest 10/24/19 with Torsades s/p ROSC. Early 09/2019 TTE with LVEF 35-40%. Monitor electrolytes. Cardiology on consult. Ventilator dependent respiratory failure following cardiac arrest. s/p extubation 10/26/19. ICU team following. Septic shock likely due to recurrent aspiration pneumonia. Off Levophed drip. Still has right femoral TLC. ID following and managing antibiotics with cefepime , Zyvox, Micafungin. Merrem discontinued. Recent blood cultures and urine cultures NGTD. noted concerns for recurrent aspiration and esophageal dilatation. maintain aspiration precautions. Acute right cerebellar stroke. MRI brain results noted. continue secondary stroke prevention medications. UTI, treated History stroke History PPM DVT px check AM labs code status: full code. ICU doctor to discuss goals of care with surrogate tomorrow. Poor prognosis. Dispo: continue ICU monitoring today poor prognosis
[2019-10-26] MEDS: Atorvastatin Calcium 40 MG TAB PO SCH (20:29)
[2019-10-26] MEDS: Tamsulosin HCl 0.4 MG CAP PO SCH (20:29)
[2019-10-26] MEDS: HumaLOG 300 UNITS/3 ML VIAL SC PRN (21:36)
[2019-10-27 04:46] LABS: #Eosinphils 0.3 thou/uL (0.0-0.7); #Lymphocytes 1.4 thou/uL (1.20-3.40); #Monocytes 0.5 thou/uL (0.11-0.59); #Neutrophils 6.4 thou/uL (1.40-6.50); %Basophils 0.2 % (0.0-1.0); %Lymphocytes 15.9 % (21.0-51.0); %Monocytes 5.8 % (0.0-10.0); %Neutrophils 75.1 % (42.0-75.0); Hemoglobin 9.4 g/dL (14.0-18.0); Mean Corpuscular HGB CONC 34.2 g/dL (32.0-36.0); Mean Corpuscular Hemoglobin 29.9 pg (27.0-31.0); Mean Corpuscular Volume 87.6 fL (78.0-98.0); Mean Platelet Volume 7.1 fL (7.4-10.4); Platelet Count 272 thou/uL (130-400); RBC Distribution Width 11.6 % (11.5-14.5); Red Blood Cell (RBC) Count 3.15 mill/uL (4.70-6.10); White Blood Cell (WBC) Count 8.5 thou/uL (4.8-10.8)
[2019-10-27 05:06] LABS: Anion Gap 7 mmol/L (10-20); BUN (Urea Nitrogen) 7 mg/dL (8.4-25.7); Calc. Creatinine Clearance 125 mL/min (70-130); Calcium 8.2 mg/dL (7.8-10.44); Carbon Dioxide 28 mmol/L (23-31); Chloride 104 mmol/L (98-107); Estimated GFR-MDRD Greater than 90; Glucose 138 mg/dL (80-115); Potassium 3.3 mmol/L (3.5-5.1); Sodium 136 mmol/L (136-145)
[2019-10-27] MEDS: Metoclopramide HCl 10 MG/2 ML VIAL IVP SCH ×3 (05:38→21:33)
[2019-10-27] MEDS: Budesonide 0.5 MG/2 ML NEB INH SCH ×2 (06:54→19:09)
[2019-10-27] MEDS: Cefepime 1 GM in Sodium Chloride 0.9% 100 ML IVPB SCH ×2 (07:54→20:37)
[2019-10-27] MEDS: Saccharomyces boulardii 250 MG CAP PO SCH (07:54)
[2019-10-27] MEDS: Nystatin 500,000 UNITS/5 ML UDCUP SSW SCH ×4 (07:54→20:37)
[2019-10-27] MEDS: Aspirin Chewable 81 MG TAB PER TUBE SCH (07:54)
[2019-10-27] MEDS: Pantoprazole 40 MG GRANULES PACKET PER TUBE SCH (07:55)
[2019-10-27] MEDS: Clopidogrel Bisulfate 75 MG TAB PO SCH (07:55)
[2019-10-27] MEDS: BIOTENE MOUTH SPRAY 44.3 ML MM SCH ×2 (07:56→20:37)
--- NOTE | 2019-10-27 08:04 | RAD ---
EXAM: Single view of the chest HISTORY: Pneumonia COMPARISON: 10/26/2019 FINDINGS: Single view of the chest shows an enlarged but stable cardiomediastinal silhouette. The li luis and tubes have been removed. The pacemaker is unchanged in position. Increased interstitial markings are present. There is no evidence of consolidation, mass, or pleural effusion. Degenerative changes are seen in the spine. IMPRESSION: Stable exam status post extubation.
[2019-10-27] MEDS: Polyethylene Glycol 3350 17 GM Packet PER TUBE SCH (08:28)
[2019-10-27] MEDS: Scopolamine 1.5 mg/72 hour Patch TD SCH (09:07)
--- NOTE | 2019-10-27 09:12 | PRG ---
DATE OF SERVICE: 10/27/2019 SUBJECTIVE: The patient was extubated yesterday, is now off mechanical ventilation. He has had a stroke in the past and does not really communicate at all. He does not appear to be in any distress. OBJECTIVE: VITAL SIGNS: His temperature 99.5, pulse 84, blood pressure 116/51, and O2 saturation 95%. HEENT: Remarkable bitemporal wasting. NECK: No JVD. LUNGS: Clear breath sounds. CARDIAC: S1 and S2, regular. ABDOMEN: Soft. EXTREMITIES: No overt edema. LABORATORY DATA: White blood cell count 8.5, hematocrit 27.6, and platelet count 272. Sodium 136, potassium 3.3, chloride 104, CO2 of 28, BUN 7, creatinine 0.5, and glucose 138. ASSESSMENT: 1. Status post torsades with arrest. 2. Status post respiratory failure, requiring mechanical ventilation. 3. Previous stroke. PLAN: The patient can be transferred back out to the stroke floor for continued rehab and cardiac monitoring. No further Pulmonary recommendations at this time. We would fully advise speaking with family obtaining a DNR as his prognosis is quite poor. Please call further if pulmonary assistance needed. Job ID: [id number]
--- NOTE | 2019-10-27 11:22 | PDOC.HOSPP ---
- Subjective Encounter Date: 10/27/19 Encounter Time: 11:22 Subjective: cc: f/u for in-hospital cardiac arrest, VDRF, septic shock, acute stroke, recurrent aspiration subjective: patient seen this afternoon. nonverbal. audible gurgling at bedside. nurse and RT called to resposition, oral suction, and deep suction patient. nurse notes no acute overnight events and notes frequent gurgling. reports patient started on PEG tube feeds at 60 mL/hr. reports still awaiting surrogate decision maker conversation today with ICU doctor about goals of care. - Objective Vital Signs & Weight: Vital Signs (12 hours) Pulse Resp Pulse Ox 10/27/19 10:39 80 12 98 10/27/19 07:07 98 10/27/19 06:54 99 10/27/19 06:52 81 12 99 10/27/19 02:12 95 10/27/19 02:11 80 17 95 Weight Admit Weight 145 lb 12.8 oz Weight 153 lb 10.595 oz Most Recent Monitor Data Heart Rate from ECG 81 NIBP 118/61 NIBP BP-Mean 80 Respiration from ECG 29 SpO2 96 I&O: 10/26/19 10/27/19 10/28/19 06:59 06:59 06:59 Intake Total 2567.9 3837.3 298 Output Total 1117 2225 520 Balance 1450.9 1612.3 -222 Result Diagrams: 10/27/19 03:50 10/27/19 03:50 Additional Labs: Accuchecks 10/27/19 10/26/19 10/26/19 11:07 21:38 17:40 POC Glucose 141 H 158 H 146 H 10/26/19 11:25 POC Glucose 124 H Hospitalist ROS - Review of Systems Other: UNABLE TO OBTAIN due to patient's mentation - Medication Medications: Active Medications Generic Name Dose Route Start Last Admin Trade Name Freq PRN Reason Stop Dose Admin Acetaminophen 650 mg 09/30/19 19:37 10/19/19 00:47 Tylenol [place] 650 mg Q4H PRN Administration Headache/Fever/Mild Pain (1-3) Acetaminophen 650 mg 10/24/19 03:32 10/24/19 19:29 Tylenol Elixir PO 650 mg Q4H PRN Administration Headache/Fever/Mild Pain (1-3) Albuterol/Ipratropium 3 ml 10/07/19 10:30 10/27/19 10:39 Duoneb NEB 3 ml [id number] JAYRO Administration Aspirin 81 mg 10/17/19 09:00 10/27/19 07:54 Aspirin Chewable PER TUBE 81 mg DAILY JAYRO Administration Atorvastatin Calcium 40 mg 09/30/19 21:00 10/26/19 20:29 Lipitor PO 40 mg HS JAYRO Administration Budesonide 0.5 mg 10/09/19 18:30 10/27/19 06:54 Pulmicort Neb Solution INH 0.5 mg BID-RT JAYRO Administration Clopidogrel Bisulfate 75 mg 10/03/19 09:00 10/27/19 07:55 Plavix PO 75 mg DAILY JAYRO Administration Cefepime HCl 1 gm/ Sodium 100 mls @ 200 mls/hr 10/24/19 21:00 10/27/19 07:54 Chloride IVPB 100 mls Q12HR JAYRO Administration Linezolid 600 mg/ Device 300 mls @ 150 mls/hr 10/24/19 12:00 10/26/19 23:35 IVPB 300 mls 1200,2359 JAYRO Administration Micafungin Sodium 100 mg/ 100 mls @ 100 mls/hr 10/24/19 11:00 10/26/19 11:28 Sodium Chloride IVPB 100 mls 1100 JAYRO Administration Insulin Human Lispro 0 units 10/01/19 19:43 10/26/19 21:36 Humalog SC 2 unit .MILD SLIDING SCALE PRN Administration MILD SLIDING SCALE Protocol Metoclopramide HCl 5 mg 10/19/19 14:00 10/27/19 05:38 Reglan IVP 5 mg Q8HR JAYRO Administration Miscellaneous Medication 0 ml 10/18/19 21:00 10/27/19 07:56 Biotene Moisturizing Mouth MM 1 spr BID JAYRO Administration Nystatin 500,000 units 10/13/19 09:00 10/27/19 07:54 Mycostatin SSW 500,000 units QID JAYRO Administration Ondansetron HCl 4 mg 09/30/19 19:37 10/01/19 06:50 Zofran IVP 4 mg Q6H PRN Administration Nausea/Vomiting Pantoprazole Sodium 40 mg 10/21/19 09:00 10/27/19 07:55 Protonix PER TUBE 40 mg DAILY JAYRO Administration Polyethylene Glycol 17 gm 10/19/19 09:00 10/27/19 08:28 Miralax PER TUBE Not Given DAILY JAYRO Saccharomyces Boulardii 250 mg 10/05/19 09:00 10/27/19 07:54 Florastor PO 250 mg DAILY JAYRO Administration Scopolamine 3 mg 10/18/19 10:39 10/27/19 09:07 Transderm Scop TD 3 mg Q3D JAYRO Administration Senna/Docusate Sodium 2 tab 09/30/19 19:37 10/16/19 15:05 Senokot S PO 2 tab BIDPRN PRN Administration Constipation Sertraline HCl 50 mg 10/01/19 09:00 10/27/19 07:54 Zoloft PO 50 mg DAILY JAYRO Administration Sodium Chloride 10 ml 09/30/19 19:40 10/23/19 10:37 Flush - Normal Saline IVF 10 ml PRN PRN Administration Saline Flush Tamsulosin HCl 0.4 mg 10/10/19 21:00 10/26/19 20:29 Flomax PO 0.4 mg HS JAYRO Administration Hosp A/P - Plan - Exam General Appearance: ill appearing General - other findings: elderly male somnolent with eyes closed, nonverbal, audible gurgling Eye - other findings: NCAT, eyes closed ENT - other findings: frontotemporal wasting, audible gurgling in mouth Heart: RRR, no murmur Heart - other findings: left chest wall pacemaker pocket Respiratory: no wheezes, coarse breath sounds with audible gurgling, no tachypnea, rhonchi Gastrointestinal: soft, non-tender, non-distended, normal bowel sounds, PEG tube noted Extremities: no cyanosis, no edema, right femoral TLC Skin: no obvious lesions MICROBIOLOGY: Blood cultures 10/04, 10/16, 10/22, 10/24 NGTD urine cultures 10/01 E. Coli urine cultures 10/24 NGTD Hosp A/P -- ASSESSMENT AND PLAN: In-hospital cardiac arrest 10/24/19 with Torsades s/p ROSC. Early 09/2019 TTE with LVEF 35-40%. Monitor electrolytes. Cardiology on consult. Ventilator dependent respiratory failure following cardiac arrest. s/p extubation 10/26/19. ICU team following. continue aspiration precautions. Septic shock likely due to recurrent aspiration pneumonia. Aspiration precautions. Continue oral suctioning. Off Levophed drip. Still has right femoral TLC and discontinue soon. . ID following and managing antibiotics with cefepime, Zyvox, Micafungin. Merrem discontinued. Recent blood cultures and urine cultures NGTD. noted concerns for recurrent aspiration and esophageal dilatation. Acute right cerebellar stroke. MRI brain results noted. continue secondary stroke prevention medications. UTI, treated History stroke History PPM DVT px check AM labs code status: full code. ICU doctor to discuss goals of care with surrogate today. agree with Poor prognosis. Dispo: downgrade to telemetry. poor prognosis
[2019-10-27] MEDS: Micafungin 100 MG in Sodium Chloride 0.9% 100 ML IVPB SCH (11:54)
--- NOTE | 2019-10-27 12:33 | PRG ---
DATE OF SERVICE: 10/27/2019 SUBJECTIVE: The patient is kept upright in bed, quite elevated head side of the bed. According to the nurse, he keeps coughing and suction has produced very thick yellow sputum, some blood mixed in. He is not having diarrhea. Has a triple-lumen in the right groin. OBJECTIVE: VITAL SIGNS: T-max 101.8 yesterday at 7 p.m., he is now 98. Heart rate is 80, respiratory rate is 16, O2 saturation 98. GENERAL: Keeps his eyes closed, does not interact with the examiner as noted previously. EXTREMITIES: Contracted extremities. LUNGS: With coarse breath sounds and rhonchi and some crackles particularly on the right side. CARDIAC: S1-S2, regular rate. ABDOMEN: Not distended. Gastrostomy tube in place and he has an indwelling Cadet catheter. I's and O's have been positive for the past many days around 1400 to 1600. SKIN: No areas of skin breakdown noted except for the left knee, there is a shallow abrasion. LABORATORY DATA: White cell count is 8.5, hemoglobin 9.4, and platelets 272. Creatinine 0.55. Microbiology with negative blood cultures from October 24. Urine culture no growth 48 hours. Repeat chest x-ray from the with vascular congestion, cardiomegaly. There is another x-ray from the this morning with enlarged but stable cardiomediastinal silhouette, increased interstitial markings but no obvious consolidation. ASSESSMENT AND DISCUSSION: Cerebrovascular accident x2, severe functional impairment, swallowing dysfunction, requiring gastrostomy tube feedings, weak cough reflex with evidence of recurrent aspiration, bilateral pneumonitis, probably aspiration pneumonia and catheter in the right groin. The patient continues to have intermittent temperature elevation. This could be related to persistence of aspiration and difficulty in clearing secretions with a resistant pathogen causing pneumonia. Of course, the catheter in the right groin is a concern and we will have to continue to monitor his blood cultures. He is on broad-spectrum coverage at this moment, has been on broad-spectrum coverage for a while and is now on cefepime, linezolid, and micafungin. Job ID: [id number]
[2019-10-27] MEDS: Linezolid 600 MG in Premix Bag 1 BAG IVPB SCH ×2 (13:37→23:34)
[2019-10-27] MEDS: Atorvastatin Calcium 40 MG TAB PO SCH (20:38)
[2019-10-27] MEDS: Tamsulosin HCl 0.4 MG CAP PO SCH (20:38)
[2019-10-28] MEDS: Metoclopramide HCl 10 MG/2 ML VIAL IVP SCH ×3 (06:02→21:55)
[2019-10-28] MEDS: Budesonide 0.5 MG/2 ML NEB INH SCH ×2 (07:03→18:42)
[2019-10-28] MEDS: Aspirin Chewable 81 MG TAB PER TUBE SCH (09:02)
[2019-10-28] MEDS: Cefepime 1 GM in Sodium Chloride 0.9% 100 ML IVPB SCH ×2 (09:02→20:30)
[2019-10-28] MEDS: Saccharomyces boulardii 250 MG CAP PO SCH (09:03)
[2019-10-28] MEDS: Clopidogrel Bisulfate 75 MG TAB PO SCH (09:03)
[2019-10-28] MEDS: Pantoprazole 40 MG GRANULES PACKET PER TUBE SCH (09:03)
[2019-10-28] MEDS: BIOTENE MOUTH SPRAY 44.3 ML MM SCH ×2 (09:03→20:30)
[2019-10-28] MEDS: Polyethylene Glycol 3350 17 GM Packet PER TUBE SCH (09:04)
[2019-10-28] MEDS: Nystatin 500,000 UNITS/5 ML UDCUP SSW SCH ×4 (09:15→20:30)
--- NOTE | 2019-10-28 10:52 | PDOC.HOSPP ---
- Subjective Encounter Date: 10/28/19 Encounter Time: 10:52 Subjective: cc: f/u for in-hospital cardiac arrest, VDRF, septic shock, acute stroke, recurrent aspiration subjective: patient seen this afternoon. nonverbal. audible gurgling at bedside. nurse notes patient otherwise nonverbal and not ineractive. notes surrogate decision maker has not stopped by. noted left femoral TLC has been removed but unclear when. - Objective Vital Signs & Weight: Vital Signs (12 hours) Temp Pulse Resp Pulse Ox 10/28/19 07:29 99 10/28/19 07:02 82 13 99 10/28/19 07:00 97.2 F L 10/28/19 02:48 80 16 98 Weight Admit Weight 145 lb 12.8 oz Weight 155 lb 3.287 oz Most Recent Monitor Data Heart Rate from ECG 80 NIBP 113/66 NIBP BP-Mean 81 Respiration from ECG 14 SpO2 97 I&O: 10/27/19 10/28/19 10/29/19 06:59 06:59 06:59 Intake Total 3837.3 2275 60 Output Total 2225 3235 420 Balance 1612.3 -960 -360 Result Diagrams: 10/27/19 03:50 10/27/19 03:50 Additional Labs: Accuchecks 10/28/19 10/28/19 10/27/19 10:04 03:53 21:35 POC Glucose 114 H 119 H 126 H 10/27/19 10/27/19 16:52 11:07 POC Glucose 122 H 141 H Hospitalist ROS - Review of Systems Other: ROS: limited as patient nonverbal and not communicative. pertinent positives per SUBJECTIVE; remainder ROS negative - Medication Medications: Active Medications Generic Name Dose Route Start Last Admin Trade Name Freq PRN Reason Stop Dose Admin Acetaminophen 650 mg 09/30/19 19:37 10/19/19 00:47 Tylenol [place] 650 mg Q4H PRN Administration Headache/Fever/Mild Pain (1-3) Acetaminophen 650 mg 10/24/19 03:32 10/24/19 19:29 Tylenol Elixir PO 650 mg Q4H PRN Administration Headache/Fever/Mild Pain (1-3) Albuterol/Ipratropium 3 ml 10/07/19 10:30 10/28/19 07:02 Duoneb NEB 3 ml [id number] JAYRO Administration Aspirin 81 mg 10/17/19 09:00 10/28/19 09:02 Aspirin Chewable PER TUBE 81 mg DAILY JAYRO Administration Atorvastatin Calcium 40 mg 09/30/19 21:00 10/27/19 20:38 Lipitor PO 40 mg HS JAYRO Administration Budesonide 0.5 mg 10/09/19 18:30 10/28/19 07:03 Pulmicort Neb Solution INH 0.5 mg BID-RT JAYRO Administration Clopidogrel Bisulfate 75 mg 10/03/19 09:00 10/28/19 09:03 Plavix PO 75 mg DAILY JAYRO Administration Cefepime HCl 1 gm/ Sodium 100 mls @ 200 mls/hr 10/24/19 21:00 10/28/19 09:02 Chloride IVPB 100 mls Q12HR JAYRO Administration Linezolid 600 mg/ Device 300 mls @ 150 mls/hr 10/24/19 12:00 10/27/19 23:34 IVPB 300 mls 1200,2359 JAYRO Administration Micafungin Sodium 100 mg/ 100 mls @ 100 mls/hr 10/24/19 11:00 10/27/19 11:54 Sodium Chloride IVPB 100 mls 1100 JAYRO Administration Insulin Human Lispro 0 units 10/01/19 19:43 10/26/19 21:36 Humalog SC 2 unit .MILD SLIDING SCALE PRN Administration MILD SLIDING SCALE Protocol Metoclopramide HCl 5 mg 10/19/19 14:00 10/28/19 06:02 Reglan IVP 5 mg Q8HR JAYRO Administration Miscellaneous Medication 0 ml 10/18/19 21:00 10/28/19 09:03 Biotene Moisturizing Mouth MM 1 spr BID JAYRO Administration Nystatin 500,000 units 10/13/19 09:00 10/28/19 09:15 Mycostatin SSW 500,000 units QID JAYRO Administration Ondansetron HCl 4 mg 09/30/19 19:37 10/01/19 06:50 Zofran IVP 4 mg Q6H PRN Administration Nausea/Vomiting Pantoprazole Sodium 40 mg 10/21/19 09:00 10/28/19 09:03 Protonix PER TUBE 40 mg DAILY JAYRO Administration Polyethylene Glycol 17 gm 10/19/19 09:00 10/28/19 09:04 Miralax PER TUBE Not Given DAILY JAYRO Saccharomyces Boulardii 250 mg 10/05/19 09:00 10/28/19 09:03 Florastor PO 250 mg DAILY JAYRO Administration Scopolamine 3 mg 10/18/19 10:39 10/27/19 09:07 Transderm Scop TD 3 mg Q3D JAYRO Administration Senna/Docusate Sodium 2 tab 09/30/19 19:37 10/16/19 15:05 Senokot S PO 2 tab BIDPRN PRN Administration Constipation Sertraline HCl 50 mg 10/01/19 09:00 10/28/19 09:03 Zoloft PO 50 mg DAILY JAYRO Administration Sodium Chloride 10 ml 09/30/19 19:40 10/23/19 10:37 Flush - Normal Saline IVF 10 ml PRN PRN Administration Saline Flush Tamsulosin HCl 0.4 mg 10/10/19 21:00 10/27/19 20:38 Flomax PO 0.4 mg HS JAYRO Administration Hosp A/P - Plan - Exam General Appearance: ill appearing General - other findings: elderly male somnolent with eyes closed, nonverbal, audible gurgling Eye - other findings: NCAT, eyes closed ENT - other findings: frontotemporal wasting, audible gurgling in mouth Heart: RRR, no murmur Heart - other findings: left chest wall pacemaker pocket Respiratory: no wheezes, coarse breath sounds with audible gurgling, no tachypnea, rhonchi Gastrointestinal: soft, non-tender, non-distended, normal bowel sounds, PEG tube noted Extremities: no cyanosis, no edema Skin: no obvious lesions MICROBIOLOGY: Blood cultures 10/04, 10/16, 10/22, 10/24 NGTD urine cultures 10/01 E. Coli urine cultures 10/24 NGTD Hosp A/P -- ASSESSMENT AND PLAN: In-hospital cardiac arrest 10/24/19 with Torsades s/p ROSC. Early 09/2019 TTE with LVEF 35-40%. Monitor electrolytes. Cardiology on consult. Ventilator dependent respiratory failure following cardiac arrest. s/p extubation 10/26/19. ICU team following. continue aspiration precautions. Septic shock likely due to recurrent aspiration pneumonia. Aspiration precautions. Continue oral suctioning. Off Levophed drip. right femoral TLC is out. afebrile for days. ID following and managing antibiotics with cefepime, Zyvox, Micafungin. Merrem discontinued. Recent blood cultures and urine cultures NGTD. noted concerns for recurrent aspiration and esophageal dilatation. Acute right cerebellar stroke. MRI brain results noted. continue secondary stroke prevention medications. UTI, treated History stroke History PPM DVT px code status: full code. await discussion with surrogate regarding goals of care. discharge planning to nursing facility. agree with Poor prognosis. Dispo: downgrade to telemetry. poor prognosis
[2019-10-28] MEDS: Micafungin 100 MG in Sodium Chloride 0.9% 100 ML IVPB SCH (11:24)
[2019-10-28] MEDS: Linezolid 600 MG in Premix Bag 1 BAG IVPB SCH ×2 (11:33→23:48)
[2019-10-28] MEDS: Atorvastatin Calcium 40 MG TAB PO SCH (20:30)
[2019-10-28] MEDS: Tamsulosin HCl 0.4 MG CAP PO SCH (20:30)
[2019-10-29] MEDS: Metoclopramide HCl 10 MG/2 ML VIAL IVP SCH ×3 (06:05→22:05)
[2019-10-29] MEDS: Budesonide 0.5 MG/2 ML NEB INH SCH ×2 (07:23→19:09)
--- NOTE | 2019-10-29 07:59 | PRG ---
DATE OF SERVICE: 10/29/2019 SUBJECTIVE: I was called by the nursing staff last night. The patient is having episodes of central apnea. The description sounds more like Jose Alberto-Muniz breathing. He had some secretions which were easily suctioned out and he is no longer requiring oxygen. OBJECTIVE: VITAL SIGNS: Temperature 99.3, pulse 80, blood pressure 120/74, sat 97%. HEENT: Unremarkable. NECK: No adenopathy or JVD. LUNGS: Fairly clear anteriorly. CARDIAC: S1, S2, regular. ABDOMEN: Soft. EXTREMITIES: No edema. ASSESSMENT: 1. Previous stroke with grossly compromised neurologic status. 2. Jose Alberto-Muniz respirations from previous stroke. 3. Previous torsades arrest. PLAN: This patient will need close watching with suctioning via nasal trumpet if needed. The central apnea is expected and should not be treated. Job ID: [id number]
[2019-10-29] MEDS: Cefepime 1 GM in Sodium Chloride 0.9% 100 ML IVPB SCH ×2 (09:47→22:05)
[2019-10-29] MEDS: Aspirin Chewable 81 MG TAB PER TUBE SCH (09:47)
[2019-10-29] MEDS: Pantoprazole 40 MG GRANULES PACKET PER TUBE SCH (09:47)
[2019-10-29] MEDS: Saccharomyces boulardii 250 MG CAP PO SCH (09:47)
[2019-10-29] MEDS: Polyethylene Glycol 3350 17 GM Packet PER TUBE SCH (09:48)
[2019-10-29] MEDS: BIOTENE MOUTH SPRAY 44.3 ML MM SCH ×2 (09:48→22:06)
[2019-10-29] MEDS: Clopidogrel Bisulfate 75 MG TAB PO SCH (09:48)
--- NOTE | 2019-10-29 11:05 | PDOC.HOSPP ---
- Subjective Encounter Date: 10/29/19 Encounter Time: 11:05 Subjective: cc: f/u for in-hospital cardiac arrest, VDRF, septic shock, acute stroke, recurrent aspiration subjective: patient seen at bedside in ICU. nonverbal with eyes closed. RN notes no new events. notes dietitian recommends increased tube feeds to 75 ml/ hr and noted that I decreased tube feeds to 30 ml/hr days ago for concerns of possible aspiration. discussed with patient's surrogate decision maker via telephone, Haseeb Jeromy, who notes that patient has siblings that live out of state and have not been recently involved in patient's care. Haseeb acknowledges he is surrogate decision maker but states he wants to make patient DNR and DNI as he knows this is what patient would want, but that he has placed multiple calls to the patient 's siblings last week and is awaiting for a callback to facilitate this process as smoothly as possible. Haseeb notes he has spoken to his own father about the difficult predicament he is in. reports he could not make it to the palliative care meeting last week but then never got a call back from anyone. - Objective Vital Signs & Weight: Vital Signs (12 hours) Temp Pulse Resp Pulse Ox 10/29/19 11:02 80 25 H 99 10/29/19 08:00 98.6 F 10/29/19 07:22 80 13 95 10/29/19 02:41 80 12 97 Weight Admit Weight 145 lb 12.8 oz Weight 139 lb 1.787 oz Most Recent Monitor Data Heart Rate from ECG 80 NIBP 120/67 NIBP BP-Mean 84 Respiration from ECG 13 SpO2 97 I&O: 10/28/19 10/29/19 10/30/19 06:59 06:59 06:59 Intake Total 2275 1766 Output Total 3235 1505 150 Balance -960 261 -150 Result Diagrams: 10/27/19 03:50 10/27/19 03:50 Additional Labs: Accuchecks 10/29/19 10/28/19 10/28/19 04:19 21:59 15:42 POC Glucose 102 119 H 119 H Hospitalist ROS - Review of Systems Other: ROS: unable to obtain due to patient's mentation. - Medication Medications: Active Medications Generic Name Dose Route Start Last Admin Trade Name Freq PRN Reason Stop Dose Admin Acetaminophen 650 mg 09/30/19 19:37 10/19/19 00:47 Tylenol MS 650 mg Q4H PRN Administration Headache/Fever/Mild Pain (1-3) Acetaminophen 650 mg 10/24/19 03:32 10/24/19 19:29 Tylenol Elixir PO 650 mg Q4H PRN Administration Headache/Fever/Mild Pain (1-3) Albuterol/Ipratropium 3 ml 10/07/19 10:30 10/29/19 11:02 Duoneb NEB 3 ml [id number] JAYRO Administration Aspirin 81 mg 10/17/19 09:00 10/29/19 09:47 Aspirin Chewable PER TUBE 81 mg DAILY JAYRO Administration Atorvastatin Calcium 40 mg 09/30/19 21:00 10/28/19 20:30 Lipitor PO 40 mg HS JAYRO Administration Budesonide 0.5 mg 10/09/19 18:30 10/29/19 07:23 Pulmicort Neb Solution INH 0.5 mg BID-RT JAYRO Administration Clopidogrel Bisulfate 75 mg 10/03/19 09:00 10/29/19 09:48 Plavix PO 75 mg DAILY JAYRO Administration Cefepime HCl 1 gm/ Sodium 100 mls @ 200 mls/hr 10/24/19 21:00 10/29/19 09:47 Chloride IVPB 100 mls Q12HR JAYRO Administration Linezolid 600 mg/ Device 300 mls @ 150 mls/hr 10/24/19 12:00 10/28/19 23:48 IVPB 300 mls 1200,2359 JAYRO Administration Micafungin Sodium 100 mg/ 100 mls @ 100 mls/hr 10/24/19 11:00 10/28/19 11:24 Sodium Chloride IVPB 100 mls 1100 JAYRO Administration Insulin Human Lispro 0 units 10/01/19 19:43 10/26/19 21:36 Humalog SC 2 unit .MILD SLIDING SCALE PRN Administration MILD SLIDING SCALE Protocol Metoclopramide HCl 5 mg 10/19/19 14:00 10/29/19 06:05 Reglan IVP 5 mg Q8HR JAYRO Administration Miscellaneous Medication 0 ml 10/18/19 21:00 10/29/19 09:48 Biotene Moisturizing Mouth MM 1 spr BID JAYRO Administration Nystatin 500,000 units 10/13/19 09:00 10/28/19 20:30 Mycostatin SSW 500,000 units QID JAYRO Administration Ondansetron HCl 4 mg 09/30/19 19:37 10/01/19 06:50 Zofran IVP 4 mg Q6H PRN Administration Nausea/Vomiting Pantoprazole Sodium 40 mg 10/21/19 09:00 10/29/19 09:47 Protonix PER TUBE 40 mg DAILY JAYRO Administration Polyethylene Glycol 17 gm 10/19/19 09:00 10/29/19 09:48 Miralax PER TUBE Not Given DAILY [facility] Saccharomyces Boulardii 250 mg 10/05/19 09:00 10/29/19 09:47 Florastor PO 250 mg DAILY JAYRO Administration Scopolamine 3 mg 10/18/19 10:39 10/27/19 09:07 Transderm Scop TD 3 mg Q3D JAYRO Administration Senna/Docusate Sodium 2 tab 09/30/19 19:37 10/16/19 15:05 Senokot S PO 2 tab BIDPRN PRN Administration Constipation Sertraline HCl 50 mg 10/01/19 09:00 10/29/19 09:48 Zoloft PO 50 mg DAILY JAYRO Administration Sodium Chloride 10 ml 09/30/19 19:40 10/23/19 10:37 Flush - Normal Saline IVF 10 ml PRN PRN Administration Saline Flush Tamsulosin HCl 0.4 mg 10/10/19 21:00 10/28/19 20:30 Flomax PO 0.4 mg HS JAYRO Administration Hosp A/P - Plan - Exam General Appearance: ill appearing, restless General - other findings: elderly male somnolent with eyes closed, nonverbal, audible gurgling Eye - other findings: NCAT, eyes closed ENT - other findings: frontotemporal wasting, audible gurgling in mouth Heart: RRR, no murmur Heart - other findings: left chest wall pacemaker pocket Respiratory: no wheezes, coarse breath sounds with audible gurgling, no tachypnea, rhonchi Gastrointestinal: soft, non-tender, non-distended, normal bowel sounds, PEG tube noted Extremities: no cyanosis, no edema Skin: no obvious lesions MICROBIOLOGY: Blood cultures 10/04, 10/16, 10/22, 10/24 NGTD urine cultures 10/01 E. Coli urine cultures 10/24 NGTD Hosp A/P -- ASSESSMENT AND PLAN: In-hospital cardiac arrest 10/24/19 with Torsades s/p ROSC. Early 09/2019 TTE with LVEF 35-40%. Monitor electrolytes. Cardiology on consult. Ventilator dependent respiratory failure following cardiac arrest. s/p extubation 10/26/19. ICU team following. continue aspiration precautions and frequent orotracheal suctioning. noted component of central apnea contributing to this. Septic shock likely due to recurrent aspiration pneumonia. Aspiration precautions. Continue oral suctioning. Off Levophed drip. right femoral TLC is out. afebrile for days. ID following and managing antibiotics with cefepime, Zyvox, Micafungin. s/p IV Merrem which has been discontinued. Recent blood cultures and urine cultures NGTD. noted concerns for recurrent aspiration and esophageal dilatation. Acute right cerebellar stroke. MRI brain results noted. continue secondary stroke prevention medications. UTI, treated History stroke History PPM DVT px code status: full code. discussed with patient's surrogate decision maker today via telephone, Haseeb Pinzon, who notes that patient has siblings that live out of state who have not been recently involved in patient's care. Haseeb acknowledges he is surrogate decision maker but states he wants to make patient DNR and DNI after speaking with patient's siblings. Haseeb states patient would not want to be in this condition and would want to be DNR and DNI. Haseeb says he has placed multiple calls to the patient's siblings last week and is awaiting for a callback to facilitate this process as smoothly as possible. Haseeb notes he has spoken to his own father about the difficult predicament he is in. reports he could not make it to the palliative care meeting last week but then never got a call back from anyone. await discussion with surrogate regarding goals of care. discharge planning to nursing facility. agree with Poor prognosis. Dispo: downgrade to telemetry once code status addressed. poor prognosis
[2019-10-29] MEDS: Nystatin 500,000 UNITS/5 ML UDCUP SSW SCH ×4 (12:56→22:02)
[2019-10-29] MEDS: Linezolid 600 MG in Premix Bag 1 BAG IVPB SCH (12:57)
[2019-10-29] MEDS: Micafungin 100 MG in Sodium Chloride 0.9% 100 ML IVPB SCH (12:59)
[2019-10-29] MEDS: Tamsulosin HCl 0.4 MG CAP PO SCH (22:04)
[2019-10-29] MEDS: Atorvastatin Calcium 40 MG TAB PO SCH (22:04)
[2019-10-29] MEDS: Acetaminophen 650 MG/20.3 ML UDCUP PO PRN (22:04)
[2019-10-30] MEDS: Linezolid 600 MG in Premix Bag 1 BAG IVPB SCH ×3 (00:45→11:49)
[2019-10-30] MEDS: Metoclopramide HCl 10 MG/2 ML VIAL IVP SCH ×3 (06:39→21:04)
[2019-10-30] MEDS: Budesonide 0.5 MG/2 ML NEB INH SCH ×2 (06:40→18:14)
[2019-10-30] MEDS: Cefepime 1 GM in Sodium Chloride 0.9% 100 ML IVPB SCH ×2 (09:09→21:04)
[2019-10-30] MEDS: Saccharomyces boulardii 250 MG CAP PO SCH (09:10)
[2019-10-30] MEDS: Clopidogrel Bisulfate 75 MG TAB PO SCH (09:10)
[2019-10-30] MEDS: Nystatin 500,000 UNITS/5 ML UDCUP SSW SCH ×4 (09:11→21:04)
[2019-10-30] MEDS: BIOTENE MOUTH SPRAY 44.3 ML MM SCH ×2 (09:11→21:05)
[2019-10-30] MEDS: Aspirin Chewable 81 MG TAB PER TUBE SCH (09:11)
[2019-10-30] MEDS: Polyethylene Glycol 3350 17 GM Packet PER TUBE SCH (09:11)
[2019-10-30] MEDS: Pantoprazole 40 MG GRANULES PACKET PER TUBE SCH (09:11)
[2019-10-30] MEDS: Scopolamine 1.5 mg/72 hour Patch TD SCH (10:30)
[2019-10-30] MEDS: Micafungin 100 MG in Sodium Chloride 0.9% 100 ML IVPB SCH (10:31)
--- NOTE | 2019-10-30 14:14 | PDOC.EVN ---
Event Note - Event Note Event Note: [id number] progress
[2019-10-30] MEDS: Atorvastatin Calcium 40 MG TAB PO SCH (21:04)
[2019-10-30] MEDS: Tamsulosin HCl 0.4 MG CAP PO SCH (21:04)
[2019-10-31] MEDS: Linezolid 600 MG in Premix Bag 1 BAG IVPB SCH ×3 (02:21→23:10)
[2019-10-31] MEDS: Metoclopramide HCl 10 MG/2 ML VIAL IVP SCH ×3 (05:31→23:10)
[2019-10-31] MEDS: Budesonide 0.5 MG/2 ML NEB INH SCH ×2 (06:39→19:09)
[2019-10-31] MEDS: Cefepime 1 GM in Sodium Chloride 0.9% 100 ML IVPB SCH ×2 (09:40→21:42)
[2019-10-31] MEDS: Nystatin 500,000 UNITS/5 ML UDCUP SSW SCH ×4 (09:40→21:42)
[2019-10-31] MEDS: Polyethylene Glycol 3350 17 GM Packet PER TUBE SCH (09:42)
[2019-10-31] MEDS: Pantoprazole 40 MG GRANULES PACKET PER TUBE SCH (09:42)
[2019-10-31] MEDS: Aspirin Chewable 81 MG TAB PER TUBE SCH (09:42)
[2019-10-31] MEDS: Clopidogrel Bisulfate 75 MG TAB PO SCH (09:42)
[2019-10-31] MEDS: Saccharomyces boulardii 250 MG CAP PO SCH (09:42)
[2019-10-31] MEDS: BIOTENE MOUTH SPRAY 44.3 ML MM SCH ×2 (09:44→21:42)
[2019-10-31] MEDS: Micafungin 100 MG in Sodium Chloride 0.9% 100 ML IVPB SCH (11:29)
--- NOTE | 2019-10-31 12:37 | PDOC.EVN ---
Event Note - Event Note Event Note: [id number] progress note dictated
--- NOTE | 2019-10-31 12:54 | PRG ---
DATE OF SERVICE: 10/31/2019 COMPLAINTS: Followup for acute stroke, recurrent aspiration, septic shock, cardiac arrest. SUBJECTIVE: The patient is seen at bedside. Nonverbal. Not following commands. Receiving tube feeds through the PEG tube. PHYSICAL EXAMINATION: GENERAL: The patient is nonverbal. VITAL SIGNS: Temperature is 99, pulse is 79, respiratory rate is 20, blood pressure 129/61, oxygen saturation 97% on 2 L/minute nasal cannula. HEAD AND NECK: Normocephalic, atraumatic. NECK: Supple. CHEST: Coarse bilateral breath sounds. HEART: S1, S2. Regular. ABDOMEN: Soft. Bowel sounds present. NEURO: The patient is nonverbal and not following commands. ASSESSMENT AND PLAN: 1. In hospital, cardiac arrest with torsades, status post return of spontaneous circulation. 2. Acute respiratory failure, resolved, status post extubation. 3. Septic shock, likely due to recurrent aspiration pneumonia, continue IV antibiotics as per Infectious Disease. 4. Acute right cerebellar stroke. Continue secondary stroke prevention. 5. Urinary tract infection, being treated. 6. Deep vein thrombosis prophylaxis as appropriate. 7. Discharge planning to nursing facility. 8. Overall prognosis is poor. Job ID: [id number]
[2019-10-31] MEDS: Tamsulosin HCl 0.4 MG CAP PO SCH (21:42)
[2019-10-31] MEDS: Atorvastatin Calcium 40 MG TAB PO SCH (21:42)
[2019-11-01] MEDS: Acetaminophen 650 MG/20.3 ML UDCUP PO PRN (01:38)
[2019-11-01] MEDS: Metoclopramide HCl 10 MG/2 ML VIAL IVP SCH ×3 (05:47→21:09)
[2019-11-01] MEDS: Budesonide 0.5 MG/2 ML NEB INH SCH ×2 (08:13→18:27)
[2019-11-01] MEDS: Pantoprazole 40 MG GRANULES PACKET PER TUBE SCH (09:28)
[2019-11-01] MEDS: Aspirin Chewable 81 MG TAB PER TUBE SCH (09:28)
[2019-11-01] MEDS: Saccharomyces boulardii 250 MG CAP PO SCH (09:28)
[2019-11-01] MEDS: Clopidogrel Bisulfate 75 MG TAB PO SCH (09:29)
[2019-11-01] MEDS: Polyethylene Glycol 3350 17 GM Packet PER TUBE SCH (09:29)
[2019-11-01] MEDS: Cefepime 1 GM in Sodium Chloride 0.9% 100 ML IVPB SCH ×2 (09:29→21:10)
[2019-11-01] MEDS: Nystatin 500,000 UNITS/5 ML UDCUP SSW SCH ×5 (09:29→21:25)
[2019-11-01] MEDS: BIOTENE MOUTH SPRAY 44.3 ML MM SCH ×2 (09:31→21:13)
[2019-11-01] MEDS: Micafungin 100 MG in Sodium Chloride 0.9% 100 ML IVPB SCH (11:24)
--- NOTE | 2019-11-01 12:06 | PDOC.EVN ---
Event Note - Event Note Event Note: [id number] Progress
--- NOTE | 2019-11-01 12:34 | PRG ---
DATE OF SERVICE: 11/01/2019 The patient is being followed for acute stroke, recurrent aspiration, sepsis/septic shock, cardiac arrest. SUBJECTIVE: The patient is seen at the bedside. Nonverbal. Not following commands. Feeding tube feeds through the PEG tube. PHYSICAL EXAMINATION: GENERAL: The patient is nonverbal. VITAL SIGNS: Temperature 97.8, pulse is 85, respiratory rate 18, blood pressure is 125/73. HEAD: Normocephalic, atraumatic. NECK: Supple. No JVD. CHEST: Coarse bilateral breath sounds. HEART: S1, S2. Regular. ABDOMEN: Soft. Bowel sounds present. NEURO: The patient is nonverbal and not following commands. PSYCH: Unable to assess. MEDICATIONS: Reviewed. ASSESSMENT AND PLAN: 1. In-hospital cardiac arrest with torsades, status post return of spontaneous circulation. 2. Acute respiratory failure, resolved, status post extubation. 3. Septic shock, likely to recurrent aspiration pneumonia, continue IV antibiotics as per Infectious Disease. 4. Acute right cerebellar stroke. Continue secondary stroke prevention. 5. Urinary tract infection, being treated. 6. Deep venous thrombosis prophylaxis as appropriate. 7. Discharge planning to nursing facility. There has been trial to reach the family regarding the patient care and discharge planning. 8. Overall prognosis is poor. Job ID: [id number]
[2019-11-01] MEDS: Linezolid 600 MG in Premix Bag 1 BAG IVPB SCH (12:39)
[2019-11-01] MEDS: Tamsulosin HCl 0.4 MG CAP PO SCH (21:09)
[2019-11-01] MEDS: Atorvastatin Calcium 40 MG TAB PO SCH (21:09)
[2019-11-02] MEDS: Linezolid 600 MG in Premix Bag 1 BAG IVPB SCH ×2 (00:22→11:51)
[2019-11-02] MEDS: Acetaminophen 650 MG/20.3 ML UDCUP PO PRN ×2 (02:21→09:28)
[2019-11-02] MEDS: Metoclopramide HCl 10 MG/2 ML VIAL IVP SCH ×3 (05:36→21:14)
[2019-11-02] MEDS: Budesonide 0.5 MG/2 ML NEB INH SCH ×2 (08:08→18:27)
[2019-11-02] MEDS: Aspirin Chewable 81 MG TAB PER TUBE SCH (09:27)
[2019-11-02] MEDS: Saccharomyces boulardii 250 MG CAP PO SCH (09:27)
[2019-11-02] MEDS: Pantoprazole 40 MG GRANULES PACKET PER TUBE SCH (09:27)
[2019-11-02] MEDS: Cefepime 1 GM in Sodium Chloride 0.9% 100 ML IVPB SCH (09:27)
[2019-11-02] MEDS: Nystatin 500,000 UNITS/5 ML UDCUP SSW SCH ×4 (09:28→21:15)
[2019-11-02] MEDS: Polyethylene Glycol 3350 17 GM Packet PER TUBE SCH (09:28)
[2019-11-02] MEDS: Clopidogrel Bisulfate 75 MG TAB PO SCH (09:28)
[2019-11-02] MEDS: BIOTENE MOUTH SPRAY 44.3 ML MM SCH ×2 (11:07→21:15)
[2019-11-02] MEDS: Micafungin 100 MG in Sodium Chloride 0.9% 100 ML IVPB SCH (11:08)
[2019-11-02] MEDS: Scopolamine 1.5 mg/72 hour Patch TD SCH (11:08)
--- NOTE | 2019-11-02 11:25 | PDOC.EVN ---
Event Note - Event Note Event Note: [id number] progress
--- NOTE | 2019-11-02 11:42 | PRG ---
DATE OF SERVICE: SUBJECTIVE: The patient is nonverbal. The patient has a history of stroke, admitted with new acute cerebellar stroke, also septic shock due to recurrent aspiration and also had in-hospital cardiac arrest due to ventricular arrhythmia. The patient is off pressors, extubated. Currently, the patient is nonverbal, does not answer questions. VITAL SIGNS: Blood pressure 105/59, temperature 99.5, pulse 80, respiratory rate , and pulse oximetry 98%. REVIEW OF SYSTEMS: Unable to obtain due to the patient's mentation. OBJECTIVE: VITAL SIGNS: As above. GENERAL: Does not follow commands. HEAD: Normocephalic and atraumatic. NECK: Supple. CHEST: Coarse bilateral breath sounds. HEART: Irregular. ABDOMEN: Soft. Bowel sounds present. NEUROLOGIC: Does not follow commands. Unable to assess. EXTREMITIES: No clubbing or cyanosis. CURRENT MEDICATIONS: Reviewed. ASSESSMENT: 1. In-hospital cardiac arrest on 10/24/2019 due to torsades return___ spontaneous circulation. The patient had a transthoracic echo with left ventricular ejection fraction of 35% to 40%. Acute respiratory failure, status post extubation. 2. Septic shock, likely secondary to recurrent aspiration pneumonia. Continue aspiration precautions, continue with oral suctioning. Continue IV antibiotics as per Infectious Disease. The patient is on cefepime, micafungin, and Zyvox. 3. Acute right cerebellar stroke. Continue secondary stroke prevention. 4. Urinary tract infection, treated. 5. Deep venous thrombosis prophylaxis, appropriate. 6. Code status, full code 7. Overall prognosis is poor. Job ID: [id number] [facility]
--- NOTE | 2019-11-02 11:49 | PRG ---
DATE OF SERVICE: 11/02/2019 SUBJECTIVE: The patient is being followed for acute stroke, recurrent aspiration, sepsis/septic shock, cardiac arrest. The patient is seen at the bedside. Nonverbal. Not following commands. Feeding tube through the PEG tube. The feeding tube has been slowly increasing to 60 mL/h. The patient had a low-grade temperature of 100.5. OBJECTIVE: GENERAL: The patient is nonverbal. VITAL SIGNS: Temperature is 100.5, pulse is 80, respiratory rate 16, pulse oximetry 97%. Blood pressure 116/56. HEAD: Normocephalic. NECK: Supple. No JVD. CHEST: Coarse bilateral breath sounds. HEART: S1, S2. Regular. ABDOMEN: Soft, bowel sounds present, PEG tube in place. NEURO: Patient is nonverbal, not following commands. PSYCH: Unable to assess. MEDICATIONS: Reviewed. ASSESSMENT AND PLAN: 1. In-hospital cardiac arrest with torsades, status post return of spontaneous circulation. 2. Acute respiratory failure, resolved, status post extubation. 3. Septic shock, likely to recurrent aspiration pneumonia, continue IV antibiotics and antifungals as per Infectious Disease. 4. Acute right cerebellar stroke. Continue secondary stroke prevention. 5. Urinary tract infection, being treated. 6. Deep venous thrombosis prophylaxis as appropriate. 7. Discharge planning to nursing facility. The trial is to reach the family to get better regarding the patient care and discharge planning underway. 8. Overall prognosis poor. 9. Code status, full resuscitation. Job ID: [id number]
--- NOTE | 2019-11-02 15:10 | PRG ---
DATE OF SERVICE: SUBJECTIVE: Mr. Munoz is transferred to the Neuro Unit. He is at more than 30 degrees in bed with elevation of the head side. There is obvious active aspiration. The suction has yielded content that this is very similar to the feedings that are going in his gastric area. His residuals are around 150 mL and he is still having intermittent temp elevation up to 101 from time to time. OBJECTIVE: VITAL SIGNS: BP, pulse 71, respirations 12, and O2 sat 100. HEENT: He does not open his eyes spontaneously. Pupils are equal. LUNGS: With coarse crackles in both right and left side. He cannot cough and I did not see him coughing despite the obvious presence of large amounts of aspirated secretion in the large airways. HEART: S1 and S2 regular rate. ABDOMEN: Soft and G-tube in place and indwelling Cadet catheter. LABORATORY DATA: White cell count 8.5, hemoglobin 9.4, platelets 272, and creatinine 0.55. Microbiology with negative blood and urine cultures since . The last chest x-ray is from the , which shows increased interstitial markings. ASSESSMENT AND DISCUSSION: Cerebrovascular accident x2, severe functional impairment, swallowing dysfunction with active aspiration despite all the measures taken to prevent it, recurrent episodes of pneumonitis with fever. Catheter in the right groin has been removed. The patient had one temp elevation. At this moment, we will discontinue his antimicrobial therapy and monitor. Evidently, he will continue to have those complications and febrile episodes. It is somewhat futile to intervene in the absence of improvement in the gastric residuals and aspiration. Job ID: [id number] [facility]
[2019-11-02] MEDS: Atorvastatin Calcium 40 MG TAB PO SCH (21:14)
[2019-11-02] MEDS: Tamsulosin HCl 0.4 MG CAP PO SCH (21:14)
[2019-11-03 02:20] LABS: #Basophils 0.1 thou/uL (0.0-0.2); #Eosinphils 0.4 thou/uL (0.0-0.7); #Lymphocytes 1.6 thou/uL (1.20-3.40); #Monocytes 0.6 thou/uL (0.11-0.59); #Neutrophils 6.6 thou/uL (1.40-6.50); %Basophils 0.8 % (0.0-1.0); %Eosinophils 4.4 % (0.0-10.0); %Lymphocytes 17.1 % (21.0-51.0); %Neutrophils 71.7 % (42.0-75.0); Hemoglobin 10.5 g/dL (14.0-18.0); Mean Corpuscular HGB CONC 32.8 g/dL (32.0-36.0); Mean Corpuscular Hemoglobin 28.4 pg (27.0-31.0); Mean Corpuscular Volume 86.5 fL (78.0-98.0); Mean Platelet Volume 6.1 fL (7.4-10.4); Platelet Count 428 thou/uL (130-400); RBC Distribution Width 12.4 % (11.5-14.5); White Blood Cell (WBC) Count 9.2 thou/uL (4.8-10.8)
[2019-11-03 02:32] LABS: Anion Gap 10 mmol/L (10-20); BUN (Urea Nitrogen) 11 mg/dL (8.4-25.7); Calc. Creatinine Clearance 118 mL/min (70-130); Calcium 8.9 mg/dL (7.8-10.44); Carbon Dioxide 30 mmol/L (23-31); Chloride 101 mmol/L (98-107); Estimated GFR-MDRD Greater than 90; Glucose 114 mg/dL (80-115); Magnesium 1.9 mg/dL (1.6-2.6); Potassium 4.3 mmol/L (3.5-5.1); Sodium 137 mmol/L (136-145)
[2019-11-03] MEDS: Budesonide 0.5 MG/2 ML NEB INH SCH ×2 (06:14→18:18)
[2019-11-03] MEDS: Metoclopramide HCl 10 MG/2 ML VIAL IVP SCH ×3 (06:31→21:56)
[2019-11-03] MEDS: Clopidogrel Bisulfate 75 MG TAB PO SCH (08:50)
[2019-11-03] MEDS: Saccharomyces boulardii 250 MG CAP PO SCH (08:51)
[2019-11-03] MEDS: BIOTENE MOUTH SPRAY 44.3 ML MM SCH ×2 (08:51→21:55)
[2019-11-03] MEDS: Polyethylene Glycol 3350 17 GM Packet PER TUBE SCH (08:51)
[2019-11-03] MEDS: Aspirin Chewable 81 MG TAB PER TUBE SCH (08:51)
[2019-11-03] MEDS: Nystatin 500,000 UNITS/5 ML UDCUP SSW SCH ×4 (08:51→21:55)
[2019-11-03] MEDS: Pantoprazole 40 MG GRANULES PACKET PER TUBE SCH (08:51)
--- NOTE | 2019-11-03 18:32 | PRG ---
DATE OF SERVICE: 11/03/2019 HISTORY OF PRESENT ILLNESS: The patient has struggled with aspiration pneumonia following right CVA and cardiac arrest with subsequent septic shock and UTI. Has largely been able to improve respiratory status to 2 L nasal cannula, however, continues to aspirate, which is not likely to be improved with simple tube feeds. Even though the patient continues to have low-grade temperatures, Dr. Reynolds discontinued antibiotics yesterday. Nursing staff reports that he had approximately 12-14 beats of V-tach overnight with normal electrolytes this morning. The patient is pending placement at [facility] currently for continued rehab services. Review of vital signs; temperature is 98.3, pulse of 80, respiratory rate of 14, oxygen saturation on 2 L nasal cannula is 99, and blood pressure of 124/60. LABORATORY DATA: White blood cell count of 9.2, hemoglobin of 10.5, platelet count of 428 acutely, but yesterday was 272. Sodium of 137, potassium of 4.3, creatinine of 0.5, glucose of 114. Only a urine culture during the patient's hospitalization has resulted positive E coli back on October 01; repeat cultures on the did not grow anything out. PHYSICAL EXAMINATION: GENERAL/HEENT: The patient is currently nonverbal, but head is otherwise normocephalic, nasal cannula in place, atraumatic. NECK: Supple. HEART: Regular rate and rhythm at the time of exam. No murmurs are auscultated. LUNGS: Coarse bronchial breath sounds bilaterally throughout. ABDOMEN: Soft. PEG tube in place. EXTREMITIES: Lower extremities without cyanosis or edema. PSYCHIATRIC: Given the patient's mental status, unable to assess. ASSESSMENT AND PLAN: The patient remains with metabolic encephalopathy and aspiration pneumonia with resolved urinary tract infection, improving deficits although still remain from right cerebrovascular accident and septic shock resulting in cardiac arrest during this hospitalization. Cardiology was notified of beats of ventricular tachycardia, but did not want to make any medication changes. The patient is currently on 81 mg aspirin, 40 mg atorvastatin, Plavix 75 mg, sliding scale insulin, p.r.n. hydralazine for hypertension, Nystatin swish and spit but rather per Bowman water protocol, Protonix 40 mg per tube, MiraLAX daily 17 g, scopolamine patch for nausea, 50 mg of Zoloft daily, and Flomax 0.4 at bedtime. We will await as above for [facility] placement possibly early start of next week. We will continue to follow periodically patient's electrolytes and cell counts. Monitor for fevers as per Infectious Disease recommendations. Job ID: [id number]
[2019-11-03] MEDS: Tamsulosin HCl 0.4 MG CAP PO SCH (21:55)
[2019-11-03] MEDS: Atorvastatin Calcium 40 MG TAB PO SCH (21:55)
[2019-11-04 05:18] LABS: #Eosinphils 0.3 thou/uL (0.0-0.7); #Lymphocytes 1.8 thou/uL (1.20-3.40); #Monocytes 0.7 thou/uL (0.11-0.59); #Neutrophils 6.5 thou/uL (1.40-6.50); %Basophils 0.5 % (0.0-1.0); %Eosinophils 3.6 % (0.0-10.0); %Lymphocytes 19.4 % (21.0-51.0); %Monocytes 7.1 % (0.0-10.0); %Neutrophils 69.4 % (42.0-75.0); Hemoglobin 10.9 g/dL (14.0-18.0); Mean Corpuscular HGB CONC 34.6 g/dL (32.0-36.0); Mean Corpuscular Hemoglobin 30.3 pg (27.0-31.0); Mean Corpuscular Volume 87.6 fL (78.0-98.0); Mean Platelet Volume 6.2 fL (7.4-10.4); Platelet Count 441 thou/uL (130-400); RBC Distribution Width 12.5 % (11.5-14.5); Red Blood Cell (RBC) Count 3.58 mill/uL (4.70-6.10); White Blood Cell (WBC) Count 9.3 thou/uL (4.8-10.8)
[2019-11-04] MEDS: Metoclopramide HCl 10 MG/2 ML VIAL IVP SCH ×2 (05:22→13:47)
[2019-11-04 05:37] LABS: ALT (SGPT) 23 U/L (8-55); AST (SGOT) 27 U/L (5-34); Alkaline Phosphatase 125 U/L (40-110); Anion Gap 12 mmol/L (10-20); BUN (Urea Nitrogen) 15 mg/dL (8.4-25.7); Bilirubin, Total 0.3 mg/dL (0.2-1.2); Calc. Creatinine Clearance 115 mL/min (70-130); Calcium 9.1 mg/dL (7.8-10.44); Carbon Dioxide 30 mmol/L (23-31); Chloride 98 mmol/L (98-107); Estimated GFR-MDRD Greater than 90; Globulin 3.6 g/dL (2.4-3.5); Glucose 125 mg/dL (80-115); Potassium 4.5 mmol/L (3.5-5.1); Protein, Total 6.6 g/dL (5.8-8.1); Sodium 135 mmol/L (136-145)
[2019-11-04] MEDS: Budesonide 0.5 MG/2 ML NEB INH SCH ×2 (06:59→18:27)
--- NOTE | 2019-11-04 09:16 | PDOC.HOSPP ---
- Subjective Encounter Date: 11/04/19 Encounter Time: 08:50 Subjective: Responsive only to pain.. - Objective Vital Signs & Weight: Vital Signs (12 hours) Temp Pulse Resp BP Pulse Ox 11/04/19 07:37 98.9 F 80 12 134/68 94 L 11/04/19 06:59 79 16 11/04/19 04:00 98.4 F 80 16 136/75 94 L 11/04/19 02:15 82 16 11/04/19 00:00 98.0 F 80 16 119/66 93 L 11/03/19 22:53 81 12 Weight Admit Weight 145 lb 12.8 oz Weight 156 lb 12.8 oz Most Recent Monitor Data Heart Rate from ECG 80 NIBP 118/62 NIBP BP-Mean 80 Respiration from ECG 10 SpO2 97 I&O: 11/03/19 11/04/19 11/05/19 06:59 06:59 06:59 Intake Total 1850 1030 Output Total 1525 1000 Balance 325 30 Result Diagrams: 11/04/19 05:02 11/04/19 05:02 Additional Labs: Accuchecks 11/04/19 11/04/19 11/03/19 05:44 00:46 16:28 POC Glucose 141 H 152 H 126 H 11/03/19 09:53 POC Glucose 112 H Hospitalist ROS - Medication Medications: Active Medications Generic Name Dose Route Start Last Admin Trade Name Freq PRN Reason Stop Dose Admin Acetaminophen 650 mg 09/30/19 19:37 10/19/19 00:47 Tylenol MS 650 mg Q4H PRN Administration Headache/Fever/Mild Pain (1-3) Acetaminophen 650 mg 10/24/19 03:32 11/02/19 09:28 Tylenol Elixir PO 650 mg Q4H PRN Administration Headache/Fever/Mild Pain (1-3) Albuterol/Ipratropium 3 ml 10/07/19 10:30 11/04/19 06:59 Duoneb NEB 3 ml [id number] JAYRO Administration Aspirin 81 mg 10/17/19 09:00 11/03/19 08:51 Aspirin Chewable PER TUBE 81 mg DAILY JAYRO Administration Atorvastatin Calcium 40 mg 09/30/19 21:00 11/03/19 21:55 Lipitor PO 40 mg HS JAYRO Administration Budesonide 0.5 mg 10/09/19 18:30 11/04/19 06:59 Pulmicort Neb Solution INH 0.5 mg BID-RT JAYRO Administration Clopidogrel Bisulfate 75 mg 10/03/19 09:00 11/03/19 08:50 Plavix PO 75 mg DAILY JAYRO Administration Insulin Human Lispro 0 units 10/01/19 19:43 10/26/19 21:36 Humalog SC 2 unit .MILD SLIDING SCALE PRN Administration MILD SLIDING SCALE Protocol Metoclopramide HCl 5 mg 10/19/19 14:00 11/04/19 05:22 Reglan IVP 5 mg Q8HR JAYRO Administration Miscellaneous Medication 0 ml 10/18/19 21:00 11/03/19 21:55 Biotene Moisturizing Mouth MM 1 spr BID JAYRO Administration Nystatin 500,000 units 10/13/19 09:00 11/03/19 21:55 Mycostatin SSW 500,000 units QID JAYRO Administration Ondansetron HCl 4 mg 09/30/19 19:37 10/01/19 06:50 Zofran IVP 4 mg Q6H PRN Administration Nausea/Vomiting Pantoprazole Sodium 40 mg 10/21/19 09:00 11/03/19 08:51 Protonix PER TUBE 40 mg DAILY JAYRO Administration Polyethylene Glycol 17 gm 10/19/19 09:00 11/03/19 08:51 Miralax PER TUBE 17 gm DAILY JAYRO Administration Saccharomyces Boulardii 250 mg 10/05/19 09:00 11/03/19 08:51 Florastor PO 250 mg DAILY JAYRO Administration Scopolamine 3 mg 10/18/19 10:39 11/02/19 11:08 Transderm Scop TD 3 mg Q3D JAYRO Administration Senna/Docusate Sodium 2 tab 09/30/19 19:37 10/16/19 15:05 Senokot S PO 2 tab BIDPRN PRN Administration Constipation Sertraline HCl 50 mg 10/01/19 09:00 11/03/19 08:50 Zoloft PO 50 mg DAILY JAYRO Administration Sodium Chloride 10 ml 09/30/19 19:40 11/01/19 21:14 Flush - Normal Saline IVF 10 ml PRN PRN Administration Saline Flush Tamsulosin HCl 0.4 mg 10/10/19 21:00 11/03/19 21:55 Flomax PO 0.4 mg HS JAYRO Administration - Exam General Appearance: NAD Neck: no JVD Heart: RRR Respiratory: rhonchi Gastrointestinal: soft Extremities: no edema (+Contracted lower extremities..) Hosp A/P (1) Cardiac arrest with successful resuscitation Code(s): I46.9 - CARDIAC ARREST, CAUSE UNSPECIFIED Status: Acute (2) Acute cerebrovascular accident (CVA) of cerebellum Code(s): I63.9 - CEREBRAL INFARCTION, UNSPECIFIED Status: Acute (3) Aspiration pneumonia Code(s): J69.0 - PNEUMONITIS DUE TO INHALATION OF FOOD AND VOMIT Status: Acute (4) Cardiomyopathy Code(s): I42.9 - CARDIOMYOPATHY, UNSPECIFIED Status: Acute (5) Physical deconditioning Code(s): R53.81 - OTHER MALAISE Status: Acute - Plan Continue supportive therapy.. To [place] tomorrow.
[2019-11-04] MEDS: Polyethylene Glycol 3350 17 GM Packet PER TUBE SCH (09:50)
[2019-11-04] MEDS: Nystatin 500,000 UNITS/5 ML UDCUP SSW SCH ×4 (09:51→19:59)
[2019-11-04] MEDS: Clopidogrel Bisulfate 75 MG TAB PO SCH (09:51)
[2019-11-04] MEDS: Saccharomyces boulardii 250 MG CAP PO SCH (09:51)
[2019-11-04] MEDS: Pantoprazole 40 MG GRANULES PACKET PER TUBE SCH (09:51)
[2019-11-04] MEDS: Aspirin Chewable 81 MG TAB PER TUBE SCH (09:51)
[2019-11-04] MEDS: BIOTENE MOUTH SPRAY 44.3 ML MM SCH ×2 (09:54→19:59)
[2019-11-04] MEDS: Acetaminophen 650 MG/20.3 ML UDCUP PO PRN (17:59)
[2019-11-04] MEDS: Tamsulosin HCl 0.4 MG CAP PO SCH (19:59)
[2019-11-04] MEDS: Atorvastatin Calcium 40 MG TAB PO SCH (19:59)
[2019-11-05] MEDS: Metoclopramide HCl 10 MG/2 ML VIAL IVP SCH ×4 (00:05→22:53)
[2019-11-05] MEDS: Acetaminophen 650 MG/20.3 ML UDCUP PO PRN ×2 (05:05→23:42)
[2019-11-05] MEDS: Budesonide 0.5 MG/2 ML NEB INH SCH ×2 (08:23→19:54)
[2019-11-05 12:08] VITALS: BMI 21.2
[2019-11-05] MEDS: Polyethylene Glycol 3350 17 GM Packet PER TUBE SCH (13:20)
[2019-11-05] MEDS: Nystatin 500,000 UNITS/5 ML UDCUP SSW SCH ×4 (13:20→23:00)
[2019-11-05] MEDS: Scopolamine 1.5 mg/72 hour Patch TD SCH (13:20)
[2019-11-05] MEDS: Pantoprazole 40 MG GRANULES PACKET PER TUBE SCH (13:20)
[2019-11-05] MEDS: BIOTENE MOUTH SPRAY 44.3 ML MM SCH ×2 (13:22→23:01)
[2019-11-05] MEDS: Saccharomyces boulardii 250 MG CAP PO SCH (13:22)
[2019-11-05] MEDS: Aspirin Chewable 81 MG TAB PER TUBE SCH (13:22)
[2019-11-05] MEDS: Clopidogrel Bisulfate 75 MG TAB PO SCH (13:22)
--- NOTE | 2019-11-05 19:25 | PDOC.HOSPP ---
- Subjective Encounter Date: 11/05/19 Encounter Time: 12:00 Subjective: The patient is non-verbal, seen hunched over in bed. Doesn't open his eyes to command. Per nursing staff, this is his baseline - Objective Vital Signs & Weight: Vital Signs (12 hours) Temp Pulse Resp BP Pulse Ox 11/05/19 15:45 99.0 F 80 18 141/65 H 80 L 11/05/19 15:09 75 18 95 11/05/19 11:45 97.7 F 86 16 106/65 96 11/05/19 10:08 79 16 97 11/05/19 08:23 79 18 98 11/05/19 07:40 98.1 F 80 14 130/60 97 Weight Admit Weight 145 lb 12.8 oz Weight 156 lb 6.4 oz Most Recent Monitor Data Heart Rate from ECG 80 NIBP 118/62 NIBP BP-Mean 80 Respiration from ECG 10 SpO2 97 I&O: 11/04/19 11/05/19 11/06/19 06:59 06:59 06:59 Intake Total 1030 2185 Output Total 1000 775 Balance 30 1410 Result Diagrams: 11/04/19 05:02 11/04/19 05:02 Additional Labs: Accuchecks 11/05/19 11/05/19 11/05/19 16:09 10:02 06:30 POC Glucose 99 121 H 170 H 11/05/19 03:38 POC Glucose 120 H Hospitalist ROS - Review of Systems ROS unobtainable: due to mental status - Medication Medications: Active Medications Generic Name Dose Route Start Last Admin Trade Name Freq PRN Reason Stop Dose Admin Acetaminophen 650 mg 09/30/19 19:37 10/19/19 00:47 Tylenol W[place] 650 mg Q4H PRN Administration Headache/Fever/Mild Pain (1-3) Acetaminophen 650 mg 10/24/19 03:32 11/05/19 05:05 Tylenol Elixir PO 650 mg Q4H PRN Administration Headache/Fever/Mild Pain (1-3) Albuterol/Ipratropium 3 ml 10/07/19 10:30 11/05/19 15:09 Duoneb NEB 3 ml [id number] JAYRO Administration Aspirin 81 mg 10/17/19 09:00 11/05/19 13:22 Aspirin Chewable PER TUBE 81 mg DAILY JAYRO Administration Atorvastatin Calcium 40 mg 09/30/19 21:00 11/04/19 19:59 Lipitor PO 40 mg HS JAYRO Administration Budesonide 0.5 mg 10/09/19 18:30 11/05/19 08:23 Pulmicort Neb Solution INH 0.5 mg BID-RT JAYRO Administration Clopidogrel Bisulfate 75 mg 10/03/19 09:00 11/05/19 13:22 Plavix PO 75 mg DAILY JAYRO Administration Insulin Human Lispro 0 units 10/01/19 19:43 10/26/19 21:36 Humalog SC 2 unit .MILD SLIDING SCALE PRN Administration MILD SLIDING SCALE Protocol Metoclopramide HCl 5 mg 10/19/19 14:00 11/05/19 13:52 Reglan IVP 5 mg Q8HR JAYRO Administration Miscellaneous Medication 0 ml 10/18/19 21:00 11/05/19 13:22 Biotene Moisturizing Mouth MM 1 spr BID JAYRO Administration Nystatin 500,000 units 10/13/19 09:00 11/05/19 17:33 Mycostatin SSW 500,000 units QID JAYRO Administration Ondansetron HCl 4 mg 09/30/19 19:37 10/01/19 06:50 Zofran IVP 4 mg Q6H PRN Administration Nausea/Vomiting Pantoprazole Sodium 40 mg 10/21/19 09:00 11/05/19 13:20 Protonix PER TUBE 40 mg DAILY JAYRO Administration Polyethylene Glycol 17 gm 10/19/19 09:00 11/05/19 13:20 Miralax PER TUBE 17 gm DAILY JAYRO Administration Saccharomyces Boulardii 250 mg 10/05/19 09:00 11/05/19 13:22 Florastor PO 250 mg DAILY JAYRO Administration Scopolamine 3 mg 10/18/19 10:39 11/05/19 13:20 Transderm Scop TD 3 mg Q3D JAYRO Administration Senna/Docusate Sodium 2 tab 09/30/19 19:37 10/16/19 15:05 Senokot S PO 2 tab BIDPRN PRN Administration Constipation Sertraline HCl 50 mg 10/01/19 09:00 11/05/19 13:20 Zoloft PO 50 mg DAILY JAYRO Administration Sodium Chloride 10 ml 09/30/19 19:40 11/01/19 21:14 Flush - Normal Saline IVF 10 ml PRN PRN Administration Saline Flush Tamsulosin HCl 0.4 mg 10/10/19 21:00 11/04/19 19:59 Flomax PO 0.4 mg HS JAYRO Administration - Exam General Appearance: NAD, awake alert General - other findings: lethargic, hunched over, short of breath ENT: dry oral mucosa Neck: supple, no JVD Heart: RRR, no murmur, no gallops, no rubs Respiratory: CTAB, normal chest expansion, rales Gastrointestinal: soft, non-tender, non-distended Gastrointestinal - other findings: tube feeding in place Extremities: no cyanosis, no clubbing, no edema Skin: normal turgor, no lesions, no rashes Hosp A/P - Plan CT brain 10/02: evolving right cerebellar infarction Dopplers: negative for DVT, but limited on the left side CTA thorax 10/16: diaphragmatic hernia, bilateral patchy infiltrate, no PE Chest X ray 10/27: increased interstitial markings This is a 69 year old male who presented with stroke- like symptoms, found to have CVA. Also had torsades and had cardiac arrest in his hospitalization. #S/p CVA - CT showed right cerebellar infarction - on aspirin, statin, plavix #In hospital cardiac arrest secondary to torsades #Systolic CHF #Moderate MR - s/p intubation and extubation - on aspirin, statin, plavix - ECHO showed Ef 35-40% on 10/01 #Recurrent aspiration pneumonia #Acute hypoxic respiratory failure - blood cultures negative on 10/04 and 10/24 - s/p zosyn 10/03 to 10/06, then augmentin 10/06 to 10/09. Also received meropenem 10/17 to 10/24 and cefepime+ micafungin 10/24-11/02 - per Dr. Reynolds, monitor off antibiotics - palliative care consulted, surrogate not comfortable changing code status, trying to get hold of family - on oxygen, likely need to be discharged with it #S/p E coli UTI - treated with augmentin/zosyn 10/03 to 10/09 Severe malnutrition - PEG tube in place since the Anemia - FOBT positive. EGD done on the and was normal
--- NOTE | 2019-11-05 20:39 | RAD ---
PORTABLE CHEST: 11/05/2019 PROVIDED CLINICAL HISTORY: Fever. COMPARISON: 10/27/2019 FINDINGS: The cardiac and mediastinal silhouette is unchanged in appearance. Left subclavian cardiac pacemaker device is noted with lead tips overlying the expected locations of the RA and the RV. No focal consol idation, pleural fluid or pneumothorax apparent. IMPRESSION: No evidence for an acute cardiopulmonary process. POS: UNIQUE
[2019-11-05] MEDS: Atorvastatin Calcium 40 MG TAB PO SCH (23:42)
[2019-11-05] MEDS: Tamsulosin HCl 0.4 MG CAP PO SCH (23:42)
[2019-11-06 05:09] LABS: Mean Corpuscular HGB CONC 32.9 g/dL (32.0-36.0); Mean Corpuscular Hemoglobin 28.4 pg (27.0-31.0); Mean Corpuscular Volume 86.3 fL (78.0-98.0); Mean Platelet Volume 6.5 fL (7.4-10.4); Platelet Count 404 thou/uL (130-400); RBC Distribution Width 12.7 % (11.5-14.5); Red Blood Cell (RBC) Count 3.54 mill/uL (4.70-6.10); White Blood Cell (WBC) Count 11.7 thou/uL (4.8-10.8)
[2019-11-06 05:38] LABS: Anion Gap 11 mmol/L (10-20); BUN (Urea Nitrogen) 16 mg/dL (8.4-25.7); Calc. Creatinine Clearance 125 mL/min (70-130); Calcium 8.9 mg/dL (7.8-10.44); Carbon Dioxide 29 mmol/L (23-31); Chloride 99 mmol/L (98-107); Estimated GFR-MDRD Greater than 90; Glucose 126 mg/dL (80-115); Potassium 4.3 mmol/L (3.5-5.1); Sodium 135 mmol/L (136-145)
[2019-11-06] MEDS: Metoclopramide HCl 10 MG/2 ML VIAL IVP SCH ×2 (06:17→14:35)
[2019-11-06] MEDS: Budesonide 0.5 MG/2 ML NEB INH SCH (07:21)
[2019-11-06] MEDS: Polyethylene Glycol 3350 17 GM Packet PER TUBE SCH (10:07)
[2019-11-06] MEDS: Aspirin Chewable 81 MG TAB PER TUBE SCH (10:07)
[2019-11-06] MEDS: Saccharomyces boulardii 250 MG CAP PO SCH (10:08)
[2019-11-06] MEDS: Pantoprazole 40 MG GRANULES PACKET PER TUBE SCH (10:08)
[2019-11-06] MEDS: Clopidogrel Bisulfate 75 MG TAB PO SCH (10:08)
[2019-11-06] MEDS: Nystatin 500,000 UNITS/5 ML UDCUP SSW SCH ×2 (10:08→12:03)
[2019-11-06] MEDS: BIOTENE MOUTH SPRAY 44.3 ML MM SCH (10:09)
[2019-11-06 11:38] VITALS: BP 112/75; TEMP 98.3
--- NOTE | 2019-11-06 21:22 | DIS ---
DATE OF ADMISSION: 09/30/2019 DATE OF DISCHARGE: 11/06/2019 CONSULTATIONS: Dr. Fermin Vela with Critical Care, Dr. Jose Chase with Neurology, Dr. Rupa Ceballos with Palliative Care, Dr. Len Sterling with Gastroenterology, Dr. Hal Briseno with Nephrology, Dr. Hieu Ibanez with Cardiology, and Darnell Reynolds with Infectious Disease. PROCEDURES: EGD with percutaneous endoscopic G-tube placement on 10/05. Central line placement and ET tube placement on 10/24. BRIEF HISTORY OF PRESENT ILLNESS: This is a 69-year-old female with a past medical history of CVA, hypertension, atrial flutter, who had presented to the emergency room with altered mental status. The patient had a CT scan of his brain, which showed no acute disease. CTA of his head and neck showed high-grade stenosis at the origin of M1 of the left MCA, occlusion of the intracranial portion of the left vertebral artery, no acute thrombosis or occlusion of the M1 segments, and no high-grade stenosis of the carotid arteries. The patient was admitted for further workup of stroke. HOSPITAL COURSE: Acute encephalopathy secondary to right cerebellar infarction: The patient initially had a CT scan of his head, which showed old infarctions; however, repeat CT scan of his head on 09/30, showed an evolving right cerebellar infarction. The patient was treated with aspirin, statin, and Plavix was added per Neurology recommendations. The patient had an echo, which showed an EF of 35% to 40%. There was no clot. The patient will be discharged with aspirin, statin, and Plavix, and should follow up with Dr. Chase in 1 to 2 weeks on discharge. #Acute hypoxic respiratory failure secondary to recurrent aspiration pneumonia #Cardiac arrest secondary to torsades with acute systolic CHF, moderate MR: On 10/01, the patient was having increasing oxygen requirements and was placed on a Ventimask and a non-rebreather. The patient was transferred to the ICU and had required BiPAP. Repeat chest x-ray on 10/01, showed a developing infiltrate in the right lower lobe. Blood cultures done on the were negative. The patient received zosyn from the to the , then augmentin from the to the . The patient eventually had placement of a PEG tube due to persistent confusion on the and dysphagia. The patient then started spiking intermittent fevers up to 101. Infectious disease was consulted and duplex ultrasound of lower extremities was recommended which was negative for significant stenosis or DVT. Urine culture on admission had tested positive for E coli, which was pansensitive. The patient was retreated with IV zosyn from 10/09 to 10/17 and subsequently received IV meropenem from 10/17 to 10/24 for persistent pneumonia. He also received IV diuretics for pulmonary edema. On 10/24, the patient had an episode of torsades and Enedelia Lou was called. The patient ended up being intubated and had CPR. He was transferred back to the ICU on the . They felt that this was most likely ischemia related and he was continued on his aspirin, Plavix, and Lipitor. Repeat blood cultures from the came back negative. Repeat chest x-ray on the showed cardiomegaly and patchy infiltrative lung changes. The patient received a third course of antibiotics with cefepime and micafungin from 10/24 to 11/02. Palliative Care was consulted due to the recurrent aspiration pneumonia. The patient continued to spike intermittent temperatures. Infectious Disease felt like the fevers were likely due to recurrent aspiration and as long as he is having gastric residuals, it is futile to keep retreating for aspiration pneumonia. . Family member was not available for goals of care discussion. The patient's surrogate was not comfortable changing the patient's code status to a DNR/DNI. Therefore, surrogate decided to have the patient eventually sent to a [facility] facility and further goals of care can be decided at the [facility] facility. The patient was eventually weaned off oxygen on the day of discharge. All antibiotics were discontinued. On 11/05, the patient had spiked a fever and a repeat chest x-ray showed no acute disease. The patient is afebrile on the day of discharge and will need a followup with his PCP in a week for goals of care discussion. The patient was discharged with scopolamine for secretions. The patient's mental status is at baseline. He is not very verbal; however, he looks at you when you call his name. Systolic CHF: The patient was noted to have an EF of 35% to 40% on echo done on the . Troponins were negative. The patient did have a cardiac arrest during his hospitalization. He should follow up with Dr. Ibanez as an outpatient and consider repeating his echocardiogram. E coli UTI: The patient was treated with Zosyn from 10/03 to 10/17. Severe malnutrition: Due to the patient not being able to swallow and due to his stroke, the patient had a PEG tube placed on the . The patient will be discharged with tube feeding. Anemia: The patient had a positive FOBT: EGD was done on the and was noted to be normal. DISCHARGE PHYSICAL EXAMINATION: VITAL SIGNS: Temperature 98.3, heart rate 80, respiratory rate 16, O2 saturation 93% on room air, blood pressure 112/75. GENERAL: The patient sits up in his bed, slightly hunched over. HEENT: His eyes are open and he looks at you when you call his name. He does wince when you try to examine him. He is sort of guarded and contracted. He is not verbal. CVS: Regular rate and rhythm with no murmurs, rubs, or gallops. LUNGS: Bilateral rales. ABDOMEN: PEG tube in place with no signs of infection: Bowel sounds are positive. Soft, nontender. EXTREMITIES: No edema. NEURO: The patient moves all 4 extremities. Difficulty in assessing his strength due to his poor mental status. PERTINENT LABORATORY DATA: CBC, 11/06: Shows a white count of 11.7, hemoglobin 10.0, hematocrit 30.5, platelet count of 404. BMP, 11/06: Shows a sodium of 135. LFTs, 11/04: AST is 27, ALT is 23, alkaline phosphatase is 125. Vitamin B12: 415. Folate: 14. Lipid panel: LDL was 81, total cholesterol was 127, triglycerides of 55. UA: Shows 100 protein, trace ketones, small nitrite, 4 of urobilinogen. Urine osmolarity: 525. Urine sodium: 118. Toxicology: Vancomycin trough 16.5. PERTINENT IMAGING: CT brain, 09/30: Shows no acute intracranial findings. Evolution of left thalamic infarction, old. Small old infarction in the right corpus striatum, chronic ischemic white matter changes. CTA, 09/30: Shows high-grade stenosis at the origin of M1 segment of left middle cerebral artery, occlusion of the intracranial portion of the left vertebral artery, no high-grade stenosis of carotid arteries, no acute thrombosis or occlusion of M1 segments of MCA. Chest x-ray, 09/30: Shows cardiomegaly with mild vascular congestion. CT abdomen, 10/01: Shows opacities involving the lung bases suggesting aspiration pneumonia. Markedly distended urinary bladder. CT brain, 10/02: Shows evolving right cerebellar infarction. Venogram, 10/08: Shows no evidence of DVT, however, limited left lower extremity venous system exam due to patient's contraction. CTA thorax, 10/16: Shows no evidence of PE. Bilateral patchy infiltrates seen throughout all lobes of the lung. Vascular congestion and possible superimposed interstitial edema. Thoracic esophagus is abnormal with dilation and mural thickening. Chest x-ray, 11/05: Shows no evidence of acute disease. Echo, 10/01: Shows EF of 35% to 40%, moderate MR. DISCHARGE CONDITION: The patient is stable for discharge to SNF. ACTIVITY: The patient is relatively bedbound. He is nonverbal and noncommunicative. DIET: Tube feeding diet, add Jevity 1.2 at 75 mL an hour with free water flushes 30 mL q.4 hours. DISCHARGE INSTRUCTIONS: He should follow up with his PCP in a week and Dr. Chase in 1 to 2 weeks. Consider following up with Dr. Ibanez for heart failure. He will be discharged to [facility]. DISCHARGE MEDICATIONS: New medications: 1. Pulmicort 0.5 mg inhalation b.i.d. 2. Plavix 75 mg p.o. daily. 3. Zofran 4 mg p.o. q.6 hours p.r.n. 4. Scopolamine patch TD q.3 days. Old medications: 1. Tylenol 1000 mg p.o. q.6 hours p.r.n. 2. Amlodipine 5 mg p.o. daily. 3. Aspirin 81 mg p.o. daily. 4. Atorvastatin 40 mg p.o. at bedtime. 5. Clonidine 0.1 mg tablet p.o. q.6 hours. 6. Magnesium hydroxide 30 mL p.o. q.24 hours p.r.n. 7. Zofran 4 mg p.o. q.6 hours p.r.n. 8. Protonix 40 mg p.o. daily. 9. MiraLAX 17 g p.o. daily. 10. Sertraline 50 mg p.o. daily. 11. Simethicone 80 mg p.o. q.8 hours p.r.n. for heart burn and indigestion. Job ID: [id number] [facility]
--- NOTE | 2019-11-07 23:31 | PQF ---
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 Clinical indicators are provided on the bottom of this form for your review Can you please further clarify the diagnosis of the patient based on the clinical indicators below? Please check appropriate box(s): [ ] AIDS /HIV Disease [ ] Asymptomatic HIV infection status [ ] Non-specific serologic evidence of HIV [ ] Other diagnosis In addition, please specify: Present on Admission (POA): [ ] Yes [ ] No [ ] Unable to determine For continuity of documentation, please document condition throughout progress notes and discharge summary. Thank You. CLINICAL INDICATORS - SIGNS / SYMPTOMS / LABS DS pg.2- The patient CD4 count resulted to be at 7.1 This qualifies the patient to have a diagnosis of AIDS. DS pg.1- HIV seropositive H and P pg.1- Fever, diarrhea, muscle aches, decrease appetite Consult 11/01 pg.1- Newly identify HIV Infection Hospitalist PN .- Diagnosed with HIV infection on admission PN pg3 11/02- Possible AIDS RISK FACTORS Sepsis- DS pg.1 Pneumonia molt likely Haemophilus influenzae- DS pg.1 Acute hypoxic respiratory failure- DS pg.1 TREATMENTS: Infectious Consult 11/01 Dr. Reynolds Chest/Thorax CTA 11/01 Chest X ray 11/01 Anti-retroviral therapy- PN 11/04 IV antibiotics- DEC 29 IV fluids- DEC 29 Blood culture- Microbiology 11/01 (This form is maintained as a part of the permanent medical record) 2014 [employer]. All Rights Reserved [email or web address] [not provided] MTDD
== END 2019-11-06 15:48 | DRG 64 ==
LOC: ERS 16:15 → ERHOLD 18:36 → 2SE 20:52 → CCU 10-01 11:02 → 2SE 10-02 23:04 → CCU 10-24 01:30 → 2SE 10-29 15:29
PROVIDERS: ADMIT Internal Medicine; ATTEND Internal Medicine
PROC: B020ZZZ Computerized Tomography (CT Scan) of Brain (ICD-10-PCS; principal; 2019-09-30)
PROC: 0DH63UZ Insertion of Feeding Device into Stomach, Percutaneous Approach (ICD-10-PCS; 2019-10-05)
PROC: 3E033XZ Introduction of Vasopressor into Peripheral Vein, Percutaneous Approach (ICD-10-PCS; 2019-10-24)
PROC: 0BH18EZ Insertion of Endotracheal Airway into Trachea, Via Natural or Artificial Opening Endoscopic (ICD-10-PCS; 2019-10-24)
PROC: 5A1945Z Respiratory Ventilation, 24-96 Consecutive Hours (ICD-10-PCS; 2019-10-24)
PROC: 02HV33Z Insertion of Infusion Device into Superior Vena Cava, Percutaneous Approach (ICD-10-PCS; 2019-10-24)
PROC: 5A12012 Performance of Cardiac Output, Single, Manual (ICD-10-PCS; 2019-10-24)
DX: I63.541 Cerebral infarction due to unspecified occlusion or stenosis of right cerebellar artery (principal); J96.01 Acute respiratory failure with hypoxia; J69.0 Pneumonitis due to inhalation of food and vomit; G93.41 Metabolic encephalopathy; A41.9 Sepsis, unspecified organism; R65.21 Severe sepsis with septic shock; I46.8 Cardiac arrest due to other underlying condition; E43 Unspecified severe protein-calorie malnutrition; I50.23 Acute on chronic systolic (congestive) heart failure; R40.2342 Coma scale, best motor response, flexion withdrawal, at arrival to emergency department; R40.2222 Coma scale, best verbal response, incomprehensible words, at arrival to emergency department; I48.92 Unspecified atrial flutter; N30.00 Acute cystitis without hematuria; I69.951 Hemiplegia and hemiparesis following unspecified cerebrovascular disease affecting right dominant side; I13.0 Hypertensive heart and chronic kidney disease with heart failure and stage 1 through stage 4 chronic kidney disease, or unspecified chronic kidney disease; E22.2 Syndrome of inappropriate secretion of antidiuretic hormone; I42.9 Cardiomyopathy, unspecified; R29.718 NIHSS score 18; E78.5 Hyperlipidemia, unspecified; I48.91 Unspecified atrial fibrillation; F01.50 Vascular dementia, unspecified severity, without behavioral disturbance, psychotic disturbance, mood disturbance, and anxiety; R41.841 Cognitive communication deficit; I73.9 Peripheral vascular disease, unspecified; I65.22 Occlusion and stenosis of left carotid artery; N18.2 Chronic kidney disease, stage 2 (mild); I49.5 Sick sinus syndrome; E86.0 Dehydration; R13.12 Dysphagia, oropharyngeal phase; D63.1 Anemia in chronic kidney disease; K21.0 Gastro-esophageal reflux disease with esophagitis; I34.0 Nonrheumatic mitral (valve) insufficiency; B96.20 Unspecified Escherichia coli [E. coli] as the cause of diseases classified elsewhere; F10.10 Alcohol abuse, uncomplicated; K44.9 Diaphragmatic hernia without obstruction or gangrene; E83.39 Other disorders of phosphorus metabolism; E87.6 Hypokalemia; R33.9 Retention of urine, unspecified; Z51.5 Encounter for palliative care; I45.81 Long QT syndrome; Z79.82 Long term (current) use of aspirin; Z95.1 Presence of aortocoronary bypass graft; Z87.891 Personal history of nicotine dependence; Z79.899 Other long term (current) drug therapy; I69.920 Aphasia following unspecified cerebrovascular disease; I69.991 Dysphagia following unspecified cerebrovascular disease; Z68.21 Body mass index [BMI] 21.0-21.9, adult; R40.2142 Coma scale, eyes open, spontaneous, at arrival to emergency department; Z95.0 Presence of cardiac pacemaker
CPT/HCPCS: 36415; 36416; 70450; 70496; 70498; 71045; 71275; 74018; 74177; 80048; 80053; 80061; 80069; 80202; 81001; 82271; 82533; 82607; 82746; 82805; 83735; 83930; 83935; 84100; 84300; 84484; 85014; 85018; 85025; 85027; 85049; 85610; 85730; 87040; 87077; 87086; 87186; 92950; 93005; 93306; 93970; 94002; 94003; 94640; 94660; C9113; J0171; J0690; J0692; J1644; J1940; J2020; J2185; J2248; J2250; J2405; J2543; J2704; J2765; J2920; J3010; J3370; J3475; J3480; J3490; J7050; J7620; J7626; Q9967

== ENCOUNTER 2019-11-08 07:19 | Inpatient (IN) | payer MEDICARE, MEDICAID ==
[2019-11-08] MEDS ORDERED: Succinylcholine Chloride 20 MG/ML 10 ml SYRINGE FS ONE (07:25)
[2019-11-08] MEDS ORDERED: Acetaminophen 650 MG Suppository ONE (07:33)
[2019-11-08 07:37] LABS: Hemoglobin 12.2 g/dL (14.0-18.0); Mean Corpuscular HGB CONC 32.4 g/dL (32.0-36.0); Mean Corpuscular Hemoglobin 28.6 pg (27.0-31.0); Mean Corpuscular Volume 88.4 fL (78.0-98.0); Mean Platelet Volume 7.1 fL (7.4-10.4); Platelet Count 525 thou/uL (130-400); RBC Distribution Width 12.9 % (11.5-14.5); Red Blood Cell (RBC) Count 4.27 mill/uL (4.70-6.10); White Blood Cell (WBC) Count 2.9 thou/uL (4.8-10.8)
[2019-11-08 07:56] LABS: Actual Bicarbonate (HCO3a) 26.9 mEq/L (22-28); Analyzer IN Cardio ER; Base Excess (BEa) 1.3 mEq/L (-2.0 to +3.0); CO2 Tension 46.8 mmHg (35.0-45.0); Calcium, Ionized 1.15 mmol/L (1.12-1.30); Hemoglobin (Hb) 11.5 g/dL (14.0-18.0); Potassium - ABG Lab 4.55 mmol/L (3.70-5.30); pH, Arterial 7.38 (7.35-7.45)
--- NOTE | 2019-11-08 07:59 | CT ---
CT Brain WO Con: 11/08/2019 7:28 AM CLINICAL HISTORY: History of stroke, altered mental status and fever. IMAGING TECHNIQUE: Multiple CT images were obtained of the brain without IV contrast. COMPARISON: CT the brain dated October 02, 2019 FINDINGS: Brain: Within the region of a prior infarct involving the right superior cerebellar hemisphere there is a zone of hemorrhagic conversion that has intervally developed. The intraparenchymal hemorrhage measures approximately 1.2 x 3.1 cm on image 9 of series 4. Basilar cisterns remain patent. Remote is chemic insult involving the left [employer] distribution is stable. Lacunar infarcts of the left thalamus and right centrum semiovale is stable. Moderate to severe chronic small vessel white matter ischemic change is stable. Ventricles: Normal. No hydrocephalus.. Skull: Intact.. Visualized Paranasal sinuses: Clear.. Mastoid air cells:Clear. Extracranial soft tissues:The patient is intubated. IMPRESSION: Interval hemorrhagic conversion of the previously seen right superior cerebellar hemisphere infarct. Findings called to Dr. Hernandez at 7:55 AM on November 08 2019.
--- NOTE | 2019-11-08 08:02 | RAD ---
Chest AP view INDICATION: Altered mental status; unresponsive; history of stroke COMPARISON: Prior exam dated November 05, 2019 FINDINGS: Lungs:There is bilateral perihilar interstitial airspace opacities which are new Cardiac silhouette:There is moderate cardiomegaly Pulmonary vasculature:There is new moderate pulmonary vascular congestion Pleural spaces:No pleural effusion or pneumothorax is demonstrated. Upper abdomen:No abnormality seen. Osseous structures: No acute osseous abnormality. Additional findings:The patient is intubated with gastric catheter placement. The ET tube tip is seen 3.3 cm from the level of the alejandra. The gastric catheter tip is seen within the region of the fundus. Dual-lead pacemaker is unchanged. IMPRESSION: Worsening cardiomegaly, pulmonary vascular congestion and bilateral perihilar opacities i s suspicious for mild CHF. Intubation with gastric catheter placement as above.
[2019-11-08 08:06] LABS: Band 38 % (5-11); Eosinophils 1 % (0-10); Lymphocytes 28 % (21-51); MDiff Complete? YES; Monocytes 6 % (0-10); Neutrophil 27 % (42-75); Platelet Morphology Comment Appears Increased; Vacuoles SLIGHT
[2019-11-08] MEDS ORDERED: cefTRIAXone\\ROCEPHIN 2 GM VIAL ONE (08:11)
[2019-11-08 08:22] LABS: ALT (SGPT) 56 U/L (8-55); AST (SGOT) 70 U/L (5-34); Alkaline Phosphatase 132 U/L (40-110); Anion Gap 14 mmol/L (10-20); BUN (Urea Nitrogen) 36 mg/dL (8.4-25.7); Bilirubin, Total 0.6 mg/dL (0.2-1.2); Calc. Creatinine Clearance 0 mL/min (70-130); Calcium 8.9 mg/dL (7.8-10.44); Carbon Dioxide 29 mmol/L (23-31); Chloride 104 mmol/L (98-107); Estimated GFR-MDRD 54; Globulin 3.4 g/dL (2.4-3.5); Glucose 144 mg/dL (80-115); Potassium 4.9 mmol/L (3.5-5.1); Protein, Total 6.4 g/dL (5.8-8.1); Sodium 142 mmol/L (136-145)
[2019-11-08 08:33] LABS: O2 Tension (PaO2) 50.5 mmHg (> 80.0)
[2019-11-08 08:35] LABS: Puncture Site RR
[2019-11-08 08:44] LABS: CKMB 2.7 ng/mL (0-6.6)
[2019-11-08] MEDS ORDERED: Ventilator Sedation Protocol 1 EACH FS ONE (09:42)
[2019-11-08] MEDS ORDERED: Ondansetron PF 4 MG/2 ML Vial IVP PRN (09:42)
[2019-11-08] MEDS ORDERED: CCU Electrolyte Replacement 1 EACH FS ONE (09:42)
[2019-11-08] MEDS ORDERED: Norepinephrine 8 MG/0.9% NS 250 ML IVPB PRN (09:42)
[2019-11-08] MEDS ORDERED: Scopolamine 1.5 mg/72 hour Patch TD SCH (09:45)
[2019-11-08] MEDS ORDERED: Fentanyl BOLUS 250 ML IVPB PRN (10:10)
[2019-11-08] MEDS ORDERED: DISCONTINUE PREVIOUS NARCOTIC PAIN MEDICATIONS AND BENZODIAZEPINES FS SCH (10:10)
[2019-11-08] MEDS ORDERED: Morphine 2 MG/ML SYRINGE SLOW IVP PRN (10:10)
[2019-11-08] MEDS ORDERED: fentaNYL Citrate/PF 2,000 MCG in Sodium Chloride 0.9% 60 ML IV SCH (10:10)
[2019-11-08] MEDS ORDERED: Propofol 1,000 MG/100 ML VIAL IV PRN (10:10)
[2019-11-08] MEDS ORDERED: Lorazepam 2 MG/ML VIAL SLOW IVP PRN (10:10)
[2019-11-08] MEDS ORDERED: Propofol BOLUS 1,000 MG/100 ML VIAL IV PRN (10:10)
[2019-11-08] MEDS ORDERED: Magnesium 2 GM/50 ML 2 GM in Premix Bag 1 BAG IVPB PRN (10:15)
[2019-11-08] MEDS ORDERED: Potassium Phosphate 9 MMOL in Sodium Chloride 0.9% 100 ML IVPB PRN (10:15)
[2019-11-08] MEDS ORDERED: Potassium Chloride 40 MEQ in Premix Bag 1 BAG IVPB PRN (10:15)
[2019-11-08] MEDS ORDERED: Potassium Phosphate 15 MMOL in Sodium Chloride 0.9% 250 ML 250 ML IV PRN (10:15)
[2019-11-08] MEDS ORDERED: Magnesium Oxide 400 MG TAB PO PRN ×2 (10:15)
[2019-11-08] MEDS ORDERED: Potassium Chloride 40 MEQ in Sodium Chloride 0.9% 250 ML 250 ML IVPB PRN (10:15)
[2019-11-08] MEDS ORDERED: Potassium Chloride 20 MEQ TAB PO PRN (10:15)
[2019-11-08] MEDS ORDERED: PHOS-NAK 1 PKT PACK PO PRN ×2 (10:15)
[2019-11-08] MEDS ORDERED: Potassium Phosphate 12 MMOL in Sodium Chloride 0.9% 250 ML 250 ML IV PRN (10:15)
[2019-11-08] MEDS ORDERED: Norepinephrine 8 MG/0.9% NS 250 ML ONE (10:24)
[2019-11-08 10:45] LABS: Bilirubin Negative (Negative); Blood, Urine 2+ (Negative); Clarity Extra Turbid (Clear); Glucose, Urine (Dipstick) Normal (Negative); Leukocyte 75 Leu/uL (Negative); Nitrite Negative (Negative); Protein, Urine (Dipstick) 200 mg/dL (Neg-Trace); Squamous Epithelial 0-3 HPF (0-3)
--- NOTE | 2019-11-08 10:46 | ULT ---
BILATERAL LOWER EXTREMITY VENOUS ULTRASOUND: HISTORY: Contracted patient. Limited mobility. Evaluate for thrombus. COMPARISON: 10/08/2019. TECHNIQUE: Multiplanar grayscale and color Doppler images were obtained in a bilateral lower extremity venous ul trasound. Spectral analysis of the Doppler waveforms were performed. FINDINGS: Markedly limited evaluation due to patient position. Patient is contracted and the lower extremities cannot be adequately assessed. Left lower extremity: Nearly incomplete evaluation of the left lower extremity venous system. Visuali zed popliteal vein is grossly unremarkable. With regards to the right lower extremity, there is compressibility, presence of flow and augmentatio n in the common femoral vein, profunda femoral vein, superficial femoral vein, and popliteal vein are normal in appearance without visible thrombus. These vessels demonstrate normal compression, flow , and augmentation. The right posterior tibial veins, profunda femoral veins and greater saphenous veins are patent witho ut evidence of DVT. IMPRESSION: No evidence of DVT in the right right lower extremity. Suboptimal evaluation of the left lower extrem ity. Transcribed Date/Time: 11/08/2019 10:51 AM
--- NOTE | 2019-11-08 10:49 | HP ---
REASON FOR ADMISSION: Acute respiratory failure, intubated for airway, right cerebellar bleed with prior history of CVA, fever of 105. HISTORY OF PRESENTING ILLNESS: The patient was transferred from [facility] for respiratory distress. On arrival here, the patient had a CT scan done, which revealed right cerebellar bleed. He was intubated for airway. He also had a temperature of 105. The patient is currently intubated and majority of this history is obtained by talking to ER physician and prior records. Mr. Munoz has had prolonged hospitalization here for almost a month and a half and was discharged day before to [facility]. He is currently on 100% FiO2, intubated with a 7.5 endotracheal tube, orally intubated up to 24 cm to the incisor. He is seen moving right lower extremity, but not the other extremities. PAST MEDICAL AND SURGICAL HISTORY: History of multiple CVAs including left thalamic and left temporal lobe CVA in December of 2018 with right hemiparesis. On October 02, the patient was admitted for right cerebellar CVA. He had a code blue on last year with cardiac arrest and torsade. The patient has a PEG tube, left M1 high-grade stenosis, 100% left vertebral artery stenosis. PEG tube placed on the October 18, likely cardiomyopathy with EF of around 35% based on echo done on the October 18 with moderate mitral regurgitation. Recurrent aspirations with fevers during his last hospitalization here. Hypertension, chronically bedbound state, history of sick sinus syndrome post pacemaker, grade D erosive esophagitis, dyslipidemia, chronic anemia. CURRENT MEDICATIONS: The patient was sent on, 1. Aspirin 81 mg daily. 2. Plavix 75 mg daily. 3. Protonix 40 mg daily. 4. MiraLAX 17 g daily. 5. Zoloft 50 mg daily. 6. Atorvastatin 40 mg p.o. at bedtime. 7. Pulmicort nebulizer twice daily. 8. Scopolamine transdermal patch q.72 hourly. 9. Norvasc 5 mg daily. 10. Clonidine p.r.n. ALLERGIES: NO KNOWN DRUG ALLERGIES. PERSONAL HISTORY: The patient is a resident of [facility]. He does not appear to have any immediate family members, except for a friend, Mr. Haseeb Pinzon. FAMILY HISTORY: Cannot be obtained as the patient is intubated and he is not oriented. REVIEW OF SYSTEMS: Cannot be obtained as the patient is intubated and he is not oriented. CODE STATUS: Full per prior records. PHYSICAL EXAMINATION: GENERAL: The patient is a 69-year-old male, who is currently intubated. VITAL SIGNS: Blood pressure 96/60, pulse 74 per minute, respiratory rate 22 per minute, temperature 105.7 degrees rectal on arrival, 83% on non-rebreather on arrival with the patient intubated and currently saturating 100% on 100% FiO2 on the ventilator. NECK: Supple. No elevated JVD. HEENT: Eyes, pupils are 4 mm and sluggishly reacting to light. Likely has some left gaze with left torticollis. Oral cavity, the patient is orally intubated with a 7.5 endotracheal tube up to 24 cm to the incisor. No obvious exudates or bleeding seen. No tongue laceration. CARDIOVASCULAR: S1 and S2 heard. Regular rhythm. RESPIRATORY: Air entry 1+ bilateral. Scattered coarse rales bilateral. ABDOMEN: Soft. Bowel sounds heard. No tenderness, rigidity, or guarding. Has a PEG tube in place. EXTREMITIES: Left lower extremity has flexion contracture. He does not move left upper and lower extremities. Right lower extremity, the patient is seen involuntarily moving. CENTRAL NERVOUS SYSTEM: As mentioned above, the patient has prior left hemiplegia with flexion contracture of left lower extremity. The patient also has prior history of right hemiparesis, but currently he is involuntarily moving right lower extremity. He is currently obtunded. He is on a ventilator and sedated as well , making neurologic exam difficult. PSYCHIATRIC: Cannot be assessed due to the patient's current cognitive status. LABORATORY DATA: Blood gas done shows a pH of 7.38, pCO2 of 46, pO2 of 50. White count of 2.9, H and H of 12 and 37, platelet count of 525 with 27% neutrophils, 38% bands, and 28% lymphocytes. BUN 36, creatinine 1.3, serum bicarb 29, serum glucose 144, lactic acid 2.5. AST and ALT 70 and 56, alkaline phosphatase 132. Troponin I 0.06. Albumin 3.0. Influenza A and B antigens are negative. IMAGING STUDIES: CT brain done shows interval hemorrhagic conversion of previously seen right superior cerebellar hemispheric infarct. The intraparenchymal hemorrhage measures 1.2 x 3.1 cm. Chest x-ray done shows bilateral patchy infiltrates, pulmonary vascular congestion, cardiomegaly. EKG done shows paced rhythm at 100 beats per minute. QRS duration is 164 milliseconds with corrected QT of 539 milliseconds. CLINICAL IMPRESSION AND PLAN: The patient will be admitted to ICU for acute respiratory failure, being intubated for airway, post hemorrhagic conversion of prior cerebrovascular accident in the right cerebellum. His overall prognosis is very poor. The patient is essentially bedbound and has what appears to be a vascular dementia with multiple CVAs, which has been outlined in the past medical history. He was discharged on the 7th after being hospitalized here for almost a month and a half. Neurosurgery has been consulted from ER. The patient also has a temperature of 105 with cerebellar bleed and likely aspirations with known history of aspiration with prolonged hospitalization here. Blood cultures, urine cultures, meropenem, vancomycin, scopolamine patch will be continued. He has received 2.5 L of bolus in the ER, and if needed, will be placed on Levophed. He will be on DuoNeb's q.4 hourly, Pepcid IV q.12. We will continue Lipitor for now, and Pulmicort along with Zoloft. All other medications will be held for now. The patient likely will need ETHIC's consultation with no family to make medical decisions for him. The Palliative Care was seeing him during his last hospitalization and it does not appear like a POA was designated based on their last 3 progress notes. Job ID: [id number] MTDD
[2019-11-08 10:55] LABS: Bacteria/HPF None Seen HPF (None Seen); Transitional Epithelial 0-3 HPF (None Seen)
[2019-11-08 10:56] LABS: Calcium Oxalate Crystals 1+ HPF (None Seen)
[2019-11-08] MEDS: Sodium Chloride 0.9% 1,000 ML IV SCH ×2 (12:52→15:48)
[2019-11-08] MEDS: MEROPENEM 1 GM/50 ML 1 GM in Premix Bag 1 BAG IVPB SCH ×2 (12:53→19:53)
[2019-11-08] MEDS: Vancomycin HCl 1 GM in Premix Bag 1 BAG IVPB SCH (12:57)
--- NOTE | 2019-11-08 13:47 | CON ---
DATE OF CONSULTATION: Mr. Munoz is a 69-year-old man who transferred in to the emergency department today from [facility] where he has been a resident for several years. He had a recent admission where he was admitted to the hospital on September 30 for new right-sided cerebellar stroke and infarct. He was actually in the hospital for nearly 1-1/2 months and was actually discharged two days ago on the , now coming back with respiratory failure and fever. CT scan of the head shows very small hemorrhagic conversion of the same right infarct zone in the cerebellum. There is no significant mass effect. There are some signs. This has likely been here for several days including edema around the hemorrhage site and some degradation of the blood products. Neurosurgery was consulted for this reason. At bedside, patient is intubated. He maintains a corneal reflex, but does not have a cough. He has a mild gag reflex. Pupils are equally round and reactive to light. He does have noted opacity still and likely cataracts. On exam for his motor extremities, he has minimal response to deep noxious stimuli of the bilateral upper extremities, chest, trunk. He does withdraw from pain in the left lower extremity. His right lower extremity is contracted. He does not follow any commands or make any attempt to speak, although he is overbreathing the vent at the moment. He does have skin breakdown where brief likely has been for several weeks and the Cadet catheter seems to perhaps have migrated and enlarged his urethral meatus. From Neurosurgery standpoint, there is definitively nothing interventional about this hemorrhagic conversion. It is small and does not impose any additional mass effect nor does cause any midline shift or compression of the fourth ventricle. I would recommend no necessity for additional CT scanning as this does not change our plan. This is definitively nonsurgical, could add mannitol at a later time if symptoms continue to worsen. However, again his baseline neurologic exam seems to be quite poor and match as well as some of the notes from his recent admission. I do not see that he will make any substantial recovery beyond the current neurologic exam and would likely recommend palliative care consult and ethics consult if it does not seem to be any specific assigned family member or power of city attorney for medical decision making. Job ID: [id number]
[2019-11-08 13:52] LABS: Lactic Acid 5.6 mmol/L (0.5-2.2)
[2019-11-08 15:12] VITALS: BMI 22.6
[2019-11-08] MEDS: Acetaminophen 325 MG TAB PO PRN ×2 (15:42→21:00)
--- NOTE | 2019-11-08 16:44 | CON ---
DATE OF CONSULTATION: REASON FOR CONSULTATION: Altered mental status and respiratory failure. HISTORY OF PRESENT ILLNESS: The patient known to us from recent admission when he came in with a history of posterior cerebral artery distribution CVA x2, one of them hemorrhagic, which left him with severe functional impairment, almost vegetative state, requiring gastrostomy tube feedings. He did have some swallowing improvement, but then deteriorated again. In September, I saw him with evidence of swallowing dysfunction, requiring gastrostomy, evidence of aspiration and fever. We felt that aspiration pneumonia was the main issue here. He did have abnormal gastric emptying and kept aspirating over and over again. The last visit I had with him was just a few days ago in October and he had a catheter in the right groin removed and had one only temperature elevation, but discontinued antimicrobial therapy. The patient unfortunately has been readmitted with re-exacerbation of his changes that led to the previous admission with unresponsiveness, hypoxemia, fever, and tachycardia. Initial findings with BP 99/61, pulse 95 respirations 40, temperature 105.7, and O2 sats 95. He appeared cachectic, was tachycardic. The lungs sounds were described as clear. The abdomen without distention. He was nonverbal and comatose. Initial findings included a white cell count 2.9, hemoglobin 12, platelets 525, 27% neutrophils, 38% bands, pH of 7.38, pCO2 of 46 , PO2 50, sodium 142, creatinine 1.32, AST 70, ALT 56, alkaline phosphatase 132, albumin 3.0, lactic acid was 2.9 and then 5.6 more recently, urinalysis with 4-6 wbc's. Thus far, cultures are pending, no results yet. Influenza testing was negative. Previous blood cultures with negative results. He had E coli in the urine. Group B strep previously. Currently, Mr. Munoz is intubated. He is not responsive even though without sedation. His pupils are constricted and he does not move any of his extremities. He has contractures in upper and lower extremities. PAST MEDICAL HISTORY: 1. Multiple CVAs, one of them hemorrhagic with severe neurological impairment. 2. GERD. 3. Erosive esophagitis. 4. Hypertension. 5. Atrial fibrillation. 6. Dementia, probably vascular in nature. 7. Swallowing dysfunction. 8. G-tube placement. 9. Aspiration pneumonia with high gastric residuals. SOCIAL HISTORY: History of alcohol abuse in the past. Former smoker. Lives in halfway. ALLERGIES: NEGATIVE. CURRENT MEDICATIONS: 1. P.r.n. medications. 2. Lipitor. 3. Pepcid. 4. Ativan. 5. Magnesium. 6. Meropenem. 7. Morphine. 8. Levophed. 9. Zofran. 10. Potassium. 11. Zoloft. 12. Vancomycin. PHYSICAL EXAMINATION: VITAL SIGNS: Temperature 99.6, blood pressure 100/60, pulse 98, and O2 saturations are 92. SKIN: Stage II area of ulceration in the left knee and left 1st MPJ skin site. He has a hypospadias, traumatic from chronic indwelling Cadet. HEENT: Could not test his eye movements. His pupils are constricted. NECK: No jugular vein distention. LUNGS: Symmetric. Clear breath sounds. HEART: S1 and S2. Regular rate. ABDOMEN: Soft, not distended. EXTREMITIES: Contractures in the upper and lower extremities. LABORATORY DATA: White cell count is at 2.9. We do not have any newer findings. IMAGING STUDIES: Venogram with no DVT, the left side was suboptimally evaluated. Chest x-ray, worsening cardiomegaly, pulmonary vascular congestion, bilateral perihilar opacities. ASSESSMENT: 1. Severe neurological dysfunction following multiple cerebrovascular accidents with vegetative state. 2. Recurrent episodes of aspiration, which were the primary reason for the past admission. 3. Altered mental status, hypoxemia, and likely recurrence of aspiration. DISCUSSION: At this point, I would advise re-assessing the possibility of referral for hospice management instead of active treatment. I do not see a scenario where this recurring problems will stop and he has a very little quality of functional life at this point in time. Otherwise continue broad spectrum coverage, monitor blood cultures. The degree of aspiration following G tube is unusual and it would indicate gastric motility problem. Job ID: [id number] [facility]
--- NOTE | 2019-11-08 17:53 | CON ---
DATE OF CONSULTATION: 11/08/2019 SERVICE: Pulmonary Medicine. REASON FOR CONSULTATION: Intubated patient. HISTORY OF PRESENT ILLNESS: The patient is a 69-year-old white male with past medical history significant for severe debility. He has had multiple strokes previously and at this point, is bed ridden. He is poorly interactive. At baseline, he does not attend, and requires a feeding through PEG tube. Recently , he was in the hospital because of a repeat CVA. He was discharged from the hospital a couple of days ago, but had increasing issues with mentation, had increasing oxygen requirements. As such, he was brought back to the hospital. A repeat CT of the head demonstrated a new cerebellar bleed in the position of his previous CVA. He cannot provide any elements of the history at this point. He is requiring no sedation. He requires mechanical ventilator, because of high oxygen requirements, and he is not able to protect his airway presently. PAST MEDICAL HISTORY: 1. History of CVAs, multiple. 2. Chronic systolic heart failure. 3. Moderate mitral regurgitation. 4. Oropharyngeal dysphagia. 5. Hypertension. 6. Sick sinus syndrome, status post pacemaker. 7. Esophagitis. 8. Dyslipidemia. 9. Anemia. PAST SURGICAL HISTORY: 1. PEG tube placement. 2. Pacemaker placement. FAMILY HISTORY: Noncontributory. SOCIAL HISTORY: He lives in a nursing facility. He has no access to alcohol, tobacco, or illicit drug use currently. ALLERGIES: NO KNOWN DRUG ALLERGIES. MEDICATIONS: List of his inpatient medications was reviewed. No specific updates were made at this time. REVIEW OF SYSTEMS: This cannot be obtained as the patient has static encephalopathy. PHYSICAL EXAMINATION: VITAL SIGNS: Afebrile, pulse 91, blood pressure 138/72, respirations 18, and saturation 94% on 60% FiO2 and a PEEP of 5. GENERAL: The patient is intubated. He is on no sedation. HEENT: Normocephalic and atraumatic. Sclerae white. Conjunctivae pink. Oral mucosa is moist without lesions. LUNGS: Decent air entry. Rhonchi are present. Some dependent crackles are also noted. No wheezing appreciated. HEART: Normal rate. Regular. ABDOMEN: Soft, nontender, and nondistended. Bowel sounds are positive. MUSCULOSKELETAL: No cyanosis or clubbing. There is no pitting in the bilateral lower extremities. LABORATORY DATA: WBC 2.9, hemoglobin 12.2, and platelets 525,000. Neutrophils are 27% on top of 38% bands. A pH of 7.38, pCO2 of 46, and pO2 of 51, corresponding to a saturation of 81% at that time. At this point, he had just been intubated and he was on 100% FiO2 with a PEEP of 5. Lactate 5.6 and gently uptrending. Creatinine 1.32, well above baseline. AST, ALT, and alkaline phosphatase are all minimally elevated. Troponin is marginally elevated at 0.07. Urinalysis is essentially unremarkable for evidence of urinary tract infection. Influenza A and B are negative. IMAGIN. CT of the brain demonstrates new hemorrhagic lesion in the cerebellum. Multiple old infarcts are also identified. 2. Chest x-ray demonstrates interstitial opacifications throughout bilateral lung fraga. Cardiomegaly. Pulmonary vascular congestion is also present. Endotracheal tube terminates roughly 3 cm above the level of the alejandra. There is an enteric catheter that courses midline below the level of the diaphragm in the expected region of the stomach. He also has two leads overlying the heart. ASSESSMENT: 1. Acute hypoxic respiratory failure. 2. Intraparenchymal hemorrhage of the posterior fossa. 3. Static encephalopathy. 4. Acute kidney injury. 5. Non-ST elevation myocardial infarction secondary to demand/stroke. 6. Severe sepsis. DISCUSSION AND PLAN: Blood cultures are currently pending. We will continue our broad-spectrum antibiotics. At this point, if the patient's family wants us to be aggressive moving forward, we will need to pursue a tracheostomy. This patient has no hope of functional neurologic recovery, given that he was in a near quadriplegic state and was fairly obtunded prior to this new insult. Palliative Care consult will be placed. Pulmonary/Critical Care will follow along in this location. I have made multiple adjustments to the ventilator to minimize dyssynchrony. Ultimately, the patient is doing just fine with pressure support ventilation, which will be continued indefinitely so long as he is off all sedation. Critical care time: 30 minutes. Job ID: [id number] MTDD
[2019-11-08] MEDS ORDERED: Budesonide 0.5 MG/2 ML NEB NEB SCH (18:30)
[2019-11-08] MEDS ORDERED: Atorvastatin Calcium 40 MG TAB PO SCH (21:00)
[2019-11-08] MEDS: Famotidine/PF 20 mg/2ml Vial SLOW IVP SCH (21:02)
[2019-11-09] MEDS: Vancomycin HCl 1 GM in Premix Bag 1 BAG IVPB SCH ×2 (00:01→11:55)
[2019-11-09] MEDS: Sodium Chloride 0.9% 1,000 ML IV SCH ×3 (00:14→17:20)
--- NOTE | 2019-11-09 01:26 | CON ---
DATE OF CONSULTATION: 11/08/2019 IMPRESSION: Secondary hemorrhage into a prior right occipital lobe infarct. PLAN: 1. Discontinue antiplatelet therapy. 2. Do a followup CT to monitor for any worsening of hemorrhage. 3. Consider neurosurgical consultation, if the situation worsens. 4. Extubate as able. HISTORY OF PRESENT ILLNESS: Mr. Munoz was readmitted due to a change in mental status. He was found to have evidence of secondary hemorrhage in the cerebellar hemisphere. He was subsequently intubated and put on the ventilator. On exam at this point, he has response to manipulation, but I could not get him to open his eyes or do anything purposeful. His eyes are conjugate. His pupils reacted equally. He had equal tone bilaterally. No abnormal movements were seen. IMAGING STUDIES: EKG showed a sinus rhythm. There is no thing we can do at this juncture other than monitor the situation. His blood pressure is clearly under control. At the worst case scenario, if the hemorrhage was progressive, he might need a neurosurgical intervention. Job ID: [id number]
[2019-11-09] MEDS: Acetaminophen 325 MG TAB PO PRN ×2 (01:39→01:40)
[2019-11-09] MEDS: MEROPENEM 1 GM/50 ML 1 GM in Premix Bag 1 BAG IVPB SCH ×2 (03:02→10:54)
[2019-11-09 04:13] LABS: Band 11 % (5-11); Hemoglobin 10.4 g/dL (14.0-18.0); Lymphocytes 2 % (21-51); MDiff Complete? YES; Mean Corpuscular HGB CONC 32.2 g/dL (32.0-36.0); Mean Corpuscular Hemoglobin 28.3 pg (27.0-31.0); Mean Corpuscular Volume 87.8 fL (78.0-98.0); Mean Platelet Volume 7.7 fL (7.4-10.4); Metamyelocyte 1 % (0-0); Monocytes 12 % (0-10); Neutrophil 74 % (42-75); Phosphorus 3.3 mg/dL (2.3-4.7); Platelet Count 374 thou/uL (130-400); Platelet Morphology Comment Appears Adequate; Red Blood Cell (RBC) Count 3.68 mill/uL (4.70-6.10); White Blood Cell (WBC) Count 14.6 thou/uL (4.8-10.8)
[2019-11-09 04:15] LABS: Anion Gap 15 mmol/L (10-20); BUN (Urea Nitrogen) 47 mg/dL (8.4-25.7); Calc. Creatinine Clearance 60 mL/min (70-130); Calcium 8.3 mg/dL (7.8-10.44); Carbon Dioxide 24 mmol/L (23-31); Chloride 110 mmol/L (98-107); Estimated GFR-MDRD 66; Glucose 87 mg/dL (80-115); Magnesium 1.6 mg/dL (1.6-2.6); Potassium 4.7 mmol/L (3.5-5.1); Sodium 144 mmol/L (136-145)
[2019-11-09] MEDS: Famotidine/PF 20 mg/2ml Vial SLOW IVP SCH (09:00)
[2019-11-09] MEDS ORDERED: FLU VACC TS2019-20(65YR UP)/PF 180 MCG/0.5 ML SYRINGE IM ONE (09:00)
[2019-11-09] MEDS ORDERED: Prevnar 13-Val Conj/PF 0.5 ML SYRINGE IM ONE (09:00)
[2019-11-09] MEDS ORDERED: VANCOMYCIN IVPB PRN (13:41)
[2019-11-09] MEDS ORDERED: Atropine Sulfate 1% Ophth Soln 5 ml Bottle PO PRN (13:41)
[2019-11-09] MEDS ORDERED: Lorazepam 2 MG/ML VIAL SLOW IVP PRN (13:52)
--- NOTE | 2019-11-09 14:00 | PDOC.PALCO ---
Palliative Care Consult - Consult Details Requesting Physician: Dr Alexander Reason for Consult: advance directives assistance, family support, complex decision-making Family Members Present: Spoke iwth sister Marlen over the phone - Pertinent HPI Mr Munoz is familiar to the palliative care team. He was recently discharged from [facility] back to the [place] and has onset of shortness of breath. EMS called and transported back to the hospital for evaluation in the emergency room. No specific precipitating factors, however patient with continued debility, total max assist for all ADL's, nutrition via PEG. Patient that been no verbal and unable to determine orientation as his baseline. In the emergency room patient had a CT and was found to have a right cerebellar bleed, intubated to protect airway and admitted to CCU for medical management. - Social History Smoking Status: Unknown if ever smoked Smoking: no tobacco exposure Alcohol Use: none Drug Use History: none Living Situation: correction resident - Medications MAR Reviewed: Yes - Allergies Allergies/Adverse Reactions: Allergies Allergy/AdvReac Type Severity Reaction Status Date / Time No Known Allergies Allergy Verified 09/30/19 23:36 - Subjective Mechanical ventilation, non responsive. - ROS Non Response: due to endotracheal tube, due to mental status - Objective Vital Signs: Vital Signs - Most Recent Temp Pulse Resp BP Pulse Ox 98.0 F 79 9 L 100 11/09/19 12:00 11/09/19 10:51 11/09/19 12:00 11/09/19 08:00 - Physical Exam Constitutional: emaciated, encephalitic, ill appearing HEENT: moist MMs, sclera anicteric Deviation from normal: mechanical ventilation Cardiovascular: no significant murmur, RRR Gastrointestinal: soft, non-tender Deviation from normal: PEG Genitourinary: haro catheter Musculoskeletal: no cyanosis, edema present Skin: cap refill <2 seconds, no rash, fragile Deviation from normal: encephalopathic - Problem List (1) Acute cerebrovascular accident (CVA) of cerebellum Code(s): I63.9 - CEREBRAL INFARCTION, UNSPECIFIED Current Visit: No Status: Acute (2) Metabolic encephalopathy Code(s): G93.41 - METABOLIC ENCEPHALOPATHY Current Visit: No Status: Acute (3) Palliative care encounter Code(s): Z51.5 - ENCOUNTER FOR PALLIATIVE CARE Current Visit: No Status: Acute (4) Physical deconditioning Code(s): R53.81 - OTHER MALAISE Current Visit: No Status: Acute (5) Acute respiratory failure with hypoxia Code(s): J96.01 - ACUTE RESPIRATORY FAILURE WITH HYPOXIA Current Visit: No Status: Resolved - Plan/Recommendations Plan: Spoke with patient sister on the phone. Marlen Muniz, pete and Roxie Munoz are the only living relatives of Mr Munoz and are in agreement to not pursue any further resuscitation measures, and to compassionately extubate the patient. Patient friends have been at bedside, and Father Kimani has spent time with the family. DNAR paperwork completed. Discussed with Radha Green the families decision to compassionately extubate. Dr Vela and Dr Alexander notified. Comfort medications ordered and respiratory therapy order to compassionately extubate at 3:30 when the family/friends return and are ready. [75] minutes spent on this encounter with >50% of the time in counseling and coordination of care. Thank you for this very appropriate consult.
--- NOTE | 2019-11-09 14:26 | PDOC.HOSPP ---
- Subjective Encounter Date: 11/09/19 Encounter Time: 11:25 Subjective: on vent, not oriented - Objective Vital Signs & Weight: Vital Signs (12 hours) Temp Pulse Resp Pulse Ox 11/09/19 14:00 9 L 11/09/19 12:00 98.0 F 9 L 11/09/19 10:51 79 11/09/19 10:00 12 11/09/19 08:00 99.1 F 9 L 100 11/09/19 06:59 88 11/09/19 06:43 98.7 F 11/09/19 06:00 16 11/09/19 05:02 87 11/09/19 05:00 99.5 F 11/09/19 04:00 101.5 F H 13 Weight Admit Weight 148 lb Weight 148 lb 9.465 oz Most Recent Monitor Data Heart Rate from ECG 78 NIBP 92/51 NIBP BP-Mean 64 Respiration from ECG 13 SpO2 100 I&O: 11/08/19 11/09/19 11/10/19 06:59 06:59 06:59 Intake Total 3015 160 Output Total 590 455 Balance 2425 -295 Result Diagrams: 11/09/19 03:26 11/09/19 03:26 Hospitalist ROS - Medication Medications: Active Medications Generic Name Dose Route Start Last Admin Trade Name Freq PRN Reason Stop Dose Admin Acetaminophen 650 mg 11/08/19 09:42 11/09/19 01:40 Tylenol PO 650 mg Q4H PRN Administration Headache/Fever/Mild Pain (1-3) Atorvastatin Calcium 40 mg 11/08/19 21:00 11/08/19 21:02 Lipitor PO 40 mg HS JAYRO Administration Famotidine 20 mg 11/08/19 21:00 11/09/19 09:00 Pepcid SLOW IVP 20 mg Q12HR JAYRO Administration Meropenem 1 gm/ Device 50 mls @ 200 mls/hr 11/08/19 11:00 11/09/19 10:54 IVPB 50 mls 0300,1100,1900 JAYRO Administration Sodium Chloride 1,000 mls @ 150 mls/hr 11/08/19 09:42 11/09/19 09:41 Normal Saline 0.9% IV 1,000 mls .Q6H40M JAYRO Administration Vancomycin HCl 1 gm/ Device 200 mls @ 200 mls/hr 11/08/19 12:00 11/09/19 11: 55 IVPB 200 mls 1200,2359 JAYRO Administration Magnesium Sulfate 1 gm/ Sodium 102 mls @ 102 mls/hr 11/08/19 10:15 11/09/19 05:47 Chloride IV 102 mls PRN PRN Administration MAG LEVEL 1.4 - 2.0 Scopolamine 3 mg 11/08/19 09:45 11/08/19 12:57 Transderm Scop TD 3 mg Q3D JAYRO Administration Sertraline HCl 50 mg 11/09/19 09:00 11/09/19 09:00 Zoloft PO 50 mg DAILY JAYRO Administration Sodium Chloride 10 ml 11/08/19 09:42 11/09/19 05:47 Flush - Normal Saline IVF 10 ml PRN PRN Administration Saline Flush - Exam General Appearance: ill appearing Eye: PERRL, anicteric sclera ENT: no oropharyngeal lesions, dry oral mucosa Neck: supple, no JVD Heart: no murmur, no gallops Respiratory: no wheezes, rales, rhonchi Gastrointestinal: soft, non-tender, non-distended, normal bowel sounds Extremities: no cyanosis, 1+ LE edema Neurological: hemiplegia Neurological - other findings: functional quadriplegia Hosp A/P (1) Acute respiratory failure with hypoxia Code(s): J96.01 - ACUTE RESPIRATORY FAILURE WITH HYPOXIA Status: Acute (2) right cerebellar hemorrhage Status: Acute (3) Aphasia Code(s): R47.01 - APHASIA Status: Chronic (4) Aspiration pneumonia Code(s): J69.0 - PNEUMONITIS DUE TO INHALATION OF FOOD AND VOMIT Status: Acute Qualifiers: Aspiration pneumonia type: unspecified (5) CVA (cerebral vascular accident) Code(s): I63.9 - CEREBRAL INFARCTION, UNSPECIFIED Status: Chronic (6) Cardiomyopathy Code(s): I42.9 - CARDIOMYOPATHY, UNSPECIFIED Status: Chronic Qualifiers: Cardiomyopathy type: unspecified Qualified Code(s): I42.9 - Cardiomyopathy , unspecified (7) Chronic systolic heart failure Code(s): I50.22 - CHRONIC SYSTOLIC (CONGESTIVE) HEART FAILURE Status: Chronic (8) Dysphagia Code(s): R13.10 - DYSPHAGIA, UNSPECIFIED Status: Chronic (9) HLD (hyperlipidemia) Code(s): E78.5 - HYPERLIPIDEMIA, UNSPECIFIED Status: Chronic Qualifiers: Hyperlipidemia type: unspecified Qualified Code(s): E78.5 - Hyperlipidemia , unspecified (10) Right hemiplegia Code(s): G81.91 - HEMIPLEGIA, UNSPECIFIED AFFECTING RIGHT DOMINANT SIDE Status : Chronic (11) SSS (sick sinus syndrome) Code(s): I49.5 - SICK SINUS SYNDROME Status: Chronic (12) HTN (hypertension) Code(s): I10 - ESSENTIAL (PRIMARY) HYPERTENSION Status: Chronic Qualifiers: Hypertension type: essential hypertension Qualified Code(s): I10 - Essential (primary) hypertension - Plan pt is going for compassionate withdrawal of care around 3.30pm today Palliative care and Case mgmt have d/w pts sister (only living relative of patient). Overall prognosis was poor, is bedbound with functional quadriplegia, aphasia, multiple cva, recurrent aspirations is currently on antibiotics, vent, nebs will f/u
--- NOTE | 2019-11-09 16:08 | PRG ---
DATE OF SERVICE: 11/09/2019 SERVICE: Pulmonary Medicine. INTERVAL HISTORY: The patient is doing fine from respiratory standpoint. He has not required any sedation. He cannot provide any additional elements of the history. Nursing reports no overnight events. PHYSICAL EXAMINATION: VITAL SIGNS: Afebrile, pulse 51, blood pressure 103/56, respirations 15, saturation 100%, currently on 30% FiO2 and a PEEP of 5. GENERAL: The patient is intubated. HEENT: He is statically encephalopathic. LUNGS: Good air entry bilaterally. Rhonchi are present but there is no prolonged expiratory phase, wheezing, or crackles present. HEART: Normal rate, regular. ABDOMEN: Soft, nontender, nondistended. Bowel sounds are positive. MUSCULOSKELETAL: No cyanosis or clubbing. There is trace 1+ pitting throughout. LABORATORY DATA: WBC 14.6, hemoglobin 10.4, platelets 374,000. Band count is dropping to 11% on top of 74% neutrophils. Basic metabolic profile is completely unremarkable. Calcium 8.3, magnesium 1.6, phosphorus 3.3. Urinalysis is unremarkable. Blood cultures x2, influenza A and B, and urine culture all negative to date. ASSESSMENT: 1. Acute hypoxic respiratory failure. 2. Intraparenchymal hemorrhage of the posterior fossa. 3. Static encephalopathy. 4. Acute kidney injury, resolved. 5. Qag-EG-duefjhwnk myocardial infarction secondary to demand. 6. Severe sepsis. DISCUSSION AND PLAN: The patient's family has indicated that at this point they feel that it would be in keeping with the patient's interest to transition over to comfort care only. When they are ready, we will extubate. Comfort medications will be provided. The patient is very likely to pass away during this hospital stay. If he continues to breathe, he can be transitioned to the floor with hospice consultation. When he lands on the floor, Pulmonary will sign off. Please call with additional questions or concerns through time. Job ID: [id number]
[2019-11-10] MEDS: Morphine 2 MG/ML SYRINGE SLOW IVP PRN ×3 (04:28→13:09)
--- NOTE | 2019-11-10 12:17 | PRG ---
DATE OF SERVICE: 11/10/2019 OBJECTIVE: VITAL SIGNS: Temperature 97, pulse 74, respiratory rate 18, saturations 93% on room air, and blood pressure 110/66. GENERAL: He was extubated yesterday, remains encephalopathic. CHEST: Extensive rhonchi. CARDIAC: Normal S1 and S2. No gallops. ABDOMEN: Soft. NEUROLOGIC: Encephalopathic. ASSESSMENT AND PLAN: Cerebrovascular accident, respiratory failure, and secretions, palliative care, comfort care. Pulmonary will follow at a distance. He is a DNR. Job ID: [id number]
--- NOTE | 2019-11-10 15:56 | PDOC.HOSPP ---
- Subjective Encounter Date: 11/10/19 Encounter Time: 15:55 Subjective: Mr. Munoz was seen today in follow-up of recent CVA, with readmission. He is unresponsive. - Objective Vital Signs & Weight: Vital Signs (12 hours) Temp Pulse Resp BP Pulse Ox 11/10/19 15:25 100.6 F H 80 18 90 L 11/10/19 14:37 101.7 F H 80 18 92 L 11/10/19 13:12 77 18 92 L 11/10/19 11:59 81 18 94 L 11/10/19 08:15 99.7 F H 74 18 93 L 11/10/19 07:36 100.2 F H 79 22 H 110/66 86 L Weight Admit Weight 148 lb Weight 150 lb 2 oz Most Recent Monitor Data Heart Rate from ECG 80 NIBP 107/54 NIBP BP-Mean 71 Respiration from ECG 13 SpO2 93 I&O: 11/09/19 11/10/19 11/11/19 06:59 06:59 06:59 Intake Total 3015 1545 Output Total 590 620 Balance 2425 925 Result Diagrams: 11/09/19 03:26 11/09/19 03:26 Hospitalist ROS - Medication Medications: Active Medications Generic Name Dose Route Start Last Admin Trade Name Freq PRN Reason Stop Dose Admin Morphine Sulfate 1 mg 11/09/19 13:46 11/10/19 13:09 Morphine SLOW IVP 11/11/19 13:47 1 mg Q15MIN PRN Administration Pain - Exam Eye: PERRL Heart: RRR Respiratory: rales (at the bases), rhonchi Gastrointestinal: soft, non-tender, non-distended, normal bowel sounds, no palpable masses, no hepatomegaly, no splenomegaly Extremities: no cyanosis, no edema Hosp A/P (1) right cerebellar hemorrhage Status: Acute (2) Acute cerebrovascular accident (CVA) of cerebellum Code(s): I63.9 - CEREBRAL INFARCTION, UNSPECIFIED Status: Acute (3) HLD (hyperlipidemia) Code(s): E78.5 - HYPERLIPIDEMIA, UNSPECIFIED Status: Chronic Qualifiers: Hyperlipidemia type: unspecified Qualified Code(s): E78.5 - Hyperlipidemia , unspecified (4) HTN (hypertension) Code(s): I10 - ESSENTIAL (PRIMARY) HYPERTENSION Status: Chronic Qualifiers: Hypertension type: essential hypertension Qualified Code(s): I10 - Essential (primary) hypertension - Plan * Recent CVA with cerebellar hemorrhage, admitted with respiratory failure. He has been extubated, and now on comfort care only * Awaiting Hospice Consult
[2019-11-11 07:43] VITALS: BP 135/66; TEMP 101.5
--- NOTE | 2019-11-11 10:04 | PRG ---
DATE OF SERVICE: 11/11/2019 SUBJECTIVE: This morning, the patient is pretty much unresponsive. OBJECTIVE: VITAL SIGNS: Temperature 101.5, pulse 80, respirations 18, sats 90%, blood pressure 138/66. CHEST: Anterior rhonchi. CARDIAC: Normal S1 and S2. ASSESSMENT/PLAN: 1. Terminal respiratory failure. DNR. 2. Comfort care. Job ID: [id number]
[2019-11-11] MEDS: Morphine 2 MG/ML SYRINGE SLOW IVP PRN (13:04)
[2019-11-11] MEDS ORDERED: Scopolamine 1.5 mg/72 hour Patch TOP SCH (13:15)
[2019-11-11] MEDS ORDERED: Morphine 10 MG/0.5 ML ORAL SYRINGE SL SCH (13:15)
--- NOTE | 2019-11-11 15:12 | PDOC.HOSPP ---
- Subjective Encounter Date: 11/11/19 Encounter Time: 15:11 Subjective: Mr. Munoz was seen today in follow-up of respiratory failure. He is unresponsive, he appears comfortable. - Objective Vital Signs & Weight: Vital Signs (12 hours) Temp Pulse Resp BP Pulse Ox 11/11/19 07:41 101.5 F H 80 18 135/66 90 L Weight Admit Weight 148 lb Weight 150 lb 2 oz Most Recent Monitor Data Heart Rate from ECG 80 NIBP 107/54 NIBP BP-Mean 71 Respiration from ECG 13 SpO2 93 I&O: 11/10/19 11/11/19 11/12/19 06:59 06:59 06:59 Intake Total 1545 0 Output Total 620 800 Balance 925 -800 Result Diagrams: 11/09/19 03:26 11/09/19 03:26 - Exam Eye: PERRL Heart: RRR, no murmur, no gallops, no rubs Respiratory: CTAB, no rales, rhonchi (+ bilateral rhonchi and wheezing) Gastrointestinal: soft, non-tender, non-distended, normal bowel sounds Extremities: no cyanosis, no clubbing, no edema Hosp A/P (1) right cerebellar hemorrhage Status: Acute (2) Acute cerebrovascular accident (CVA) of cerebellum Code(s): I63.9 - CEREBRAL INFARCTION, UNSPECIFIED Status: Acute (3) HLD (hyperlipidemia) Code(s): E78.5 - HYPERLIPIDEMIA, UNSPECIFIED Status: Chronic Qualifiers: Hyperlipidemia type: unspecified Qualified Code(s): E78.5 - Hyperlipidemia , unspecified (4) HTN (hypertension) Code(s): I10 - ESSENTIAL (PRIMARY) HYPERTENSION Status: Chronic Qualifiers: Hypertension type: essential hypertension Qualified Code(s): I10 - Essential (primary) hypertension - Plan * Recent CVA with cerebellar hemorrhage, admitted with respiratory failure. continue comfort care * Family has decided on Hospice- now choosing agency
[2019-11-11] MEDS ORDERED: Lorazepam 2 MG/ML VIAL SLOW IVP SCH (17:00)
[2019-11-11] MEDS ORDERED: Hyoscyamine Sulfate SL 0.125 mg Tablet SL SCH (17:00)
--- NOTE | 2019-11-12 06:11 | DIS ---
DATE OF ADMISSION: 11/08/2019 DATE OF DISCHARGE: 11/11/2019 DISCHARGE DISPOSITION: To inpatient hospice. DISCHARGE DIAGNOSES: 1. Acute on chronic respiratory failure. 2. History of recent cerebrovascular accident. 3. Hypertension. 4. Cardiomyopathy with an ejection fraction of 35%. 5. Chronic anemia. 6. Esophagitis. 7. Dyslipidemia. DISCHARGE MEDICATIONS: Include; 1. Scopolamine patch 1.5 mg every 3 days. 2. Zofran 4 mg q.6 as needed. 3. Plavix 75 mg daily. 4. Budesonide 0.5 mg inhaled twice a day. 5. Lipitor 40 mg nightly. 6. Zoloft 50 mg daily. 7. MiraLAX 17 g daily. 8. Protonix 40 mg daily. 9. Clonidine 0.1 q.6 as needed. 10. Aspirin 81 mg daily. 11. Amlodipine 5 mg daily. 12. Tylenol as needed. PROCEDURES DONE DURING THIS ADMISSION: The patient had a CT scan of the brain showing interval hemorrhagic conversion of the previously seen right superior cerebellar infarct. The patient had a lower extremity venous Doppler showing no evidence of DVT in the right lower extremity. It was suboptimal examination for the left lower extremity. CODE STATUS: DNAR. ALLERGIES: NO KNOWN DRUG ALLERGIES. HOSPITAL COURSE: Mr. Munoz is a pleasant 69-year-old gentleman, who was admitted to the hospital after recent long hospitalization for an acute right cerebellar stroke. He was left essentially bed-bound after the CVA, and was [facility] the [facility] facility. He was brought back in to the hospital due to respiratory failure and high fever. He was intubated, and given his overall poor functional capacity as well as multiple medical conditions, the family made a decision to terminally extubate the patient. He survived this and was transferred to the medical floor, where the family made a decision to place him on inpatient hospice, which was done on 11/11/2019. Job ID: [id number]
--- NOTE | 2019-11-14 08:33 | PQF ---
ZHAO DURAN VINAYA KUMAR MD [id number] CLINICAL DOCUMENTATION CLARIFICATION FORM: POST DISCHARGE Addendum to original discharge summary date: ____ Late entry note date: __ DATE:11/14/2019 ATTN: JASPAL ALEXANDER MD Please exercise your independent, professional judgment in responding to the clarification form. Clinical indicators are provided on the bottom of this form for your review Please check appropriate box(s) to clarify if the following diagnosis has been ruled in or ruled out: Sepsis [ x ] Ruled in diagnosis, patient was discharged to hospice with comfort measures only [ ] Continue to treat [ ] Resolved [ ] Ruled out diagnosis [ ] Cannot rule out diagnosis [ ] Other diagnosis [ ] Unable to determine In addition, please specify: Present on Admission (POA): [ x ] Yes [ ] No [ ] Unable to determine For continuity of documentation, please document condition throughout progress notes and discharge summary. Thank You. CLINICAL INDICATORS - SIGNS / SYMPTOMS / LABS Blood pressure 96/60, Temperature 105.7 -Documented in H&P on 11/08 by Jaspal Alexander Severe sepsis-Documented in PN on 11/11 by Mirian echevarria Acute hypoxic respiratory failure -Documented in PN on 11/11 by Mirian echevarria Acute kidney injury -Documented in PN on 11/11 by Mirian echevarria Blood cultures x2 , influenza A and B and urine culture all negative to date- Documented in PN on 11/11 by Mirian echevarria WBC-14.6 -Documented in Laboratory Lactic acid-5.6-Documented in Laboratory RISK FACTORS Acute hypoxic respiratory failure -Documented in PN on 11/11 by Mirian echevarria Acute kidney injury -Documented in PN on 11/11 by Mirian echevarria TREATMENTS Meropenem, Vancomycin, scopolamine patch will be continued-Documented in H&P on 11/08 by Jaspal Alexander [employer] Help [employer] (This form is maintained as a part of the permanent medical record) 2014 [employer]. All Rights Reserved [email or web address] [not provided] MTDD
--- NOTE | 2019-11-17 11:09 | EKG ---
Test Reason : Blood Pressure : / mmHG Vent. Rate : 100 BPM Atrial Rate : 100 BPM P-R Int : 140 ms QRS Dur : 164 ms QT Int : 418 ms P-R-T Axes : 074 -72 086 degrees QTc Int : 539 ms Atrial-sensed ventricular-paced rhythm Abnormal ECG Confirmed by JEANINE FRAIRE ([id number]), newspaper editor managing MYLES BRITT ([id number]) on 11/17/2019 11:08:57 AM Referred By: Confirmed By:JEANINE FRAIRE
== END 2019-11-11 14:43 | disposition hospice, inpatient (51) | DRG 871 ==
LOC: ERS 07:19 → CCU 12:07 → T4-B 11-09 18:33
PROVIDERS: ADMIT Internal Medicine; ATTEND Internal Medicine
PROC: 0BH17EZ Insertion of Endotracheal Airway into Trachea, Via Natural or Artificial Opening (ICD-10-PCS; principal; 2019-11-08)
PROC: 5A1945Z Respiratory Ventilation, 24-96 Consecutive Hours (ICD-10-PCS; 2019-11-08)
DX: A41.9 Sepsis, unspecified organism (principal); J96.21 Acute and chronic respiratory failure with hypoxia; I61.4 Nontraumatic intracerebral hemorrhage in cerebellum; R40.2112 Coma scale, eyes open, never, at arrival to emergency department; R40.2212 Coma scale, best verbal response, none, at arrival to emergency department; I21.4 Non-ST elevation (NSTEMI) myocardial infarction; G93.41 Metabolic encephalopathy; R53.2 Functional quadriplegia; I42.9 Cardiomyopathy, unspecified; I50.22 Chronic systolic (congestive) heart failure; N17.9 Acute kidney failure, unspecified; Z86.73 Personal history of transient ischemic attack (TIA), and cerebral infarction without residual deficits; I10 Essential (primary) hypertension; E78.5 Hyperlipidemia, unspecified; K20.9 Esophagitis, unspecified; Z66 Do not resuscitate; Z51.5 Encounter for palliative care; F01.50 Vascular dementia, unspecified severity, without behavioral disturbance, psychotic disturbance, mood disturbance, and anxiety; R40.2332 Coma scale, best motor response, abnormal flexion, at arrival to emergency department; Z95.0 Presence of cardiac pacemaker; I11.0 Hypertensive heart disease with heart failure; D64.9 Anemia, unspecified; K21.9 Gastro-esophageal reflux disease without esophagitis; Z93.1 Gastrostomy status; I49.5 Sick sinus syndrome
CPT/HCPCS: 31500; 36415; 36416; 51702; 70450; 71045; 80048; 80053; 81003; 81015; 82553; 82805; 83605; 83735; 84100; 84484; 85025; 87040; 87086; 87804; 93005; 93970; 94002; 96361; 96365; 96374; 96375; 99292; J0696; J2185; J2270; J3370; J3475; J3490; S0028

== ENCOUNTER 2019-11-11 14:53 | Inpatient (IN) | payer OTHER ==
[2019-11-11] MEDS ORDERED: Scopolamine 1.5 mg/72 hour Patch TOP SCH (15:15)
[2019-11-11] MEDS: Hyoscyamine Sulfate SL 0.125 mg Tablet SL SCH ×3 (17:12→23:45)
[2019-11-11] MEDS: Morphine 10 MG/0.5 ML ORAL SYRINGE SL SCH ×3 (17:12→23:45)
[2019-11-11] MEDS: Lorazepam 2 MG/ML VIAL SLOW IVP SCH ×3 (17:16→23:45)
--- NOTE | 2019-11-15 14:47 | DIS ---
DATE OF ADMISSION: 11/11/2019 DATE OF DISCHARGE: 11/12/2019 DATE OF : 11/12/2019 at 02:55 a.m. BRIEF SUMMARY OF HOSPITAL COURSE: The patient is a pleasant 69-year-old white male, who had frequent prolonged hospitalizations for right acute cerebellar stroke. He was found to have worsening condition on 11/08/2019, after being discharged previously from the [facility] and was sent back to the emergency room. He was found to have respiratory failure and high fever. He was intubated and given his overall poor functioning, family decided to withdraw all aggressive measures and have comfort measures only. The patient was terminally extubated and was deemed appropriate for inpatient hospice for management of his end-of-life symptoms. The patient was admitted and placed on IV morphine for pain control, IV Ativan for terminal restlessness, and scopolamine patch for secretions. Oxygen was given p.r.n., and the patient was more comfortable after initiation of hospice palliative care. Nurse went to evaluate the patient on 11/12/2019 at 2:55 a.m. and found to have no respirations. The patient was unresponsive to pain or any other stimuli and had no pulse and was pronounced . Hospice nurse was called, and body was released to home as per patient's wishes. Cause of was likely asystole from a cardiac arrhythmia secondary to either sepsis or progression of his stroke-like symptoms. Job ID: [id number]
== END 2019-11-12 02:55 | disposition expired | DRG 951 ==
LOC: T4-B 14:53
PROVIDERS: ADMIT Family Medicine; ATTEND Family Medicine
DX: Z51.5 Encounter for palliative care (principal); A41.9 Sepsis, unspecified organism; J96.00 Acute respiratory failure, unspecified whether with hypoxia or hypercapnia; Z86.73 Personal history of transient ischemic attack (TIA), and cerebral infarction without residual deficits; I49.9 Cardiac arrhythmia, unspecified; R45.1 Restlessness and agitation; I10 Essential (primary) hypertension; Z95.0 Presence of cardiac pacemaker; E78.5 Hyperlipidemia, unspecified; F01.50 Vascular dementia, unspecified severity, without behavioral disturbance, psychotic disturbance, mood disturbance, and anxiety
CPT/HCPCS: J2060